=== PATIENT | male | born 1955 | race Caucasian/White ===

== ENCOUNTER 2024-01-10 12:27 | Outpatient (CLI) | payer MEDICARE, SELFPAY ==
--- NOTE | 2024-01-10 | ECHO_ITS ---
Patient Info Name: Justino Boland Age: 68 years : 1955 Gender: Male Ht: 70 in Wt: 223 lbs BSA: 2.27 m2 HR: 76 bpm BP: 144 / 83 mmHg Heart Rhythm: Sinus Rhythm Technical Quality: Fair Exam Date: 01/10/2024 12:49 PM Exam Location: Echo Lab Patient Status: Outpatient Admit Date: 01/10/2024 Staff Ordering Physician: Jr Pruitt MD Valet Parker: Nicol Boogie RDCS Attending Provider: Jr Pruitt MD Referring Physician: Sonal FATIMA; Exam Type: CA echo doppler color flow Study Info Indications - prechemo Strain analysis performed. Complete two-dimensional, color flow and Doppler transthoracic echocardiogram is performed. Summary 1. Complete two-dimensional, color flow and Doppler transthoracic echocardiogram is performed. 2. Technically difficult study with limited views. Regional wall motion assessment limited due to poor endomyocardial border definition in several views. 3. Left ventricular chamber dimension is normal. 4. Left ventricular systolic function is normal, estimated at 60-65%. 5. There is moderately increased left ventricular wall thickness. 6. The left ventricular diastolic function is normal. 7. Global longitudinal strain is mildly elevated at -14 %. 8. Right atrial chamber dimension is mildly enlarged. 9. There is no aortic valve stenosis. 10. There is no mitral valve regurgitation. 11. There is trace tricuspid valve regurgitation. 12. Mild pulmonary hypertension, estimated pulmonary arterial systolic pressure is 38 mmHg. Left Ventricle Technically difficult study with limited views. Regional wall motion assessment limited due to poor endomyocardial border definition in several views. Left ventricular chamber dimension is normal. Left ventricular systolic function is normal, estimated at 60-65%. There is moderately increased left ventricular wall thickness. The left ventricular diastolic function is normal. Global longitudinal strain is mildly elevated at -14 %. Right Ventricle Right ventricular chamber dimension is normal. Right ventricular systolic function is normal. Left Atria Left atrial chamber dimension is normal. Right Atria Right atrial chamber dimension is mildly enlarged. Aortic Valve The aortic valve is not well visualized. There is no aortic valve stenosis. There is no aortic valve regurgitation. Pulmonic Valve The pulmonic valve is not well visualized. Mitral Valve The mitral valve has normal leaflets. There is no mitral valve regurgitation. Tricuspid Valve The tricuspid valve leaflets are normal. There is trace tricuspid valve regurgitation. Mild pulmonary hypertension, estimated pulmonary arterial systolic pressure is 38 mmHg. Pericardium/Pleural The pericardium appears normal. There is trivial pericardial effusion. Aorta The aortic root size at the sinus of Valsalva is normal. The prox ascending aorta size is normal. There is mild aortic atherosclerosis. Left Ventricular Outflow Tract Name Value Normal LVOT 2D LVOT Diameter 2.0 cm LVOT Doppler LVOT Peak Gradient 5 mmHg LVOT Mean Gradient 2 mmHg LVOT VTI 20 cm LVOT
== END 2024-01-10 12:28 | disposition home or self-care (01) ==
PROVIDERS: PCP Nurse Practitioner; Visit Provider Internal Medicine Hematology & Oncology
DX: C50.221 Malignant neoplasm of upper-inner quadrant of right male breast (principal); Z17.0 Estrogen receptor positive status [ER+]; Z01.818 Encounter for other preprocedural examination; I27.20 Pulmonary hypertension, unspecified
CPT/HCPCS: 93306

== ENCOUNTER 2024-01-18 08:00 | Outpatient (CLI) | payer MEDICARE, SELFPAY ==
[2024-01-18 09:12] LABS: Basophils Absolute Auto 0.1 K/mm3 (0.0-0.1); Basophils Percent Auto 0.7 % (0.2-1.2); Eosinophils Absolute Auto 0.4 K/mm3 (0-0.3); Eosinophils Percent Auto 4.8 % (0-4.4); Hematocrit 44.9 % (42.0-52.0); Hemoglobin 15.3 g/dL (14.0-18.0); Immature Granulocyte Absolute 0.05 K/mm3 (0.00-0.031); Immature Granulocyte Percent A 0.7 % (0-0.5); Lymphocytes Absolute Auto 2.31 K/mm3 (0.9-3.2); Lymphocytes Percent Auto 30.8 % (18.3-44.2); Mean Corpuscular HGB Conc 34.1 g/dl (32-36); Mean Corpuscular Hemoglobin 30.4 pg (26-34); Mean Corpuscular Volume 89.1 fl (80-100); Mean Platelet Volume 10.9 fl (7.4-10.4); Monocytes Absolute Auto 0.6 K/mm3 (0.1-0.6); Monocytes Percent Auto 7.9 % (2.6-8.5); Neutrophils Absolute Auto 4.1 K/mm3 (1.3-6.7); Neutrophils Percent Auto 55.1 % (45.5-73.1); Platelet Count Result 181 k/mm3 (150-375); Red Blood Count 5.04 M/mm3 (4.6-6.20); Red Cell Distribution Width 13.3 % (11.5-14.5); White Blood Count 7.5 K/mm3 (4.5-10.0)
[2024-01-18 09:22] LABS: Anion Gap 7 mmol/L (4-12); Blood Urea Nitrogen 23 mg/dL (9-20); Carbon Dioxide 26 mmol/L (22-30); Chloride 110 mmol/L (98-107); Estimated Glomerular Filt Rate > 60; Glucose 151 mg/dL (65-110); Potassium 3.6 mmol/L (3.4-5.0); Sodium 143 mmol/L (137-145)
[2024-01-18 09:23] LABS: INR 0.9; Prothrombin Time 12.6 Seconds (11.1-14.7)
[2024-01-18 09:24] LABS: Partial Thromboplastin Time 25.2 Seconds (22.3-36.8)
== END 2024-01-18 08:01 | disposition home or self-care (01) ==
LOC: ANHSURGERY 08:05
PROVIDERS: Anesthesiology; PCP Nurse Practitioner; Visit Provider Surgery
DX: C50.929 Malignant neoplasm of unspecified site of unspecified male breast (principal); E11.9 Type 2 diabetes mellitus without complications; Z01.818 Encounter for other preprocedural examination
CPT/HCPCS: 36415; 80048; 85025; 85610; 85730

== ENCOUNTER 2024-01-20 00:45 | Day surgery (SDC) | payer MEDICARE, SELFPAY ==
[2024-01-17 15:05] VITALS: BMI 31.8
--- NOTE | 2024-01-17 15:30 | PC.NURSE ---
Report to the Outpatient Waiting Room, entrance under the green pavilion located off [facility], at time __11:00AM on date ___01/20/24____. Planned Procedure Time: __1:00PM . Time changes happen often and if your time is changed the preop area will call you the afternoon before. - You and your visitor will be asked to self-screen and do not enter if you have any COVID symptoms. - A mask is optional within the hospital at this time. Patients may have clear liquids (water, carbonated beverages, clear teas, apple juice) until 3 hours prior to surgery with a maximum of 20 ounces. - No food from midnight until time of surgery. Take the following medications with a SIP of water the morning of surgery: ____AMLODIPINE DO NOT STOP ANY OF YOUR OTHER PRESCRIPTION MEDICATIONS PRIOR TO SURGERY ?EXCEPT THE FOLLOWING Medications to discontinue per physician ____HOLD ALL VITAMINS/SUPPLEMENTS 3 DAYS PRE-OP PER ANESTHESIA Date to take last dose 01/16/24 Please no make-up, nail spanish, hairspray, perfume, deodorant, or body powder the day of surgery. No jewelry (including any body piercings) or valuables the day of surgery, leave them at home. Please take a shower or bath the night before, or the morning of, surgery with an antibacterial soap. Wear comfortable, loose fitting clothing. - Jewelry must be removed prior to entering the operating room. Rings and piercings that are not removed may be cut off. - The hospital will not accept responsibility for valuables. - Please leave all valuables, including medications, at home the day of surgery. If you are going home after surgery, a licensed box truck driver must drive you home. - NO public transportation without another adult if you receive anesthesia. - We recommend that an adult stay with you for 24 hours following discharge. - We also recommend that you do not drive, make important decision, drink alcoholic beverages, or take any drugs that were not prescribed by your health care provider for at least 24 hours after your discharge time. Follow any additional instructions given to you from your surgeon. If you or anyone in your household have experienced Covid symptoms in the past week, please notify your surgeon or the nurse liaison at the phone number below for possible testing. Telephone instructions given to ___PATIENT and asked if any additional questions and then verbalized understanding. Patient advised to call surgeon office or pre surgery nurse liaison [phone] if any additional questions.
--- NOTE | 2024-01-19 12:46 | WPDANESEPPF ---
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 Patient Data Age: 68 Gender: M Height: 1.79 m Weight: 102 kg Allergies Allergy/AdvReac Type Severity Reaction Status Date / Time amoxicillin Allergy Unknown Hives Verified 01/17/24 14:44 clavulanic acid Allergy Unknown Hives Verified 01/17/24 14:44 [From Augmentin] clindamycin Allergy Unknown Hives, N/V Verified 01/17/24 14:44 erythromycin base Allergy Unknown Hives Verified 01/17/24 14:44 atorvastatin AdvReac Mild MUSCLE Verified 01/17/24 14:44 WEAKNESS & PAIN, JOINT PAIN pravastatin AdvReac Unknown MUSCLE Verified 01/17/24 14:44 PAIN, WEAKNESS, JOINT PAIN rosuvastatin AdvReac Unknown MUSCLE Verified 01/17/24 14:44 PAIN, WEAKNESS, JOINT PAIN Home Medications Medication Instructions Recorded Confirmed Type alirocumab 150 mg/mL subcutaneous 150 mg subcut Q14D 11/26/23 01/17/24 History pen injector allopurinol 100 mg tablet 100 mg PO DAILY 11/26/23 01/17/24 History amlodipine 5 mg tablet 5 mg PO QAM 11/26/23 01/17/24 History aspirin 81 mg capsule 81 mg PO DAILY 11/26/23 01/17/24 History dapagliflozin propanediol 10 mg 10 mg PO DAILY 11/26/23 01/17/24 History tablet (Farxiga) ezetimibe 10 mg tablet 10 mg PO DAILY 11/26/23 01/17/24 History fenofibrate 160 mg tablet 160 mg PO DAILY 11/26/23 01/17/24 History hydrochlorothiazide 12.5 mg capsule 12.5 mg PO QAM 11/26/23 01/17/24 History icosapent ethyl 1 gram capsule 2 g PO BID 11/26/23 01/17/24 History insulin glargine 100 unit/mL 90 unit subcut QPM 11/26/23 01/17/24 History subcutaneous solution (Lantus U-100 Insulin) insulin needles (disposable) 31 11/26/23 01/14/24 History lisinopril 40 mg tablet 40 mg PO HS 11/26/23 01/17/24 History metformin 1,000 mg tablet 1,000 mg PO BID 11/26/23 01/17/24 History nebivolol 20 mg tablet 20 mg PO HS 11/26/23 01/17/24 History nitroglycerin 0.4 mg sublingual 0.4 mg sublingual Q5M PRN Chest 11/26/23 01/17/24 History tablet Pain pantoprazole 40 mg tablet,delayed 40 mg PO HS 11/26/23 01/17/24 History release semaglutide 1 mg/dose (4 mg/3 mL) 1.5 mg subcut WEEKLY 11/26/23 01/17/24 History subcutaneous pen injector (Ozempic) sildenafil 50 mg tablet (Viagra) 50 mg PO DAILY PRN Sexual Activity 11/26/23 01/17/24 History multivitamin (Multiple Vitamins 1 tablet PO DAILY 01/17/24 01/17/24 History tablet) Patient hx anesthesia problems: none Family hx anesthesia problems: none Results Review: All pre-operative results and documents have been reviewed as part of the pre-operative evaluation. [facility] Past Medical History Medical History (Updated 01/20/24 @ 12:35 by Salas Campa DO) CAD (coronary artery disease) GERD (gastroesophageal reflux disease) History of breast cancer Hyperlipidemia Hypertension Surgical History Surgical History (Updated 01/19/24 @ 12:47 by Salas Campa DO) History of coronary artery stent placement 2016 History of mastectomy Social History Social History Smoking status: Never smoker Living arrangements: with family Additional living arrangements comments: Spiritual care concerns: No Anes - Eval Final PreProcedure Day of Procedure 01/19/24 12:46 Patient weight: obese Heart: regular rate and rhythm Lungs: clear to auscultation Airway: Mallampati scale class II Neurological: alert and oriented Last oral intake: >/= 8 hours ASA classification: III Emergent: no Anesthetic plan: proceed Anesthesia type and monitoring: general GIVS and standard monitoring Results Review: All pre-operative results and documents have been reviewed as part of the pre-operative evaluation. Informed Consent: The patient's anesthetic suzy
--- NOTE | ~2024-01-20 | XR_ITS ---
EXAMINATION: XR chest port-a-cath/central DATE: 01/20/2024 15:06 INDICATION: Port placement. TECHNIQUE: A single frontal view of the chest was obtained on 2 radiographs. COMPARISON: None. FINDINGS: There is no pneumonia, pleural effusion, or pneumothorax. The heart size is normal. There i s a left subclavian port with tip in superior vena cava. There is displacement and compression of the catheter between the clavicle and first rib. IMPRESSION: 1. Port tip in the superior vena cava. Displacement and compression of the catheter between the clavi wendy and first rib increases the risk of catheter dysfunction or fracture. Reviewed, dictated and finalized at location E. IMPRESSION: 1. Port tip in the superior vena cava. Displacement and compression of the cath eter between the clavicle and first rib increases the risk of catheter dysfunct ion or fracture.
--- NOTE | ~2024-01-20 | XR_ITS ---
EXAMINATION: XR fl guide central line place DATE: 01/20/2024 15:19 INDICATION: Port placement. TECHNIQUE: An intraoperative fluoroscopic view of the chest was obtained. I was not present. Fluorosc opy exposure time was 78 seconds. COMPARISON: Chest single view 01/20/2024 FINDINGS: There is a left subclavian port with tip at superior cavoatrial junction. IMPRESSION: 1. Port tip at superior cavoatrial junction. Reviewed, dictated and finalized at location E.
[2024-01-20 11:04] VITALS: BP 150/70; PULSE 73; RESP 18; TEMP 36.5; O2SAT 98
[2024-01-20] MEDS: LACTATED RINGERS 1,000 ML 30 ML IV CONT (11:40)
[2024-01-20 11:47] LABS: Glucose Point of Care 122 mg/dl (65-105)
--- NOTE | 2024-01-20 11:54 | WPDHPUPDATE1 ---
History and Physical Update Update Date/Time: 01/20/24 11:54 History and Physical has been reviewed, including an updated exam of the patient. There are NO changes in the patient's condition. Risks, benefits, and alternatives have been discussed and questions answered. Patient agrees to proceed with procedure.
[2024-01-20] MEDS: KETOROLAC 15 MG/ML VIAL (*BKC) IV PUSH (12:10)
[2024-01-20] MEDS: HEPARIN SODIUM 1,000 UNITS/ML VIAL 1000 UNITS IV PUSH (13:53)
[2024-01-20] MEDS: BUPIVACAINE/EPINEPHRINE 0.5% 10 ML VIAL 30 ML INFILTRATE (13:53)
[2024-01-20] MEDS: ceFAZolin 2 GM/D5W 50 ML 2 GM/50 ML BAG IVPB (14:00)
[2024-01-20 14:50] VITALS: BP 118/58; PULSE 72; RESP 14; O2SAT 95
[2024-01-20 14:56] LABS: Glucose Point of Care 93 mg/dl (65-105)
--- NOTE | 2024-01-20 14:58 | P.OP_ITS ---
Procedure Note - Detailed Date of Procedure 01/20/24 Pre-op Diagnosis Breast cancer, inadequate venous access for chemotherapy Post-op Diagnosis Same Procedure Performed Placement left subclavian vortex Port-A-Cath under fluoroscopy Surgeon Enmanuel Arriaga MD Health Care Analyst Cristian Shields, [facility] Anesthesia MAC and Local Indications Patient has breast cancer and is in need of chemotherapy. I was asked by his oncologist to place a Port-A-Cath. He is taken to surgery for that purpose. Findings Port-A-Cath tip in the distal SVC right atrial junction Description of Procedure Patient was taken to surgery and anesthesia was introduced. The left neck and left subclavian areas were prepped and draped. The proposed incision was marked on the skin in the left subclavian area. Local was infiltrated into this area and incision was made. Cautery was used for hemostasis. We dissected through the subcutaneous and down to the pectoralis major fascia. I divided the pectoralis major fascia and then created a subfascial pocket inferior to the original incision. I infiltrated additional local into the pocket and also under the left clavicle. A single puncture was used to cannulate the left subclavian vein. A guidewire passed readily and C-arm fluoroscopy showed that the guidewire was in the right atrium. I then used C-arm fluoroscopy to measure for the length of Port-A-Cath that would be needed. It was cut to the appropriate length. I then passed an introducer and sheath over the guidewire under fluoroscopic guidance. I removed the introducer and guidewire. The Port-A-Cath was then passed through the sheath and into the superior vena cava. We checked the position and the Port-A-Cath tubing seemed to be a little bit long. I then removed it from the sheath and held pressure over the into the sheath. I cut about 2 cm off the into the Port-A-Cath. I then re introduced it through the sheath and into the superior vena cava. The length looked much better now. We then removed the sheath. I again checked the position and it appeared to be excellent. I cannulated the Port-A-Cath with a Naqvi needle and aspirated blood and flushed it several times with heparin. It seemed to be working quite well. I sutured the Port-A-Cath to the pectoralis major muscle with 2-0 silk. I checked it again and again it aspirated blood and irrigated nicely with heparin. I then closed the pocket with layered running 2-0 Vicryl suture. The skin was closed with running 4-0 Monocryl subcuticular skin suture. The wound was dressed with Exofin surgical adhesive. The patient was awakened and taken to outpatient recovery in good condition. Sponge and needle counts were correct x2. Implants Vortex Port-A-Cath left subclavian position Estimated Blood Loss -5 Drains No Packing No Pathology None sent Complications No immediate complications Condition Stable Disposition Same day [facility] Billing Surgery - Charge Forward: Surgery Billing (Placement Port-A-Cath under fluoroscopy)
[2024-01-20 15:20] VITALS: BP 120/60; PULSE 70; RESP 20
[2024-01-20 15:50] VITALS: BP 120/70; PULSE 70; RESP 20
[2024-01-20 16:10] VITALS: BP 115/74; PULSE 70; RESP 20
--- NOTE | 2024-01-25 16:38 | PM.SD2 ---
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 The tumor is staged to a but his Oncotype DX score is elevated at 41. I have been requested by his oncologist to place a Port-A-Cath for chemotherapy. He is taken to surgery at this time for Port-A-Cath placement under fluoroscopy. [facility] Past Medical History Medical History CAD (coronary artery disease) GERD (gastroesophageal reflux disease) History of breast cancer Hyperlipidemia Hypertension Surgical History Surgical History History of coronary artery stent placement 2016 History of mastectomy Social History Social History Smoking status: Never smoker Living arrangements: with family Additional living arrangements comments: Spiritual care concerns: No Same Day Admit/Disch: Med Pre-admit Medications Home Medications Medication Instructions Recorded Confirmed Type alirocumab 150 mg/mL subcutaneous 150 mg subcut Q14D 11/26/23 01/25/24 History pen injector allopurinol 100 mg tablet 100 mg PO DAILY 11/26/23 01/25/24 History amlodipine 5 mg tablet 5 mg PO QAM 11/26/23 01/25/24 History aspirin 81 mg capsule 81 mg PO DAILY 11/26/23 01/25/24 History dapagliflozin propanediol 10 mg 10 mg PO DAILY 11/26/23 01/25/24 History tablet (Farxiga) ezetimibe 10 mg tablet 10 mg PO DAILY 11/26/23 01/25/24 History fenofibrate 160 mg tablet 160 mg PO DAILY 11/26/23 01/25/24 History hydrochlorothiazide 12.5 mg capsule 12.5 mg PO QAM 11/26/23 01/25/24 History icosapent ethyl 1 gram capsule 2 g PO BID 11/26/23 01/25/24 History insulin glargine 100 unit/mL 90 unit subcut QPM 11/26/23 01/25/24 History subcutaneous solution (Lantus U-100 Insulin) insulin needles (disposable) 31 11/26/23 01/25/24 History lisinopril 40 mg tablet 40 mg PO HS 11/26/23 01/25/24 History metformin 1,000 mg tablet 1,000 mg PO BID 11/26/23 01/25/24 History nebivolol 20 mg tablet 20 mg PO HS 11/26/23 01/25/24 History nitroglycerin 0.4 mg sublingual 0.4 mg sublingual Q5M PRN Chest 11/26/23 01/25/24 History tablet Pain pantoprazole 40 mg tablet,delayed 40 mg PO HS 11/26/23 01/25/24 History release semaglutide 1 mg/dose (4 mg/3 mL) 1.5 mg subcut WEEKLY 11/26/23 01/25/24 History subcutaneous pen injector (Ozempic) sildenafil 50 mg tablet (Viagra) 50 mg PO DAILY PRN Sexual Activity 11/26/23 01/25/24 History multivitamin (Multiple Vitamins 1 tablet PO DAILY 01/17/24 01/25/24 History tablet) tramadol 50 mg tablet 50 mg PO Q6H PRN pain #10 tabs 01/20/24 01/25/24 Rx Review of Systems Review of Systems All systems reviewed & are unremarkable except as noted in HPI and below (HPI and those items noted below) Constitutional Constitutional: Denies chills and Denies fever(s) Cardiovascular Cardiovascular: Denies chest pain, Denies diaphoresis, Denies dyspnea and Denies paroxysmal nocturnal dyspnea Respiratory Respiratory: Denies chest congestion, Denies cough and Denies dyspnea Integumentary/Breasts Skin/Breast: Denies lesions and Denies rash Exam Const: General: comfortable, no acute distress, alert and awake HENMT: Head: normocephalic and atraumatic Mouth: Yes Normal oral and palatal mucosa present Eyes: Conjunctivae: conjunctivae normal Pupils: Equal, round and reactive pupils present EOM: EOMs intact bilaterally Neck: Neck: normal visual inspection, no lymphadenopathy and nontender Chest: Chest palpation & inspection: abnormal inspection of the chest (Right mastectomy scar) scar Resp: Effort & Inspection: normal respiratory effort Auscultation: clear to auscultation bilaterally Cardio: Rate: regular rate Rhythm:
== END 2024-01-20 16:15 | disposition home or self-care (01) ==
PROVIDERS: PCP Nurse Practitioner; Visit Provider Surgery
PROC: (CPT 36561; principal; 2024-01-20 13:00)
DX: C50.221 Malignant neoplasm of upper-inner quadrant of right male breast (principal); I10 Essential (primary) hypertension; E78.5 Hyperlipidemia, unspecified; I25.10 Atherosclerotic heart disease of native coronary artery without angina pectoris; K21.9 Gastro-esophageal reflux disease without esophagitis; E66.9 Obesity, unspecified; Z68.32 Body mass index [BMI] 32.0-32.9, adult; Z79.85 Long-term (current) use of injectable non-insulin antidiabetic drugs; Z79.82 Long term (current) use of aspirin; Z79.4 Long term (current) use of insulin; Z79.84 Long term (current) use of oral hypoglycemic drugs; Z95.5 Presence of coronary angioplasty implant and graft; Z85.3 Personal history of malignant neoplasm of breast
CPT/HCPCS: 36561; 36415; 77001; 80048; 82948; 85025; 85610; 85730; C1788; J0690; J1100; J1644; J1885; J2250; J2405; J2704; J3010; J7120

== ENCOUNTER 2025-03-06 13:49 | Outpatient (CLI) | payer MEDICARE, SELFPAY ==
--- OUTSIDE RECORDS SUMMARY | 2025-03-06 14:42 | XMS_ITS | Encounter Summary ---
Author Organization [facility] Address [facility] [place] [address] Care Team Providers Care Microbiology Technician Name Role Phone Kira Talavera [facility] Primary Care Provider [phone] Encounter Details Date Type Department Care Team (Late st Contact Info) Description 01/15/2023 Sient Message Enc [facility] [address] [place] [address] Kira Talavera [facility] [address] [place] [id number] Demetria's medicine Social History Tobacco Use Types Packs/Day Years Used Date Smoking Tobacco: Never Smokeless Tobacco: Never Comments:Provider to international student counselor Alcohol Use Standard Drinks/Week Comments Yes 0 (1 standard drink = 0.6 oz pur e alcohol) socially Humiliation, Afraid, Rape, and Kick questionnair e Answer Date Recorded Within the last year, have y ou been afraid of your partner or ex-partner? No 11/29/2022 Within the last year, have y ou been humiliated or emotionally abused in other ways by your partner or ex-partner? No Within the last year, have y ou been kicked, hit, slapped, or otherwise physically hurt by your partner or ex-partner? No 11/29/2022 Within the last year, have y ou been raped or forced to have any kind of sexual activity by your partner or ex-partner? No 11/29/2022 AUDIT-C Answer Date Recorded Frequency of Alcohol Consumption Monthly or less 11/15/2018 Average Number of Drinks 1 or 2 019 Frequency of Binge Drinking Never 10/22 Overall Financial Resource Strain (CARDIA) Answe r Date Recorded How hard is it for you to pa y for the very basics like food, housing, medical care, and heating? Not hard at all 11/29/2022 PHQ-2 Answer Date Recorded PHQ-2 Score - If the patient scores above 3, please move on to questions 3-9 0 02/27/2022 Hunger Vital Sign Answer Date Recorded Within the past 12 months, y ou worried that your food would run out before you got the money to buy more. Never true 11/30/19 23 Within the past 12 months, t he food you bought just didn't last and you didn't have money to get more. Never true 11/29/2022 PRAPARE - Transportation Answer Date Re corded In the past 12 months, has l ack of transportation kept you from medical appointments or from getting medications? No 11/18 In the past 12 months, has l ack of transportation kept you from meetings, work, or from getting things needed for daily living? No 11/29/2022 Housing Stability Vital Sign Answer Roberto e Recorded In the last 12 months, was t here a time when you were not able to pay the mortgage or rent on time? No 11/29/2022 In the last 12 months, how many places have you lived? 1 11/29/2022 In the last 12 months, was t here a time when you did not have a steady place to sleep or slept in a halfway (including now)? 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 Answer Date of Assessment Author Status No 11/29/2022 4:57 AM SILVANOT Irene Hampton RN Active * Do you have serious difficulty walking or climbing stairs? Answer Date of Assessment Author Status No 11/29/2022 4:57 AM SILVANOT Irene Hampton RN Active * Do you have difficulty dressing or bathing? Answer Date of Assessment Author Status No 11/29/2022 4:57 AM SILVANOT Irene Hampton RN Active * Because of a physical, mental, or emotional condition, do you have difficulty doing errands alone such as visiting a doctor's office or shopping? Answer Date of Assessment Author Status No 11/29/2022 4:57 AM SILVANOT Irene Hampton RN Active documented as of this encounter Mental Status * Because of a physical, mental, or emotional condition, do you have serious difficulty concentrating, remembering, or making decisions? Answer Entry Date Author Status No 11/29/2022 4:57 AM CDT Irene Hampton RN Active documented in this encounter Progress Notes * RIGOBERTO Augustine - 01/15/2023 4:46 PM CDT Synthroid direct is 75 dollars for 90 days. if they are ok with that we can send it * Nathalie Duarte LPN - 01/15/2023 4:37 PM CDT Please review/advise. Synthroid Direct? Or any other suggestions? documented in this encounter Plan of Treatment Upcoming Encounters Date Type Department Care Team (Late st Contact Info) Description 07/10/2025 8:00 AM CDT Office Visit [address] [place], [place] [id number] Kira Talavera FNP [address] [place] [address] [place] [id number] documented as of this encounter Visit Diagnoses Not on filedocumented in this encounter Additional Health Concerns Assessment Noted Time PHQ-9 Depression Total Score: 0 08/29/20 21 8:34 AM BUSINESS AFFAIRS MANAGER documented as of this encounter Care Teams Microbiology Technician Relationship Specialty Start Date End Date Kira Talavera FNP [address] [place] [address] [place] [address] PCP - General Nurse Practitioner Family 03/12/20 documented as of this encounter
--- OUTSIDE RECORDS SUMMARY | 2025-03-06 14:42 | XMS_ITS | Encounter Summary ---
Author Organization [facility] Address [facility] [place] [address] Care Team Providers Care Day Care Aide Name Role Phone Talavera Kira FRANKLIN Primary Care Provider [phone] Encounter Details Date Type Department Care Team (Late st Contact Info) Description 04/01/2023 SRE [place] - 2 Message Enc [facility] [address] [place] [address] Harpreet Montenegro, MANAGER IN TRAINING [address] [place] [phone] question regarding blood thinner type drug Social History Tobacco Use Types Packs/Day Years Used Date Smoking Tobacco: Never Smokeless Tobacco: Never Comments:Provider to field counsel Alcohol Use Standard Drinks/Week Comments Yes 0 [...] place to sleep or slept in a intermediate (including now)? No 11/29/2022 Sex and Gender [...] AM CDT Irene Hampton RN Active * Do you have serious difficulty walking or climbing stairs? Answer Date of Assessment Author Status No 11/29/2022 4:57 AM SILVANOT Irene Hampton RN Active * Do you have difficulty dressing or bathing? Answer Date of Assessment Author Status No 11/29/2022 4:57 AM CDT Irene Hampton RN Active * Because of a physical, mental, or emotional condition, do you have difficulty doing errands alone such as visiting a doctor's office or shopping? Answer Date of Assessment Author Status No 11/29/2022 4:57 AM CDT Irene Hampton RN Active documented as of this encounter Mental Status * Because of a physical, mental, or emotional condition, do you have serious difficulty concentrating, remembering, or making decisions? Answer Entry Date Author Status No 11/29/2022 4:57 AM SILVANOT Irene Hampton RN Active documented in this encounter Plan of Treatment Upcoming Encounters Date Type Department Care Team (Late st Contact Info) Description 07/10/2025 8:00 AM CDT Office Visit [facility] [address] [place] [address] Kira Talavera FNP [address] [place] [id number] documented as of this encounter Visit Diagnoses Not on filedocumented in this encounter Additional Health Concerns Assessment Noted Time PHQ-9 Depression Total Score: 0 08/29/20 21 8:34 AM SCHOOL BUS INSPECTOR documented as of this encounter Care Teams Day Care Aide Relationship Specialty Start Date End Date Kira Talavera FNP [address] [facility] [place] [address] PCP - General Nurse Practitioner Family 03/12/20 documented as of this encounter
--- OUTSIDE RECORDS SUMMARY | 2025-03-06 14:42 | XMS_ITS | Encounter Summary ---
Author Organization [facility] Address [facility] [place] [address] Care Team Providers Care Marketing Operations Coordinator Name Role Phone Kira Talavera REMEDIATION TECHNICIAN Primary Care Provider [phone] Encounter Details Date Type Department Care Team (Late st Contact Info) Description 09/23/2022 Abstract [facility] [address] [place] [address] Abstract, Doc Med Group Social History Tobacco Use Types Packs/Day Years Used Date Smoking Tobacco: Never Smokeless Tobacco: Never Comments:Provider to securities counselor Alcohol Use Standard Drinks/Week Comments Yes 0 (1 standard drink = 0.6 oz pur e alcohol) socially AUDIT-C Answer Date Recorded Frequency of Alcohol Consumption Monthly or less 11/15/2018 Average Number of Drinks 1 or 2 019 Frequency of Binge Drinking Never 10/22 PHQ-2 Answer Date Recorded PHQ-2 Score - If the patient scores above 3, please move on to questions 3-9 0 02/27/2022 Sex and Gender Information Value Date Recorded Sex Assigned at Male 01/09/2025 8:14 AM CDT Legal Sex Male 10:17 PM CDT Gender Identity Male 01/09/2025 8:14 AM CDT Sexual Orientation Not on file 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 file documented as of this encounter Plan of Treatment Upcoming Encounters Date Type Department Care Team (Late st Contact Info) Description 07/10/2025 8:00 AM CDT Office Visit [address] [place] [address] Kira Talavera FNP [address] [place] [address] documented as of this encounter Procedures Procedure Name Priority Date/Time Associated Diagnosis Comments HEMOGLOBIN, GLYCOSYLATED Routine 07/30/2022 documented in this encounter Results * HEMOGLOBIN, GLYCOSYLATED (07/30/2022) HGB A1C 8.6 % 07/30/2022 [facility] Abstract LABORATORY Final Res ult documented in this encounter Visit Diagnoses Not on filedocumented in this encounter Additional Health Concerns Infection Onset Date Last Indicated Resolved Time COVID-19 Rule Out 11/28/2022 11/28/2022 11/28/2022 11:30 PM CATALYST SUPERVISOR Assessment Noted Time PHQ-9 Depression Total Score: 0 08/29/20 21 8:34 AM CATALYST SUPERVISOR documented as of this encounter Care Teams Marketing Operations Coordinator Relationship Specialty Start Date End Date Kira Talavera FNP [address] [place] [address] PCP - General Nurse Practitioner Family 03/12/20 documented as of this encounter
--- OUTSIDE RECORDS SUMMARY | 2025-03-06 14:42 | XMS_ITS | Encounter Summary ---
Author Organization [facility] Address [facility] [place] [address] Care Team Providers Care Business Technology Teacher Name Role Phone Luis Felipe Saldivar MD Unavailable Unavailab Nilay Anthony MD Unavailable [phone] Kira Talavera TRIMMING MACHINE OPERATOR Primary Care Provider [phone] Encounter Details Date Type Department Care Team (Late st Contact Info) Description 03/05/2021 Abstract [facility] [address] [place] [address] Nilay Stout MD [address] [place] [address] Social History Tobacco Use Types Packs/Day Years Used Date Smoking Tobacco: Never Smokeless Tobacco: Never Comments:no counseling requi red. 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 No / Unsure 03/04/2021 7:54 AM CDT documented as of this encounter Plan of Treatment Upcoming Encounters Date Type Department Care Team (Late st Contact Info) Description 07/10/2025 8:00 AM CDT Office Visit [facility] [address] [place] [address] Kira Talavera FNP [address] [place] [address] documented as of this encounter Visit Diagnoses Not on filedocumented in this encounter Additional Health Concerns Infection Onset Date Last Indicated Resolved Time COVID-19 Rule Out 11/28/2022 11/28/2022 11/28/2022 11:30 PM NOVELTY MAKER Assessment Noted Time PHQ-9 Depression Total Score: 0 03/04/20 8:07 AM CDT documented as of this encounter Care Teams Business Technology Teacher Relationship Specialty Start Date End Date Kira Talavera FNP [facility] [place] [address] PCP - General Nurse Practitioner Family 03/12/20 Luis Felipe Saldivar MD CARDIOVASCULAR DISEASE 05/04/17 09/08/21 Nilay Stout MD [place] [employer] Farmworker INTERVENTIONAL CARDIOLOGY 11/15/18 09/08/21 documented as of this encounter
--- OUTSIDE RECORDS SUMMARY | 2025-03-06 14:42 | XMS_ITS | Encounter Summary ---
Author Organization [facility] Address [facility] [place] [address] Care Team Providers Care Jewelry Jobber Name Role Phone Kira Talavera [facility] Primary Care Provider [phone] Encounter Details Date Type Department Care Team (Late st Contact Info) Description 12/23/2021 Nascentrichart Message Enc [facility] [address] [place] [id number] Kira Talavera [facility] [address] [place] [phone] can you help me locate a Doctor that Dr. Johnson referred me to previously Social History Tobacco Use Types Packs/Day Years Used Date Smoking Tobacco: Never Smokeless Tobacco: Never Comments:Provider to peer counselor Alcohol Use Standard Drinks/Week Comments Yes 0 (1 standard drink = 0.6 oz pur e alcohol) AUDIT-C Answer Date Recorded Frequency of Alcohol Consumption Monthly or less 11/15/2018 Average Number of Drinks 1 or 2 019 Frequency of Binge Drinking Never 10/22 PHQ-2 Answer Date Recorded PHQ-2 Score - If the patient scores above 3, please move on to questions 3-9 0 08/29/2021 Sex and Gender Information Value Date Recorded Sex Assigned at Male 01/09/2025 8:14 AM CDT Legal Sex Male 10:17 PM CDT Gender Identity Male 01/09/2025 8:14 AM CDT Sexual Orientation Not on file 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 No / Unsure 12/26/2021 9:32 AM CDT documented as of this encounter Progress Notes * Nathalie Duarte LPN - 12/25/2021 11:25 AM CDT Please review. * Maine Vallecillo LPN - 12/23/2021 12:15 PM CDT Forward to Romelia ARGUELLESP-C. documented in this encounter Plan of Treatment Upcoming Encounters Date Type Department Care Team (Late st Contact Info) Description 07/10/2025 8:00 AM CDT Office Visit [facility] [address] [place] [id number] Kira Talavera FNP [address] [place] [address] documented as of this encounter Visit Diagnoses Not on filedocumented in this encounter Additional Health Concerns Infection Onset Date Last Indicated Resolved Time COVID-19 Rule Out 11/28/2022 11/28/2022 11/28/2022 11:30 PM COAL CARRIER Assessment Noted Time PHQ-9 Depression Total Score: 0 08/29/20 21 8:34 AM COAL CARRIER documented as of this encounter Care Teams Jewelry Jobber Relationship Specialty Start Date End Date Kira Talavera FNP [address] [place] [id number] PCP - General Nurse Practitioner Family 03/12/20 documented as of this encounter
--- OUTSIDE RECORDS SUMMARY | 2025-03-06 14:42 | XMS_ITS | Encounter Summary ---
Author Organization [facility] Address [facility] [place] [address] Care Team Providers Care Food Processing Scientist Name Role Phone Luis Felipe Saldivar MD Unavailable Unavailab Nilay Anthony MD Unavailable [phone] Kira Talavera Primary Care Provider Encounter Details Date Type Department Care Team (Late st Contact Info) Description 08/08/2021 FleAffairt Message Enc [facility] [place], [place] [phone] Kira Talavera FNP [address] [place] [address] Other Social History Tobacco Use Types Packs/Day Years Used Date Smoking Tobacco: Never Smokeless Tobacco: Never Comments:Provider to adoption counselor Alcohol Use Standard Drinks/Week Comments Yes 0 (1 standard drink = 0.6 oz pur e alcohol) AUDIT-C Answer Date Recorded Frequency of Alcohol Consumption Monthly or less 11/15/2018 Average Number of Drinks 1 or 2 019 Frequency of Binge Drinking Never 10/22 PHQ-2 Answer Date Recorded PHQ-2 Score - If the patient scores above 3, please move on to questions 3-9 0 04/15/2021 Sex and Gender Information Value Date Recorded Sex Assigned at Male 01/09/2025 8:14 AM CDT Legal Sex Male 10:17 PM CDT Gender Identity Male 01/09/2025 8:14 AM CDT Sexual Orientation Not on file 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 file documented as of this encounter Progress Notes * Naz Mandel MA - 08/09/2021 10:01 AM CST Done RICAL ANALYSIS GROUP MANAGER documented in this encounter Plan of Treatment Upcoming Encounters Date Type Department Care Team (Late st Contact Info) Description 07/10/2025 8:00 AM CDT Office Visit [facility] [place] [address] Kira Talavera FNP [address] [place] [address] documented as of this encounter Visit Diagnoses Not on filedocumented in this encounter Additional Health Concerns Infection Onset Date Last Indicated Resolved Time COVID-19 Rule Out 11/28/2022 11/28/2022 11/28/2022 11:30 PM NUMERICAL ANALYSIS GROUP MANAGER Assessment Noted Time PHQ-9 Depression Total Score: 0 04/15/20 3:37 PM CDT documented as of this encounter Care Teams Food Processing Scientist Relationship Specialty Start Date End Date Kira Talavera FNP [address] [place] [address] PCP - General Nurse Practitioner Family 03/12/20 Luis Felipe Saldivar MD CARDIOVASCULAR DISEASE 05/04/17 09/08/21 Nilay Stout MD [employer] Mechanical Engineer INTERVENTIONAL CARDIOLOGY 11/15/18 09/08/21 documented as of this encounter
--- OUTSIDE RECORDS SUMMARY | 2025-03-06 14:42 | XMS_ITS | Data Portability ---
Author Organization [facility], [address] Neurology (ND) Address [address] [place] [address] Care Team Providers Care Weaver [place] Name Role Phone JASE JUNG Primary Care Provider [phone] JASON SAXENA Chinese Teacher Assessment Encounter Date Assessment Date Assessment LastModified by Organization Details LastModified Time 12/07/2024 12/07/2024 Coronary Artery Disease: The patient denies anginal type chest discomfort. I will continue with antiplatelet therapy, beta blockade, cholesterol lowering therapy, symptomatic observation, and risk factor modification was also encouraged. Hypertension: The patient's blood pressure is well controlled in the office today. I will continue the patient's current anti-hypertensiv e medication regimen in this regard. Dyslipidemia: The patient's goal LDL is less than 55. His last lipid panel from July 2024 demonstrated an LDL of 14; however, his triglycerides were elevated at 256 due to his blood sugars, for which I've recommended better blood sugar control. I have asked for the patient to follow up in 1 year. If you or the patient feels that he or she needs to be seen sooner, we would be happy to do so. If you have any questions or concerns, please do not hesitate to call. Thank you for allowing us the privilege of participating in this patient's care. [email or web address] Not available 12/07/2024 13:22:16 Plan of Treatment Reminders Order Date Submit Date Provider Last Modified By Organization Details Last Modified Time Details Appointments None record ed. Lab None record ed. Referral None record ed. Procedures None record ed. Surgeries None record ed. Imaging None record ed. Medication Orders None record ed. Patient TargetsNo targets recorded. Patient InstructionsNo instructions recorded. Reason for Referral None Reported. Problems Name Problem SNOMED Code Status Onset Date Resolution Date Notes Provider Name and Address Organization Details Recorded Time Coronary arterioscleros is 68736571 Active 2024 JASON Salas, EYE TECHNICIAN [address] [place] [address], [phone], [facility] 5 12:25:51 Essential hypertension 12794316 Active 2024 JASON Salas, EYE TECHNICIAN [address] [place] [address], [phone], [facility] 5 12:25:56 Dyslipidemia 566629440 Active 2024 JASON Salas, EYE TECHNICIAN [address] [place] [address], [phone], [facility] 5 12:25:59 Mixed hyperlipidemia 889205008 Active 2024 Francine Johnson [facility] 5 17:55:00 Problem Notes None recorded. Procedures Surgical History Date Name Laterality Status Provider Name and Address Organization Details Recorded Time 07/21/20 24 Colonoscopy completed [facility] 12/07/2024 13:01:09 09/20/19 12 Cardiac Catheterization completed [facility] 12/07/2024 13:02:45 Imaging Results None recorded. Procedure Notes None recorded. Medical Equipment None Reported. Allergies Allergen ID Allergen Name Allergen Category Reaction Reaction Severity Criticality Documentation Date Start Date Code Code System Note Provider Name and Address Organization Details Recorded Time 7704557 amoxicill in medicatio n Not available Not available Not available 12/07/2024 723 RxNorm unrec ogniz ed react ion (text : Manoharo abdoul, code: 73050 5006) (from [facility]) [facility] 12:47:27 6287982 amoxicill in / clavulana te medicatio n Not available Not available Not available 12/07/20242016 21831 RxNorm unrec ogniz ed react ion (text : Unkno wn, code: 65876 5006) [facility] 12[facility]30 3161762 atorvasta tin medicatio n myalgias (muscle pain) other Not available Not available [facility] 12/07/20242018 61271 RxNorm myalg ias [facility] 12:47:37 2076518 atorvasta tin calcium medicatio n myalgias (muscle pain) Not available Not available 12/07/20242018 56642 RxNorm [facility] 12:47:39 7671972 clindamyc in Not available Not available Not available Not available 12/07/20242016 2582 RxNorm unrec ogniz ed react ion (text : Unkno wn, code: 08027 5006) (from [facility]) Krissy [facility] 12:47:56 Medications Name Sig Start Date Stop Date Status Note LastModified by Organization Details LastModified Time sildenafil 50 mg tablet TAKE 1 TABLET BY MOUTH ONCE DAILY NEEDED. DO NOT TAKE ANY NITRATE MEDICATIO N FOR 24 HOURS 12/07 completed Not Available Not Available Not Available azithromyci n 250 mg tablet TAKE 2 TABLETS BY MOUTH ON DAY 1, AND THEN TAKE 1 TABLET BY MOUTH ONCE A DAY ON DAY 2 THROUGH DAY 5 12/07 completed Not Available Not Available Not Available prednisone 20 mg tablet TAKE 1 TABLET BY MOUTH TWICE DAILY 12/07 completed Not Available Not Available Not Available amlodipine 5 mg tablet TAKE 1 TABLET BY MOUTH ONCE DAILY active Not Available Not Available No t Available allopurinol 100 mg tablet TAKE 1 TABLET BY MOUTH ONCE DAILY active Not Available Not Available No t Available tramadol 50 mg tablet TAKE 1 TABLET BY MOUTH EVERY 6 HOURS NEEDED FOR PAIN 12/07 completed Not Available Not Available Not Available sildenafil 100 mg tablet TAKE 1 TABLET BY MOUTH ONCE DAILY NEEDED FOR ERECTILE DYSFUNCTI ON. DO NOT TAKE ANY NITRATE MEDICATIO N FOR 24 HOURS AFTER. active Not Available Not Available No t Available ondansetron 8 mg disintegrat ing tablet DISSOLVE 1 TABLET IN MOUTH EVERY 8 HOURS NEEDED FOR NAUSEA AND VOMITING 12/07 completed Not Available Not Available Not Available lidocaine-p rilocaine 2.5 %-2.5 % topical cream APPLY QUARTER SIZE AMOUNT OF CREAM TO PORT SITE 30 MINUTES PRIOR TO ACCESS active Not Available Not Available No t Available Nitrostat 0.[address] 1 tablet under tongue every 5 minutes as needed for chest pain , do not exceed 3 tablets in 15 minutes . 2024 active Not Available Not Available Not Avai lable dexamethaso ne 2 mg tablet TAKE 1 TABLET BY MOUTH TWICE DAILY DAY BEFORE TREATMENT , DAY OF TREATMENT , AND DAY AFTER TREATMENT 12/07 completed Not Available Not Available Not Available cephalexin 500 mg capsule TAKE 1 CAPSULE BY MOUTH 4 TIMES DAILY FOR 7 DAYS 12/07 completed Not Available Not Available Not Available pantoprazol e 40 mg tablet,robinson yed release TAKE 1 TABLET BY MOUTH ONCE DAILY active Not Available Not Available No t Available metformin 1,000 mg tablet TAKE 1 TABLET BY MOUTH TWICE DAILY active Not Available Not Available No t Available dexamethaso ne 4 mg tablet TAKE 1 TABLET BY MOUTH TWICE DAILY THE DAY BEFORE TREATMENT , THE DAY OF TREATMENT , AND THE DAY AFTER TREATMENT 12/07 completed Not Available Not Available Not Available aspirin 81 mg tablet Take 1 tablet every day by oral route. active Not Available Not Available No t Available gabapentin 100 mg capsule TAKE 1 CAPSULE BY MOUTH THREE TIMES DAILY active Not Available Not Available No t Available levofloxaci n 500 mg tablet TAKE 1 TABLET BY MOUTH ONCE DAILY. (TAKE A PROBIOTIC DAILY ALSO) 12/07 completed Not Available Not Available Not Available albuterol sulfate HFA 90 mcg/actuati on aerosol inhaler INHALE 2 PUFFS BY MOUTH EVERY 6 HOURS NEEDED 12/07 completed Not Available Not Available Not Available lisinopril 40 mg tablet TAKE 1 TABLET BY MOUTH ONCE DAILY active Not Available Not Available No t Available tamoxifen 20 mg tablet TAKE 1 TABLET BY MOUTH ONCE DAILY active Not Available Not Available No t Available Blood Glucose Test strips active Not Available Not Available Not Available ezetimibe 10 mg tablet TAKE 1 TABLET BY MOUTH ONCE DAILY active Not Available Not Available No t Available Novolog FlexPen U-100 Insulin aspart 100 unit/mL (3 mL) subcutaneou s INJECT 24 UNITS SUBCUTANE OUSLY BEFORE MEALS. FOR SUGARS OVER 200, INJECT 28 UNITS;FOR SUGARS OVER 250, INJECT 30 UNITS; FOR SUGARS OVER 300, INJECT 32 UNITS. active Not Available Not Available No t Available fenofibrate 160 mg tablet TAKE 1 TABLET BY MOUTH ONCE DAILY active Not Available Not Available No t Available hydrochloro thiazide 12.5 mg tablet TAKE 1 TABLET BY MOUTH ONCE DAILY active Not Available Not Available No t Available Lantus Solostar U-100 Insulin 100 unit/mL (3 mL) subcutaneou s pen INJECT 90 UNITS SUBCUTANE OUSLY NIGHTLY active Not Available Not Available No t Available Bystolic 20 mg tablet Take 1 tablet every day by oral route. active Not Available Not Available No t Available icosapent ethyl 1 gram capsule TAKE 2 CAPSULES BY MOUTH TWICE DAILY active Not Available Not Available No t Available Farxiga 10 mg tablet TAKE 1 TABLET BY MOUTH ONCE DAILY active Not Available Not Available No t Available Praluent Pen 150 mg/mL subcutaneou s pen injector INJECT 1 ML SUBCUTANE OUSLY EVERY TWO WEEKS 12/07 completed Not Available Not Available Not Available Repatha SureClick 140 mg/mL subcutaneou s pen injector INJECT 1 ML SUBCUTANE OUSLY EVERY TWO WEEKS active Not Available Not Available No t Available Toujeo Max U-300 SoloStar 300 unit/mL (3 mL) subcutaneou s insulin pen INJECT 100 UNITS SUBCUTANE OUSLY NIGHTLY active Not Available Not Available No t Available Sutab 1.479-0.188 -0.225 gram tablet TAKE 12 TABLETS BY MOUTH TWICE DAILY DIRECTED 12/07 completed Not Available Not Available Not Available Ozempic 2 mg/dose (8 mg/3 mL) subcutaneou s pen injector INJECT 2 MG SUBCUTANE OUSLY ONCE A WEEK 12/07 completed Not Available Not Available Not Available Mounjaro 5 mg/0.5 mL subcutaneou s pen injector INJECT 1 SYRINGE SUBCUTANE OUSLY ONCE A WEEK active Not Available Not Available No t Available Mounjaro 2.5 mg/0.5 mL subcutaneou s pen injector INJECT 1 SYRINGE SUBCUTANE OUSLY ONCE A WEEK 12/07 completed Not Available Not Available Not Available Vitals Date Recorded Body weight Body mass index (BMI) Body height Respiratory rate Oxygen saturation Oxygen saturation in Arterial blood by Pulse oximetry Heart rate Systolic blood pressure Diastolic blood pressure Provider Name and Address Organization Details Last Updated DateTime 804960. 48 g 33.6 kg/m2 180.34 cm 16 /min 95 % 95 % 72 /min 120 mm[Hg] 68 mm[Hg] Krissy Pace [facility] 12:30:44 Social History Question Answer Notes LastModified by Organizat ion Details LastModified Time Tobacco Smoking Status Never Smoker Krissy Pace [facility] 12/07/2024 13:00:42 What Is Your Level Of Caffeine Consumption? Occasional [email or web address] Information not available 12/07/2024 Sex: Unknown Functional Status Question Answer Note LastModified by Organization D etails LastModified Time What is your level of alcohol consumption? None [email or web address] Information not available 12/07/2024 Mental Status None recorded. Family History Relationship Description Onset Age of this Age Resolved Age Notes LastModified by Organization Details LastModified Time Mother History of cardiac surgery [email or web address] Not available 11/19 12:59:38 Maternal Grandmother Diabetes mellitus [email or web address] Not available 11/19 13:00:07 Medical History Condition Response High Blood Pressure Y High Cholesterol Y Past Encounters Encounter ID Performer Location Encounter Start Date Encounter Closed Date Diagnosis/Indication Diagnosis SNOMED-CT Code Diagnosis ICD10 Code Diagnosis Note [id number] JASON SAXENA APRN [facility] [address] [place] [address] 12/07/2024 12:05:45 12/08/2024 06:55:43 Coronary arteriosclerosis 83443463 I25.10 Essential hypertension 45742001 I10 Dyslipidemia 426976135 E 78.5 Health Concerns Section Related Observation LastModified by Organization Detai ls LastModified Time None Recorded Concern Status LastModified by Organization Details LastModified Time None Recorded Advance Directives Directive None Recorded Payers Insurance Date Sequence Insurance Name Policy Number Policy Sanchez Covered Member ID Sanchez Member ID Guarantor Name 12/22/2024 1 [employer] (MEDICARE REPLACEMENT/ ADVANTAGE - PPO) [id number] Justino Boland [id number] Justino Boland Notes Date Note Type Note Provider Name and Address Organization Details Recorded Time 12/07/2024 text/html I saw this patie nt in the outpatient cardiology clinic today for follow-up.As you know, this patient has a cardiovascular history of coronary artery disease (status post percutaneous coronary intervention to his right coronary artery in October 2015), hypertension, and dyslipidemia.The patient has been doing well from a cardiac standpoint since his last visit. He continues to guerra issues with his post cancer treatment effecting his blood sugar levels, for which he is following with his oncologist and pneumatic system conveyor operator closely. The patient denies anginal type chest discomfort, palpitations, shortness of breath, dyspnea on exertion, orthopnea, paroxysmal nocturnal dyspnea, peripheral edema, claudication, pre-syncope, syncope, or symptoms consistent with TIA or stroke. JASON SAXENA, EYE TECHNICIAN [address] [facility], [place], [address], [facility] 12/07/2024 13:22:38
--- OUTSIDE RECORDS SUMMARY | 2025-03-06 14:42 | XMS_ITS | Encounter Summary ---
Author Organization [facility] Address On license of [facility] [place] [address] Care Team Providers Care Medical Insurance Biller Name Role Phone Luis Felipe Saldivar MD Unavailable Unavailab Nilay Anthony MD Unavailable [phone] Kira Talavera [facility] Primary Care Provider Encounter Details Date Type Department Care Team (Late st Contact Info) Description 12/28/2020 [employer] Message Enc [facility] [address] [place], [place] [id number] Irene Pettit V, [facility] [address] [place], [place] [phone] Follow Up/Update Social History Tobacco Use Types Packs/Day Years [...] please move on to questions 3-9 0 12/27/2020 Sex and Gender Information Value Date Recorded [...] have Coronavirus / COVID-19? No / Unsure 12/27/2020 7:02 AM CDT documented as of this encounter Progress Notes * Susan Thomason LPN - 12/30/2020 9:25 AM CDT Talked with Temo on the phone regarding his message and negative covid test. He stated that as of now he is much better. Patient asked if he should resume as normal since COVID test was neg. He doesn't have to quarentine documented in this encounter Plan of Treatment Upcoming Encounters Date Type Department Care Team (Late st Contact Info) Description 07/10/2025 8:00 AM CDT Office Visit [facility] [address] [place] [address] Kira Talavera FNP [address] [place] [address] documented as of this encounter Visit Diagnoses Not on filedocumented in this encounter Additional Health Concerns Infection Onset Date Last Indicated Resolved Time COVID-19 Rule Out 12/27/2020 12/27/2020 12/28/2020 8:30 AM CDT COVID-19 Rule Out 11/28/2022 11/28/2022 11/28/2022 11:30 PM TRAVEL NURSE documented as of this encounter Care Teams Medical Insurance Biller Relationship Specialty Start Date End Date Kira Talavera FNP [address] [place] [address] PCP - General Nurse Practitioner Family 03/12/20 Luis Felipe Saldivar MD CARDIOVASCULAR DISEASE 05/04/17 09/08/21 Nilay Stout MD [employer] Ii Inspector INTERVENTIONAL CARDIOLOGY 11/15/18 09/08/21 documented as of this encounter
--- OUTSIDE RECORDS SUMMARY | 2025-03-06 14:42 | XMS_ITS | Encounter Summary ---
Author Organization [facility] Address [facility] [place] [address] Care Team Providers Care Title I Director Name Role Phone Luis Felipe Saldivar MD Unavailable Unavailab Mario Hough MD Primary Care Provider [phone] Nilay Stout MD Unavailable [phone] Kira Talavera Primary Care Provider [phone] Encounter Details Date Type Department Care Team (Late st Contact Info) Description 05/18/2017 Abstract [facility] [address] [place] [address] Luis Felipe Saldivar MD Social History Tobacco Use Types Packs/Day Years Used Date Smoking Tobacco: Never Alcohol Use Standard Drinks/Week Comments Yes 0 (1 standard drink = 0.6 oz pur e alcohol) Sex and Gender Information Value Date Recorded [...] Description 07/10/2025 8:00 AM CDT Office Visit [address] [place] [address] Kira Talavera FNP [address] [place] [address] [place] [address] documented as of this encounter Visit Diagnoses Not on filedocumented in this encounter Additional Health Concerns Infection Onset Date Last Indicated Resolved Time COVID-19 Rule Out 12/27/2020 12/27/2020 12/27/2020 7:49 AM CDT COVID-19 Rule Out 12/27/2020 12/27/2020 12/28/2020 8:30 AM CDT COVID-19 Rule Out 11/28/2022 11/28/2022 11/28/2022 11:30 PM SCHOOL TRAFFIC SUPERVISOR documented as of this encounter Care Teams Title I Director Relationship Specialty Start Date End Date Mario Johnson MD [address] [place] [address] PCP - General FAMILY PRACTICE 05/04/17 03/11/20 Kira Talavera FNP [address] [place] [address] PCP - General Nurse Practitioner Family 03/12/20 Luis Felipe Saldivar MD CARDIOVASCULAR DISEASE 05/04/17 09/08/21 Nilay Stout MD [address] [place] [address] [place] [employer] Cloth Cutter Hand INTERVENTIONAL CARDIOLOGY 11/15/18 09/08/21 documented as of this encounter
--- OUTSIDE RECORDS SUMMARY | 2025-03-06 14:42 | XMS_ITS | Encounter Summary ---
Author Organization [facility] Address [facility] [place] [address] Care Team Providers Care Summons Server Name Role Phone Kira Talavera [facility] Primary Care Provider [phone] Encounter Details Date Type Department Care Team (Late st Contact Info) Description 11/16/2022 Mot[employer] Message Enc [facility] [address] [place], [place] [phone] Kira Talavera [facility] [address] [place] [id number] request for a dosage change for amlodipine Social History Tobacco Use Types Packs/Day Years Used Date Smoking Tobacco: Never Smokeless Tobacco: Never Comments:Provider to parliamentary counsel Alcohol Use Standard Drinks/Week Comments Yes [...] as of this encounter Progress Notes * Lela Lino RN - 11/16/2022 3:22 PM CST Rx to pt pharmacy and sent a my chart message to pt. ROAD SIGNAL AND SWITCH OPERATOR * Lela Lino RN - 11/16/2022 1:31 PM CST Please note and advise; last office visit 02/27/22, last filled 09/01/[id number] SIGNAL AND SWITCH OPERATOR documented in this encounter Plan of Treatment Upcoming Encounters Date Type Department Care Team (Late st Contact Info) Description 07/10/2025 8:00 AM CDT Office Visit Critical access hospital [address] [facility] [place] [address] Kira Talavera FNP [address] [place] [address] [place] [address] documented as of this encounter Visit Diagnoses Not on filedocumented in this encounter Additional Health Concerns Infection Onset Date Last Indicated Resolved Time COVID-19 Rule Out 11/28/2022 11/28/2022 11/28/2022 11:30 PM RAILROAD SIGNAL AND SWITCH OPERATOR Assessment Noted Time PHQ-9 Depression Total Score: 0 08/29/20 8:34 AM RAILROAD SIGNAL AND SWITCH OPERATOR documented as of this encounter Care Teams Summons Server Relationship Specialty Start Date End Date Kira Talavera FNP [address] [place] [address] [place] [address] PCP - General Nurse Practitioner Family 03/12/20 documented as of this encounter
--- OUTSIDE RECORDS SUMMARY | 2025-03-06 14:42 | XMS_ITS | Encounter Summary ---
Author Organization [facility] Address [facility] [place] [address] Care Team Providers Care Veneer Lathe Operator Name Role Phone Kira Talavera [facility] Primary Care Provider Encounter Details Date Type Department Care Team (Late st Contact Info) Description 08/03/2022 eEventt Message Enc Critical [facility] hospital [address] [place] [phone] Kira Talavera [facility] [address] [place] [phone] Flu shots and inquiry regarding medicare checkup Social History Tobacco Use Types Packs/Day Years Used Date Smoking Tobacco: Never Smokeless Tobacco: Never Comments:Provider to addiction counselor Alcohol Use Standard Drinks/Week Comments Yes [...] as of this encounter Progress Notes * Justyna Vallecillo RN - 08/04/2022 2:23 PM CST I am reaching out to Nicol Amezcua, sales consulting director to get some answers for Temo. REGENERATOR * Nathalie Duarte LPN - 08/04/2022 1:29 PM CST Please review/advise. REGENERATOR * RIGOBERTO Augustine - 08/04/2022 12:35 PM CST Can this be referred to justyna to address as I dont know the answers to the questions he is asking. REGENERATOR * Nathalie Duarte LPN - 08/04/2022 10:47 AM CST Please review/advise. REGENERATOR * RIGOBERTO Augustine - 08/04/2022 8:44 AM CST Call pt. We are still not doing the welcome to medicare visits here ( for justino) We are referring patients to the medicare cinic in [place] to get it done. The annual medicare wellness visits ( for mary) can be done here per [place] on . REGENERATOR * Lela Lino RN - 08/03/2022 1:11 PM CST Please note and advise REGENERATOR documented in this encounter Plan of Treatment Upcoming Encounters Date Type Department Care Team (Late st Contact Info) Description 07/10/2025 8:00 AM CDT Office Visit [facility] [address] [place] [address] Kira Talavera FNP [address] [place] [address] documented as of this encounter Visit Diagnoses Not on filedocumented in this encounter Additional Health Concerns Infection Onset Date Last Indicated Resolved Time COVID-19 Rule Out 11/28/2022 11/28/2022 11/28/2022 11:30 PM BUSH REGENERATOR Assessment Noted Time PHQ-9 Depression Total Score: 0 08/29/20 21 8:34 AM BUSH REGENERATOR documented as of this encounter Care Teams Veneer Lathe Operator Relationship Specialty Start Date End Date Kira Talavera FNP [address] [place] [address] PCP - General Nurse Practitioner Family 03/12/20 documented as of this encounter
--- OUTSIDE RECORDS SUMMARY | 2025-03-06 14:42 | XMS_ITS | Encounter Summary ---
Author Organization [facility] Address [facility] [place] [address] Care Team Providers Care Rehabilitation Nurse Name Role Phone Ilan Kira Ganesh FRANKLIN Primary Care Provider [phone] Encounter Details Date Type Department Care Team (Late st Contact Info) Description 03/04/2023 Abstract [facility] BUSINESS OFFICE [address] [place] [address] Abstract, Doc Med Group Social History Tobacco Use Types Packs/Day Years Used Date Smoking Tobacco: Never Smokeless Tobacco: Never Comments:Provider to debt counselor Alcohol Use Standard Drinks/Week Comments Yes [...] place to sleep or slept in a custodial (including now)? No 11/29/2022 Sex and Gender [...] AM SILVANOT Irene Hampton RN Active * Are you [...] Description 07/10/2025 8:00 AM CDT Office Visit [address] [place], [place] [id number] Kira Talavera [address] [place], [place] [id number] documented as of this encounter Procedures Procedure Name Priority Date/Time Associated Diagnosis Comments GFR Routine 11/12/2022 ALBUMIN URINE RANDOM W/CREATININE Routine 11/12/2022 documented in this encounter Results * ALBUMIN URINE RANDOM (11/12/2022) MICROALBUMIN (U) <12.0 CREATININE RANDOM (U) 45.0 MICROALB/CREAT <27 URINE SPECIMEN / Unknown 11/12/2022 [facility] Abstract URINE ORDERABLES Final Re sult * GFR (11/12/2022) GFR ESTIMATE 59 11/12/2022 [facility] Abstract LABORATORY Final Res ult documented in this encounter Visit Diagnoses Not on filedocumented in this encounter Additional Health Concerns Assessment Noted Time PHQ-9 Depression Total Score: 0 08/29/20 21 8:34 AM PLATE GLASS GRINDER documented as of this encounter Care Teams Rehabilitation Nurse Relationship Specialty Start Date End Date Kira Talavera FNP [address] [place] [address] [place] [address] PCP - General Nurse Practitioner Family 03/12/20 documented as of this encounter
--- OUTSIDE RECORDS SUMMARY | 2025-03-06 14:42 | XMS_ITS | Encounter Summary ---
Author Organization [facility] Address [facility] [place] [address] Care Team Providers Care Field Service Rep Name Role Phone Luis Felipe Saldivar MD Unavailable Unavailab Mario Hough MD Primary Care Provider [phone] Nilay Stout MD Unavailable [phone] Kiar Talavera Primary Care Provider [phone] Encounter Details Date Type Department Care Team (Late st Contact Info) Description 06/22/2018 Abstract [facility] [address] [place] [address] Luis Felipe Saldivar MD Social [...] Description 07/10/2025 8:00 AM CDT Office Visit [address] [place] [address] Kira Talavera FNP [address] [place] [address] [place] [address] documented as of this encounter Procedures Procedure Name Priority Date/Time Associated Diagnosis Comments LIPID PANEL (OUTSIDE LAB) Routine 06/22/2018 documented in this encounter Results * LIPID PANEL (OUTSIDE LAB) (06/22/2018) CHOLESTEROL 190 TRIGLYCERIDES 359 HDL 29 LDL (CALCULATED) 89 RISK 7 06/22/2018 us Delaney Rivera MD LAB-OUTSIDE/ABSTRACTED Final Res ult documented in this encounter Visit Diagnoses Not on filedocumented in this encounter Additional Health Concerns Infection Onset Date Last Indicated Resolved Time COVID-19 Rule Out 12/27/2020 12/27/2020 12/27/2020 7:49 AM CDT COVID-19 Rule Out 12/27/2020 12/27/2020 12/28/2020 8:30 AM CDT COVID-19 Rule Out 11/28/2022 11/28/2022 11/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
--- OUTSIDE RECORDS SUMMARY | 2025-03-06 14:42 | XMS_ITS | Encounter Summary ---
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 No 11/29/2022 Sex and Gender [...] documented in this encounter Progress Notes * Rebeca Hadley RN - 02/01/2023 2:02 PM CDT Please review and advise documented in this encounter Plan of Treatment Upcoming Encounters Date Type Department Care Team (Late st Contact Info) Description 07/10/2025 8:00 AM CDT Office Visit [facility] [address] [place] [address] Kira Talavera FNP [address] [place] [address] documented as of this encounter Visit Diagnoses Not on filedocumented in this encounter Additional Health Concerns Assessment Noted Time PHQ-9 Depression Total Score: 0 08/29/20 21 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
--- OUTSIDE RECORDS SUMMARY | 2025-03-06 14:42 | XMS_ITS | Encounter Summary ---
Author Organization [facility] Address [facility] [place] [address] Care Team Providers Care Environmental Services Tech Name Role Phone Luis Felipe Saldivar MD Unavailable Unavailab Nilay Anthony MD Unavailable [phone] Kira Talavera Primary Care Provider [phone] Encounter Details Date Type Department Care Team (Late Contact Info) Description 12/11/2020 [employer] Message Enc [facility] [address] [place] [phone] [place] [place] [facility] Provider RE:Appointment Request: Annual Physical Social History Tobacco Use Types Packs/Day Years Used Date Smoking Tobacco: Never Smokeless Tobacco: Never Alcohol Use Standard Drinks/Week Comments Yes 0 (1 standard drink = 0.6 oz pur e alcohol) AUDIT-C Answer Date Recorded Frequency of Alcohol Consumption Monthly or less 11/15/2018 Average Number of Drinks 1 or 2 019 Frequency of Binge Drinking Never 10/22 Sex and Gender Information Value Date Recorded [...] Encounters Date Type Department Care Team (Late Contact Info) Description 07/10/2025 8:00 AM CDT Office Visit [facility] [address] [place] [address] Kira Talavera FNP [address] [place] [address] documented as of this encounter Visit Diagnoses Not on filedocumented in this encounter Additional Health Concerns Infection Onset Date Last Indicated Resolved Time COVID-19 Rule Out 12/27/2020 12/27/2020 12/27/2020 7:49 AM CDT COVID-19 Rule Out 12/27/2020 12/27/2020 12/28/2020 8:30 AM CDT COVID-19 Rule Out 11/28/2022 11/28/2022 11/28/2022 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
--- OUTSIDE RECORDS SUMMARY | 2025-03-06 14:42 | XMS_ITS | Referral Summary ---
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 Primary Care Provider Encounters Date Type Department Care Team Description 03/06/2025 10:45 AM CDT Office Visit [facility] [address] [phone] Delaney Rivera MD Hyperlipidemia associated with type 2 diabetes mellitus (HCC) (Primary Dx) from Last 3 Months Allergies Active Allergy Reactions Criticality Noted Date Comments Amoxicillin Hives High 02/19/2021 Amoxicillin-Pot Clavulanate Unknown,Hive s,Nausea And Vomiting High 05/18/2017 Atorvastatin Muscle pain,Other (S ee comments) Medium 08/15/2019 myalgias Clindamycin Hives,Nausea And Vomiting High 02/19/2021 Erythromycin Hives High 02/19/2021 Levofloxacin Shortness of breath High 04/11/2024 Potassium Pravastatin Muscle pain Medium 02/19/2021 Rosuvastatin Shellfish Nausea & Vomiting Low 11/15/2018 Ztfubss-Lbc-Eos Reductase Inhibitors Muscle pain,Unknown Medium 02/19/2021 Medications aspirin 81 mg tablet take 1 tablet (81MG) by oral route every day [address] (PROTONIX) 40 mg EC tablet take 1 tablet by oral route every day 90 2 015 Active allopurinol (ZYLOPRIM) 100 mg tablet take 1 tablet by oral route every day 0 0 016 Active blood glucose diagnostic strip Relion brand- test glucose 4 times daily Active nitroglycerin (NITROSTAT) 0.[address] 1 tablet (0.4 mg total) under the tongue every 5 (five) minutes as needed for chest pain Active Bystolic 20 mg tablet Take 1 tablet (20 mg total) by mouth daily 021 Active lisinopriL (PRINIVIL,ZESTRI L) 40 mg tablet Take 1 tablet (40 mg total) by mouth daily 021 Active fenofibrate (TRIGLIDE) 160 mg tablet Take 1 tablet (160 mg total) by mouth daily 022 Active traMADoL (ULTRAM) 50 mg tablet TAKE 1 TO 2 TABLETS BY MOUTH EVERY 6 HOURS NEEDED FOR PAIN NO MORE THAN 8 PER 24 HOURS Active amLODIPine (NORVASC) 5 mg tablet Take 1 tablet (5 mg total) by mouth daily 023 Active pen needle, diabetic (BD Ultra-Fine Short Pen Needle) 31 gauge x 5/16 needleIndication s:Type 2 diabetes mellitus with hyperglycemia, with long-term current use of insulin (HCC) Use to inject insulin 4 times daily 400 each 3 024 Active HYDROcodone-acet aminophen (NORCO) 5-325 mg per tablet Take 1 tablet by mouth every 4 (four) hours as needed Active lidocaine-priloc toby cream Apply quarter size amount to port site 30 minutes prior to access Active ondansetron ODT (ZOFRAN-ODT) 8 mg disintegrating tablet Dissolve 1 tablet on top of tongue then swallow with saliva every 8 hours as needed for nausea or vomiting 024 Active gabapentin (NEURONTIN) 100 mg capsule Take 1 capsule (100 mg total) by mouth 3 (three) times a day Active insulin glargine (TOUJEO MAX) 300 unit/mL (3 mL) pen for injection Inject 100 Units under the skin nightly 15 mL 6 024 2024 Active metFORMIN (GLUCOPHAGE) 1,000 mg tabletIndication s:Type 2 diabetes mellitus with hyperglycemia, with long-term current use of insulin ([facility]) Take 1 tablet by mouth twice daily 180 tablet 3 024 Active sildenafiL (VIAGRA) 100 mg tabletIndication s:Type 2 diabetes mellitus with hyperglycemia, with long-term current use of insulin ([facility]) TAKE ONE TABLET BY MOUTH NEEDED FOR ERECTILE DYSFUNCTION. DO NOT TAKE ANY NITRATE MEDICATION FOR 24 HOURS AFTER. 10 tablet 6 024 Active insulin aspart (NovoLOG) 100 unit/mL (3 mL) pen for injectionIndicat ions:Type 2 diabetes mellitus with hyperglycemia, with long-term current use of insulin ([facility]) 24 units before meals For sugars over 200, take 28 units For sugars over 250, take 30 units For sugars over 300, take 32 units 30 mL 11 024 Active Repatha SureClick 140 mg/mL pen injector INJECT 1 ML SUBCUTANEOUSLY EVERY TWO WEEKS 025 Active hydroCHLOROthiaz sergei 12.5 mg tabletIndication s:Hypertension associated with diabetes ([facility]) Take 1 tablet by mouth once daily 90 tablet 025 Active Farxiga 10 mg tabletIndication s:Type 2 diabetes mellitus with hyperglycemia, with long-term current use of insulin ([facility]) Take 1 tablet by mouth once daily 90 tablet 3 025 Active icosapent ethyL (VASCEPA) 1 gram capsuleIndicatio ns:Hyperlipidemi a associated with type 2 diabetes mellitus ([facility]) Take 2 capsules by mouth twice daily 120 capsule 025 Active tirzepatide (Mounjaro) 7.5 mg/0.5 mL pen injector injection Inject 0.5 mL (7.5 mg total) under the skin once a week 2 mL 6 025 Active icosapent ethyL (VASCEPA) 1 gram capsuleIndicatio ns:Hyperlipidemi a associated with type 2 diabetes mellitus ([facility]) Take 2 capsules (2 g total) by mouth 2 (two) times a day 360 capsule 3 024 2024 Discontinued tamoxifen (NOLVADEX) 20 mg tablet Take 1 tablet (20 mg total) by mouth daily 024 2024 Discontinued(O ther) Farxiga 10 mg tabletIndication s:Type 2 diabetes mellitus with hyperglycemia, with long-term current use of insulin (HCC) Take 1 tablet by mouth once daily 90 tablet 025 2024 Discontinued tirzepatide (Mounjaro) 5 mg/0.5 mL pen injector injectionIndicat ions:type 2 diabetes mellitus Inject 0.5 mL (5 mg total) under the skin every 7 days 6 mL 11 025 2024 Discontinued Active Problems Problem Noted Date Diagnosed Date Class 2 severe obesity due t o excess calories with serious comorbidity and body mass index (BMI) of 37.0 to 37.9 in adult 11/28/2024 Assessment & Plan (11/28/2024 11:25 AM CDT): Discussed healthy diet and importance of regular physical activity (20- 30min/day, 150min/wk). Currently under going treatment for breast ca. Hyperlipidemia associated with type 2 diabetes jamie cee 05/03/2018 Assessment & Plan (11/28/2024 11:00 AM CDT): Chronic problem. Statin intolerance. Praluent 150mg, zetia 10mg, fenofibrate 160mg & Vascepa 2gm bid. Last lipid panel: 08/03/24 LDL=14, ZK=557. Managed by cardiology. Assessment & Plan (02/02/2024 10:52 AM CDT): Chronic problem, intolerant to statins. Currently taking: Praluent 150mg every 2 wks, vascepa 2gm bid, fenofibrate 160mg daily, zetia 10mg daily. 06/11/23 LDL=16, GU=596. No changes at this time. Managed by cardiology. Assessment & Plan (11/11/2023 9:20 AM MANAGER CRISIS): Chronic problem, intolerant to statins. Currently taking: Praluent 75mg every 2 wks, vascepa 2gm bid, fenofibrate 160mg daily, zetia 10mg daily. 06/11/23 LDL=16, QV=871. No changes at this time. Managed by cardiology. Assessment & Plan (07/19/2023 9:20 AM CDT): Chronic problem, intolerant to statins. Currently taking: Praluent 75mg every 2 wks, vascepa 2gm bid, fenofibrate 160mg daily, zetia 10mg daily. 06/11/23 LDL=16, VZ=528. No changes at this time. Assessment & Plan (11/12/2022 8:31 AM MANAGER CRISIS): Chronic problem, intolerant to statins. Currently taking: Praluent 75mg every 2 wks, vascepa 2gm bid, fenofibrate 160mg daily, zetia 10mg daily. No changes at this time. Assessment & Plan (07/30/2022 12:41 PM MANAGER CRISIS): Chronic problem, statin intolerant. Recently started on PCSK9a. No changes. Assessment & Plan (04/09/2022 9:41 AM CDT): Chronic problem. Intolerant of statins, fenofibrate added by cardiology recently. No changes. Assessment & Plan (12/04/2021 10:15 AM CDT): Chronic, not well controlled Low fat Low cholesterol diet Exercise Continue Zetia and Vascepa Assessment & Plan (06/05/2021 11:19 AM CDT): High TG Continue with Vascepa Diet and exercise Assessment & Plan (02/13/2021 2:55 PM CDT): Hypertriglyceridemia associated with diabetes. Provided with samples of Vascepa to use in place of generic fish oil. Assessment & Plan (11/14/2020 3:14 PM MANAGER CRISIS): Continue Zetia and follow up with cardiology Assessment & Plan (06/28/2020 11:38 AM CDT): Continue follow up with cardiology Assessment & Plan (03/28/2020 4:37 PM CDT): Continue Zetia and follow up with cardiology. Assessment & Plan (08/15/2019 2:50 PM MANAGER CRISIS): Pt with CAD, s/p cardiac stents LDL goal is around 50. Pt not tolerating statins Recheck fasting lipid profile Consider Zetia vs CPSK-9 inhibitor ( e.g Repatha ) Assessment & Plan (02/07/2019 10:25 AM CDT): Goal of treatment , LDL cholesterol less than 100 ( less than 70 in patients with history of heart attacks and / or strokes ) NonHDL cholesterol ( total cholesterol minus HDL cholesterol ) goal less than 130 ( less than 100 in patients with history of heart attacks and / or strokes ) Low cholesterol, low fat diet was discussed and advised. Daily exercise On statin therapy Assessment & Plan (11/15/2018 1:14 PM MANAGER CRISIS): Continue atorvastatin Assessment & Plan (07/28/2018 3:05 PM MANAGER CRISIS): Will obtain results of recent lipid panel. Continue on atorvastatin 10 mg. Restart fish oil as this will have some antiplatelet impact, until follow up with machine skiver. Assessment & Plan (05/03/2018 12:46 PM CDT): Goal of treatment , LDL cholesterol less than 100 ( less than 70 in patients with history of heart attacks and / or strokes ) NonHDL cholesterol ( total cholesterol minus HDL cholesterol ) goal less than 130 ( less than 100 in patients with history of heart attacks and / or strokes ) Low cholesterol, low fat diet was discussed and advised. Daily exercise On statin therapy , very low dose of Lipitor. Has not tolerated other statins In a pt with CAD, indicationfor PCSK-9 inhibitor ( Repatha ) Patient has an appointment with his machine skiver next week month. I asked him to discuss this with him otherwise will address it. Coronary artery disease involving [place] coronar y artery 05/03/2018 Assessment & Plan (08/15/2019 2:51 PM MANAGER CRISIS): Check HS PCR Pt seeing a machine skiver LDL goal under 50 Assessment & Plan (05/03/2018 11:13 AM CDT): Indication for Jardiance Start Jardiance 25 mg daily Other male erectile dysfunction 05/03/2018 Non morbid obesity due to excess calories 2016 Assessment & Plan (09/16/2017 3:17 PM MANAGER CRISIS): Needs to focus on meal plan. Provided with education material. Assessment & Plan (04/22/2017 1:30 PM CDT): Advised pt to be very attentive to diet and exercise with diet and plan he and will be starting. Type 2 diabetes mellitus wit h hyperglycemia, with long-term current use of insulin 01/31/2014 Overview (12/23/2016): DMII WO CMP NT ST UNCNTR Assessment & Plan (11/28/2024 11:37 AM CDT): Chronic problem, A1c worsened from 6.9% 08/03/24 to now 7.6%. -Novolog increased 11/27/24 by 4 units at start -increased Mounjaro from 2.5 to 5mg weekly Current medications: Metformin 1000 mg twice daily before meals Farxiga 10 mg daily Mounjaro 5mg weekly Toujeo Max 100 units at bedtime Novolog 28 units before meals For sugars over 200, take 32 units For sugars over 250, take 34 units For sugars over 300, take 36 units For sugars over 350: take 38 Will update MA/Cr. Verified that he uses [facility]. Aware to check results/results letter in [facility]. Will contact by phone if needed. UTD on DM eye exam (06/28/24 mild NPDR wo [place]) Discussed the need to strive for regular exercise (30min most days) and diet (get at least 4-5 servings of fruit and veggies daily, avoid processed foods, increase lean protein intake and decrease carb portions as well as fruit juices, regular soda & desserts). Watch carbs and simple sugars. Check blood sugar: Dexcom G7 Check the feet daily for skin breakdown and infection. Assessment & Plan (08/03/2024 1:05 PM MANAGER CRISIS): Chronic, uncontrolled but with some improvement Importance of diet and exercise discussed Continue CGM with DEXCOM Stop Lantus Start Toujeo max, 100 units at bedtime Novolog , 24 units before meals For sugars over 200, take 28 units For sugars over 250, take 30 units For sugars over 300, take 32 units Continue with Ozempic and metformin Assessment & Plan (02/02/2024 11:28 AM CDT): Chronic problem, A1c iproved from 9.1% 11/11/23 to now 7.8%. Dexcom G7 applied & reader given to mr Boland. Instructions on application & how to use given. Aware to bring reader to all appointments so we can download data. Current medications: Metformin 1000 mg twice daily before meals Farxiga 10 mg daily Ozempic 2mg weekly Lantus 90 units at bedtime During chemo weeks if blood sugars running high: Humalog 4 units before meals For sugars over 150: take 5 units For sugars over 200: take 6 units For sugars over 250: take 7 units For sugars over 300: take 8 units For sugars over 350: take 9 units Discussed that he may need to increase 2-3 units per each level depending next chemo treatment & how he responds. UTD on labs. UTD on DM eye exam (05/2023) Discussed the need to strive for regular exercise (30min most days) and diet (get at least 4-5 servings of fruit and veggies daily, avoid processed foods, increase lean protein intake and decrease carb portions as well as fruit juices, regular soda & desserts). Watch carbs and simple sugars. Check blood sugar: will start CGM order. Dexcom G7 appliled today. Check the feet daily for skin breakdown and infection. Assessment & Plan (11/11/2023 10:04 AM MANAGER CRISIS): Chronic problem, uncontrolled. A1c worsened from 8.9% 06/2023 to now 9.1% . Discussed need to need to quickly get diet/exercise & A1c/BG down. Discussed elevated BG & risk of poor healing. Discussed increasing Ozempic to 2mg, adding short acting insulin and/or greatly needed diet changes. Will start with diet/activity changes & increasing to 2mg on Ozempic. Will send me a [employer] message in next 2 weeks with BG readings. Current medications: Metformin 1000 mg twice daily before meals Farxiga 10 mg daily Ozempic 2mg weekly Lantus 90 units at bedtime Will update MA/Cr today. Verified that he uses [employer]. Aware to check results/results letter in [employer]. Will contact by phone if needed. UTD on DM eye exam (05/2023) Discussed the need to strive for regular exercise (30min most days) and diet (get at least 4-5 servings of fruit and veggies daily, avoid processed foods, increase lean protein intake and decrease carb portions as well as fruit juices, regular soda & desserts). Watch carbs and simple sugars. Check the feet daily for skin breakdown and infection. Assessment & Plan (07/19/2023 9:44 AM CDT): Chronic problem, uncontrolled. A1c improved minimally from 9.1% 10/2022 to now 8.9%. has had issues w/Ozempic since 10/2022. Now back on 1mg consistently. Will re- evaluate meds at next appt. Possibly increasing ozempic to 2mg or add SFU. Current medications: Metformin 1000 mg twice daily before meals Farxiga 10 mg daily Increased Ozempic to 2mg weekly Lantus 90 units at bedtime UTD on labs UTD on DM eye exam Discussed the need to strive for regular exercise (30min most days) and diet (get at least 4-5 servings of fruit and veggies daily, avoid processed foods, increase lean protein intake and decrease carb portions as well as fruit juices, regular soda & desserts). Watch carbs and simple sugars. Check the feet daily for skin breakdown and infection. Assessment & Plan (11/12/2022 10:10 AM MANAGER CRISIS): Chronic problem, uncontrolled & worsening. Current medications: Metformin 1000 mg twice daily before meals Farxiga 10 mg daily Increased Ozempic to 2mg weekly suppression Lantus 90 units at bedtime Discussed possibly adding mealtine insuline or SFU if no improvement with Ozempic increase to 2mg. Discussed the need to strive for regular exercise (30min most days) and diet (get at least 4-5 servings of fruit and veggies daily, avoid processed foods, increase lean protein intake and decrease carb portions as well as fruit juices, regular soda & desserts). Watch carbs and simple sugars. Check the feet daily for skin breakdown and infection. Has f/u appt set for 03/18/[address] Rivera. Assessment & Plan (07/30/2022 12:44 PM MANAGER CRISIS): Chronic problem, deteriorating due to poor diet. We discussed again medication adjustment based on rising A1c but he declines. He had many dietary questions which we discussed at length. He will work on his lifestyle for next 3 months. If no improvement then additional change is needed which he understands (increase ozempic, add either low dose SFU or mealtime insulin). Assessment & Plan (04/09/2022 10:37 AM CDT): Chronic problem, not at goal. We discussed medication options/adjustments, he really prefers at this time to start working on incorporating daily exercise again and working on diet. We discussed lifestyle changes at length. If no improvement next visit will adjust meds. Assessment & Plan (12/04/2021 10:17 AM CDT): Hba1c was Lab Results Component Value Date HGBA1C 8.2 12/04/2021 today, indicating Inadequate DM control Goal Hba1c and blood glucose explained Diet and exercise were advised Prevention and treatment of hyypoglcyemia were discussed with the patient Blood glucose monitoring : 1-2 day Adjustment to medications: Increase Lantus to 95 unit s Assessment & Plan (06/05/2021 11:19 AM CDT): Hba1c was Lab Results Component Value Date HGBA1C 7.5 (A) 06/05/2021 today, indicating 164 DM control Goal blood sugars in the 120-150 range , with Hb1c under 7.0 % was explained 1800 calorie, consistent carb diet recommended. No more than 30-45 grams of carbs per meal recommended, as well as avoiding high concentrated sweet drinks . 25-45 min daily exercise, combining both aerobic and resistance exercise recommended. The need to monitor blood glucose before meals and bedtime was discussed. Prevention and treatment of hyypoglcyemia discussed. Continue with current regimen Assessment & Plan (02/13/2021 2:54 PM CDT): A1c 6.9. Stop glimepiride. Instructed to restart if daytime BG trend above 150. Continue other medication as prescribed. Assessment & Plan (11/14/2020 3:16 PM MANAGER CRISIS): A1c improved to 7.3. Continue with current medication at same dose. Needs to continue to be more mindful of diet and increase exercise as weather improves Assessment & Plan (06/28/2020 11:41 AM CDT): A1c increased to 8.1. Increase Ozempic to 1 mg. Will continue to increase Basaglar if FBG remain > 150. Foot care reviewed. Assessment & Plan (03/28/2020 4:38 PM CDT): A1c increased to 7.9. Likely mostly related to diet. Carb portion sizes reviewed. Continue with current regimen. If no improvement in A1c , will increase Ozempic to 1 mg. Assessment & Plan (08/15/2019 2:45 PM MANAGER CRISIS): Hba1c was Lab Results Component Value Date HGBA1C 7.5 % 08/15/2019 today, indicating sub-optimal DM control 1800 calorie, consistent carb diet recommended. No more than 30-45 grams of carbs per meal recommended, as well as avoiding high concentrated sweet drinks . 25-45 min daily exercise, combining both aerobic and resistance exercise recommended. The need to monitor blood glucose before meals and bedtime was discussed. Prevention and treatment of hyypoglcyemia discussed. Insulin dose: Continue Basaglar at current dose Also Farxiga and Glimepiride. Assessment & Plan (02/07/2019 10:24 AM CDT): Hba1c was Lab Results Component Value Date HGBA1C 7.3 02/07/2019 today, indicating adequate DM control 1800 calorie, consistent carb diet recommended 25-45 min daily aerobic and resistance exercise recommended Prevention and treatment of hyypoglcyemia discussed. Patient to let me know, might have to stop it Glimepiride. Blood glucose monitoring with fingers sticks 1-2 x day . Assessment & Plan (11/15/2018 1:13 PM MANAGER CRISIS): A1c 7.6. Insignificant change. Continue Basaglar at 80 hs Restart Ozempic at 0.25 for one month and then increase to 0.5. Check FBG and ac at least one additional time daily. Advised ac and pc check 2-3 times per week. Assessment & Plan (07/28/2018 3:02 PM MANAGER CRISIS): A1c improved at 7.7 with improved attn to diet. Start Ozempic. Now has enough pen needles. Continue other DM medications as prescribed. Focus on reducing portions over the holidays Assessment & Plan (05/03/2018 12:44 PM CDT): Your Hba1c today was: Lab Results Component Value Date HGBA1C 9.5 05/03/2018 meaning a 3 month average sugar of : 230 Your goal hba1c is under 7.0 to prevent snf diabetes complications ( eye , kidney and nerve damage ) . Your goal sugars are in the 90-130 range Daily aerobic ( walking, riding a bike, swimming ) and resistance exercises ( light weight lifting, resistance band stretching ) for at least 30 minutes is recommended If you can not walk, chair exercises is very acceptable. As little as 15-20 minutes exercise , in one or two sessions a day, is still very helpful and will help to improve your diabetes control . Eat small portion meals, no more than 1800 calories Diet Try to eat not more than than 2-3 servings of carbs ( starches ) wiith your meals. Avoid soft drinks, including regular sodas , fruit juices and sweetened tea. Drink water instead. Eat plenty of green and leafy vegetables, including salads. Take your medications regularly: Bydureon once a week Basaglar 80 u at bedtime Metformin twice a day Glimepiride once a day Monitor your sugar levels with finger sticks regularly and keep a log sheet or book. Bring your sugar meter and /or a log book or log sheet to every office visit. Start Jardiance 25 mg daily. Assessment & Plan (11/18/2017 3:32 PM MANAGER CRISIS): Hba1c was 7.9 today, indicating sub-optimal DM control 1800 calorie, consistent carb diet recommended 30 min daily aerobic and resistance exercise recommended Prevention and treatment of hyypoglcyemia discussed. Blood glucose monitoring with fingers sticks 1-2 x day . Assessment & Plan (09/16/2017 3:24 PM MANAGER CRISIS): A1c worsening at 9.0. Likely to continued non-compliance with taking BG and meds. Agree with importance of restarting diet however emphasized importance of taking DM medication every day and checking his Bg. Refuses Novolog insulin however advised that if prednisone is prescribed he will likely need to take this to control Bg. Increase Basaglar to 85 units daily. Start Farxiga 5 mg Assessment & Plan (04/22/2017 1:32 PM CDT): A1c 7.8. Needs to check BG every day so that insulin can be appropriately adjusted. BG goals reviewed. To take Bydureon weekly. If forgets dose, take when remembers. Can take at night to remember better. With cardiac risk, importance of checking BG and achieving excellent control was discussed at length. If unable to see better BG pattern and A1c improvement, will need to consider more intensive plan. SSI? SGLT2? Hypertension associated with diabetes 06/13/2013 Overview (12/23/2016): HYPERTENSION NOS Assessment & Plan (11/28/2024 11:00 AM CDT): Chronic problem, controlled on current regimen. HCTZ 12.5mg daily, amlodipine 5mg daily, lisinopril 40mg daily, bystolic 20mg daily. Managed by cardiology. Assessment & Plan (02/02/2024 10:52 AM CDT): Chronic problem, controlled on current regimen. HCTZ 12.5mg daily, amlodipine 5mg daily, lisinopril 40mg daily, bystolic 20mg daily. Managed by cardiology. Assessment & Plan (11/11/2023 9:19 AM MANAGER CRISIS): Chronic problem, controlled on current regimen. HCTZ 12.5mg daily, amlodipine 5mg daily, lisinopril 40mg daily, bystolic 20mg daily. Managed by cardiology. Assessment & Plan (07/19/2023 9:20 AM CDT): Chronic problem, controlled on current regimen. HCTZ 12.5mg daily, amlodipine 10mg daily, lisinopril 40mg daily, bystolic 20mg daily. Managed by cardiology. Assessment & Plan (11/12/2022 8:39 AM MANAGER CRISIS): Chronic problem, controlled on current regimen. HCTZ 12.5mg daily, amlodipine 10mg daily, lisinopril 40mg daily, bystolic 20mg daily. Managed by cardiology. Assessment & Plan (07/30/2022 12:41 PM MANAGER CRISIS): Controlled on current medications, no changes. Assessment & Plan (04/09/2022 9:40 AM CDT): Controlled on current medications, no changes. Assessment & Plan (12/04/2021 10:16 AM CDT): Well controlled Continue current med Low salt diet and exercise were also discussed Check MA Assessment & Plan (06/05/2021 11:18 AM CDT): Goal blood pressure is less than 140/85 Low salt diet was discussed andd recommended The importance of daily aerobic exercise was also emphasized. Continue current meds, including KASSIE-I or ARB, e.g. Lisinopril Assessment & Plan (02/13/2021 2:56 PM CDT): Controlled on current medications. Continue plan. Assessment & Plan (11/14/2020 3:14 PM MANAGER CRISIS): Controlled on current medications. Continue plan. Assessment & Plan (06/28/2020 11:37 AM CDT): Continue current medication per cardiology Assessment & Plan (03/28/2020 4:37 PM CDT): Controlled on current medications. Continue plan. Assessment & Plan (02/07/2019 10:24 AM CDT): Goal blood pressure is less than 140/85 Low salt diet recommended Daily aerobic exercise Continue current meds, including KASSIE-I or ARB Assessment & Plan (11/15/2018 1:14 PM MANAGER CRISIS): Controlled on current medications. Assessment & Plan (07/28/2018 3:03 PM MANAGER CRISIS): Follow up with new machine skiver how has records on type of stents he has. Can increase ASA to 325 mg daily once out of Plavix. Assessment & Plan (05/03/2018 12:46 PM CDT): Goal blood pressure is less than 140/85 Low salt diet recommended Daily aerobic exercise Continue current meds, including KASSIE-I or ARB Assessment & Plan (11/18/2017 3:33 PM MANAGER CRISIS): Goal blood pressure is less than 140/85 Low salt diet recommended Daily aerobic exercise Continue current meds, including KASSIE-I or ARB Assessment & Plan (09/16/2017 3:26 PM MANAGER CRISIS): BP 136/76. Check home BP 2-3 times per week. Assessment & Plan (04/22/2017 1:29 PM CDT): Continue same meds and follow up with cardiology Resolved Problems Problem Noted Date Diagnosed Date Resolved Date Class 1 obesity due to exces s calories with serious comorbidity and body mass index (BMI) of 34.0 to 34.9 in adult 11/12/2022 11/28/2024 Assessment & Plan (11/12/2022 9:39 AM MANAGER CRISIS): Discussed healthy diet and importance of regular physical activity (20- 30min/day, 150min/wk). Hypertriglyceridemia 07/26/2012 023 Overview (12/23/2016): HYPERLIPIDEMIA NEC/NOS Assessment & Plan (11/18/2017 3:34 PM MANAGER CRISIS): Goal of treatment , LDL cholesterol less than 100 ( less than 70 in patients with history of heart attacks and / or strokes ) NonHDL cholesterol ( total cholesterol minus HDL cholesterol ) goal less than 130 ( less than 100 in patients with history of heart attacks and / or strokes ) Low cholesterol, low fat diet was discussed and advised. Daily exercise Assessment & Plan (09/16/2017 3:25 PM MANAGER CRISIS): Continue statin and focus on low fat diet choices Assessment & Plan (04/22/2017 1:30 PM CDT): Continue statin Pure hypercholesterolemia 12/23/2011 Overview (12/23/2016): PURE HYPERCHOLESTEROLEM Social History Tobacco Use Types Packs/Day Years Used Date Smoking Tobacco: Never Smokeless Tobacco: Never Tobacco Cessation:Counseling Given: Not Answered Alcohol Use Standard Drinks/Week Comments Yes 0 (1 standard drink = 0.6 oz pur e alcohol) AUDIT-C Answer Date Recorded Q1: How often do you have a drink containing alcohol? Never 08/03/2024 Q2: How many drinks containi ng alcohol do you have on a typical day when you are drinking? Patient does not drink Q3: How often do you have si x or more drinks on one occasion? Never 08/03/2024 PHQ-2 Answer Date Recorded PHQ-2 Total Score (If total score is 3 or more points, staff should administer the PHQ-9) 0 08/03/2024 Sex and Gender Information Value Date Recorded Sex Assigned at Not on file Legal Sex Male 10:07 AM MANAGER CRISIS Gender Identity Not on file Sexual Orientation Straight 08/03/2024 10 :46 AM MANAGER CRISIS Last Filed Vital Signs Vital Sign Reading Time Taken Comments Blood Pressure 108/60 03/06/2025 11:08 AM CDT Pulse 76 03/06/2025 11:08 AM CDT Temperature - - Respiratory Rate 18 03/06/2025 11:0 8 AM CDT Oxygen Saturation - - Inhaled Oxygen Concentration - - Weight 108.8 kg (239 lb 12.8 oz) 2024 11:08 AM CDT Height 180.3 cm (5' 11) 03/06/2025 11: 08 AM CDT Body Mass Index 33.45 03/06/2025 11:08 AM CDT Plan of Treatment Not on file Procedures Procedure Name Priority Date/Time Associated Diagnosis Comments POCT GLUCOSE Routine 03/06/2025 11:07 AM CDT Hyperlipidemia associated with type 2 diabetes mellitus (HCC) POCT HEMOGLOBIN A1C Routine 03/06/2025 1 1:07 AM CDT Hyperlipidemia associated with type 2 diabetes mellitus (HCC) EGFR Routine 11/28/2024 11:50 AM CDT Type 2 diabetes mellitus with hyperglycemia, with long-term current use of insulin (HCC) ALBUMIN CREATININE RATIO, URINE Routine 11/28/2024 11:50 AM CDT Type 2 diabetes mellitus with hyperglycemia, with long-term current use of insulin (HCC) LIPID PANEL Routine 08/03/2024 11:53 AM MANAGER CRISIS Type 2 diabetes mellitus with hyperglycemia, with long-term current use of insulin (HCC) HM DIABETES EYE EXAM Routine 06/28/2024 3:36 PM CDT PSA, TOTAL Routine 11/21/2019 10:50 AM MANAGER CRISIS from Last 3 Months or Most Recently Relevant to Health Maintenance Results * (ABNORMAL) POCT hemoglobin A1c (03/06/2025 11:07 AM CDT) Hemoglobin A1C, POC 6.9(A) 4.0 - 5.6 % Comment:None Capillary blood 03/06/2025 1 1:07 AM CDT us Delaney Rivera MD POINT OF CARE TEST ORDERABLES Fi nal Result * POCT glucose (03/06/2025 11:07 AM CDT) Glucose Blood, POC 110 Normal Fasting 70 - 100, Random <200 mg/dL Comment:None Blood 03/06/2025 11:0 7 AM CDT us Delaney Rivera MD POINT OF CARE TEST ORDERABLES Fi nal Result * (ABNORMAL) eGFR (11/28/2024 11:50 AM CDT) eGFR 52(L) >=60 mL/min/1. 73 m2 Comment: Interpretive Data Reference Interval Normal >/= 90 mL/min/1.73m2 Mildly decreased* 60 - 89 mL/min/1.73m2 Mildly to moderately decreased 45 - 59 mL/min/1.73m2 Moderately to severely decreased 30 - 44 mL/min/1.73m2 Severely decreased 15 - 29 mL/min/1.73m2 Kidney Failure < 15 mL/min/1.73m2 *Relative to young adult level Estimated glomerular filtration rate is determined by the 2020 CKD-EPI equation recommended by the National Kidney Foundation (A Unifying Approach to GFR Estimation: Recommendations of the NKF-ASK Task Force on Reassessing the Inclusion of Race in Diagnosing Kidney Disease, JASN 2020). The CKD-EPI equation should not be used for patients with unstable renal function and has not been validated in children and those over 70. Current interpretive data was last reviewed 2021. Blood 11/28/2024 11:5 0 AM CDT 11/28/2024 9:28 PM CDT Leela Cruz NP LAB BLOOD ORDERABLES Sissy l Result [facility] [id number] Department [place] [address] * Albumin Creatinine Ratio, Urine (11/28/2024 11:50 AM CDT) Albumin Ur <12.0 mg/L Comment: Interpretive Data No reference range established. Current interpretive data was last revised 2019. Creatinine Ur 50.8 mg/dL [facility] Comment: Interpretive Data No reference range established. Current interpretive data was last revised 2019. Albumin Creatinine Ratio, Ur <24 1 - 29 mg/g [facility] Urine 11/28/2024 11:5 0 AM CDT 11/28/2024 9:17 PM CDT us Leela Cruz NP LAB URINE ORDERABLES Sissy watts Result [facility] [address] Department [place] [address] * (ABNORMAL) Lipid panel (08/03/2024 11:53 AM MANAGER CRISIS) Cholesterol 87 30 - 199 mg/dL Comment: Interpretive Data Ages < or = 19 years Acceptable: <170 mg/dL Borderline high: 170-199 mg/dL High: >or= 200 mg/dL Ages > or = 20 years Desirable: <200 mg/dL Borderline high: 200-239 mg/dL High: >or= 240 mg/dL Literature References: 1. Expert Panel on Integrated Guidelines for Cardiovascular Health and Risk Reduction in Children and Adolescents. Pediatrics 2011;128:S213 2. NCEP Expert Panel. Circulation 2004;110:227 Current Interpretive Data was last revised on 2018. Triglycerides 256(H) <=149 mg/dL [facility] Comment: Interpretive Data Ages < or = 9 years Acceptable: <75 mg/dL Borderline high: 75-99 mg/dL High: >or= 100 mg/dL Ages 10 to 20 years Acceptable: <90 mg/dL Borderline high: 90-129 mg/dL High: >or= 130 mg/dL Ages > or = 20 years Desirable: <150 mg/dL Borderline high: 150-199 mg/dL High: 200-499 mg/dL Very high: >or= 499 mg/dL Literature References: 1. Expert Panel on Integrated Guidelines for Cardiovascular Health and Risk Reduction in Children and Adolescents. Pediatrics 2011;128:S213 2. NCEP Expert Panel. Circulation 2004;110:227 Current Interpretive Data was last revised on 2018. HDL 35(L) >=40 mg/dL [facility] Comment: Interpretive Data Ages < or = 19 years Acceptable: >45 mg/dL Borderline low: 40-45 mg/dL Low: <40 mg/dL Ages > or = 20 years Desirable: >or= 60 mg/dL Low: <40 mg/dL Literature References: 1. Expert Panel on Integrated Guidelines for Cardiovascular Health and Risk Reduction in Children and Adolescents. Pediatrics 2011;128:S213 2. NCEP Expert Panel. Circulation 2004;110:227 Current Interpretive Data was last revised on 2018. LDL, calculated 14 <=129 mg/dL [facility] Comment: Interpretive Data Ages < or = 19 years Acceptable: <110 mg/dL Borderline high: 110-129 mg/dL High: >or= 130 mg/dL Ages > or = 20 years Optimal: <100 mg/dL Near optimal: 100-129 mg/dL Borderline high: 130-159 mg/dL High: >160 mg/dL Calculated using the Aaron LDL-C estimating equation. This equation was implemented on 2024. Prior to this date LDL-C was estimated using the Friedewald equation. Literature References: 1. Expert Panel on Integrated Guidelines for Cardiovascular Health and Risk Reduction in Children and Adolescents. Pediatrics 2011;128:S213 2. NCEP Expert Panel. Circulation 2004;110:227 3. Aaron Xavier et al. CATHLEEN Cardiol. 2019January 18;5(5):540-548. doi: [email or web address] Current Interpretive Data was last revised on 2024. Non-HDL Cholesterol 52 mg/dL [facility] Comment: Interpretive Data Ages < or = 19 years Acceptable: <120 mg/dL Borderline high: 120-144 mg/dL High: >145 mg/dL Ages > or = 20 years When triglycerides are >200 mg/dL, Non-HDL cholesterol is a secondary target of therapy with treatment goals that are 30 mg/dL greater than the LDL cholesterol target. Literature References: 1. Expert Panel on Integrated Guidelines for Cardiovascular Health and Risk Reduction in Children and Adolescents. Pediatrics 2011;128:S213 2. NCEP Expert Panel. Circulation 2004;110:227 Current Interpretive Data was last revised on 2018. Chol/HDL ratio 2 [facility] Blood 08/03/2024 11:5 3 AM MANAGER CRISIS 08/03/2024 6:11 PM MANAGER CRISIS us Delaney Rivera MD LAB BLOOD ORDERABLES Final Resul t [facility] [address] [address] Department [place] [address] * DIABETES EYE EXAM (06/28/2024 3:36 PM CDT) us Historical Provider HEALTH MAINTENANCE Final Result * PSA, total Blood (11/21/2019 10:50 AM MANAGER CRISIS) SCRIBED PSA, Total 0.99 0.00 - 4.00 EXTERNAL LAB Blood specimen (specimen) 11/21/2019 10:50 AM MANAGER CRISIS us Historical Provider LAB BLOOD ORDERABLES Edit ed Result - Final EXTERNAL LAB from Last 3 Months or Most Recently Relevant to Health Maintenance Insurance [facility] [employer] Care Teams Plaster Mixer Relationship Specialty Start Date End Date Kira Talavera NP [address] [place] [address] [place], [place] [id number] PCP - General Pediatrics 03/28/20 [place] [id number] [address] Consulting Physician Endocrinology Diabetes & Metabolism 11/07/18 Nilay England MD [address] [place] [address] Referring Physician Cardiovascular Disease 08/15/19
--- OUTSIDE RECORDS SUMMARY | 2025-03-06 14:42 | XMS_ITS | Clinical Summary ---
Author Organization [facility] Address [address] [place] [address] Phone Care Team Providers Care [employer] Internship Name Role Phone Kira Talavera MEDICAL DEVICE Primary Care Provider [phone] Allergies Active Allergy Reactions Criticality Noted Date Comments Amoxicillin Hives High 02/19/2021 Amoxicillin-Pot Clavulanate Hives,Nausea and Vomiting High 02/19/2021 Atorvastatin Other (See Comments) Low 02/19/2021 myalgias Clindamycin Hives,Nausea and Vomiting High 02/19/2021 Erythromycin Hives High 02/19/2021 Levofloxacin Shortness of Breath/Wheezing High 04/11/2024 Pravastatin Muscle Pain,Weakness Low 02/19/2021 Rosuvastatin Muscle Pain,Weakness Low 02/19/2021 Shellfish Containing Products Nausea and Vomiting Low 02/19/2021 Shrimp Nausea and Vomiting Low 02/19/2021 Bjqkjnl-Kxw-Gga Reductase Inhibitors Unknown 02/19/2021 Medications allopurinoL (ZYLOPRIM) 100 mg tablet Take 100 mg by mouth daily. Active amLODIPine (NORVASC) 10 mg tablet Take 5 mg by mouth daily. Active aspirin (ECOTRIN EC) 81 mg Tablet, Delayed Release (E.C.) Take 81 mg by mouth daily. Active BD ULTRA FINE LANCETS MISC by Misc.(Non-Drug; Combo Route) route. Active nebivoloL (BYSTOLIC) 20 mg Tablet Take by mouth daily. Active blood sugar diagnostic (TRACER BLOOD GLUCOSE TEST ) by In Vitro route. Active ezetimibe (ZETIA) 10 mg tablet Take 10 mg by mouth daily. Active dapagliflozin (FARXIGA) 10 mg Tablet Take by mouth daily. Active hydroCHLOROthiaz sergei (HYDRODIURIL) 12.5 mg tablet Take 12.5 mg by mouth daily. Active lisinopriL (PRINIVIL) 40 mg tablet Take 40 mg by mouth daily. Active metFORMIN (GLUCOPHAGE) 1,000 mg tablet Take 1,000 mg by mouth 2 times daily with meals. Active semaglutide 0.25 mg or 0.5 mg(2 mg/1.5 mL) Pen Injector Inject 1.33 mL by subcutaneous injection every 7 days. On Active pantoprazole (PROTONIX) 40 mg Tablet, Delayed Release (E.C.) Take 40 mg by mouth daily. Active sildenafiL (VIAGRA) 50 mg tablet Take 50 mg by mouth 1 time daily as needed. Active multivit-min/fol ic/vit K/lycop (MEN'S 50 PLUS MULTIVITAMIN ORAL) Take by mouth. Activ e icosapent ethyL (VASCEPA) 1 gram Capsule Take 1 Gram by mouth. 2 capsules in am and 2 capsules pm Active fenofibrate micronized (ANTARA) 130 mg Capsule Take 160 mg by mouth daily. Active insulin aspart (NovoLOG) 100 unit/mL injection Inject by subcutaneous injection. Active gabapentin (NEURONTIN) 100 mg capsule Take 300 mg by mouth 2 times daily. 07/06/20 24 Active nitroglycerin (NITROSTAT) 0.4 mg Tablet, Sublingual Place 0.4 mg under tongue every 5 minutes as needed for Chest Pain. Active Mounjaro 5 mg/0.5 mL Pen Injector Inject 5 mg by subcutaneous injection every 7 days. 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 Chemotherapy: Adjuvant chemotherapy with dose dense AC started on January 25, 2024. Completed cycle 4/4 of chemotherapy with Taxol on May 16, 2024. Radiation Oncologist: Radiation: completed on July 11, 2024 Anti-estrogen therapy: Tamoxifen started on August 27, 2024 Diabetes 11/16/2023 Neural foraminal stenosis of cervical spine 02/18 Encounters Date Type Department Care Team Description 02/23/2025 Orders Only [facility] Oncology [facility] Sampson Chen [address] [place] [address] Jr Pruitt MD 02/20/2025 1:15 PM CDT Office Visit [facility] Oncology [facility] Sampson Chen [address] [place] [address] Jr Pruitt MD 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, estrogen receptor positive (CMS/HCC) (Primary Dx) 02/14/2025 Orders Only [facility] Oncology [facility] Kristi Chen [address] [place] [address] Jr Pruitt MD 02/08/2025 External Device Data ST[facility] ABSTRACTION Provider, Abstract 02/07/2025 External Device Data [facility] ABSTRACTION Provider, Abstract 01/22/2025 Orders Only [facility] [address] [place] [address] Jr Pruitt MD 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, estrogen receptor positive (CMS/HCC) 01/08/2025 Orders Only [facility] [address] [place] [address] Jr Pruitt MD 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, estrogen receptor positive (CMS/HCC) 01/02/2025 11:05 AM CDT Office Visit [facility] Breast Surgery Yousif Mcguire [address] [place] [address] Kya Clark, MEDICAL DEVICE Silvia Raya MD 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, estrogen receptor positive (CMS/HCC) (Primary Dx) 01/02/2025 9:55 AM CDT - 01/02/2025 11:59 PM CDT Hospital Encounter [facility] Yousif Mc[address] [place] [id number] Kya Clark, MEDICAL DEVICE Discharge Disposition: Home or Self Care 01/02/2025 External Device Data STL ABSTRACTION Provider, Abstract 12/25/2024 Orders Only [facility] Oncology and Hematology - [place] [address] [place] [address] Jr Pruitt MD 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, estrogen receptor positive (CMS/HCC) 12/15/2024 10:45 AM CDT Office Visit [facility] Oncology and Hematology - [place] [place] [address] Jr Pruitt MD 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, estrogen receptor positive (CMS/HCC) (Primary Dx) 12/11/2024 Orders Only [facility] Oncology and Hematology - [place] Kristi Chen [address] [place] [address] Jr Pruitt MD 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, estrogen receptor positive (CMS/HCC) 12/08/2024 Orders Only [facility] Oncology and Hematology - [place] [address] [place] [address] Jr Pruitt MD 12/07/2024 Orders Only [facility] Oncology and Hematology - [place] Sampson [address] [place] [address] Jr Pruitt MD from Last 3 Months Family History Medical History Relation Name Comments Heart Disease Father Hemophilia Father High Cholesterol Father Hypertension Father Throat Cancer Father Diabetes Maternal Grandmother Diabetes Mother Heart Disease Mother High Cholesterol Mother Heart Disease Sister Breast Cancer Neg Hx Ovarian Cancer Neg Hx Relation Name Status Comments Father Maternal Grandmother Mother Sister Social History Tobacco Use Types Packs/Day Years Used Date Smoking Tobacco: Never Smokeless Tobacco: Never Tobacco Cessation:Counseling Given: Not Answered Alcohol Use Standard Drinks/Week Comments Not Currently 0 (1 standard drink = 0.6 oz pur e alcohol) Feeling Safe Answer Date Recorded Within the last year, have y ou been afraid of your partner or ex-partner? No 06/29/2024 Emotionally Abused Not on file 06/29/2024 Within the last year, have y ou been kicked, hit, slapped, or otherwise physically hurt by your partner or ex-partner? No 06/29/2024 Within the last year, have y ou been raped or forced to have any kind of sexual activity by your partner or ex-partner? No 06/29/2024 Feeling Safe Answer Date Recorded Are you in a relationship wi th someone who hurts you emotionally and/or physically? No 12/15/2023 Food Insecurity Answer Date Recorded Social/Environmental Concerns No concerns Transportation Needs Answer Date Record ed Social/Environmental Concerns No concerns Housing Stability Answer Date Recorded Social/Environmental Concerns No concerns Utility Needs Answer Date Recorded Social/Environmental Concerns No concerns Sex and Gender Information Value Date Recorded Sex Assigned at Not on file Legal Sex Male 2:38 PM CDT Gender Identity Not on file Sexual Orientation Not on file Last Filed Vital Signs Vital Sign Reading Time Taken Comments Blood Pressure 97/54 02/20/2025 1:28 PM CDT Pulse 86 02/20/2025 1:26 PM CDT Temperature 36.9 C (98.5 F) 02/20/2025 1:26 PM CDT Respiratory Rate 15 02/20/2025 1:26 PM CDT Oxygen Saturation 91% 02/20/2025 1:26 PM CDT Inhaled Oxygen Concentration - - Weight 107.7 kg (237 lb 6.4 oz) 02/20/2025 1:26 PM CDT Height 180.3 cm (5' 11) 02/20/2025 1:26 PM CDT Body Mass Index 33.11 02/20/2025 1:26 PM CDT Plan of Treatment Upcoming Encounters Date Type Department Care Team (Late st Contact Info) Description 06/22/2025 11:45 AM CDT Office Visit [facility] Oncology and Hematology - [place] [address] [facility] Gustavo [address] [place] [address] Jr Pruitt MD [address] [facility] [address] [place] [address] 01/08/2026 10:15 AM CD[facility] [address] [place] [phone] [place] [address] [place] [address] 01/08/2026 11:15 AM CDT Office Visit [facility] Breast Surgery [facility]ousif Mcgu[address] [address] [facility] [address] [place] [address] [place] [address] [facility] [address] [place] [address] Health Maintenance Due Date Last Done Comments DIABETES ANNUAL RETINAL EXAM 1974 DIABETES MICROALBUMIN ANNUAL SCREEN 1974 LDL CHOLESTEROL ANNUAL 1974 FIT-DNA Q 3 years 2001 FIT/FOBT Q 1 year 2001 Flex Sig/CT Colonography Q 5 years 2001 RSV VACCINE (60+ or ) (1 - Risk 60-74 years 1-dose series) 2016 COVID-19 Vaccine ( - 2023-2 5 season) 2024 07/15/2021, 12/11/2020, 11/13/2020 DIABETES HBA1C Q 6 MONTHS 05/31/20252024, 08/03/2024, 02/02/2024, Additional history exists DIABETES ANNUAL FOOT EXAM 11/28/2025 11/28/2024 DTAP/TDAP/TD VACCINES (2 - T d or Tdap) 05/18/2028 05/18/2018 COLORECTAL SCREENING 07/21/2034 07/21/2024, 06/30/20 21 Colorectal Cancer Screening 07/21/2034 ZOSTER VACCINE Completed 05/28/2021, 03/10/2021 PNEUMOCOCCAL VACCINE 50+ YEARS Completed 07/06/2023 , 09/10/2020 INFLUENZA VACCINE Completed 08/05/2024, , 07/27/2022, Additional history exists Medical Devices Implanted Type Area Unix Administrator Device Identifier Shelf Expiration Date Model / Serial / Lot Social Media Marketing Manager Clip Surgiclip Ii Eduardo 9.75in [id number] - [id number] Implanted:Qty : 1 on 12/15/2023 by Silvia Raya MD at [facility] Clip Right: [employer] - [employer] [id number] 05/20/2028 [id number] / / [id number] Social Media Marketing Manager Clip Surgic[employer] Ii Eduardo 9.75in [id number] - [id number] Implanted:Qty : 1 on 12/15/2023 by Silvia Raya MD at [facility] Clip Right: [employer] - [employer] [id number] 06/19/2028 [id number] / / [id number] Cardiac Stent Procedures Procedure Name Priority Date/Time Associated Diagnosis Comments CANCER ANTIGEN 15-3 Routine 02/08/2025 2 :58 PM CDT COMPREHENSIVE METABOLIC PANEL Routine 02/08/2025 11:47 AM CDT CBC WITH DIFFERENTIAL Routine 02/08/2025 11:24 AM CDT MAMMO 3D CK DIAGNOSTIC BILAT W OR WO CAD Routine 01/02/2025 10:42 AM CDT 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, estrogen receptor positive (CMS/HCC) S/P lumpectomy, right breast CBC WITH DIFFERENTIAL Routine 12/06/2024 4:16 PM CDT CANCER ANTIGEN 15-3 Routine 12/06/2024 3 :20 PM CDT CHG CA 15 3 Routine 12/06/2024 12:50 PM CDT COMPREHENSIVE METABOLIC PANEL Routine 12/06/2024 10:16 AM CDT from Last 3 Months Results * CANCER ANTIGEN 15-3 (02/08/2025 2:58 PM CDT) Only the most recent of2 resultswithin the time period is included. Blood us Jr Pruitt MD CHEMISTRY ORDERABLES Final Resu lt * COMPREHENSIVE METABOLIC PANEL (02/08/2025 11:47 AM CDT) Only the most recent of2 resultswithin the time period is included. Blood us Jr Pruitt MD CHEMISTRY ORDERABLES Final Resu lt * CBC WITH DIFFERENTIAL (02/08/2025 11:24 AM CDT) Only the most recent of2 resultswithin the time period is included. Blood us Jr Pruitt MD HEMATOLOGY ORDERABLES Final Res ult * MAMMO 3D CK DIAGNOSTIC BILAT W OR WO CAD (01/02/2025 10:42 AM CDT) Anatomical Region Laterality Modality Breast Bilateral Mammography 01/02/2025 10:5 1 AM CDT Impressions 01/02/2025 10:58 AM CDT IMPRESSION: 1. No mammographic evidence of malignancy in either breast. Routine mammography is recommended in 1 year. OVERALL FINAL ASSESSMENT: BI-RADS CATEGORY 2 - Benign. The patient was notified of the findings and recommendations at the time of the examination. DICTATION LOCATION: [facility] Mcguire Narrative 01/02/2025 10:58 AM CDT EXAMINATION: MAMMO 3D CK DIAGNOSTIC BILAT W OR WO CAD DATE: 01/02/2025 10:42 AM HISTORY: 69-year-old man with personal history of right breast cancer status post breast conservation therapy in 2023. COMPARISON: Comparison is made to previous studies dating back to 09/21/2023. TECHNIQUE: Bilateral diagnostic mammogram was performed. Full field digital mammograms, and digital breast tomosynthesis with C-view performed. Examination is read in conjunction with computer aided detection. BREAST COMPOSITION: There are scattered areas of fibroglandular density. FINDINGS: There are stable postoperative changes of breast conservation therapy in the right breast. There is no new suspicious finding in either breast on mammogram. Computer aided detection was used in the interpretation of this examination. us Kya Clark MEDICAL DEVICE MAMMO ORDERABLES Final Re sult * CHG CA 15 3 (12/06/2024 12:50 PM CDT) Jr Pruitt MD CHG - LABORATORY Final Result from Last 3 Months Insurance [employer] [facility] [employer] [facility] RX [employer] Medicare Part D Advance Directives For more information, please contact: [phone] * Full Code (Latest Code Status on File) Date Activated Date Inactivated Comments 12/15/2023 6:54 AM 12/15/2023 3:24 PM Care Teams Athletic Training Internship Relationship Specialty Start Date End Date Kira Talavrea FNP [address] [place] [address] [place] [phone] PCP - General NURSE PRACTITIONER 03/06/21
--- OUTSIDE RECORDS SUMMARY | 2025-03-06 14:42 | XMS_ITS | Clinical Summary ---
Author Organization [address] Address [address] [place] [id number] Care Team Providers Care Manufacturing Supervisor Name Role Phone Delaney Rivera MD Unavailable Nilay England MD Unavailable Kira Talavera NP Primary Care Provider Allergies Active Allergy Reactions Criticality Noted Date Comments Amoxicillin Hives High 02/19/2021 Amoxicillin-Pot Clavulanate Unknown,Hive s,Nausea And Vomiting High 05/18/2017 Atorvastatin Muscle pain,Other (S ee comments) Medium 08/15/2019 myalgias Clindamycin Hives,Nausea And Vomiting High 02/19/2021 Erythromycin Hives High 02/19/2021 Levofloxacin Shortness of breath High 04/11/2024 Potassium Pravastatin Muscle pain Medium 02/19/2021 Rosuvastatin Shellfish Nausea & Vomiting Low 11/15/2018 Crwpszf-Plg-Kqc Reductase Inhibitors Muscle pain,Unknown Medium 02/19/2021 Medications [...] NO MORE THAN 8 PER 24 HOURS 023 Active amLODIPine (NORVASC) 5 mg tablet Take 1 tablet (5 mg total) by mouth daily 023 Active pen needle, diabetic (BD Ultra-Fine Short Pen Needle) 31 gauge x 5/16 needleIndication s:Type 2 diabetes mellitus with hyperglycemia, with long-term current use of insulin ([facility]) Use to inject insulin 4 times daily 400 each 3 024 Active HYDROcodone-acet aminophen (NORCO) 5-325 mg per tablet Take 1 tablet by mouth every 4 (four) hours as needed 024 Active lidocaine-priloc toby cream Apply quarter size amount to port site 30 minutes prior to access 024 Active ondansetron ODT (ZOFRAN-ODT) 8 mg disintegrating tablet Dissolve 1 tablet on top of tongue then swallow with saliva every 8 hours as needed for nausea or vomiting 024 Active gabapentin (NEURONTIN) 100 mg capsule Take 1 capsule (100 mg total) by mouth 3 (three) times a day 024 Active insulin glargine (TOUJEO MAX) 300 unit/mL (3 mL) pen for injection Inject 100 Units under the skin nightly 15 mL 6 024 2024 Active metFORMIN (GLUCOPHAGE) 1,000 mg tabletIndication s:Type 2 diabetes mellitus with hyperglycemia, with long-term current use of insulin ([facility]) Take 1 tablet by mouth twice daily 180 tablet 3 024 Active sildenafiL (VIAGRA) 100 mg tabletIndication s:Type 2 diabetes mellitus with hyperglycemia, with long-term current use of insulin ([facility]) TAKE ONE TABLET BY MOUTH NEEDED FOR ERECTILE DYSFUNCTION. DO NOT TAKE ANY NITRATE MEDICATION FOR 24 HOURS AFTER. 10 tablet 6 024 Active insulin aspart (NovoLOG) 100 unit/mL (3 mL) pen for injectionIndicat ions:Type 2 diabetes mellitus with hyperglycemia, with long-term current use of insulin ([facility]) 24 units before meals For sugars over 200, take 28 units For sugars over 250, take 30 units For sugars over 300, take 32 units 30 mL 11 024 Active Repatha SureClick 140 mg/mL pen injector INJECT 1 ML SUBCUTANEOUSLY EVERY TWO WEEKS 025 Active hydroCHLOROthiaz sergei 12.5 mg tabletIndication s:Hypertension associated with diabetes ([facility]) Take 1 tablet by mouth once daily 90 tablet 025 Active Farxiga 10 mg tabletIndication s:Type 2 diabetes mellitus with hyperglycemia, with long-term current use of insulin ([facility]) Take 1 tablet by mouth once daily 90 tablet 3 025 Active icosapent ethyL (VASCEPA) 1 gram capsuleIndicatio ns:Hyperlipidemi a associated with type 2 diabetes mellitus ([facility]) Take 2 capsules by mouth twice daily 120 capsule 025 Active tirzepatide (Mounjaro) 7.5 mg/0.5 mL pen injector injection Inject 0.5 mL (7.5 mg total) under the skin once a week 2 mL 6 025 Active icosapent ethyL (VASCEPA) 1 gram capsuleIndicatio ns:Hyperlipidemi a associated with type 2 diabetes mellitus ([facility]) Take 2 capsules (2 g total) by mouth 2 (two) times a day 360 capsule 3 024 2024 Discontinued tamoxifen (NOLVADEX) 20 mg tablet Take 1 tablet (20 mg total) by mouth daily 024 2024 Discontinued(O ther) Farxiga 10 mg tabletIndication s:Type 2 diabetes mellitus with hyperglycemia, with long-term current use of insulin ([facility]) Take 1 tablet by mouth once daily [...] 2gm bid. Last lipid panel: 08/03/24 LDL=14, GK=175. Managed by cardiology. Assessment & Plan (02/02/2024 10:52 AM CDT): Chronic problem, intolerant to statins. Currently taking: Praluent 150mg every 2 wks, vascepa 2gm bid, fenofibrate 160mg daily, zetia 10mg daily. 06/11/23 LDL=16, WW=678. No changes at this time. Managed by cardiology. Assessment & Plan (11/11/2023 9:20 AM SALES OPERATIONS ASSOCIATE): Chronic problem, intolerant to statins. Currently taking: Praluent 75mg every 2 wks, vascepa 2gm bid, fenofibrate 160mg daily, zetia 10mg daily. 06/11/23 LDL=16, BA=279. No changes at this time. Managed by cardiology. Assessment & Plan (07/19/2023 9:20 AM CDT): Chronic problem, intolerant to statins. Currently taking: Praluent 75mg every 2 wks, vascepa 2gm bid, fenofibrate 160mg daily, zetia 10mg daily. 06/11/23 LDL=16, OX=904. No changes at this time. Assessment & Plan (11/12/2022 8:31 AM SALES OPERATIONS ASSOCIATE): Chronic problem, intolerant to statins. Currently taking: Praluent 75mg every 2 wks, vascepa 2gm bid, fenofibrate 160mg daily, zetia 10mg daily. No changes at this time. Assessment & Plan (07/30/2022 12:41 PM SALES OPERATIONS ASSOCIATE): Chronic problem, statin intolerant. Recently started on [...] oil. Assessment & Plan (11/14/2020 3:14 PM SALES OPERATIONS ASSOCIATE): Continue Zetia and follow up with cardiology Assessment & Plan (06/28/2020 11:38 AM CDT): Continue follow up with cardiology Assessment & Plan (03/28/2020 4:37 PM CDT): Continue Zetia and follow up with cardiology. Assessment & Plan (08/15/2019 2:50 PM SALES OPERATIONS ASSOCIATE): Pt with CAD, s/p cardiac stents LDL [...] therapy Assessment & Plan (11/15/2018 1:14 PM SALES OPERATIONS ASSOCIATE): Continue atorvastatin Assessment & Plan (07/28/2018 3:05 PM SALES OPERATIONS ASSOCIATE): Will obtain results of recent lipid panel. Continue on atorvastatin 10 mg. Restart fish oil as this will have some antiplatelet impact, until follow up with car pusher. Assessment & Plan (05/03/2018 12:46 PM CDT): [...] ) Patient has an appointment with his car pusher next week month. I asked him to discuss this with him otherwise will address it. Coronary artery disease involving [place] coronar y artery 05/03/2018 Assessment & Plan (08/15/2019 2:51 PM SALES OPERATIONS ASSOCIATE): Check HS PCR Pt seeing a car pusher LDL goal under 50 Assessment & Plan (05/03/2018 11:13 AM CDT): Indication for Jardiance Start Jardiance 25 mg daily Other male erectile dysfunction 05/03/2018 Non morbid obesity due to excess calories 2016 Assessment & Plan (09/16/2017 3:17 PM SALES OPERATIONS ASSOCIATE): Needs to focus on meal plan. Provided [...] Will update MA/Cr. Verified that he uses [employer]. Aware to check results/results letter in [employer]. Will contact by phone if needed. UTD [...] infection. Assessment & Plan (08/03/2024 1:05 PM SALES OPERATIONS ASSOCIATE): Chronic, uncontrolled but with some improvement Importance [...] infection. Assessment & Plan (11/11/2023 10:04 AM SALES OPERATIONS ASSOCIATE): Chronic problem, uncontrolled. A1c worsened from 8.9% 06/2023 to now 9.1% . Discussed need to need to quickly get diet/exercise & A1c/BG down. Discussed elevated BG & risk of poor healing. Discussed increasing Ozempic to 2mg, adding short acting insulin and/or greatly needed diet changes. Will start with diet/activity changes & increasing to 2mg on Ozempic. Will send me a [employer] message in next 2 weeks with BG readings. Current medications: Metformin 1000 mg twice daily before meals Farxiga 10 mg daily Ozempic 2mg weekly Lantus 90 units at bedtime Will update MA/Cr today. Verified that he uses mychart. Aware to check results/results letter in [employer]. Will contact by phone if needed. UTD [...] infection. Assessment & Plan (11/12/2022 10:10 AM SALES OPERATIONS ASSOCIATE): Chronic problem, uncontrolled & worsening. Current medications: [...] Rivera. Assessment & Plan (07/30/2022 12:44 PM SALES OPERATIONS ASSOCIATE): Chronic problem, deteriorating due to poor diet. [...] prescribed. Assessment & Plan (11/14/2020 3:16 PM SALES OPERATIONS ASSOCIATE): A1c improved to 7.3. Continue with current [...] mg. Assessment & Plan (08/15/2019 2:45 PM SALES OPERATIONS ASSOCIATE): Hba1c was Lab Results Component Value Date [...] . Assessment & Plan (11/15/2018 1:13 PM SALES OPERATIONS ASSOCIATE): A1c 7.6. Insignificant change. Continue Basaglar at 80 hs Restart Ozempic at 0.25 for one month and then increase to 0.5. Check FBG and ac at least one additional time daily. Advised ac and pc check 2-3 times per week. 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 Assessment & Plan (11/18/2017 3:32 PM SALES OPERATIONS ASSOCIATE): Hba1c was 7.9 today, indicating sub-optimal DM control 1800 calorie, consistent carb diet recommended 30 min daily aerobic and resistance exercise recommended Prevention and treatment of hyypoglcyemia discussed. Blood glucose monitoring with fingers sticks 1-2 x day . Assessment & Plan (09/16/2017 3:24 PM SALES OPERATIONS ASSOCIATE): A1c worsening at 9.0. Likely to continued [...] cardiology. Assessment & Plan (11/11/2023 9:19 AM SALES OPERATIONS ASSOCIATE): Chronic problem, controlled on current regimen. HCTZ 12.5mg daily, amlodipine 5mg daily, lisinopril 40mg daily, bystolic 20mg daily. Managed by cardiology. Assessment & Plan (07/19/2023 9:20 AM CDT): Chronic problem, controlled on current regimen. HCTZ 12.5mg daily, amlodipine 10mg daily, lisinopril 40mg daily, bystolic 20mg daily. Managed by cardiology. Assessment & Plan (11/12/2022 8:39 AM SALES OPERATIONS ASSOCIATE): Chronic problem, controlled on current regimen. HCTZ 12.5mg daily, amlodipine 10mg daily, lisinopril 40mg daily, bystolic 20mg daily. Managed by cardiology. Assessment & Plan (07/30/2022 12:41 PM SALES OPERATIONS ASSOCIATE): Controlled on current medications, no changes. Assessment [...] plan. Assessment & Plan (11/14/2020 3:14 PM SALES OPERATIONS ASSOCIATE): Controlled on current medications. Continue plan. Assessment [...] ARB Assessment & Plan (11/15/2018 1:14 PM SALES OPERATIONS ASSOCIATE): Controlled on current medications. Assessment & Plan (07/28/2018 3:03 PM SALES OPERATIONS ASSOCIATE): Follow up with new car pusher how has records on type of stents he has. Can increase ASA to 325 mg daily once out of Plavix. Assessment & Plan (05/03/2018 12:46 PM CDT): Goal blood pressure is less than 140/85 Low salt diet recommended Daily aerobic exercise Continue current meds, including KASSIE-I or ARB Assessment & Plan (11/18/2017 3:33 PM SALES OPERATIONS ASSOCIATE): Goal blood pressure is less than 140/85 Low salt diet recommended Daily aerobic exercise Continue current meds, including KASSIE-I or ARB Assessment & Plan (09/16/2017 3:26 PM SALES OPERATIONS ASSOCIATE): BP 136/76. Check home BP 2-3 times per week. Assessment & Plan (04/22/2017 1:29 PM CDT): Continue same meds and follow up with cardiology Resolved Problems Problem Noted Date Diagnosed Date Resolved Date Class 1 obesity due to exces s calories with serious comorbidity and body mass index (BMI) of 34.0 to 34.9 in adult 11/12/2022 11/28/2024 Assessment & Plan (11/12/2022 9:39 AM SALES OPERATIONS ASSOCIATE): Discussed healthy diet and importance of regular physical activity (20- 30min/day, 150min/wk). Hypertriglyceridemia 07/26/2012 023 Overview (12/23/2016): HYPERLIPIDEMIA NEC/NOS Assessment & Plan (11/18/2017 3:34 PM SALES OPERATIONS ASSOCIATE): Goal of treatment , LDL cholesterol less [...] exercise Assessment & Plan (09/16/2017 3:25 PM SALES OPERATIONS ASSOCIATE): Continue statin and focus on low fat diet choices Assessment & Plan (04/22/2017 1:30 PM CDT): Continue statin Pure hypercholesterolemia 12/23/2011 Overview (12/23/2016): PURE HYPERCHOLESTEROLEM Encounters Date Type Department Care Team Description 03/06/2025 10:45 AM CDT Office Visit [facility] [address] [phone] Delaney Rivera MD Hyperlipidemia associated with type 2 diabetes mellitus (HCC) (Primary Dx) from Last 3 Months Surgical History Surgery Date Site/Laterality Comments OTHER SURGICAL HISTORY obstructive sleep apnea: surgery OTHER SURGICAL HISTORY Coronary artery disease: stents BREAST BIOPSY 10/22/2023 Right Medical History Medical History Date Comments Hyperlipidemia Hyperlipidemia Hypertension Hypertension Hx Other Medical obstructive sle ep apnea Calculus of kidney kidney stones Hx Other Medical NOT CLAUSTROPHO BIC; Comments: LU 06/06/2014 - Chronic coronary artery disease Coronary artery disease Disorder of gallbladder Gallblad stacie disease Breast cancer (HCC) 10/22/2023 Family History Medical History Relation Name Comments Alcohol abuse Father Alcoholism; Coronary artery disease Father Júnior nary artery disease; Other Father hypoglycemic; Coronary artery disease Mother Júnior nary artery disease; Diabetes Mother Diabetes mellit ; Cause of : Diabetes mellitus Relation Name Status Comments Father Mother Social History Tobacco Use Types Packs/Day Years [...] on file Legal Sex Male 10:07 AM SALES OPERATIONS ASSOCIATE Gender Identity Not on file Sexual Orientation Straight 08/03/2024 10 :46 AM SALES OPERATIONS ASSOCIATE Obstetrics History Last Filed Vital Signs Vital Sign Reading [...] 03/06/2025 11:08 AM CDT Plan of Treatment Health Maintenance Due Date Last Done Comments Colon Cancer Screening-Colonoscopy 1955 Hepatitis C Screening 1955 Pneumococcal vaccine 65+ (2 of 2 - PCV) 09/10/2021 09/10/2020 Well Visit 65+ 2021 Prostate Cancer Screening-PSA 11/20/2021 11/21/2019 Covid-19 Vaccine (4 - 2023-2 5 season) 2024 07/15/2021, 12/11/2020, 11/13/2020 Dilated Eye Exam 06/28/2025 06/28/2024, , 08/26/2022, Additional history exists Depression Screening 08/03/2025 08/03/2024, 12/04/2021, 06/27/2020, Additional history exists Fall Risk Assessment 08/03/2025 08/03/2024 Lipid Panel 08/03/2025 08/03/2024, 05/22, 06/11/2023, Additional history exists Hemoglobin A1C 09/05/2025 03/06/2025, 11/18, 08/03/2024, Additional history exists Albumin Creatinine Ratio, Urine 11/28/2025 11/28/2024, 11/11/2023, 11/12/2022, Additional history exists Foot Exam 11/28/2025 11/28/2024, 06/22, 12/04/2021, Additional history exists eGFR 11/28/2025 11/28/2024, 05/04/2024, 11/12/2022, Additional history exists DTaP/Tdap/Td Vaccine (3 - Td or Tdap) 05/18/2028 05/18/2018, 05/18/2018, 02/27/2000 Hepatitis B Screening Completed 09/17/1992 , 04/17/1992, 03/18/1992 Zoster Vaccine Completed 05/28/2021, 03/10/2021 Influenza Vaccine Completed 08/05/2024, , 07/19/2020, Additional history exists Procedures Procedure Name Priority Date/Time Associated Diagnosis [...] (HCC) LIPID PANEL Routine 08/03/2024 11:53 AM SALES OPERATIONS ASSOCIATE Type 2 diabetes mellitus with hyperglycemia, with long-term current use of insulin (HCC) HM DIABETES EYE EXAM Routine 06/28/2024 3:36 PM CDT PSA, TOTAL Routine 11/21/2019 10:50 AM SALES OPERATIONS ASSOCIATE from Last 3 Months or Most Recently Relevant to Health Maintenance Results * (ABNORMAL) POCT hemoglobin A1c (03/06/2025 11:07 AM CDT) Hemoglobin A1C, POC 6.9(A) 4.0 - 5.6 % Comment:None Capillary blood 03/06/2025 1 1:07 AM CDT Delaney Rivera MD POINT OF CARE TEST ORDERABLES Fi nal Result * POCT glucose (03/06/2025 11:07 AM CDT) Glucose Blood, POC 110 Normal Fasting 70 - 100, Random <200 mg/dL Comment:None Blood 03/06/2025 11:0 7 AM CDT Delaney Rivera MD POINT OF CARE TEST [...] CDT 11/28/2024 9:28 PM CDT Leela Cruz JEWEL DIAMETER GAUGER LAB BLOOD ORDERABLES Sissy l Result [facility] [id number] [address] [facility] [place] [address] * Albumin Creatinine Ratio, Urine (11/28/2024 11:50 AM CDT) Albumin Ur <12.0 mg/L Comment: Interpretive Data No reference range established. Current interpretive data was last revised 2019. Creatinine Ur 50.8 mg/dL ELIZABETH Comment: Interpretive Data No reference range established. Current interpretive data was last revised 2019. Albumin Creatinine Ratio, Ur <24 1 - 29 mg/g EL[facility]ETH Urine 11/28/2024 11:5 0 AM CDT 11/28/2024 9:17 PM CDT us Leela Cruz NP LAB URINE ORDERABLES Sissy l Result [facility] [id number] [address] Department [place] [address] * (ABNORMAL) Lipid panel (08/03/2024 11:53 AM SALES OPERATIONS ASSOCIATE) Cholesterol 87 30 - 199 mg/dL Comment: [...] on 2018. Triglycerides 256(H) <=149 mg/dL ELIZABETH Comment: Interpretive Data Ages < or = [...] ELIZABETH TEE Blood 08/03/2024 11:5 3 AM SALES OPERATIONS ASSOCIATE 08/03/2024 6:11 PM SALES OPERATIONS ASSOCIATE Delaney Rivera MD LAB BLOOD ORDERABLES Final Resul t [facility] [id number] [address] Department [place] [address] * DIABETES EYE EXAM (06/28/2024 3:36 PM CDT) Historical Provider HEALTH MAINTENANCE Final Result * PSA, total Blood (11/21/2019 10:50 AM SALES OPERATIONS ASSOCIATE) SCRIBED PSA, Total 0.99 0.00 - 4.00 EXTERNAL LAB Blood specimen (specimen) 11/21/2019 10:50 AM SALES OPERATIONS ASSOCIATE Historical Provider LAB BLOOD ORDERABLES Edit ed Result - Final EXTERNAL LAB from Last 3 Months or Most Recently Relevant to Health Maintenance Insurance [facility] MEDICARE [employer] MEDICARE Care Teams Manufacturing Supervisor Relationship Specialty Start Date End Date Kira Talavera JEWEL DIAMETER GAUGER [address] [place] [address] [place], [place] [phone] PCP - General Pediatrics 03/28/[address] [place] [address] [facility] [address] [place] [address] Consulting Physician Endocrinology Diabetes & Metabolism 11/07/18 Nilay England MD [address] [place] [address] Referring Physician Cardiovascular Disease 08/15/19
--- OUTSIDE RECORDS SUMMARY | 2025-03-06 14:42 | XMS_ITS | Encounter Summary ---
Author Organization [facility] Address [facility] [place] [address] Care Team Providers Care President Ergonomic Consulting Name Role Phone Kira Talavera [facility] Primary Care Provider [phone] Encounter Details Date Type Department Care Team (Late st Contact Info) Description 08/16/2023 reBounces Message Enc [facility] [address] [place] [phone] Kira Talavera [facility] [address] [place] [phone] vaccines received Social History Tobacco Use Types Packs/Day Years Used Date Smoking Tobacco: Never Smokeless Tobacco: Never Comments:Provider to program counselor Alcohol Use Standard Drinks/Week Comments Yes [...] place to sleep or slept in a snf (including now)? No 11/29/2022 Sex and Gender [...] Assessment Author Status No 11/29/2022 4:57 AM Irene Ramirez RN Active * Do you have serious difficulty walking or climbing stairs? Answer Date of Assessment Author Status No 11/29/2022 4:57 AM Irene Ramirez RN Active * Do you have difficulty dressing or bathing? Answer Date of Assessment Author Status No 11/29/2022 4:57 AM Irene Ramirez RN Active * Because of a physical, mental, or emotional condition, do you have difficulty doing errands alone such as visiting a doctor's office or shopping? Answer Date of Assessment Author Status No 11/29/2022 4:57 AM Irene Ramirez RN Active documented as of this encounter Mental Status * Because of a physical, mental, or emotional condition, do you have serious difficulty concentrating, remembering, or making decisions? Answer Entry Date Author Status No 11/29/2022 4:57 AM Irene Ramirez RN Active documented in this encounter Plan of Treatment Upcoming Encounters Date Type Department Care Team (Late st Contact Info) Description 07/10/2025 8:00 AM CDT Office Visit [facility] [address] [place] [address] Kira Talavera FNP [address] [place] [id number] documented as of this encounter Visit Diagnoses Not on filedocumented in this encounter Additional Health Concerns Assessment Noted Time PHQ-9 Depression Total Score: 0 08/29/20 21 8:34 AM DYNAMO REPAIRER documented as of this encounter Care Teams President [employer] Consulting Relationship Specialty Start Date End Date Kira Talavera FNP [address] [place] [address] PCP - General Nurse Practitioner Family 03/12/20 documented as of this encounter
--- OUTSIDE RECORDS SUMMARY | 2025-03-06 14:42 | XMS_ITS | Encounter Summary ---
Author Organization [facility] Healthcare Address [address] [place] [address] Care Team Providers Care Motor Power Connector Name Role Phone Delaney Rivera MD Unavailable Nilay England MD Unavailable Kira Talavera NP Primary Care Provider [phone] Reason for Visit * Reason Comments Type 2 diabetes mellitus with hyperglyce antony, with long-term Encounter Details Date Type Department Care Team (Latest Contact Info) Description 03/06/2025 10:45 AM CDT Office Visit [facility] [id number] [place] [id number] [place] [id number] [place] [id number] Hyperlipidemia associated with type 2 diabetes mellitus (HCC) (Primary Dx) Social History Tobacco Use Types Packs/Day Years [...] on file Legal Sex Male 10:07 AM TOBACCO CURER Gender Identity Not on file Sexual Orientation Straight 08/03/2024 10 :46 AM TOBACCO CURER documented as of this encounter Last Filed Vital Signs Vital Sign Reading [...] Mass Index 33.45 03/06/2025 11:08 AM CDT documented in this encounter Ordered Prescriptions Prescription Sig Dispense Quantity Refills Last Filled Start Date End Date tirzepatide (Mounjaro) 7.5 mg/0.5 mL pen injector injection Inject 0.5 mL (7.5 mg total) under the skin once a week 2 mL 6 03/06/2025 documented in this encounter Progress Notes * Delaney Rivera MD - 03/06/2025 10:45 AM CDT Images from the original note were not included. [facility] Subjective/Objective Patient ID: Justino Boland is a 69 y.o. male Chief Complaint Type 2 diabetes mellitus with hyperglycemia, with long-term HPI This patient has verbally consented to recording this visit in order to utilize AI technology in generating this note. History of Present Illness Justino Plascencia is a 69 year old male with diabetes who presents for diabetes management and follow-up. He has a history of diabetes, which was exacerbated by tamoxifen, leading to insulin resistance andelevated blood sugars. During chemotherapy, his blood sugars were in the 500-600 range due to steroid use. Since stopping tamoxifen, his blood sugar levels have improved significantly. He is currently on Mounjaro 5 mg, which is not curbing his appetite or aiding in weight loss. He previously used Ozempic but found it ineffective over time. His current diabetes management includes NovoLog, which he takes two to three times daily, averaging 32 units per shot, and Toujeo, 100 units at night, sometimes reduced to 60 units if his blood sugar is low. He also takes metformin 1000 mg twice daily and Farxiga 10 mg daily. He experiences symptoms of low blood sugar when levels drop to 90, which he manages with snacks. No significant weight loss with current diabetes medication. BG monitoring with DEXCOM CGM , ( see below ) He was diagnosed with breast cancer approximately 19 months ago after discovering a marble-sized lump in his chest. The cancer was described as 'in situ' and aggressive. He underwent surgery, which included the removal of four lymph nodes that were clear. He received three chemotherapy infusions and four weeks of radiation. Subsequently, he was started on tamoxifen, which was discontinued about two and a half months ago due to concerns about kidney function and its efficacy in men. His creatinine is currently 1.28 and his GFR is 56, which is up from a previous GFR of 32. He has ahistory of acute kidney failure noted during tamoxifen treatment. He has a history of hyperlipidemia and is on Repatha injections every two weeks after experiencing adverse reactions to statins. His cholesterol levels have significantly improved with this treatment. He is on hydrochlorothiazide 12.5 mg for blood pressure, which is well-controlled, and Vascepa forhyperlipidemia. [place] engages in physical activity [place] but does not attend a gym. He uses a glucose sensor formonitoring but did not download recent data for review. Results LABS Finger stick glucose: 110 (03/06/2025) HbA1c: 6.9 (03/06/2025) Creatinine: 1.28 (02/08/2025) GFR: 56 (02/08/2025) PATHOLOGY Breast cancer pathology: In situ, aggressive type, four lymph nodes negative Lab Results Component Value Date HGBA1C 6.9 (A) 03/06/2025 HGBA1C 7.6 11/28/2024 HGBA1C 6.9 08/03/2024 Assessment & Plan Type 2 Diabetes Mellitus with Hyperglycemia Blood glucose improved post-tamoxifen. Current regimen includes Metformin, Farxiga, NovoLog. A1c is6.9%. Mounjaro used for weight loss and glycemic control. - Increase Mounjaro to 7.5 mg, reassess in 1-2 months. - Consider Mounjaro 10 mg if weight loss insufficient. - Reduce Toujeo to 90 or 80 units if hypoglycemia occurs. Chronic Kidney Disease Kidney function improved post-tamoxifen. GFR 56, creatinine 1.28. Acute kidney failure likely tamoxifen-related. - Continue hypertension and diabetes management. - Avoid nephrotoxic medications. Hypertension Blood pressure controlled at 108/60 mmHg with hydrochlorothiazide. - Continue current antihypertensive regimen. Hyperlipidemia Managed with Repatha, cholesterol reduced from 600 to 70 mg/dL. Stent placed in 2015. - Continue Repatha injections biweekly. Follow-up Monitor response to Mounjaro dosage increase and insulin regimen adjustments. - Schedule follow-up in 4 months. - Download glucose sensor data for next visit. Delaney Rivera MD documented in this encounter Procedure Notes * Delaney Rivera MD - 03/06/2025 10:45 AM CDT Procedures CGM data was downloaded , scanned ( under Media Folder ) , analyzed and interpreted . documented in this encounter Plan of Treatment Not on file documented as of this encounter Procedures Procedure Name Priority Date/Time Associated Diagnosis Comments POCT HEMOGLOBIN A1C Routine 03/06/2025 1 1:07 AM CDT Hyperlipidemia associated with type 2 diabetes mellitus (HCC) POCT GLUCOSE Routine 03/06/2025 11:07 AM CDT Hyperlipidemia associated with type 2 diabetes mellitus (HCC) documented in this encounter Results * POCT glucose (03/06/2025 11:07 AM CDT) Glucose Blood, POC 110 Normal Fasting 70 - 100, Random <200 mg/dL Comment:None Blood 03/06/2025 11:0 7 AM CDT Delaney Rivera MD POINT OF CARE TEST ORDERABLES Fi nal Result * (ABNORMAL) POCT hemoglobin A1c (03/06/2025 11:07 AM CDT) Hemoglobin A1C, POC 6.9(A) 4.0 - 5.6 % Comment:None Capillary blood 03/06/2025 1 1:07 AM CDT Delaney Rivera MD POINT OF CARE TEST ORDERABLES Fi nal Result documented in this encounter Visit Diagnoses Diagnosis Hyperlipidemia associated with type 2 diabetes mellitus (HCC)- Primary documented in this encounter Discontinued Medications Medication Sig Discontinue Reason Start Date End Da te tirzepatide (Mounjaro) 5 mg/0.5 mL pen injector injectionIndications:typ e 2 diabetes mellitus Inject 0.5 mL (5 mg total) under the skin every 7 days 11/28/2024 03/06/2025 tamoxifen (NOLVADEX) 20 mg tablet Take 1 tablet (20 mg total) by mouth daily Other 07/25/2024 03/06/2025 documented as of this encounter Care Teams Motor Power Connector Relationship Specialty Start Date End Date Kira Talavera NP [address] [place] [address] [place] [address] PCP - General Pediatrics 03/28/20 [place] [id number] [address] Consulting Physician Endocrinology Diabetes & Metabolism 11/07/18 Nilay England MD [address] [place] [address] Referring Physician Cardiovascular Disease 08/15/19 documented as of this encounter
[2025-03-06 14:59] LABS: Partial Thromboplastin Time 26.2 Seconds (22.3-36.8); Prothrombin Time 13.6 Seconds (11.1-14.7)
== END 2025-03-06 13:50 | disposition home or self-care (01) ==
LOC: ANHSURGERY 13:54
PROVIDERS: Anesthesiology; PCP Nurse Practitioner; Visit Provider Surgery
DX: N18.9 Chronic kidney disease, unspecified (principal)
CPT/HCPCS: 36415; 85610; 85730

== ENCOUNTER 2025-03-08 02:15 | Day surgery (SDC) | payer MEDICARE, SELFPAY ==
[2025-03-02 08:42] VITALS: BMI 33.2
--- NOTE | 2025-03-02 09:01 | PC.NURSE ---
Report to the Outpatient Waiting Room, entrance under the green pavilion located off [facility], at time _1:00pm on date __03/08/25 . Planned Procedure Time: __3:00pm .? Time changes happen often and if your time is changed the preop area will call you the afternoon before. - You and your visitor will be asked to self-screen and do not enter if you have any COVID symptoms. Please call surgeon if you need to reschedule. - A mask is optional within the hospital at this time. Patients may have clear liquids (water, carbonated beverages, clear teas, apple juice) until 3 hours prior to surgery with a maximum of 20 ounces. - No food from midnight until time of surgery and no smoking, or chewing tobacco (or any form of nicotine). No chewing gum, candy or mints. (12:00pm) - Take only the following medications with a SIP of water on the morning of surgery: __Amlodipine DO NOT STOP ANY OF YOUR OTHER PRESCRIPTION MEDICATIONS PRIOR TO SURGERY EXCEPT THE FOLLOWING Hold all vitamins and supplements for 3 days per anesthesiologist. Date of last Dose is 03/04/25 Medications to discontinue per physician NONE Date to take last dose NONE Please no make-up, nail turkmen, hairspray, perfume, deodorant, or body powder the day of surgery.? No jewelry (including any body piercings) or valuables the day of surgery, leave them at home.? Please take a shower or bath the night before, or the morning of, surgery with an antibacterial soap.? Wear comfortable, loose fitting clothing.? - Jewelry must be removed prior to entering the operating room.? Rings and piercings that are not removed may be cut off. - The hospital will not accept responsibility for valuables.? - Please leave all valuables, including medications, at home the day of surgery. If you are going home after surgery, a licensed motorcycle delivery driver must drive you home.? - NO public transportation without another adult if you receive anesthesia. - We recommend that an adult stay with you for 24 hours following discharge. - We also recommend that you do not drive, make important decision, drink alcoholic beverages, or take any drugs that were not prescribed by your health care provider for at least 24 hours after your discharge time. Follow any additional instructions given to you from your surgeon. Telephone instructions given to __Patient and asked if any additional questions and then verbalized understanding. Patient advised to call surgeon office or pre surgery nurse liaison [phone] if any additional questions.
--- OUTSIDE RECORDS SUMMARY | 2025-03-08 02:19 | XMS_ITS | Encounter Summary ---
Author Organization [facility] Address [facility] [place] [address] Care Team Providers Care Slot Shift Manager Name Role Phone Kira Talavera [facility] Primary Care Provider Encounter Details Date Type Department Care Team (Late st Contact Info) Description 01/15/2023 Bioscience Vaccinest Message Enc [facility] [address] [place] [address] Kira Talavera [facility] [address] [place] [id number] [facility] Social History Tobacco Use Types Packs/Day Years Used Date Smoking Tobacco: Never Smokeless Tobacco: Never Comments:Provider to queen's counsel Alcohol Use Standard Drinks/Week Comments Yes [...] place to sleep or slept in a mcc (including now)? No 11/29/2022 Sex and Gender [...] Description 07/10/2025 8:00 AM CDT Office Visit [address] [place], [place] [id number] Kira Talavera FNP [address] [place] [address] [place] Her [id number] documented as of this encounter Visit Diagnoses Not on filedocumented in this encounter Additional Health Concerns Assessment Noted Time PHQ-9 Depression Total Score: 0 08/29/20 21 8:34 AM SUPERVISOR INVENTORY MERCHANDISING documented as of this encounter Care Teams Slot Shift Manager Relationship Specialty Start Date End Date Kira Talavera FNP [address] [place] [address] [place] [address] PCP - General Nurse Practitioner Family 03/12/20 documented as of this encounter
--- OUTSIDE RECORDS SUMMARY | 2025-03-08 02:19 | XMS_ITS | Encounter Summary ---
Author Organization [facility] Address [facility] [place] [address] Care Team Providers Care Wheat Washer Name Role Phone Luis Felipe Saldivar MD Unavailable Unavailab Nilay Anthony MD Unavailable [phone] Kira TalaveraP Primary Care Provider [phone] Encounter Details Date Type Department Care Team (Late Contact Info) Description 12/11/2020 [employer] Software Message Enc [facility] [address] [place] [phone] [place], [facility] Provider RE:Appointment Request: Annual Physical Social [...] 8:00 AM CDT Office Visit [facility] [address] [place] [address] Kira Talavera FNP [address] [place] [address] documented as of this encounter Visit Diagnoses Not on filedocumented in this encounter Additional Health Concerns Infection Onset Date Last Indicated Resolved Time COVID-19 Rule Out 12/27/2020 12/27/2020 12/27/2020 7:49 AM CDT COVID-19 Rule Out 12/27/2020 12/27/2020 12/28/2020 8:30 AM CDT COVID-19 Rule Out 11/28/2022 11/28/2022 11/28/2022 11:30 PM FUEL TRUCK DRIVER documented as of this encounter Care Teams Wheat Washer Relationship Specialty Start Date End Date Kira Talavera FNP [address] [place] [address] PCP - General Nurse Practitioner Family 03/12/20 Luis Felipe Saldivar MD CARDIOVASCULAR DISEASE 05/04/17 09/08/21 Nilay Stout MD [employer] Stock Drier Tender INTERVENTIONAL CARDIOLOGY 11/15/18 09/08/21 documented as of this encounter
--- OUTSIDE RECORDS SUMMARY | 2025-03-08 02:19 | XMS_ITS | Encounter Summary ---
Author Organization [facility] Address [facility] [place] [address] Care Team Providers Care Tannery Gummer Name Role Phone Talavera Kira FRANKLIN Primary Care Provider [phone] Encounter Details Date Type Department Care Team (Late st Contact Info) Description 04/01/2023 [employer] (Astilbe) Message Enc [facility] [address] [place] [address] Harpreet Montenegro, FORESTRY CONSERVATION WORKER [address] [place] [phone] question regarding blood thinner type drug Social History Tobacco Use Types Packs/Day Years Used Date Smoking Tobacco: Never Smokeless Tobacco: Never Comments:Provider to student success counselor Alcohol Use Standard Drinks/Week Comments Yes [...] place to sleep or slept in a fpc (including now)? No 11/29/2022 Sex and Gender [...] Description 07/10/2025 8:00 AM CDT Office Visit [facility] [address] [facility] [place] [address] Kira Talavera FNP [address] [place] [address] documented as of this encounter Visit Diagnoses Not on filedocumented in this encounter Additional Health Concerns Assessment Noted Time PHQ-9 Depression Total Score: 0 08/29/20 21 8:34 AM BEHAVIOUR SUPPORT TEACHER documented as of this encounter Care Teams Tannery Gummer Relationship Specialty Start Date End Date Kira Talavera FNP [address] [facility] [place] [address] PCP - General Nurse Practitioner Family 03/12/20 documented as of this encounter
--- OUTSIDE RECORDS SUMMARY | 2025-03-08 02:19 | XMS_ITS | Encounter Summary ---
Author Organization [facility] Address [facility] [place] [address] Care Team Providers Care Liquid Fertilizer Servicer Name Role Phone Kira Talavera [facility] Primary Care Provider Encounter Details Date Type Department Care Team (Late st Contact Info) Description 09/22/2021 [employer]t Message Enc [facility] [address] [place] [phone] Kira Talavera [facility] [address] [place] [phone] covid 19 test results Social History Tobacco Use Types Packs/Day Years Used Date Smoking Tobacco: Never Smokeless Tobacco: Never Comments:Provider to community health counselor Alcohol Use Standard Drinks/Week Comments Yes [...] have Coronavirus / COVID-19? No / Unsure 09/09/2021 10:46 AM PLANT ANATOMIST documented as of this encounter Plan of Treatment Upcoming Encounters Date Type Department Care Team (Late st Contact Info) Description 07/10/2025 8:00 AM CDT Office Visit [facility] [address] [place] [address] Kira Talavera FNP [address] [place] [address] documented as of this encounter Visit Diagnoses Not on filedocumented in this encounter Additional Health Concerns Infection Onset Date Last Indicated Resolved Time COVID-19 Rule Out 11/28/2022 11/28/2022 11/28/2022 11:30 PM PLANT ANATOMIST Assessment Noted Time PHQ-9 Depression Total Score: 0 08/29/20 8:34 AM PLANT ANATOMIST documented as of this encounter Care Teams Liquid Fertilizer Servicer Relationship Specialty Start Date End Date Kira Talavera FNP [facility] [place] [address] PCP - General Nurse Practitioner Family 03/12/20 documented as of this encounter
--- OUTSIDE RECORDS SUMMARY | 2025-03-08 02:19 | XMS_ITS | Encounter Summary ---
Author Organization [facility] Address [facility] [place] [address] Care Team Providers Care Program Technician Name Role Phone Luis Felipe Saldivar MD Unavailable Unavailab Nilay Anthony MD Unavailable [phone] Kira Talavera DATA OPERATIONS DIRECTOR Primary Care Provider [phone] Encounter Details Date Type Department Care Team (Late st Contact Info) Description 03/05/2021 Abstract [facility] [address] [place] [address] Nilay Stout MD [address] [place] [address] Social History Tobacco Use Types [...] Description 07/10/2025 8:00 AM CDT Office Visit [facility] [address] [place] [address] Kira Talavera FNP [address] [place] [address] documented as of this encounter Visit Diagnoses Not on filedocumented in this encounter Additional Health Concerns Infection Onset Date Last Indicated Resolved Time COVID-19 Rule Out 11/28/2022 11/28/2022 11/28/2022 11:30 PM K [employer] SCHOOL PRINCIPAL Assessment Noted Time PHQ-9 Depression Total Score: 0 03/04/20 8:07 AM CDT documented as of this encounter Care Teams Program Technician Relationship Specialty Start Date End Date Kira Talavera FNP [facility] [place] [address] PCP - General Nurse Practitioner Family 03/12/20 Luis Felipe Saldivar MD CARDIOVASCULAR DISEASE 05/04/17 09/08/21 Nilay Stout MD [place] Supervisor [place] INTERVENTIONAL CARDIOLOGY 11/15/18 09/08/21 documented as of this encounter
--- OUTSIDE RECORDS SUMMARY | 2025-03-08 02:19 | XMS_ITS | Encounter Summary ---
Author Organization [facility] Address [facility] [place] [address] Care Team Providers Care Day Trader Name Role Phone Kira Talavera [facility] Primary Care Provider Encounter Details Date Type Department Care Team (Late st Contact Info) Description 11/16/2022 Asurintt Message Enc [facility] [address] [place], [place] [phone] Kira Talavera [facility] [address] [place] [phone] request for a dosage change for amlodipine Social History Tobacco Use Types Packs/Day Years Used Date Smoking Tobacco: Never Smokeless Tobacco: Never Comments:Provider to enrollment counselor Alcohol Use Standard Drinks/Week Comments Yes [...] sent a my chart message to pt. R SALES SUPPORT WORKER * Lela Lino RN - 11/16/2022 1:31 PM CST Please note and advise; last office visit 02/27/22, last filled 09/01/22 #90 R SALES SUPPORT WORKER documented in this encounter Plan of Treatment Upcoming Encounters Date Type Department Care Team (Late st Contact Info) Description 07/10/2025 8:00 AM CDT Office Visit [facility] [address] [facility] [place] [address] Kira Talavera FNP [address] [place] [address] [place] [address] documented as of this encounter Visit Diagnoses Not on filedocumented in this encounter Additional Health Concerns Infection Onset Date Last Indicated Resolved Time COVID-19 Rule Out 11/28/2022 11/28/2022 11/28/2022 11:30 PM OTHER SALES SUPPORT WORKER Assessment Noted Time PHQ-9 Depression Total Score: 0 08/29/20 8:34 AM OTHER SALES SUPPORT WORKER documented as of this encounter Care Teams Day Trader Relationship Specialty Start Date End Date Kira Talavera FNP [address] [place] [address] [place] [address] PCP - General Nurse Practitioner Family 03/12/20 documented as of this encounter
--- OUTSIDE RECORDS SUMMARY | 2025-03-08 02:19 | XMS_ITS | Encounter Summary ---
Author Organization [facility] Address [facility] [place] [address] Care Team Providers Care Pottery Machine Operator Name Role Phone Luis Felipe Saldivar MD Unavailable Unavailab Mario Hough MD Primary Care Provider [phone] Nilay Stout MD Unavailable [phone] Kira Talavera Primary Care Provider [phone] Encounter Details Date Type Department Care Team (Late st Contact Info) Description 06/22/2018 Abstract [facility] [address] [place] [address] Luis Felipe Saldivar MD Social [...] 8:00 AM CDT Office Visit [facility] [address] [facility] [place] [address] Kira Talavera FNP [address] [place] [address] [place] [address] documented as of this encounter Procedures Procedure [...] Rule Out 11/28/2022 11/28/2022 11/28/2022 11:30 PM BUSINESS SOLUTIONS ANALYST documented as of this encounter Care Teams Pottery Machine Operator Relationship Specialty Start Date End Date Mario Johnson MD [address] [place] [address] PCP - General FAMILY PRACTICE 05/04/17 03/11/20 Kira Talavera FNP [address] [place] [address] PCP - General Nurse Practitioner Family 03/12/20 Luis Felipe Saldivar MD CARDIOVASCULAR DISEASE 05/04/17 09/08/21 Nilay Stout MD [address] [place] [address] [place] [employer] Sales Consultant INTERVENTIONAL CARDIOLOGY 11/15/18 09/08/21 documented as of this encounter
--- OUTSIDE RECORDS SUMMARY | 2025-03-08 02:19 | XMS_ITS | Encounter Summary ---
Author Organization [facility] Address [facility] [place] [address] Care Team Providers Care Tdp Displays Analyst Name Role Phone Luis Felipe Saldivar MD Unavailable Unavailab Mario Hough MD Primary Care Provider [phone] Nilay Stout MD Unavailable [phone] Kira Talavera Primary Care Provider [phone] Encounter Details Date Type Department Care Team (Late st Contact Info) Description 02/06/2016 Abstract [facility] [address] [place] [address] , Generic ConversionMD Social History Tobacco Use Types Packs/Day Years Used Date Smoking Tobacco: Never Assessed Sex and Gender Information Value Date Recorded Sex Assigned at Male 01/09/2025 8:14 AM CDT Legal Sex Male 10:17 PM CDT Gender Identity Male 01/09/2025 8:14 AM CDT Sexual Orientation Not on file documented as of this encounter Plan of Treatment Upcoming Encounters Date Type Department Care Team (Late st Contact Info) Description 07/10/2025 8:00 AM CDT Office Visit On [facility] of [facility] [address] [facility] [place] [address] Kira Talavera FNP [facility] [place] [phone] documented as of this encounter Visit Diagnoses Not on filedocumented in this encounter Additional Health Concerns Infection Onset Date Last Indicated Resolved Time COVID-19 Rule Out 12/27/2020 12/27/2020 12/27/2020 7:49 AM CDT COVID-19 Rule Out 12/27/2020 12/27/2020 12/28/2020 8:30 AM CDT COVID-19 Rule Out 11/28/2022 11/28/2022 11/28/2022 11:30 PM SAFE DEPOSIT BOX RENTAL CLERK documented as of this encounter Care Teams Tdp Displays Analyst Relationship Specialty Start Date End Date Mario Johnson MD [address] [place] [address] PCP - General FAMILY PRACTICE 05/04/17 03/11/20 Kira Talavera FNP [address] [place] [address] PCP - General Nurse Practitioner Family 03/12/20 Luis Felipe Saldivar MD CARDIOVASCULAR DISEASE 05/04/17 09/08/21 Nilay Stout MD [address] [place] [address] [place] Label Cutter INTERVENTIONAL CARDIOLOGY 11/15/18 09/08/21 documented as of this encounter
--- OUTSIDE RECORDS SUMMARY | 2025-03-08 02:19 | XMS_ITS | Clinical Summary ---
Author Organization [facility] Address [facility] [place] [address] Care Team Providers Care Inspector Returned Materials Name Role Phone Kira Talavera EDM OPERATOR Primary Care Provider [phone] Allergies Active Allergy Reactions Criticality Noted Date Comments Amoxicillin Unknown Atorvastatin Myalgias 08/28/2019 Amoxicillin-Pot Clavulanate Unknown 05/18/20 17 Clindamycin Unknown 05/18/2017 Erythromycin Unknown 05/18/2017 Levofloxacin Shortness of Breath High 04/11/2024 Pravastatin Unknown 05/18/2017 Rosuvastatin Unknown Medications aspirin EC 81 MG tablet Take 1 tablet (81 mg total) by mouth nightly. Active hydrochlorothiaz sergei 12.5 MG capsule Take 1 capsule (12.5 mg total) by mouth every morning. Active metFORMIN 1000 MG tablet Take 1 tablet (1,000 mg total) by mouth 2 (two) times daily with meals. Active insulin glargine 100 UNIT/ML injection (PEN) Inject 90 Units into the skin nightly at bedtime. 8 Active Dapagliflozin Propanediol 10 MG Tab Take 1 tablet (10 mg total) by mouth. 8 Active sildenafil 50 MG tablet Take 1 tablet (50 mg total) by mouth. 9 Active Insulin Pen Needle 31G X 8 MM Misc Use to inject once daily 8 Active VASCEPA 1 g capsule Take 2 capsules (2 g total) by mouth 2 (two) times daily with meals. 120 capsule 2 Active nitroglycerin (NITROSTAT) 0.4 MG SL tablet DISSOLVE ONE TABLET UNDER THE TONGUE EVERY 5 MINUTES NEEDED FOR CHEST PAIN. DO NOT EXCEED A TOTAL OF 3 DOSES IN 15 MINUTES 45 tablet 1 4 Active Additional Information Patient not taking.Reported on 01/09/2025 lisinopril (PRINIVIL) 40 MG tablet Take 1 tablet by mouth once daily 90 tablet 3 4 Active fenofibrate 160 MG tabletIndication s:Mixed hyperlipidemia,C oronary artery disease involving afognak coronary artery of afognak heart without angina pectoris Take 1 tablet by mouth once daily 90 tablet 3 4 Active nebivolol (BYSTOLIC) 20 MG tablet Take 1 tablet by mouth once daily 90 tablet 3 4 Active amLODIPine (NORVASC) 5 MG tabletIndication s:Essential hypertension Take 1 tablet by mouth once daily 90 tablet 1 4 Active ezetimibe (ZETIA) 10 MG tablet Take 1 tablet by mouth once daily 90 tablet 4 Active allopurinol (ZYLOPRIM) 100 MG tabletIndication s:Hyperuricemia Take 1 tablet by mouth once daily 90 tablet 1 4 Active evolocumab (REPATHA SURECLICK) 140 MG/ML injection (PEN)Indications :Mixed hyperlipidemia,C oronary artery disease involving afognak coronary artery of afognak heart without angina pectoris Inject 1 mL (140 mg total) into the skin every 14 (fourteen) days. 2 Pen 11 5 Active insulin aspart (NOVOLOG) 100 UNIT/ML injection (PEN) Inject 28 Units into the skin 3 (three) times daily before meals. Active tirzepatide (MOUNJARO) 5 MG/0.5ML injectionIndicat ions:Diabetes Mellitus Inject 5 mg into the skin once a week. Indications: Diabetes Active gabapentin (NEURONTIN) 300 MG capsuleIndicatio ns:Peripheral neuropathy due to chemotherapy (HHS/HCC) Take 1 capsule (300 mg total) by mouth 2 (two) times a day. 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, estrogen receptor positive (CMS/HCC HHS/HCC) 11/16/2023 Overview (01/05/2024): Stage: Clinical T1N0; pT2N0 Date of diagnosis: 10/22/2023 Diagnosis: RIGHT (Grade 3) 2.2 cm IDC, 0/6 LN ER 95% [place] 0% her 2 2+ MAURICE negative Surgeon: [facility] Surgery: 12/15/2023 right lump/SLN Medical Oncologist: Chemotherapy: Radiation Oncologist: Radiation: Anti-estrogen therapy: ALISON (acute kidney injury) 11/29/2022 Umbilical hernia without obstruction and without gangrene 02/27/2022 Hypertriglyceridemia 09/09/2021 Polyp of colon, unspecified part of colon, unspe cified type 08/29/2021 Neural foraminal stenosis of cervical spine 02/18 Erectile dysfunction 05/16/2019 Hyperlipidemia associated wi th type 2 diabetes mellitus ([facility]) 05/03/2018 Overview (03/04/2021): Last Assessment & Plan: Hypertriglyceridemia associated with diabetes. Provided with samples of Vascepa to use in place of generic fish oil. Coronary artery disease invo lving afognak coronary artery of afognak heart without angina pectoris 06/17/2017 Mixed hyperlipidemia 06/17/2017 Exogenous obesity 05/04/2017 Overview (11/14/2018): Date Onset: 05/04/2017 Ischemic vascular disease 05/04/2017 Overview (11/14/2018): Date Onset: 05/04/2017 Sprain and strain of ankle 01/08/2016 Overview (11/14/2018): Date Onset: 01/08/2016 GERD (gastroesophageal reflux disease) 6 Sciatica 11/07/2015 Overview (11/14/2018): Date Onset: 11/07/2015 Type 2 diabetes mellitus wit h hyperglycemia, with long-term current use of insulin ([facility]) 01/31/2014 Overview (09/10/2020): DMII WO CMP NT ST UNCNTR Last Assessment & Plan: A1c increased to 8.1. Increase Ozempic to 1 mg. Will continue to increase Basaglar if FBG remain > 150. Foot care reviewed. Essential hypertension 06/13/2013 Overview (05/15/2019): Overview: HYPERTENSION NOS Last Assessment & Plan: Follow up with new two way radio technician how has records on type of stents he has. Can increase ASA to 325 mg daily once out of Plavix. Diabetes mellitus, type II ([facility]) Resolved Problems Problem Noted Date Diagnosed Date Resolved Date Preop cardiovascular exam 11/22/2023 Influenza 08/25/2017 11/14/2018 Overview (11/14/2018): Note: Influenza A Date Onset: 08/25/2017 Sinusitis, acute 08/24/2017 11/22/2020 Overview (11/14/2018): Date Onset: 08/24/2017 Cough 08/24/2017 11/14/2018 Overview (11/14/2018): Date Onset: 08/24/2017 Acute gout of ankle 01/08/2016 11/23/19 21 Overview (11/14/2018): Date Onset: 01/08/2016 Sleep apnea, obstructive 08/02/201301/2021 Overview (11/14/2018): Date Onset: 08/02/2013 Hyperlipidemia 08/19/2020 Encounters Date Type Department Care Team Description 01/18/2025 Abstract [facility] BUSINESS OFFICE [address] [place] [address] Abstract, Doc Med Group 01/09/2025 8:00 AM CDT Office Visit [address] [place], [place] [id number] Talavera, Kira K, EDM OPERATOR Follow Up (6 month follow up) 01/09/2025 Travel 01/04/2025 Patient Outreach [place] [address] [address] [place], [place] [address] Kira Talavera FNP Pre-visit Gap Closure 01/02/2025 Scan [facility] HE[facility] INFO SRVCS Scanned, Doc Med Group 12/15/2024 Scan [facility] HEALTH INFO SRVCS Scanned, Doc Med Group 12/06/2024 Scan [facility] HE[facility] INFO SRVCS Scanned, Doc Med Group Lab (SCAN) from Last 3 Months Immunizations Immunization Administration Dates Next Due Arexvy Respiratory Syncytial Virus (RSV, adjuvanted) 0.5 mL, PF 08/16/2023 Fluzone 6 Months+ Quad (0.5 mL Prefilled Syringe) 07/08/2020,06/29/2019,06/20/2018 Fluzone High Dose (IIV, triv alent, 0.5mL) 08/05/2024 Fluzone High Dose - >Age 65 (Prefilled Syringe) 07/06/2023,07/27/2022 Hepatitis B (Generic: Adult) 09/17/1992,04/17/19 92,03/18/1992 Influenza (Generic) 07/16/2014,08/30/2012 Influenza Adult (Generic) 08/06/2021,,07/08/2020,2018,06/20/2018,07/16/2014,08/30/2012 MODERNA COVID-19 (12+) MRNA, LNP-S, PF, 100 MCG/ 0.5 ML DOSE 07/15/2021,12/11/2020,11/13/2020 MODERNA COVID-19 (LUMP ROOM SUPERVISOR ROMEL SAPNA), MRNA, LNP-S, PF, 50 MCG/ 0.25 ML DOSE 07/15/2021 Pneumococcal (Pneumovax 23) 09/10/2020 Pneumococcal (Prevnar 20) 07/06/2023 Shingrix 05/28/2021,03/10/2021 Td 02/27/2000 Td (TDVAX) 02/27/2000 Tdap (Generic) 05/18/2018 Family History Medical History Relation Comments Alcohol Abuse Father cardiovascular disease Father Relation Status Comments Father Social History Tobacco Use Types Packs/Day Years Used Date Smoking Tobacco: Never Smokeless Tobacco: Never Tobacco Cessation:Counseling Given: Not Answered Comments:Provider to equal opportunity counselor Alcohol Use Standard Drinks/Week Comments Yes [...] at all 11/29/2022 PHQ-2 Answer Date Recorded Patient Health Questionnaire-2 Score 0 01/09/2025 Hunger Vital Sign Answer Date Recorded Within [...] place to sleep or slept in a chcf (including now)? 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 file Last Filed Vital Signs Vital Sign Reading Time Taken Comments Blood Pressure 113/62 01/09/2025 8:09 AM CDT Pulse 79 01/09/2025 8:09 AM CDT Temperature 37.3 C (99.2 F) 01/09/2025 8:09 AM CDT Respiratory Rate 18 01/09/2025 8:09 AM CDT Oxygen Saturation 95% 01/09/2025 8:09 AM CDT Inhaled Oxygen Concentration - - Weight 106.6 kg (235 lb) 01/09/2025 8:09 AM CDT Height 177.8 cm (5' 10) 01/09/2025 8:09 AM CDT Body Mass Index 33.72 01/09/2025 8:09 AM CDT Plan of Treatment Upcoming Encounters Date Type Department Care Team (Late st Contact Info) Description 07/10/2025 8:00 AM CDT Office Visit [facility] [address] [place] [address] Kira Talavera FNP [address] [place] [address] Health Maintenance Due Date Last Done Comments Hepatitis C 1973 ASCVD LDL 06/11/2024 06/11/2023, 05/22, 03/11/2023, Additional history exists Lipid Panel 06/11/2024 06/11/2023, 05/22, 03/11/2023, Additional history exists Diabetes: Retinopathy Eye Exam 08/26/2024 08/26/2022, 07/03/2021, 04/04/2019 Kidney Health Evaluation 05/11/2025 Pos tponed from 1955 (Going to Outside Clinic) Hemoglobin A1C 05/31/2025 11/28/2024, 06/22, 11/29/2022, Additional history exists COVID-19 Vaccine ( season) 2025 07/15/2021, 07/15/2021, 12/11/2020, Additional history exists Postponed from 05/21/2024 (Patient Refused) Annual Medicare Wellness Visit 01/09/2026 Postponed from 2021 (Patient Refused) DTaP, Tdap and Td Vaccines (2 - Td or Tdap) 05/18/2028 05/18/2018, 02/27/2000, 02/27/2000 Colorectal Cancer Screening Colonoscopy (10 Years) 03/19/2031 03/19/2021 Colorectal Cancer Screening FIT-DNA (3 Years) Discontinued 03/20/2020, 03/20/2020, 03/20/2020 Zoster Vaccines Completed 05/28/2021, 03/10/2021 Pneumococcal Vaccine: 50+ Years Completed 07/06/2023, 09/10/2020 RSV Immunization or 60+ Years Completed 08/16/2023 PHQ-2 (Physician [place]) Completed 01/09/2025 Meningococcal B Vaccine Aged Out No l onger eligible based on patient's age to complete this topic Meningococcal Vaccine Aged Out No jen judah eligible based on patient's age to complete this topic RSV Immunizations Under 20 Months Aged Out No longer eligible based on patient's age to complete this topic Procedures Procedure Name Priority Date/Time Associated Diagnosis Comments OUTSIDE LAB (SCAN ORDER) 12/06/2024 OUTSIDE LAB (SCAN ORDER) 12/06/2024 OUTSIDE LAB (SCAN ORDER) 12/06/2024 HEMOGLOBIN, GLYCOSYLATED Routine 11/28/2024 LIPID PANEL Routine 06/11/2023 7:25 AM CDT Mixed hyperlipidemia DIABETIC RETINOPATHY EXAM (NEGATIVE)(SCAN ORDER) Routine 08/26/2022 COLONOSCOPY/EGD GENERIC (SCAN ORDER) 03/19/2021 COLOGUARD (AMBULATORY) Routine 03/20/2020 Colon cancer screening from Last 3 Months or Most Recently Relevant to Health Maintenance Results * OUTSIDE LAB (SCAN ORDER) (12/06/2024) Only the most recent of3 resultswithin the time period is included. 12/06/2024 ORDISSIMO Scanned SCANNING Final Resu lt * HEMOGLOBIN, GLYCOSYLATED (11/28/2024) HGB A1C 7.6 % 11/28/2024 Result [facility] LABORATORY Final Res ult * (ABNORMAL) LIPID PANEL (06/11/2023 7:25 AM CDT) CHOLESTEROL 99 0 - 200 MG/DL 06/11/2023 9:05 AM CDT [facility] TRIGLYCERIDES 640(H) 0 - 150 MG/DL 06/11/2023 9:05 AM T [facility] HDL 32(L) >40 MG/DL 06/11/2023 9:05 AM T [facility] LDL (CALCULATED) TRIGLYCERIDES >400 MG/DL, SEE DIRECT LDL REPORT <100 MG/DL 06/11/2023 9:05 AM T [facility] NON HDL CHOLESTEROL 67 0 - 130 MG/DL 06/11/2023 9:05 AM T [facility] Comment: NOTE: WHEN THE TRIGLYCERIDES ARE >200 mg/dL, NON HDL C IS A SECONDARY TARGET OF THERAPY, WITH A GOAL 30 mg/dL HIGHER THAN THE IDENTIFIED LDL C GOAL. CHOL/HDL RATIO 3.1 0.0 - 4.5 06/11/2023 9:05 AM T [facility] VLDL CALCULATION UNABLE TO CALCULATE RESULT 5 - 55 MG/DL 06/11/2023 9:05 AM T [facility] Comment:TRIGLYCERIDE >400 IN VALIDATES FRACTIONATION. LIPID INTERPRETATION 06/11/2023 9:05 AM CDT [facility] Comment: NIH CONCENSUS REPORT RECOMMENDATIONS: ADULT CHILD LOW RISK: CHOLESTEROL <200 <170 TRIGLYCERIDE <150 --- HDL >=60 --- LDL <100 <110 BORDERLINE: CHOLESTEROL 200-239 170-199 TRIGLYCERIDE 150-199 --- HDL 40-59 --- LDL 100-159 110-129 HIGH RISK: CHOLESTEROL >=240 >=200 TRIGLYCERIDE >=200 --- HDL <40 --- LDL >=160 >=130 06/11/2023 7:25 AM CDT Harpreet Montenegro PRINTING SALES REPRESENTATIVE LABORATORY Final R esult [facility] [address] [place] [address], * DIABETIC RETINOPATHY EXAM (NEGATIVE)(SCAN) (08/26/2022) [facility] Scanned SCANNING Final Resu lt Performing Organization Address City/[facility]/ZIP Co de Phone Number [facility] ONBASE * COLONOSCOPY/EGD GENERIC (03/19/2021) 03/19/2021 Narrative 03/19/2021 Ordered by an unspecified provider. Documents Scanned SCANNING Final Result * COLOGUARD (03/20/2020) COLOGUARD NEGATIVE Stool specimen (specimen) 03/20/2020 Kira Talavera EDM OPERATOR AMBULATORY COLOGUARD (RTF) Fi nal Result from Last 3 Months or Most Recently Relevant to Health Maintenance Insurance AETNA * Guarantor: Justino Boland Account Type Relation to Patient Date of Phone Billing Address Personal/Family Self [id number] [place] [address] Advance Directives * Full Code (Latest Code Status on File) Date Activated Date Inactivated Comments 11/29/2022 4:16 AM 11/29/2022 1:59 PM Care Teams Inspector Returned Materials Relationship Specialty Start Date End Date Kira Talavera FNP [address] [place] [address] [place] [address] PCP - General Nurse Practitioner Family 03/12/20
--- OUTSIDE RECORDS SUMMARY | 2025-03-08 02:19 | XMS_ITS | Clinical Summary ---
Author Organization [facility] Address [address] [place] [address] Phone Care Team Providers Care Adjunct Psychology Faculty Member Name Role Phone Kira Talavera MOTEL FRONT DESK CLERK Primary Care Provider [phone] Allergies Active Allergy Reactions Criticality Noted Date [...] 02/19/2021 Shrimp Nausea and Vomiting Low 02/19/2021 Uigrdai-Woj-Hrs Reductase Inhibitors Unknown 02/19/2021 Medications allopurinoL (ZYLOPRIM) [...] 2.2 cm IDC, 0/6 LN ER 95% [place] 0% her 2 2+ MAURICE negative Surgeon: [...] Encounters Date Type Department Care Team Description 03/07/2025 External Device Data STL ABSTRACTION Provider, Abstract 02/23/2025 Orders Only [facility] Oncology [facility] [address] [place] [address] Jr Pruitt MD 02/20/2025 1:15 PM CDT Office Visit [facility] Oncology [facility] [address] [place] [address] Jr Pruitt MD 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, estrogen receptor positive (CMS/HCC) (Primary Dx) 02/14/2025 Orders Only [facility] Oncology [facility] [address] [place] [address] Jr Pruitt MD 02/08/2025 External Device Data STL ABSTRACTION Provider, Abstract 02/07/2025 External Device Data STL ABSTRACTION Provider, Abstract 01/22/2025 Orders Only [facility] Oncology [facility] [address] [place] [address] Jr Pruitt MD 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, estrogen receptor positive (CMS/HCC) 01/08/2025 Orders Only [facility] Oncology [facility] Hematology [facility] [address] [place] [address] Jr Pruitt MD 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, estrogen receptor positive (CMS/HCC) 01/02/2025 11:05 AM CDT Office Visit [facility] [address] [place] [address] Kya Clark, MOTEL FRONT DESK CLERK Silvia Raya MD 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, estrogen receptor positive (CMS/HCC) (Primary Dx) 01/02/2025 9:55 AM CDT - 01/02/2025 11:59 PM CDT Hospital Encounter [facility] [address] [address] [place] [id number] Kya Clark, MOTEL FRONT DESK CLERK Discharge Disposition: Home or Self Care 01/02/2025 External Device Data STL ABSTRACTION Provider, Abstract 12/25/2024 Orders Only [facility] Oncology and Hematology - [place] [address] [place] [address] Jr Pruitt MD 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, estrogen receptor positive (CMS/HCC) 12/15/2024 10:45 AM CDT Office Visit [facility] Oncology and Hematology - [place] [address] [place] [address] Jr Pruitt MD 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, estrogen receptor positive (CMS/HCC) (Primary Dx) 12/11/2024 Orders Only [facility] Oncology and Hematology - [place] [address] [place] [address] Jr Pruitt MD 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, estrogen receptor positive (CMS/HCC) 12/08/2024 Orders Only [facility] Oncology and Hematology - [place] [address] [place] [address] Jr Pruitt MD 12/07/2024 Orders Only [facility] Oncology and Hematology - [place] [address] [place] [address] Jr Pruitt MD from Last [...] Description 06/22/2025 11:45 AM CDT Office Visit [facility] Oncology and Hematology - [place] [address] [facility] [address] [place] [address] Jr Pruitt MD [address] [facility] [address] [place] [address] 01/08/2026 10:15 AM CDT Appointment [facility] [address] [place] [address] [place] [address] [place] [address] 01/08/2026 11:15 AM CDT Office Visit [facility] [address] [facility] [address] [place] [address] [place] [address] [place] [address] Health Maintenance Due Date Last Done Comments DIABETES ANNUAL RETINAL EXAM 1973 DIABETES MICROALBUMIN ANNUAL SCREEN 1974 LDL CHOLESTEROL ANNUAL 1974 FIT-DNA Q 3 years 2001 FIT/FOBT Q 1 year 2001 Flex Sig/CT Colonography Q 5 years 2001 RSV VACCINE (60+ or ) (1 - Risk 60-74 years 1-dose series) 2016 COVID-19 Vaccine (2023-2 5 season) 2024 07/15/2021, 12/11/2020, 11/13/2020 DIABETES HBA1C Q 6 MONTHS 05/31/20252024, 08/03/2024, 02/02/2024, Additional history exists DIABETES ANNUAL FOOT EXAM 11/28/2025 11/28/2024 DTAP/TDAP/TD VACCINES (2 - T d or Tdap) 05/18/2028 05/18/2018 COLORECTAL SCREENING 07/21/2034 07/21/2024, 03/19/20 Colorectal Cancer Screening 07/21/2034 ZOSTER VACCINE Completed 05/28/2021, 03/10/2021 PNEUMOCOCCAL VACCINE 50+ YEARS Completed 07/06/2023 , 09/10/2020 INFLUENZA VACCINE Completed 08/05/2024, , 07/27/2022, Additional history exists Medical Devices Implanted Type Area Valet Attendant Device Identifier Shelf Expiration Date Model / Serial / Lot Foil Spinner Clip Surgiclip Ii Eduardo 9.75in [id number] - [id number] Implanted:Qty : 1 on 12/15/2023 by Silvia Raya MD at [facility] Clip Right: Axilla [employer] - [employer] [id number] 05/20/2028 [id number] / / [id number] Foil Spinner Clip Surgiclip Ii Eduardo 9.75in [id number] - [id number] Implanted:Qty : 1 on 12/15/2023 by Silvia Raya MD at [facility] Clip Right: Axilla [employer] - [employer] [id number] 06/19/2028 [id number] / / [id number] Cardiac Stent Procedures Procedure Name Priority Date/Time [...] interpretation of this examination. us Kya Clark MOTEL FRONT DESK CLERK MAMMO ORDERABLES Final Re sult * [facility]G CA 15 3 (12/06/2024 12:50 PM CDT) Jr Pruitt MD [facility] - LABORATORY Final Result from Last 3 Months Insurance AETNA [facility] AETNA [facility] RX AETNA Medicare Part D Advance Directives For more information, please contact: [phone] * Full Code (Latest Code Status on File) Date Activated Date Inactivated Comments 12/15/2023 6:54 AM 12/15/2023 3:24 PM Care Teams Adjunct Psychology Faculty Member Relationship Specialty Start Date End Date Kira Talavera FNP [address] [place] [address] [place] [address] PCP - General NURSE PRACTITIONER 03/06/21
--- OUTSIDE RECORDS SUMMARY | 2025-03-08 02:19 | XMS_ITS | Clinical Summary ---
Author Organization [address] Address [address] [place] [id number] Care Team Providers Care Accounting Machine Operator Name Role Phone Delaney Rivera MD Unavailable Nilay England MD Unavailable [phone] Kira Talavera NP Primary Care Provider Allergies [...] Rosuvastatin Shellfish Nausea & Vomiting Low 11/15/2018 Awocvgd-Nov-Xcr Reductase Inhibitors Muscle pain,Unknown Medium 02/19/2021 Medications [...] hyperglycemia, with long-term current use of insulin ([facility]) Use to inject insulin 4 times daily [...] hyperglycemia, with long-term current use of insulin ([facility]) Take 1 tablet by mouth twice daily 180 tablet 3 024 Active sildenafiL (VIAGRA) 100 mg tabletIndication s:Type 2 diabetes mellitus with hyperglycemia, with long-term current use of insulin ([facility]) TAKE ONE TABLET BY MOUTH NEEDED FOR ERECTILE DYSFUNCTION. DO NOT TAKE ANY NITRATE MEDICATION FOR 24 HOURS AFTER. 10 tablet 6 024 Active insulin aspart (NovoLOG) 100 unit/mL (3 mL) pen for injectionIndicat ions:Type 2 diabetes mellitus with hyperglycemia, with long-term current use of insulin ([facility]) 24 units before meals For sugars over 200, take 28 units For sugars over 250, take 30 units For sugars over 300, take 32 units 30 mL 11 024 Active Repatha SureClick 140 mg/mL pen injector INJECT 1 ML SUBCUTANEOUSLY EVERY TWO WEEKS 025 Active hydroCHLOROthiaz sergei 12.5 mg tabletIndication s:Hypertension associated with diabetes ([facility]) Take 1 tablet by mouth once daily 90 tablet 025 Active Farxiga 10 mg tabletIndication s:Type 2 diabetes mellitus with hyperglycemia, with long-term current use of insulin ([facility]) Take 1 tablet by mouth once daily 90 tablet 3 025 Active icosapent ethyL (VASCEPA) 1 gram capsuleIndicatio ns:Hyperlipidemi a associated with type 2 diabetes mellitus ([facility]) Take 2 capsules by mouth twice daily 120 capsule 025 Active tirzepatide (Mounjaro) 7.5 mg/0.5 mL pen injector injection Inject 0.5 mL (7.5 mg total) under the skin once a week 2 mL 6 025 Active icosapent ethyL (VASCEPA) 1 gram capsuleIndicatio ns:Hyperlipidemi a associated with type 2 diabetes mellitus ([facility]) Take 2 capsules (2 g total) by mouth 2 (two) times a day 360 capsule 3 024 2024 Discontinued tamoxifen (NOLVADEX) 20 mg tablet Take 1 tablet (20 mg total) by mouth daily 024 2024 Discontinued(O ther) Farxiga 10 mg tabletIndication s:Type 2 diabetes mellitus with hyperglycemia, with long-term current use of insulin ([facility]) Take 1 tablet by mouth once [...] 2gm bid. Last lipid panel: 08/03/24 LDL=14, OO=505. Managed by cardiology. Assessment & Plan (02/02/2024 10:52 AM CDT): Chronic problem, intolerant to statins. Currently taking: Praluent 150mg every 2 wks, vascepa 2gm bid, fenofibrate 160mg daily, zetia 10mg daily. 06/11/23 LDL=16, UW=364. No changes at this time. Managed by cardiology. Assessment & Plan (11/11/2023 9:20 AM GIS WEB DEVELOPER): Chronic problem, intolerant to statins. Currently taking: Praluent 75mg every 2 wks, vascepa 2gm bid, fenofibrate 160mg daily, zetia 10mg daily. 06/11/23 LDL=16, YE=931. No changes at this time. Managed by cardiology. Assessment & Plan (07/19/2023 9:20 AM CDT): Chronic problem, intolerant to statins. Currently taking: Praluent 75mg every 2 wks, vascepa 2gm bid, fenofibrate 160mg daily, zetia 10mg daily. 06/11/23 LDL=16, WQ=284. No changes at this time. Assessment & Plan (11/12/2022 8:31 AM GIS WEB DEVELOPER): Chronic problem, intolerant to statins. Currently taking: Praluent 75mg every 2 wks, vascepa 2gm bid, fenofibrate 160mg daily, zetia 10mg daily. No changes at this time. Assessment & Plan (07/30/2022 12:41 PM GIS WEB DEVELOPER): Chronic problem, statin intolerant. Recently started on [...] oil. Assessment & Plan (11/14/2020 3:14 PM GIS WEB DEVELOPER): Continue Zetia and follow up with cardiology Assessment & Plan (06/28/2020 11:38 AM CDT): Continue follow up with cardiology Assessment & Plan (03/28/2020 4:37 PM CDT): Continue Zetia and follow up with cardiology. Assessment & Plan (08/15/2019 2:50 PM GIS WEB DEVELOPER): Pt with CAD, s/p cardiac stents LDL [...] therapy Assessment & Plan (11/15/2018 1:14 PM GIS WEB DEVELOPER): Continue atorvastatin Assessment & Plan (07/28/2018 3:05 PM GIS WEB DEVELOPER): Will obtain results of recent lipid panel. Continue on atorvastatin 10 mg. Restart fish oil as this will have some antiplatelet impact, until follow up with biochemistry technician. Assessment & Plan (05/03/2018 12:46 PM CDT): [...] ) Patient has an appointment with his biochemistry technician next week month. I asked him to discuss this with him otherwise will address it. Coronary artery disease involving moapa coronar y artery 05/03/2018 Assessment & Plan (08/15/2019 2:51 PM GIS WEB DEVELOPER): Check HS PCR Pt seeing a biochemistry technician LDL goal under 50 Assessment & Plan (05/03/2018 11:13 AM CDT): Indication for Jardiance Start Jardiance 25 mg daily Other male erectile dysfunction 05/03/2018 Non morbid obesity due to excess calories 2016 Assessment & Plan (09/16/2017 3:17 PM GIS WEB DEVELOPER): Needs to focus on meal plan. Provided [...] Will update MA/Cr. Verified that he uses [employer]. Aware to check results/results letter in [employer]. Will contact by phone if needed. UTD [...] infection. Assessment & Plan (08/03/2024 1:05 PM GIS WEB DEVELOPER): Chronic, uncontrolled but with some improvement Importance [...] infection. Assessment & Plan (11/11/2023 10:04 AM GIS WEB DEVELOPER): Chronic problem, uncontrolled. A1c worsened from 8.9% 06/2023 to now 9.1% . Discussed need to need to quickly get diet/exercise & A1c/BG down. Discussed elevated BG & risk of poor healing. Discussed increasing Ozempic to 2mg, adding short acting insulin and/or greatly needed diet changes. Will start with diet/activity changes & increasing to 2mg on Ozempic. Will send me a [employer] message in next 2 weeks with BG readings. Current medications: Metformin 1000 mg twice daily before meals Farxiga 10 mg daily Ozempic 2mg weekly Lantus 90 units at bedtime Will update MA/Cr today. Verified that he uses [employer]. Aware to check results/results letter in [employer]. Will contact by phone if needed. UTD [...] infection. Assessment & Plan (11/12/2022 10:10 AM GIS WEB DEVELOPER): Chronic problem, uncontrolled & worsening. Current medications: [...] Rivera. Assessment & Plan (07/30/2022 12:44 PM GIS WEB DEVELOPER): Chronic problem, deteriorating due to poor diet. [...] prescribed. Assessment & Plan (11/14/2020 3:16 PM GIS WEB DEVELOPER): A1c improved to 7.3. Continue with current [...] mg. Assessment & Plan (08/15/2019 2:45 PM GIS WEB DEVELOPER): Hba1c was Lab Results Component Value Date [...] . Assessment & Plan (11/15/2018 1:13 PM GIS WEB DEVELOPER): A1c 7.6. Insignificant change. Continue Basaglar at 80 hs Restart Ozempic at 0.25 for one month and then increase to 0.5. Check FBG and ac at least one additional time daily. Advised ac and pc check 2-3 times per week. Assessment & Plan (07/28/2018 3:02 PM GIS WEB DEVELOPER): A1c improved at 7.7 with improved attn [...] goal hba1c is under 7.0 to prevent termination clerk diabetes complications ( eye , kidney and [...] daily. Assessment & Plan (11/18/2017 3:32 PM GIS WEB DEVELOPER): Hba1c was 7.9 today, indicating sub-optimal DM control 1800 calorie, consistent carb diet recommended 30 min daily aerobic and resistance exercise recommended Prevention and treatment of hyypoglcyemia discussed. Blood glucose monitoring with fingers sticks 1-2 x day . Assessment & Plan (09/16/2017 3:24 PM GIS WEB DEVELOPER): A1c worsening at 9.0. Likely to continued [...] cardiology. Assessment & Plan (11/11/2023 9:19 AM GIS WEB DEVELOPER): Chronic problem, controlled on current regimen. HCTZ 12.5mg daily, amlodipine 5mg daily, lisinopril 40mg daily, bystolic 20mg daily. Managed by cardiology. Assessment & Plan (07/19/2023 9:20 AM CDT): Chronic problem, controlled on current regimen. HCTZ 12.5mg daily, amlodipine 10mg daily, lisinopril 40mg daily, bystolic 20mg daily. Managed by cardiology. Assessment & Plan (11/12/2022 8:39 AM GIS WEB DEVELOPER): Chronic problem, controlled on current regimen. HCTZ 12.5mg daily, amlodipine 10mg daily, lisinopril 40mg daily, bystolic 20mg daily. Managed by cardiology. Assessment & Plan (07/30/2022 12:41 PM GIS WEB DEVELOPER): Controlled on current medications, no changes. Assessment [...] plan. Assessment & Plan (11/14/2020 3:14 PM GIS WEB DEVELOPER): Controlled on current medications. Continue plan. Assessment [...] ARB Assessment & Plan (11/15/2018 1:14 PM GIS WEB DEVELOPER): Controlled on current medications. Assessment & Plan (07/28/2018 3:03 PM GIS WEB DEVELOPER): Follow up with new biochemistry technician how has records on type of stents he has. Can increase ASA to 325 mg daily once out of Plavix. Assessment & Plan (05/03/2018 12:46 PM CDT): Goal blood pressure is less than 140/85 Low salt diet recommended Daily aerobic exercise Continue current meds, including KASSIE-I or ARB Assessment & Plan (11/18/2017 3:33 PM GIS WEB DEVELOPER): Goal blood pressure is less than 140/85 Low salt diet recommended Daily aerobic exercise Continue current meds, including KASSIE-I or ARB Assessment & Plan (09/16/2017 3:26 PM GIS WEB DEVELOPER): BP 136/76. Check home BP 2-3 times per week. Assessment & Plan (04/22/2017 1:29 PM CDT): Continue same meds and follow up with cardiology Resolved Problems Problem Noted Date Diagnosed Date Resolved Date Class 1 obesity due to exces s calories with serious comorbidity and body mass index (BMI) of 34.0 to 34.9 in adult 11/12/2022 11/28/2024 Assessment & Plan (11/12/2022 9:39 AM GIS WEB DEVELOPER): Discussed healthy diet and importance of regular physical activity (20- 30min/day, 150min/wk). Hypertriglyceridemia 07/26/2012 023 Overview (12/23/2016): HYPERLIPIDEMIA NEC/NOS Assessment & Plan (11/18/2017 3:34 PM GIS WEB DEVELOPER): Goal of treatment , LDL cholesterol less [...] exercise Assessment & Plan (09/16/2017 3:25 PM GIS WEB DEVELOPER): Continue statin and focus on low fat diet choices Assessment & Plan (04/22/2017 1:30 PM CDT): Continue statin Pure hypercholesterolemia 12/23/2011 Overview (12/23/2016): PURE HYPERCHOLESTEROLEM Encounters Date Type Department Care Team Description 03/06/2025 10:45 AM CDT Office Visit [facility] [address] [phone] Delaney Rivera MD Hyperlipidemia associated with type 2 diabetes mellitus (HCC) (Primary Dx) 03/06/2025 [facility]phone [facility] [address] [address] Delaney Rivera MD from Last 3 Months Surgical History Surgery [...] Júnior nary artery disease; Diabetes Mother Diabetes [facility]; Cause of : Diabetes mellitus Relation Name [...] on file Legal Sex Male 10:07 AM GIS WEB DEVELOPER Gender Identity Not on file Sexual Orientation Straight 08/03/2024 10 :46 AM GIS WEB DEVELOPER Obstetrics History Last Filed Vital Signs Vital [...] Prostate Cancer Screening-PSA 11/20/2021 11/21/2019 Covid-19 Vaccine (2023-2 5 season) 2024 07/15/2021, 12/11/2020, 11/13/2020 Dilated [...] 11/28/2024, 06/22, 12/04/2021, Additional history exists eGFR 02/20/2026 02/20/2025, 11/18, 02/15/2024, Additional history exists DTaP/Tdap/Td Vaccine (3 - [...] associated with type 2 diabetes mellitus (HCC) COMPREHENSIVE METABOLIC PANEL Routine 02/20/2025 2:47 PM CDT ALBUMIN CREATININE RATIO, URINE Routine 11/28/2024 11:50 AM CDT Type 2 diabetes mellitus with hyperglycemia, with long-term current use of insulin (HCC) LIPID PANEL Routine 08/03/2024 11:53 AM GIS WEB DEVELOPER Type 2 diabetes mellitus with hyperglycemia, with long-term current use of insulin (HCC) HM DIABETES EYE EXAM Routine 06/28/2024 3:36 PM CDT PSA, TOTAL Routine 11/21/2019 10:50 AM GIS WEB DEVELOPER from Last 3 Months or Most Recently [...] TEST ORDERABLES Fi nal Result * (ABNORMAL) Comprehensive metabolic panel (02/20/2025 2:47 PM CDT) SCRIBED Sodium 144 137 - 145 mmol/L EXTERNAL LAB SCRIBED Potassium 3.8 3.4 - 5.0 mmol/L EXTERNAL LAB SCRIBED Chloride 112(A) 98 - 107 mmol/L EXTERNAL LAB SCRIBED Carbon Dioxide 23 22 - 30 mmol/L EXTERNAL LAB SCRIBED Anion Gap 9 4 - 12 mmol/L EXTERNAL LAB SCRIBED Urea Nitrogen (BUN) 21(A) 9 - 20 mg/dl EXTERNAL LAB SCRIBED Creatinine 1.28 0.7 - 1.3 mg/dl EXTERNAL LAB SCRIBED Glucose 150(A) 65 - 110 mg/dl EXTERNAL LAB SCRIBED Calcium 9.0 8.4 - 10.2 mg/dl EXTERNAL LAB SCRIBED Bilirubin 0.6 0.2 - 1.3 mg/dl EXTERNAL LAB SCRIBED Plasma Protein 6.0(A) 6.3 - 8.2 g/dl EXTERNAL LAB SCRIBED Albumin 3.9 3.5 - 5.1 g/dl EXTERNAL LAB SCRIBED Alkaline Phosphatase 42 38 - 126 Units/L EXTERNAL LAB SCRIBED Alanine Transaminase (ALT) 37 6 - 50 Units/L EXTERNAL LAB SCRIBED Aspartate Transaminase (AST) 45 17 - 59 Units/L EXTERNAL LAB SCRIBED eGFR in NonAfrican Nigerian 56(A) 59 - 0 EXTERNAL LAB Blood 02/20/2025 2:47 PM CDT Historical Provider MD LAB BLOOD ORDERABLES Sissy l Result EXTERNAL LAB * Albumin Creatinine Ratio, Urine (11/28/2024 11:50 [...] 0 AM CDT 11/28/2024 9:17 PM CDT Leela Cruz NP LAB URINE ORDERABLES Sissy l Result Performing Organization Address [facility] Co de Phone Number [facility] [address] Department [place] [address] * (ABNORMAL) Lipid panel (08/03/2024 11:53 AM GIS WEB DEVELOPER) Cholesterol 87 30 - 199 mg/dL Comment: [...] on 2018. LDL, calculated 14 <=129 mg/dL ELIZAEBTH TEE Comment: Interpretive Data Ages < or [...] 3. Aaron Xavier et al. CATHLEEN Cardiol. 2020 January 18;5(5):540-548. doi: [email or web address] Current Interpretive Data was [...] revised on 2018. Chol/HDL ratio 2 ELIZABETH RANDAL Blood 08/03/2024 11:5 3 AM GIS WEB DEVELOPER 08/03/2024 6:11 PM GIS WEB DEVELOPER Delaney Rivera MD LAB BLOOD ORDERABLES Final Resul t ELIZABETH TEE [id number] Department [place] [address] * DIABETES EYE EXAM (06/28/2024 3:36 PM CDT) Result [facility] Historical Provider HEALTH MAINTENANCE Final Result * PSA, total Blood (11/21/2019 10:50 AM GIS WEB DEVELOPER) SCRIBED PSA, Total 0.99 0.00 - 4.00 EXTERNAL LAB Blood specimen (specimen) 11/21/2019 10:50 AM GIS WEB DEVELOPER Result [facility] Historical Provider LAB BLOOD ORDERABLES Edit ed Result - Final EXTERNAL LAB from Last 3 Months or Most Recently Relevant to Health Maintenance Insurance [employer] MEDICARE [facility] MEDICARE Care Teams Accounting Machine Operator Relationship Specialty Start Date End Date Kira Talavera NP [address] [place] [address] [place] [address] PCP - General Pediatrics 03/28/20 [place] [id number] [facility] [address] [place] [address] Consulting Physician Endocrinology Diabetes & Metabolism 11/07/18 Nilay England MD [address] [place] [address] Referring Physician Cardiovascular Disease 08/15/19
--- OUTSIDE RECORDS SUMMARY | 2025-03-08 02:19 | XMS_ITS | Encounter Summary ---
Author Organization [facility] Address Pending sale to [facility] [place] [address] Care Team Providers Care Perlite Grinder Name Role Phone Kira Talavera [facility] Primary Care Provider [phone] Encounter Details Date Type Department Care Team (Late st Contact Info) Description 12/23/2021 Resident Researchhart Message Enc [facility] [address] [place] [phone] Kira Talavera [facility] [address] [place] [phone] can you help me locate a Doctor that Dr. Johnson referred me to previously Social History Tobacco Use Types Packs/Day Years Used Date Smoking Tobacco: Never Smokeless Tobacco: Never Comments:Provider to phone counselor Alcohol Use Standard Drinks/Week Comments Yes [...] 07/10/2025 8:00 AM CDT Office Visit [facility] [address] [place] [phone] Kira Talavera FNP [address] [place] [phone] documented as of this encounter Visit Diagnoses Not on filedocumented in this encounter Additional Health Concerns Infection Onset Date Last Indicated Resolved Time COVID-19 Rule Out 11/28/2022 11/28/2022 11/28/2022 11:30 PM SALT WASHER Assessment Noted Time PHQ-9 Depression Total Score: 0 08/29/20 21 8:34 AM SALT WASHER documented as of this encounter Care Teams Perlite Grinder Relationship Specialty Start Date End Date Kira Talavera FNP [address] [place] [phone] PCP - General Nurse Practitioner Family 03/12/20 documented as of this encounter
--- OUTSIDE RECORDS SUMMARY | 2025-03-08 02:19 | XMS_ITS | Referral Summary ---
Author Organization [address] Address [address] [place] [address] Care Team Providers Care Web Development Manager Name Role Phone Delaney Rivera MD Unavailable Nilay England MD Unavailable [phone] Kira Talavera CHANNEL LIP WETTER Primary Care Provider Encounters Date Type Department Care Team Description 03/06/2025 Telephone [facility] of [address] [address] Delaney Rivera MD 03/06/2025 10:45 AM CDT Office Visit [facility] of [address] [address] Delaney Rivera MD Hyperlipidemia associated [...] Rosuvastatin Shellfish Nausea & Vomiting Low 11/15/2018 Zuuplly-Llr-Uxs Reductase Inhibitors Muscle pain,Unknown Medium 02/19/2021 Medications [...] hyperglycemia, with long-term current use of insulin ([facility]) Take 1 tablet by mouth twice daily 180 tablet 3 024 Active sildenafiL (VIAGRA) 100 mg tabletIndication s:Type 2 diabetes mellitus with hyperglycemia, with long-term current use of insulin ([facility]) TAKE ONE TABLET BY MOUTH NEEDED FOR ERECTILE DYSFUNCTION. DO NOT TAKE ANY NITRATE MEDICATION FOR 24 HOURS AFTER. 10 tablet 6 024 Active insulin aspart (NovoLOG) 100 unit/mL (3 mL) pen for injectionIndicat ions:Type 2 diabetes mellitus with hyperglycemia, with long-term current use of insulin ([facility]) 24 units before meals For sugars over 200, take 28 units For sugars over 250, take 30 units For sugars over 300, take 32 units 30 mL 11 024 Active Repatha SureClick 140 mg/mL pen injector INJECT 1 ML SUBCUTANEOUSLY EVERY TWO WEEKS 025 Active hydroCHLOROthiaz sergei 12.5 mg tabletIndication s:Hypertension associated with diabetes ([facility]) Take 1 tablet by mouth once daily 90 tablet 025 Active Farxiga 10 mg tabletIndication s:Type 2 diabetes mellitus with hyperglycemia, with long-term current use of insulin ([facility]) Take 1 tablet by mouth once daily 90 tablet 3 025 Active icosapent ethyL (VASCEPA) 1 gram capsuleIndicatio ns:Hyperlipidemi a associated with type 2 diabetes mellitus ([facility]) Take 2 capsules by mouth twice daily 120 capsule 025 Active tirzepatide (Mounjaro) 7.5 mg/0.5 mL pen injector injection Inject 0.5 mL (7.5 mg total) under the skin once a week 2 mL 6 025 Active icosapent ethyL (VASCEPA) 1 gram capsuleIndicatio ns:Hyperlipidemi a associated with type 2 diabetes mellitus ([facility]) Take 2 capsules (2 g total) by [...] 2gm bid. Last lipid panel: 08/03/24 LDL=14, QH=558. Managed by cardiology. Assessment & Plan (02/02/2024 10:52 AM CDT): Chronic problem, intolerant to statins. Currently taking: Praluent 150mg every 2 wks, vascepa 2gm bid, fenofibrate 160mg daily, zetia 10mg daily. 06/11/23 LDL=16, MP=950. No changes at this time. Managed by cardiology. Assessment & Plan (11/11/2023 9:20 AM CALENDER ROLL OPERATOR): Chronic problem, intolerant to statins. Currently taking: Praluent 75mg every 2 wks, vascepa 2gm bid, fenofibrate 160mg daily, zetia 10mg daily. 06/11/23 LDL=16, AA=864. No changes at this time. Managed by cardiology. Assessment & Plan (07/19/2023 9:20 AM CDT): Chronic problem, intolerant to statins. Currently taking: Praluent 75mg every 2 wks, vascepa 2gm bid, fenofibrate 160mg daily, zetia 10mg daily. 06/11/23 LDL=16, WQ=638. No changes at this time. Assessment & Plan (11/12/2022 8:31 AM CALENDER ROLL OPERATOR): Chronic problem, intolerant to statins. Currently taking: Praluent 75mg every 2 wks, vascepa 2gm bid, fenofibrate 160mg daily, zetia 10mg daily. No changes at this time. Assessment & Plan (07/30/2022 12:41 PM CALENDER ROLL OPERATOR): Chronic problem, statin intolerant. Recently started on [...] oil. Assessment & Plan (11/14/2020 3:14 PM CALENDER ROLL OPERATOR): Continue Zetia and follow up with cardiology Assessment & Plan (06/28/2020 11:38 AM CDT): Continue follow up with cardiology Assessment & Plan (03/28/2020 4:37 PM CDT): Continue Zetia and follow up with cardiology. Assessment & Plan (08/15/2019 2:50 PM CALENDER ROLL OPERATOR): Pt with CAD, s/p cardiac stents LDL [...] therapy Assessment & Plan (11/15/2018 1:14 PM CALENDER ROLL OPERATOR): Continue atorvastatin Assessment & Plan (07/28/2018 3:05 PM CALENDER ROLL OPERATOR): Will obtain results of recent lipid panel. Continue on atorvastatin 10 mg. Restart fish oil as this will have some antiplatelet impact, until follow up with general engineering teacher. Assessment & Plan (05/03/2018 12:46 PM CDT): [...] ) Patient has an appointment with his general engineering teacher next week month. I asked him to discuss this with him otherwise will address it. Coronary artery disease involving gulkana coronar y artery 05/03/2018 Assessment & Plan (08/15/2019 2:51 PM CALENDER ROLL OPERATOR): Check HS PCR Pt seeing a general engineering teacher LDL goal under 50 Assessment & Plan (05/03/2018 11:13 AM CDT): Indication for Jardiance Start Jardiance 25 mg daily Other male erectile dysfunction 05/03/2018 Non morbid obesity due to excess calories 2016 Assessment & Plan (09/16/2017 3:17 PM CALENDER ROLL OPERATOR): Needs to focus on meal plan. Provided [...] Will update MA/Cr. Verified that he uses [employer] [facility]. Aware to check results/results letter in [employer]. Will contact by phone if needed. UTD [...] infection. Assessment & Plan (08/03/2024 1:05 PM CALENDER ROLL OPERATOR): Chronic, uncontrolled but with some improvement Importance [...] infection. Assessment & Plan (11/11/2023 10:04 AM CALENDER ROLL OPERATOR): Chronic problem, uncontrolled. A1c worsened from 8.9% 06/2023 to now 9.1% . Discussed need to need to quickly get diet/exercise & A1c/BG down. Discussed elevated BG & risk of poor healing. Discussed increasing Ozempic to 2mg, adding short acting insulin and/or greatly needed diet changes. Will start with diet/activity changes & increasing to 2mg on Ozempic. Will send me a [employer] message in next 2 weeks with BG readings. Current medications: Metformin 1000 mg twice daily before meals Farxiga 10 mg daily Ozempic 2mg weekly Lantus 90 units at bedtime Will update MA/Cr today. Verified that he uses [facility]. Aware to check results/results letter in [employer] [facility]. Will contact by phone if needed. UTD [...] infection. Assessment & Plan (11/12/2022 10:10 AM CALENDER ROLL OPERATOR): Chronic problem, uncontrolled & worsening. Current medications: [...] Rivera. Assessment & Plan (07/30/2022 12:44 PM CALENDER ROLL OPERATOR): Chronic problem, deteriorating due to poor diet. [...] prescribed. Assessment & Plan (11/14/2020 3:16 PM CALENDER ROLL OPERATOR): A1c improved to 7.3. Continue with current [...] mg. Assessment & Plan (08/15/2019 2:45 PM CALENDER ROLL OPERATOR): Hba1c was Lab Results Component Value Date [...] . Assessment & Plan (11/15/2018 1:13 PM CALENDER ROLL OPERATOR): A1c 7.6. Insignificant change. Continue Basaglar at 80 hs Restart Ozempic at 0.25 for one month and then increase to 0.5. Check FBG and ac at least one additional time daily. Advised ac and pc check 2-3 times per week. 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 Assessment & Plan (11/18/2017 3:32 PM CALENDER ROLL OPERATOR): Hba1c was 7.9 today, indicating sub-optimal DM control 1800 calorie, consistent carb diet recommended 30 min daily aerobic and resistance exercise recommended Prevention and treatment of hyypoglcyemia discussed. Blood glucose monitoring with fingers sticks 1-2 x day . Assessment & Plan (09/16/2017 3:24 PM CALENDER ROLL OPERATOR): A1c worsening at 9.0. Likely to continued [...] cardiology. Assessment & Plan (11/11/2023 9:19 AM CALENDER ROLL OPERATOR): Chronic problem, controlled on current regimen. HCTZ 12.5mg daily, amlodipine 5mg daily, lisinopril 40mg daily, bystolic 20mg daily. Managed by cardiology. Assessment & Plan (07/19/2023 9:20 AM CDT): Chronic problem, controlled on current regimen. HCTZ 12.5mg daily, amlodipine 10mg daily, lisinopril 40mg daily, bystolic 20mg daily. Managed by cardiology. Assessment & Plan (11/12/2022 8:39 AM CALENDER ROLL OPERATOR): Chronic problem, controlled on current regimen. HCTZ 12.5mg daily, amlodipine 10mg daily, lisinopril 40mg daily, bystolic 20mg daily. Managed by cardiology. Assessment & Plan (07/30/2022 12:41 PM CALENDER ROLL OPERATOR): Controlled on current medications, no changes. Assessment [...] plan. Assessment & Plan (11/14/2020 3:14 PM CALENDER ROLL OPERATOR): Controlled on current medications. Continue plan. Assessment [...] ARB Assessment & Plan (11/15/2018 1:14 PM CALENDER ROLL OPERATOR): Controlled on current medications. Assessment & Plan (07/28/2018 3:03 PM CALENDER ROLL OPERATOR): Follow up with new general engineering teacher how has records on type of stents he has. Can increase ASA to 325 mg daily once out of Plavix. Assessment & Plan (05/03/2018 12:46 PM CDT): Goal blood pressure is less than 140/85 Low salt diet recommended Daily aerobic exercise Continue current meds, including KASSIE-I or ARB Assessment & Plan (11/18/2017 3:33 PM CALENDER ROLL OPERATOR): Goal blood pressure is less than 140/85 Low salt diet recommended Daily aerobic exercise Continue current meds, including KASSIE-I or ARB Assessment & Plan (09/16/2017 3:26 PM CALENDER ROLL OPERATOR): BP 136/76. Check home BP 2-3 times per week. Assessment & Plan (04/22/2017 1:29 PM CDT): Continue same meds and follow up with cardiology Resolved Problems Problem Noted Date Diagnosed Date Resolved Date Class 1 obesity due to exces s calories with serious comorbidity and body mass index (BMI) of 34.0 to 34.9 in adult 11/12/2022 11/28/2024 Assessment & Plan (11/12/2022 9:39 AM CALENDER ROLL OPERATOR): Discussed healthy diet and importance of regular physical activity (20- 30min/day, 150min/wk). Hypertriglyceridemia 07/26/2012 023 Overview (12/23/2016): HYPERLIPIDEMIA NEC/NOS Assessment & Plan (11/18/2017 3:34 PM CALENDER ROLL OPERATOR): Goal of treatment , LDL cholesterol less [...] exercise Assessment & Plan (09/16/2017 3:25 PM CALENDER ROLL OPERATOR): Continue statin and focus on low fat [...] on file Legal Sex Male 10:07 AM CALENDER ROLL OPERATOR Gender Identity Not on file Sexual Orientation Straight 08/03/2024 10 :46 AM CALENDER ROLL OPERATOR Last Filed Vital Signs Vital Sign Reading [...] (HCC) LIPID PANEL Routine 08/03/2024 11:53 AM CALENDER ROLL OPERATOR Type 2 diabetes mellitus with hyperglycemia, with long-term current use of insulin (HCC) HM DIABETES EYE EXAM Routine 06/28/2024 3:36 PM CDT PSA, TOTAL Routine 11/21/2019 10:50 AM CALENDER ROLL OPERATOR from Last 3 Months or Most Recently [...] Units/L EXTERNAL LAB SCRIBED eGFR in NonAfrican Portuguese 56(A) 59 - 0 EXTERNAL LAB Blood 02/20/2025 2:47 PM CDT Shamar Provider LAB BLOOD ORDERABLES Sissy l Result EXTERNAL [...] 11/28/2024 9:17 PM CDT us Leela Cruz CHANNEL LIP WETTER LAB URINE ORDERABLES Sissy l Result ELIZABETH [address] Department [place] [address] * (ABNORMAL) Lipid panel (08/03/2024 11:53 AM CALENDER ROLL OPERATOR) Cholesterol 87 30 - 199 mg/dL Comment: [...] on 2018. HDL 35(L) >=40 mg/dL ELIZABETH Comment: Interpretive Data Ages < [...] NCEP Expert Panel. Circulation 2004;110:227 3. Aaron M et al. CATHLEEN Cardiol. 2020 January 18;5(5):540-548. [...] ELIZABETH TEE Blood 08/03/2024 11:5 3 AM CALENDER ROLL OPERATOR 08/03/2024 6:11 PM CALENDER ROLL OPERATOR Delaney Rivera MD LAB BLOOD ORDERABLES Final Resul t ELIZABETH TEE [address] Department [place] [address] * HM DIABETES EYE EXAM (06/28/2024 3:36 PM CDT) Historical Provider HEALTH MAINTENANCE Final Result * PSA, total Blood (11/21/2019 10:50 AM CALENDER ROLL OPERATOR) SCRIBED PSA, Total 0.99 0.00 - 4.00 EXTERNAL LAB Blood specimen (specimen) 11/21/2019 10:50 AM CALENDER ROLL OPERATOR Historical Provider LAB BLOOD ORDERABLES Edit ed Result - Final EXTERNAL LAB from Last 3 Months or Most Recently Relevant to Health Maintenance Insurance [employer] MEDICARE [facility] MED[facility] Care Teams Web Development Manager Relationship Specialty Start Date End Date Kira Talavera NP [address] [place] [address] [place] [address] PCP - General Pediatrics 03/28/20 [place] [address] [address] Consulting Physician Endocrinology Diabetes & Metabolism 11/07/18 Nilay England MD [address] [place] [address] Referring Physician Cardiovascular Disease 08/15/19
--- OUTSIDE RECORDS SUMMARY | 2025-03-08 02:19 | XMS_ITS | Encounter Summary ---
Author Organization [facility] Address [facility] [place] [address] Care Team Providers Care Mixer Operator Raw Salt Name Role Phone Luis Felipe Saldivar MD Unavailable Unavailab Mario Hough MD Primary Care Provider [phone] Nilay Stout MD Unavailable [phone] Kira Talavera Primary Care Provider [phone] Encounter Details Date Type Department Care Team (Late st Contact Info) Description 05/18/2017 Abstract [facility] [address] [place] [address] Luis Felipe Saldivar MD Social [...] Description 07/10/2025 8:00 AM CDT Office Visit [address] [place] [address] Kira Talavera FNP [address] [place] [address] [place] [address] documented as of this encounter Visit Diagnoses Not on filedocumented in this encounter Additional Health Concerns Infection Onset Date Last Indicated Resolved Time COVID-19 Rule Out 12/27/2020 12/27/2020 12/27/2020 7:49 AM CDT COVID-19 Rule Out 12/27/2020 12/27/2020 12/28/2020 8:30 AM CDT COVID-19 Rule Out 11/28/2022 11/28/2022 11/28/2022 11:30 PM WIND TURBINE BLADE REPAIR TECHNICIAN documented as of this encounter Care Teams Mixer Operator Raw Salt Relationship Specialty Start Date End Date Mario Jhonson MD [address] [place] [address] PCP - General FAMILY PRACTICE 05/04/17 03/11/20 Kira Talavera FNP [address] [place] [address] PCP - General Nurse Practitioner Family 03/12/20 Luis Felipe Saldivar MD CARDIOVASCULAR DISEASE 05/04/17 09/08/21 Nilay Stout MD [address] [place] [address] [place] INTERVENTIONAL CARDIOLOGY 11/15/18 09/08/21 documented as of this encounter
--- OUTSIDE RECORDS SUMMARY | 2025-03-08 02:19 | XMS_ITS | Encounter Summary ---
Author Organization [facility] Address [facility] [place] [address] Care Team Providers Care Shell Mold Bonder Name Role Phone Kira Talavera [facility] Primary Care Provider [phone] Encounter Details Date Type Department Care Team (Late st Contact Info) Description 08/03/2022 Communication Specialist Limitedt Message Enc [facility] [address] [place] [id number] Kira Talavera [facility] [address] [place] [id number] Flu shots and inquiry regarding medicare checkup Social History Tobacco Use Types Packs/Day Years Used Date Smoking Tobacco: Never Smokeless Tobacco: Never Comments:Provider to vocational guidance counselor Alcohol Use Standard Drinks/Week Comments Yes [...] I am reaching out to Nicol Amezcua, director museum or zoo to get some answers for Temo. S SALES COUNTERPERSON * Nathalie Duarte LPN - 08/04/2022 1:29 PM CST Please review/advise. S SALES COUNTERPERSON * RIGOBERTO Augustine - 08/04/2022 12:35 PM CST Can this be referred to justyna to address as I dont know the answers to the questions he is asking. S SALES COUNTERPERSON * Nathalie Duarte LPN - 08/04/2022 10:47 AM CST Please review/advise. S SALES COUNTERPERSON * RIGOBERTO Augustine - 08/04/2022 8:44 AM CST Call pt. We are still not doing the welcome to medicare visits here ( for justino) We are referring patients to the medicare cinic in [place] to get it done. The annual medicare wellness visits ( for mary) can be done here per [place] on . S SALES COUNTERPERSON * Lela Lino RN - 08/03/2022 1:11 PM CST Please note and advise S SALES COUNTERPERSON documented in this encounter Plan of Treatment Upcoming Encounters Date Type Department Care Team (Late st Contact Info) Description 07/10/2025 8:00 AM CDT Office Visit [facility] [address] [place] [address] Kira Talavera FNP [address] [place] [address] documented as of this encounter Visit Diagnoses Not on filedocumented in this encounter Additional Health Concerns Infection Onset Date Last Indicated Resolved Time COVID-19 Rule Out 11/28/2022 11/28/2022 11/28/2022 11:30 PM PARTS SALES COUNTERPERSON Assessment Noted Time PHQ-9 Depression Total Score: 0 08/29/20 21 8:34 AM PARTS SALES COUNTERPERSON documented as of this encounter Care Teams Shell Mold Bonder Relationship Specialty Start Date End Date Kira Talavera FNP [address] [place] [address] PCP - General Nurse Practitioner Family 03/12/20 documented as of this encounter
--- OUTSIDE RECORDS SUMMARY | 2025-03-08 02:19 | XMS_ITS | Encounter Summary ---
Author Organization [facility] Address [facility] [place] [address] Care Team Providers Care Director Medical Science Name Role Phone Kira Talavera [facility] Primary Care Provider [phone] Encounter Details Date Type Department Care Team (Late st Contact Info) Description 08/16/2023 Orbit Minder Limited Message Enc [facility] [address] [place] [address] Kira Talavera [facility] [address] [place] [phone] vaccines received Social History Tobacco Use Types Packs/Day Years Used Date Smoking Tobacco: Never Smokeless Tobacco: Never Comments:Provider to staff counselor Alcohol Use Standard Drinks/Week Comments Yes [...] place to sleep or slept in a alf (including now)? No 11/29/2022 Sex and Gender [...] Description 07/10/2025 8:00 AM CDT Office Visit [facility] [address] [place] [address] Kira Talavera FNP [address] [place] [address] documented as of this encounter Visit Diagnoses Not on filedocumented in this encounter Additional Health Concerns Assessment Noted Time PHQ-9 Depression Total Score: 0 08/29/20 21 8:34 AM FILM LIBRARIAN documented as of this encounter Care Teams Director Medical Science Relationship Specialty Start Date End Date Kira Talavera FNP [address] [place] [address] PCP - General Nurse Practitioner Family 03/12/20 documented as of this encounter
--- OUTSIDE RECORDS SUMMARY | 2025-03-08 02:19 | XMS_ITS | Encounter Summary ---
Author Organization [facility] Address [address] [place] [address] Care Team Providers Care Hand Tapper Name Role Phone Kira Talavera STATE DIRECTOR Primary Care Provider [phone] Encounter Details Date Type Department Care Team (Late st Contact Info) Description 03/07/2025 External Device Data [facility] ABSTRACTION Provider, Abstract NO ADDRESS ON FILE Social History Tobacco Use Types Packs/Day Years Used Date Smoking Tobacco: Never Smokeless Tobacco: Never Alcohol Use Standard Drinks/Week Comments Not Currently [...] on file Sexual Orientation Not on file documented as of this encounter Plan of Treatment Upcoming Encounters Date Type Department Care Team (Late st Contact Info) Description 06/22/2025 11:45 AM CDT Office Visit [facility] Oncology and Hematology - [place] [address] [facility] [address] [place] [address] Jr Pruitt MD [address] [facility] [address] [place] [address] 01/08/2026 10:15 AM CDT Appointment [facility] [address] [place] [address] [place] [address] [facility] [address] [place] [address] 01/08/2026 11:15 AM CDT Office Visit [facility] Breast Surgery [address] [facility] [address] [place] [address] [place] [address] [facility] [address] [place] [address] documented as of this encounter Visit Diagnoses Not on filedocumented in this encounter Care Teams Hand Tapper Relationship Specialty Start Date End Date Kira Talavera FNP [address] [place] [address] [place] [address] PCP - General NURSE PRACTITIONER 03/06/21 documented as of this encounter
--- OUTSIDE RECORDS SUMMARY | 2025-03-08 02:19 | XMS_ITS | Encounter Summary ---
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 No 11/29/2022 Sex and Gender [...] documented in this encounter Progress Notes * Nathalie Duarte LPN - 01/15/2023 4:37 PM CDT Please review/advise. documented in this encounter Plan of Treatment Upcoming Encounters Date Type Department Care Team (Late st Contact Info) Description 07/10/2025 8:00 AM CDT Office Visit [facility] [address] [place] [address] Kira Talavera FNP [address] [place] [address] documented as of this encounter Visit Diagnoses Not on filedocumented in this encounter Additional Health Concerns Assessment Noted Time PHQ-9 Depression Total Score: 0 08/29/20 21 8:34 AM VALVE LAPPER documented as of this encounter Care Teams Appraisal Manager Relationship Specialty Start Date End Date Kira Talavera FNP [facility] [address] [place] [address] PCP - General Nurse Practitioner Family 03/12/20 documented as of this encounter
--- OUTSIDE RECORDS SUMMARY | 2025-03-08 02:19 | XMS_ITS | Encounter Summary ---
Author Organization [facility] Address Formerly [facility], [id number] [place] [address] Care Team Providers Care Online Affiliate Marketing Manager Name Role Phone Luis Felipe Saldivar MD Unavailable Unavailab Nilay Anthony MD Unavailable [phone] Kira Talavera Primary Care Provider [phone] Encounter Details Date Type Department Care Team (Late st Contact Info) Description 08/08/2021 Paperwovent Message Enc [facility] [address] [place], [place] [id number] Kira Talavera FNP [address] [place], [place] [id number] Other Social History Tobacco Use Types Packs/Day [...] MA - 08/09/2021 10:01 AM CST Done SERVICES DEVELOPER documented in this encounter Plan of Treatment Upcoming Encounters Date Type Department Care Team (Late st Contact Info) Description 07/10/2025 8:00 AM CDT Office Visit [facility] [address] [place] [address] Kira Talavera FNP [address] [place] [address] documented as of this encounter Visit Diagnoses Not on filedocumented in this encounter Additional Health Concerns Infection Onset Date Last Indicated Resolved Time COVID-19 Rule Out 11/28/2022 11/28/2022 11/28/2022 11:30 PM WEB SERVICES DEVELOPER Assessment Noted Time PHQ-9 Depression Total Score: 0 04/15/20 3:37 PM CDT documented as of this encounter Care Teams Online Affiliate Marketing Manager Relationship Specialty Start Date End Date Kira Talavera FNP [address] [place] [address] PCP - General Nurse Practitioner Family 03/12/20 Luis Felipe Saldivar MD CARDIOVASCULAR DISEASE 05/04/17 09/08/21 Nilay Stout MD [place] Boring Inspector INTERVENTIONAL CARDIOLOGY 11/15/18 09/08/21 documented as of this encounter
--- OUTSIDE RECORDS SUMMARY | 2025-03-08 02:19 | XMS_ITS | Encounter Summary ---
Author Organization [facility] Address Formerly [facility] [place] [address] Care Team Providers Care Star Route Mail Driver Name Role Phone Kira Talavera [facility] Primary Care Provider Encounter Details Date Type Department Care Team (Late st Contact Info) Description 02/01/2023 AbraRestot Message Enc [facility] [address] [place] [id number] Kira Talavera [facility] [address] [place] [phone] engineer automated equipment Social History Tobacco Use Types Packs/Day Years Used Date Smoking Tobacco: Never Smokeless Tobacco: Never Comments:Provider to career development counselor Alcohol Use Standard Drinks/Week Comments Yes [...] place to sleep or slept in a detention (including now)? No 11/29/2022 Sex and Gender [...] 8:00 AM CDT Office Visit [facility] [address] [place] [address] Kira Talavera FNP [address] [place] [address] documented as of this encounter Visit Diagnoses Not on filedocumented in this encounter Additional Health Concerns Assessment Noted Time PHQ-9 Depression Total Score: 0 08/29/20 21 8:34 AM HUMAN FACTORS SCIENTIST documented as of this encounter Care Teams Star Route Mail Driver Relationship Specialty Start Date End Date Kira Talavera FNP [facility] [place] [address] PCP - General Nurse Practitioner Family 03/12/20 documented as of this encounter
--- OUTSIDE RECORDS SUMMARY | 2025-03-08 02:19 | XMS_ITS | Encounter Summary ---
Author Organization [facility] Address [facility] [place] [address] Care Team Providers Care Trailer Chief Name Role Phone Luis Felipe Saldivar MD Unavailable Unavailab Nilay Anthony MD Unavailable [phone] Kira Talavera Primary Care Provider [phone] Encounter Details Date Type Department Care Team (Late st Contact Info) Description 08/08/2021 Nu3t Message Enc [facility] [address] [place], [place] [phone] Kira Talavera FNP [address] [place], [place] [phone] Question Social History Tobacco Use Types Packs/Day Years Used Date Smoking Tobacco: Never Smokeless Tobacco: Never Comments: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 counseling psychologist Alcohol Use Standard Drinks/Week Comments Yes 0 [...] Notes * Naz Mandel MA - 08/09/2021 10:00 AM CST Romelia please review and advise 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 MECHANIC documented in this encounter Plan of Treatment Upcoming Encounters Date Type Department Care Team (Late st Contact Info) Description 07/10/2025 8:00 AM CDT Office Visit [facility] [address] [place] [address] Kira Talavera FNP [address] [place] [address] documented as of this encounter Visit Diagnoses Not on filedocumented in this encounter Additional Health Concerns Infection Onset Date Last Indicated Resolved Time COVID-19 Rule Out 11/28/2022 11/28/2022 11/28/2022 11:30 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
--- OUTSIDE RECORDS SUMMARY | 2025-03-08 02:20 | XMS_ITS | Data Portability ---
Author Organization [facility], [address] ([place]) Address [address] [place] [address] Care Team Providers Care Operations Analyst Name Role Phone JASE JUNG Primary Care Provider [phone] JASON SAXENA Manager Retail Store Assessment Encounter Date Assessment Date Assessment LastModified [...] Organization Details Recorded Time Coronary arterioscleros is 93816354 Active 2024 JASON Salas, STOCKROOM CLERK [address] [place] [address], [phone], [facility] 5 12:25:51 Essential hypertension 40050046 Active 2024 JASON Salas, STOCKROOM CLERK [address] [place] [address], [phone], [facility] 5 12:25:56 Dyslipidemia 543318557 Active 2024 JASON Salas, STOCKROOM CLERK [address] [place] [address], [phone], [facility] 5 12:25:59 Mixed hyperlipidemia 456346587 Active 2024 Francine Johnson [facility] 5 17:55:00 Problem Notes None recorded. Procedures Surgical History Date Name Laterality Status Provider Name and Address Organization Details Recorded Time 07/21/20 24 Colonoscopy completed [facility] 12/07/2024 13:01:09 09/20/19 12 Cardiac Catheterization completed [facility] 12/07/2024 13:02:45 Imaging Results None recorded. Procedure Notes None recorded. Medical Equipment None Reported. Allergies Allergen ID Allergen Name Allergen Category Reaction Reaction Severity Criticality Documentation Date Start Date Code Code System Note Provider Name and Address Organization Details Recorded Time 4062436 amoxicill in medicatio n Not available Not available Not available 12/07/2024 723 RxNorm unrec ogniz ed react ion (text : Manoharo abdoul, code: [id number]) (from [facility]) [facility] 12:47:27 6212547 amoxicill in / clavulana te medicatio n Not available Not available Not available 12/07/20242016 27679 RxNorm unrec ogniz ed react ion (text : Unkno wn, code: 49188 5006) (from [facility]) [facility] 12:47:30 6794860 atorvasta tin medicatio n myalgias (muscle pain) other Not available Not available [facility] [employer] [facility] [employer] 12/07/20242018 49305 RxNorm myalg ias [facility] 12:47:37 5437032 atorvasta tin calcium medicatio n myalgias (muscle pain) Not available Not available 12/07/20242018 17431 RxNorm [facility] 12:47:39 7680722 clindamyc in Not available Not available Not available Not available 12/07/20242016 2582 RxNorm unrec ogniz ed react ion (text : Unkno wn, code: 25739 5006) (from [facility]) Krissy [facility] 12:47:56 Medications Name Sig Start Date [...] and Address Organization Details Last Updated DateTime 381598. 48 g 33.6 kg/m2 180.34 cm 16 /min 95 % 95 % 72 /min 120 mm[Hg] 68 mm[Hg] Krissy Pace [facility] 12:30:44 Social History Question Answer Notes LastModified by Organizat ion Details LastModified Time Tobacco Smoking Status Never Smoker Krissy Pace [facility] 12/07/2024 13:00:42 What Is Your Level Of Caffeine Consumption? Occasional [email or web address] Information not available 12/07/2024 Sex: Unknown Functional Status Question Answer Note LastModified by Organization D etails LastModified Time What is your level of alcohol consumption? None Information not available 12/07/2024 Mental Status None recorded. Family History Relationship Description Onset Age of this Age Resolved Age Notes LastModified by Organization Details LastModified Time Mother History of cardiac surgery [email or web address] Not available 11/19 12:59:38 Maternal Grandmother Diabetes mellitus [email or web address] Not available 11/19 13:00:07 Medical History Condition Response High Blood Pressure Y High Cholesterol Y Past Encounters Encounter ID Performer Location Encounter Start Date Encounter Closed Date Diagnosis/Indication Diagnosis SNOMED-CT Code Diagnosis ICD10 Code Diagnosis Note [id number] JASON SAXENA APRN [facility] [place] [address] [place] [address] 12/07/2024 12:05:45 12/08/2024 06:55:43 Coronary arteriosclerosis 87926433 I25.10 Essential hypertension 69832750 I10 Dyslipidemia 498145013 E 78.5 Health Concerns Section Related Observation LastModified by Organization Detai ls LastModified Time None Recorded Concern Status LastModified by Organization Details LastModified Time None Recorded Advance Directives Directive None Recorded Payers Insurance Date Sequence Insurance Name Policy Number Policy Sanchez Covered Member ID Sanchez Member ID Guarantor Name 12/22/2024 1 [employer] (MEDICARE REPLACEMENT/ ADVANTAGE - PPO) [id number] Justino Boland [id number] Justino Boland Notes Date Note Type Note [...] he is following with his oncologist and training and development rep closely. The patient denies anginal type chest discomfort, palpitations, shortness of breath, dyspnea on exertion, orthopnea, paroxysmal nocturnal dyspnea, peripheral edema, claudication, pre-syncope, syncope, or symptoms consistent with TIA or stroke. JASON SAXENA, STOCKROOM CLERK [address] [facility], [place], [address], [facility] 12/07/2024 13:22:38
--- NOTE | 2025-03-08 07:52 | P.SS_ITS ---
Same Day Admit/Disch: HPI History of Present Illness Chief complaint: Port-A-Cath no longer needed Narrative: Justino Boland is a 69 year old male who has undergone treatment including chemotherapy for right breast malignancy. He had a Port-A-Cath placed in the left subclavian position just over a year ago. As he has completed therapy, he is taken to surgery now for removal of the Port-A-Cath. [facility] Past Medical History Medical History (Updated 03/08/25 @ 15:43 by Enmanuel Arriaga MD) ZARA (obstructive sleep apnea) History of breast cancer GERD (gastroesophageal reflux disease) Hypertension Hyperlipidemia CAD (coronary artery disease) Surgical History Surgical History History of mastectomy History of coronary artery stent placement 2015 Social History Social History Smoking status: Never smoker Alcohol intake: never Substance use: never Living arrangements: with family Additional living arrangements comments: Spiritual care concerns: No Same Day Admit/Disch: Med Pre-admit Medications Home Medications ?Medication ?Instructions ?Recorded ?Confirmed ?Type allopurinol 100 mg tablet 100 mg PO DAILY 11/26/23 03/02/25 History amlodipine 5 mg tablet 5 mg PO QAM 11/26/23 03/08/25 History aspirin 81 mg capsule 81 mg PO DAILY 11/26/23 03/02/25 History dapagliflozin propanediol 10 mg 10 mg PO DAILY 11/26/23 03/02/25 History tablet (Farxiga) ezetimibe 10 mg tablet 10 mg PO DAILY 11/26/23 03/02/25 History fenofibrate 160 mg tablet 160 mg PO DAILY 11/26/23 03/02/25 History hydrochlorothiazide 12.5 mg capsule 12.5 mg PO QAM 11/26/23 03/02/25 History icosapent ethyl 1 gram capsule 2 g PO BID 11/26/23 03/02/25 History insulin glargine 100 unit/mL 90 unit subcut QPM 11/26/23 03/02/25 History subcutaneous solution (Lantus U-100 Insulin) insulin needles (disposable) 31 11/26/23 03/02/25 History lisinopril 40 mg tablet 40 mg PO HS 11/26/23 03/02/25 History metformin 1,000 mg tablet 1,000 mg PO BID 11/26/23 03/02/25 History nebivolol 20 mg tablet 20 mg PO HS 11/26/23 03/02/25 History nitroglycerin 0.4 mg sublingual 0.4 mg sublingual Q5M PRN Chest 11/26/23 03/02/25 History tablet Pain pantoprazole 40 mg tablet,delayed 40 mg PO HS 11/26/23 03/02/25 History release sildenafil 50 mg tablet (Viagra) 50 mg PO DAILY PRN Sexual Activity 11/26/23 03/02/25 History multivitamin (Multiple Vitamins 1 tablet PO DAILY 01/17/24 03/08/25 History tablet) evolocumab 140 mg/mL subcutaneous 140 mg subcut .two weeks 03/02/25 03/02/25 History pen injector (Estevan Thomson) gabapentin 300 mg capsule 300 mg PO Q12H 03/02/25 03/02/25 History insulin aspart U-100 100 unit/mL 28 unit subcut BID-TID 03/02/25 03/02/25 History (3 mL) subcutaneous pen (Novolog FlexPen U-100 Insulin aspart) insulin glargine 100 unit/mL (3 100 unit subcut QPM 03/02/25 03/02/25 History mL) subcutaneous pen (Lantus Solostar U-100 Insulin) [id number]-wlonz 200 mcg-lycop 1 tablet PO DAILY 03/02/25 03/08/25 History 175 mcg-lutei 250 mcg-herb 178 tablet (Usman Multivitamin For Men) tirzepatide 2.5 mg/0.5 mL 5 mg subcut WEEKLY 03/02/25 03/02/25 History subcutaneous pen injector (Ben) tramadol 50 mg tablet 50 mg PO Q6H PRN pain #5 tabs 03/08/25 Rx Review of Systems Review of Systems All systems reviewed & are unremarkable except as noted in HPI and below (HPI) Exam Const: General: comfortable, no acute distress, alert and awake HENMT: Head: normocephalic and atraumatic Mouth: Yes Normal oral and palatal mucosa present Eyes: Conjunctivae: conjunctivae normal Pupils: Equal, round and reactive pupils present EOM: EOMs intact bilaterally Neck: Neck: normal visual inspection, no lymphadenopathy and nontender Chest: Chest palpation & inspection: abnormal inspection of the chest (Left subclavian Port-A-Cath noted), no tenderness and No rash Resp: Effort & Inspection: normal respiratory effort Auscultation: clear to auscultation bilaterally Cardio: Rate: regular rate Rhythm: regular rhythm Heart sounds: no gallops, no murmurs and no rubs GI: Inspection: non-distended GI Palp: Yes Soft to palpation, No Tenderness to palpation present (GI), No Hepatomegaly present and No Splenomegaly present Skin: Lesions: no lesions Rashes: no rashes Neuro: General: no focal motor deficits and CN's II-XI intact bilaterally Cranial nerves: Yes Equal, round and reactive pupils present, Yes Bilaterally intact EOM present, Yes facial symmetry and Yes Midline tongue present Speech: normal speech Motor exam (neuro): 5/5 motor strength present throughout and Motor abnormalities not present Extrem: General: no clubbing, cyanosis or edema and edema Psych: Affect: normal affect Thought process: Normal thought process present Insight: Good insight present (Psych) DS: Summary Time Spent with Patient Time attestation: Total time spent providing and/or coordinating discharge services: DS: Admitting Diagnosis Discharge Date March 08, 2025 Admitting Diagnosis * Right breast cancer-chemotherapy and radiation therapy completed * Port-A-Cath no longer needed-plan to proceed with Port-A-Cath removal today under anesthesia as an outpatient. I have discussed the procedure with the patient. The usual length of the surgery as well as recovery have been discussed. All questions were answered. He understands and agrees to go ahead. * Insulin-dependent diabetes * Hypertension * Gout DS: Discharge Diagnosis Discharge Diagnosis (1) Breast cancer in male: Qualifiers: Breast location: unspecified site of breast Estrogen receptor status: unspecified Laterality: right Qualified Code(s): C50.921 - Malignant neoplasm of unspecified site of right male breast Code(s): C50.929 - Malignant neoplasm of unspecified site of unspecified male breast Status: Chronic (2) Encounter for care related to Port-a-Cath: Code(s): Z45.2 - Encounter for adjustment and management of vascular access device Status: Acute Assessment and Plan: Port-A-Cath removed March 08, [address] Arriaga Discharge Plan Discharge Patient Disposition: Home Discharge Instructions: * May bathe or shower tomorrow * No lifting over 15 lb with left arm for 1 week * Wash over incision with soap and water when bathe or shower. * Okay to go swimming tomorrow or thereafter * There is a surgical glue over your incision, when it becomes loose and easy to grasp, feel free to remove it. * Call Dr. Linares office for severe pain, persistent wound drainage or bleeding, severe swelling or bruising, temp over 100.5?, or other significant change in condition. * No follow-up visit with Dr. Arriaga needed unless there are problems or questions. Patient Language: Congolese Stand Alone Forms: General Discharge Instructions Follow-up/Referrals: Ilan,AMBROSE Mart [Primary Care Provider] - Keep Reg. Scheduled Appt. Discharge Medications: New tramadol 50 mg tablet 50 mg PO Q6H PRN (Reason: pain) Qty: 5 0RF Continued amlodipine 5 mg Tablet 5 mg PO QAM allopurinol 100 mg Tablet 100 mg PO DAILY hydrochlorothiazide 12.5 mg Capsule 12.5 mg PO QAM ezetimibe 10 mg Tablet 10 mg PO DAILY fenofibrate 160 mg Tablet 160 mg PO DAILY dapagliflozin propanediol [Farxiga] 10 mg Tablet 10 mg PO DAILY aspirin 81 mg Capsule 81 mg PO DAILY insulin glargine [Lantus U-100 Insulin] 100 unit/mL Solution 90 unit SUBCUT QPM sildenafil [Viagra] 50 mg Tablet 50 mg PO DAILY PRN (Reason: Sexual Activity) Rx Instructions: administer 30 minutes to 4 hours before activity pantoprazole 40 mg Tablet,Delayed Release (Dr/Ec) 40 mg PO HS metformin 1,000 mg Tablet 1,000 mg PO BID nitroglycerin 0.4 mg Tablet, Sublingual 0.4 mg SUBLINGUAL Q5M PRN (Reason: Chest Pain) Patient Comments: NOT USED EVER Rx Instructions: do not exceed 3 doses per episode lisinopril 40 mg Tablet 40 mg PO HS (DME) insulin needles (disposable) 31 Needle MISCELLANEOUS nebivolol 20 mg Tablet 20 mg PO HS icosapent ethyl 1 gram Capsule 2 g PO BID multivitamin [Multiple Vitamins] Tablet 1 tablet PO DAILY Repatha SureClick 140 mg/mL pen injector 140 mg SUBCUT .two weeks gabapentin 300 mg capsule 300 mg PO Q12H insulin aspart U-100 [Novolog FlexPen U-100 Insulin] 100 unit/mL (3 mL) insulin pen 28 unit SUBCUT BID-TID insulin glargine [Lantus Solostar U-100 Insulin] 100 unit/mL (3 mL) insulin pen 100 unit SUBCUT QPM Mounjaro 2.5 mg/0.5 mL pen injector 5 mg SUBCUT WEEKLY Rx Instructions: THURSDAYS Usman Multivitamin For Men 200-175-250 mcg tablet 1 tablet PO DAILY
--- NOTE | 2025-03-08 10:45 | P.PNAN_ITS ---
Anes - Initial Pre Proc Eval Procedure: Operation Date: 03/08/25 15:00 Proposed Procedures p Removal Haleigh Cath - Enmanuel Arriaga MD Date/Time: 03/08/25 10:45 Surgeon: Enmanuel Arriaga MD Pre Op Diagnosis: Port-A-Cath no longer needed Patient Data Age: 69 Gender: M Height: 1.8 m Weight: 108 kg Allergies Allergy/AdvReac Type Severity Reaction Status Date / Time amoxicillin Allergy Unknown Hives Verified 03/02/25 08:14 clavulanic acid (From Allergy Unknown Hives Verified 03/02/25 08:14 Augmentin) clindamycin Allergy Unknown Hives, N/V Verified 03/02/25 08:14 erythromycin base Allergy Unknown Hives Verified 03/02/25 08:14 atorvastatin AdvReac Mild MUSCLE Verified 03/02/25 08:14 WEAKNESS & PAIN, JOINT PAIN pravastatin AdvReac Unknown MUSCLE Verified 03/02/25 08:14 PAIN, WEAKNESS, JOINT PAIN rosuvastatin AdvReac Unknown MUSCLE Verified 03/02/25 08:14 PAIN, WEAKNESS, JOINT PAIN Home Medications ?Medication ?Instructions ?Recorded ?Confirmed ?Type allopurinol 100 mg tablet 100 mg PO DAILY 11/26/23 03/02/25 History amlodipine 5 mg tablet 5 mg PO QAM 11/26/23 03/02/25 History aspirin 81 mg capsule 81 mg PO DAILY 11/26/23 03/02/25 History dapagliflozin propanediol 10 mg 10 mg PO DAILY 11/26/23 03/02/25 History tablet (Farxiga) ezetimibe 10 mg tablet 10 mg PO DAILY 11/26/23 03/02/25 History fenofibrate 160 mg tablet 160 mg PO DAILY 11/26/23 03/02/25 History hydrochlorothiazide 12.5 mg capsule 12.5 mg PO QAM 11/26/23 03/02/25 History icosapent ethyl 1 gram capsule 2 g PO BID 11/26/23 03/02/25 History insulin glargine 100 unit/mL 90 unit subcut QPM 11/26/23 03/02/25 History subcutaneous solution (Lantus U-100 Insulin) insulin needles (disposable) 31 11/26/23 03/02/25 History lisinopril 40 mg tablet 40 mg PO HS 11/26/23 03/02/25 History metformin 1,000 mg tablet 1,000 mg PO BID 11/26/23 03/02/25 History nebivolol 20 mg tablet 20 mg PO HS 11/26/23 03/02/25 History nitroglycerin 0.4 mg sublingual 0.4 mg sublingual Q5M PRN Chest 11/26/23 03/02/25 History tablet Pain pantoprazole 40 mg tablet,delayed 40 mg PO HS 11/26/23 03/02/25 History release sildenafil 50 mg tablet (Viagra) 50 mg PO DAILY PRN Sexual Activity 11/26/23 0 03/02/25 History multivitamin (Multiple Vitamins 1 tablet PO DAILY 01/17/24 03/02/25 History tablet) evolocumab 140 mg/mL subcutaneous 140 mg subcut .two weeks 03/02/25 03/02/25 History pen injector (Estevan Thomson) gabapentin 300 mg capsule 300 mg PO Q12H 03/02/25 03/02/25 History insulin aspart U-100 100 unit/mL 28 unit subcut BID-TID 03/02/25 03/02/25 History (3 mL) subcutaneous pen (Novolog FlexPen U-100 Insulin aspart) insulin glargine 100 unit/mL (3 100 unit subcut QPM 03/02/25 03/02/25 History mL) subcutaneous pen (Lantus Solostar U-100 Insulin) [id number]-eml-dqwwl 200 mcg-lycop 1 tablet PO DAILY 03/02/25 03/02/25 History 175 mcg-lutei 250 mcg-herb 178 tablet (Usman Multivitamin For Men) tirzepatide 2.5 mg/0.5 mL 5 mg subcut WEEKLY 03/02/25 03/02/25 History subcutaneous pen injector (Mounjaro) Patient hx anesthesia problems: none Family hx anesthesia problems: none Results Review: All pre-operative results and documents have been reviewed as part of the pre- operative evaluation. [facility] Past Medical History Medical History (Updated 03/08/25 @ 10:45 by Salas Campa DO) ZARA (obstructive sleep apnea) History of breast cancer GERD (gastroesophageal reflux disease) Hypertension Hyperlipidemia CAD (coronary artery disease) Surgical History Surgical History History of mastectomy History of coronary artery stent placement 2016 Social History Social History Smoking status: Never smoker Alcohol intake: never Substance use: never Living arrangements: with family Additional living arrangements comments: Spiritual care concerns: No Anes - Eval Final PreProcedure Day of Procedure 03/08/25 10:45 Patient weight: obese Heart: regular rate and rhythm Lungs: clear to auscultation Airway: Mallampati scale class II Neurological: alert and oriented Last oral intake: >/= 8 hours ASA classification: III Emergent: no Anesthetic plan: proceed Anesthesia type and monitoring: general GIVS and standard monitoring Results Review: All pre-operative results and documents have been reviewed as part of the pre- operative evaluation. Informed Consent: The patient's anesthetic plan and its attendant risks and benefits were discussed with the patient/family/POA. Questions were solicited and answers provided to the satisfaction of the patient/family/POA.
--- NOTE | 2025-03-08 11:26 | WPDHPUPDATE1 ---
History and Physical Update Update Date/Time: 03/08/25 11:26 History and Physical has been reviewed, including an updated exam of the patient. There are NO changes in the patient's condition. Risks, benefits, and alternatives have been discussed and questions answered. Patient agrees to proceed with procedure.
[2025-03-08] MEDS: LACTATED RINGERS 1,000 ML 30 ML IV CONT (13:30)
[2025-03-08 14:00] VITALS: BP 130/69; PULSE 76; RESP 16; TEMP 37.1; O2SAT 97
[2025-03-08 14:36] LABS: Glucose Point of Care 179 mg/dl (65-105)
[2025-03-08] MEDS: BUPIVACAINE/EPINEPHRINE 0.5% 50 ML VIAL 30 ML INFILTRATE (15:14)
[2025-03-08 15:23] VITALS: BP 101/77; PULSE 84; RESP 14; O2SAT 95
--- NOTE | 2025-03-08 15:51 | W.PM.PROC2 ---
Procedure Note - Detailed Date of Procedure 03/08/25 Pre-op Diagnosis Port-A-Cath no longer needed, history breast cancer Post-op Diagnosis Same Procedure Performed Removal left subclavian Port-A-Cath Surgeon Enmanuel Arriaga MD Strategy Execution Consultant Rafael Rashid DAIRY NUTRITION CONSULTANT Anesthesia General (G IV S) and Local Indications Patient had a Port-A-Cath placed for chemotherapy. He has received his treatment and no longer needs the Port-A-Cath. Findings Intact vortex Port-A-Cath in good condition Description of Procedure Patient was checked in the preoperative holding room. He was then taken to surgery and anesthesia was introduced. Prep and drape of the left upper chest was carried out. An elliptical marking was made on the upper chest around his old scar. Local was infiltrated in this anticipated incision and in the deeper subcutaneous tissues. Healed scar was excised. The skin was discarded. Dissection was carried down through the skin and subcutaneous. We then encountered the Port-A-Cath reservoir and tubing. The reservoir and the tubing were carefully dissected free of the fibrous sheath surrounding each of them. Sutures were cut that were holding the Port-A-Cath to the chest wall. All the residual suture material was removed. Port-A-Cath was then removed without difficulty. There was slight back bleeding but this stopped with holding pressure. I then removed loose portions of the fibrous sheath from the Port-A-Cath pocket. More local was infiltrated into the Port-A-Cath wound. The cautery was used for hemostasis which was excellent. The wound was closed in layers with 4-0 interrupted Vicryl suture. The skin was closed with subcuticular interrupted 4-0 Vicryl skin suture. Wound was dressed with Exofin surgical adhesive. Patient was awakened and taken to recovery in good condition. Sponge needle counts were correct x2. Estimated Blood Loss -2 Drains No Packing No Pathology None sent Complications None Condition Stable Disposition Same day [facility] Billing Surgery - Charge Forward: Surgery Billing (Removal left subclavian Port-A-Cath)
[2025-03-08 15:53] VITALS: BP 113/50; PULSE 71; RESP 16
[2025-03-08 15:59] LABS: Glucose Point of Care 164 mg/dl (65-105)
[2025-03-08 16:23] VITALS: BP 115/58; PULSE 73; RESP 18
== END 2025-03-08 16:36 | disposition home or self-care (01) ==
PROVIDERS: PCP Nurse Practitioner; Visit Provider Surgery
PROC: (CPT 36589; principal; 2025-03-08 15:00)
DX: Z45.2 Encounter for adjustment and management of vascular access device (principal); G89.18 Other acute postprocedural pain; E78.5 Hyperlipidemia, unspecified; I10 Essential (primary) hypertension; K21.9 Gastro-esophageal reflux disease without esophagitis; I25.10 Atherosclerotic heart disease of native coronary artery without angina pectoris; G47.33 Obstructive sleep apnea (adult) (pediatric); E66.9 Obesity, unspecified; Z68.33 Body mass index [BMI] 33.0-33.9, adult; Z79.82 Long term (current) use of aspirin; Z79.84 Long term (current) use of oral hypoglycemic drugs; Z79.4 Long term (current) use of insulin; Z79.85 Long-term (current) use of injectable non-insulin antidiabetic drugs; Z79.891 Long term (current) use of opiate analgesic; Z98.890 Other specified postprocedural states; Z95.5 Presence of coronary angioplasty implant and graft; Z85.3 Personal history of malignant neoplasm of breast; Z92.21 Personal history of antineoplastic chemotherapy
CPT/HCPCS: 36590; 82948; J0690; J2704; J3010; J7120

== ENCOUNTER 2025-06-14 09:54 | Outpatient (CLI) | payer MEDICARE, SELFPAY ==
[2025-06-14 10:08] LABS: Hematocrit 42.5 % (42.0-52.0); Hemoglobin 14.3 g/dL (14.0-18.0); Immature Granulocyte Percent A 0.6 % (0-0.5); Lymphocytes Absolute Auto 1.90 K/mm3 (0.9-3.2); Mean Corpuscular HGB Conc 33.6 g/dl (32-36); Mean Corpuscular Hemoglobin 31.5 pg (26-34); Mean Corpuscular Volume 93.6 fl (80-100); Nucleated Red Blood Cells Absolute Auto 0.000 K/mm3 (0.0-0.012); Nucleated Red Blood Cells Perc 0.0 % (0.0-0.2); Platelet Count Result 199 k/mm3 (150-375); Red Blood Count 4.54 M/mm3 (4.6-6.20); White Blood Count 7.7 K/mm3 (4.5-10.0)
[2025-06-14 10:47] LABS: Alanine Aminotransferase 48 U/L (6-50); Albumin Level 4.4 g/dL (3.5-5.1); Alkaline Phosphatase 51 U/L (38-126); Anion Gap 9 mmol/L (4-12); Aspartate Amino Transferase 43 U/L (17-59); Bilirubin,Total 0.4 mg/dL (0.2-1.3); Blood Urea Nitrogen 29 mg/dL (9-20); Calcium 9.2 mg/dL (8.4-10.2); Carbon Dioxide 24 mmol/L (22-30); Chloride 108 mmol/L (98-107); Estimated Glomerular Filt Rate 48; Glucose 155 mg/dL (65-110); Potassium 4.3 mmol/L (3.4-5.0); Sodium 141 mmol/L (137-145); Total Protein 7.3 g/dL (6.3-8.2)
--- OUTSIDE RECORDS SUMMARY | 2025-06-14 10:51 | XMS_ITS | Clinical Summary ---
Author Organization [address] Address [address] [place] [id number] Care Team Providers Care Spray Mixer Name Role Phone Delaney Rivera MD Unavailable Nilay England MD Unavailable Kira Talavera NP Primary Care Provider [phone] Allergies Active Allergy Reactions Criticality Noted Date Comments Amoxicillin Hives High 02/19/2021 Amoxicillin-Pot Clavulanate Unknown,Hive s,Nausea And Vomiting High 05/18/2017 Atorvastatin Muscle pain,Other (S ee comments) Medium 08/15/2019 myalgias Clindamycin Hives,Nausea And Vomiting High 02/19/2021 Erythromycin Hives High 02/19/2021 Levofloxacin Shortness of breath High 04/11/2024 Potassium Pravastatin Muscle pain Medium 02/19/2021 Rosuvastatin Shellfish Nausea & Vomiting Low 11/15/2018 Iukfygm-Cpo-Xcm Reductase Inhibitors Muscle pain,Unknown Medium 02/19/2021 Medications [...] tablet (20 mg total) by mouth daily Active lisinopriL (PRINIVIL,ZESTRIL ) 40 mg tablet Take 1 tablet (40 [...] tablet (5 mg total) by mouth daily Active pen needle, diabetic (BD Ultra-Fine Short Pen Needle) 31 gauge x 5/16 needleIndications :Type 2 diabetes mellitus with hyperglycemia, with long-term current use of insulin ([facility]) Use to inject insulin 4 times daily 400 each 3 Active HYDROcodone-aceta minophen (NORCO) 5-325 mg per tablet Take 1 tablet by mouth every 4 (four) hours as needed Active lidocaine-priloca ine cream Apply quarter size amount to port [...] 024 2024 Active metFORMIN (GLUCOPHAGE) 1,000 mg tabletIndications :Type 2 diabetes mellitus with hyperglycemia, with long-term current use of insulin ([facility]) Take 1 tablet by mouth twice daily 180 tablet 3 024 Active sildenafiL (VIAGRA) 100 mg tabletIndications :Type 2 diabetes mellitus with hyperglycemia, with long-term current use of insulin ([facility]) TAKE ONE TABLET BY MOUTH NEEDED FOR ERECTILE DYSFUNCTION. DO NOT TAKE ANY NITRATE MEDICATION FOR 24 HOURS AFTER. 10 tablet 6 024 Active insulin aspart (NovoLOG) 100 unit/mL (3 mL) pen for injectionIndicati ons:Type 2 diabetes mellitus with hyperglycemia, with long-term current use of insulin ([facility]) 24 units before meals For sugars over 200, take 28 units For sugars over 250, take 30 units For sugars over 300, take 32 units 30 mL 11 024 Active Repatha SureClick 140 mg/mL pen injector INJECT 1 ML SUBCUTANEOUSLY EVERY TWO WEEKS 025 Active Farxiga 10 mg tabletIndications :Type 2 diabetes mellitus with hyperglycemia, with long-term current use of insulin ([facility]) Take 1 tablet by mouth once daily 90 tablet 3 025 Active tirzepatide (Mounjaro) 7.5 mg/0.5 mL pen injector injection Inject 0.5 mL (7.5 mg total) under the skin once a week 2 mL 6 025 Active icosapent ethyL (VASCEPA) 1 gram capsuleIndication s:Hyperlipidemia associated with type 2 diabetes mellitus (HCC) Take 2 capsules (2 g total) by mouth 2 (two) times a day 360 capsule 3 025 Active hydroCHLOROthiazi de 12.5 mg tabletIndications :Hypertension associated with diabetes (HCC) Take 1 tablet by mouth once daily 90 tablet 025 Active hydroCHLOROthiazi de 12.5 mg tabletIndications :Hypertension associated with diabetes (HCC) Take 1 tablet by mouth once daily 90 tablet 025 2024 Discontinued Active Problems Problem Noted [...] 2gm bid. Last lipid panel: 08/03/24 LDL=14, XY=552. Managed by cardiology. Assessment & Plan (02/02/2024 10:52 AM CDT): Chronic problem, intolerant to statins. Currently taking: Praluent 150mg every 2 wks, vascepa 2gm bid, fenofibrate 160mg daily, zetia 10mg daily. 06/11/23 LDL=16, VU=809. No changes at this time. Managed by cardiology. Assessment & Plan (11/11/2023 9:20 AM BOOKKEEPING ASSISTANT): Chronic problem, intolerant to statins. Currently taking: Praluent 75mg every 2 wks, vascepa 2gm bid, fenofibrate 160mg daily, zetia 10mg daily. 06/11/23 LDL=16, YT=770. No changes at this time. Managed by cardiology. Assessment & Plan (07/19/2023 9:20 AM CDT): Chronic problem, intolerant to statins. Currently taking: Praluent 75mg every 2 wks, vascepa 2gm bid, fenofibrate 160mg daily, zetia 10mg daily. 06/11/23 LDL=16, DV=640. No changes at this time. Assessment & Plan (11/12/2022 8:31 AM BOOKKEEPING ASSISTANT): Chronic problem, intolerant to statins. Currently taking: Praluent 75mg every 2 wks, vascepa 2gm bid, fenofibrate 160mg daily, zetia 10mg daily. No changes at this time. Assessment & Plan (07/30/2022 12:41 PM BOOKKEEPING ASSISTANT): Chronic problem, statin intolerant. Recently started on [...] oil. Assessment & Plan (11/14/2020 3:14 PM BOOKKEEPING ASSISTANT): Continue Zetia and follow up with cardiology Assessment & Plan (06/28/2020 11:38 AM CDT): Continue follow up with cardiology Assessment & Plan (03/28/2020 4:37 PM CDT): Continue Zetia and follow up with cardiology. Assessment & Plan (08/15/2019 2:50 PM BOOKKEEPING ASSISTANT): Pt with CAD, s/p cardiac stents LDL [...] therapy Assessment & Plan (11/15/2018 1:14 PM BOOKKEEPING ASSISTANT): Continue atorvastatin Assessment & Plan (07/28/2018 3:05 PM BOOKKEEPING ASSISTANT): Will obtain results of recent lipid panel. Continue on atorvastatin 10 mg. Restart fish oil as this will have some antiplatelet impact, until follow up with ground transportation operator. Assessment & Plan (05/03/2018 12:46 PM CDT): [...] ) Patient has an appointment with his ground transportation operator next week month. I asked him to discuss this with him otherwise will address it. Coronary artery disease involving [place] coronar y artery 05/03/2018 Assessment & Plan (08/15/2019 2:51 PM BOOKKEEPING ASSISTANT): Check HS PCR Pt seeing a ground transportation operator LDL goal under 50 Assessment & Plan (05/03/2018 11:13 AM CDT): Indication for Jardiance Start Jardiance 25 mg daily Other male erectile dysfunction 05/03/2018 Non morbid obesity due to excess calories 2016 Assessment & Plan (09/16/2017 3:17 PM BOOKKEEPING ASSISTANT): Needs to focus on meal plan. Provided [...] Will update MA/Cr. Verified that he uses [employer]. Aware to check results/results letter in [employer]. Will contact by phone if needed. UTD [...] infection. Assessment & Plan (08/03/2024 1:05 PM BOOKKEEPING ASSISTANT): Chronic, uncontrolled but with some improvement Importance [...] infection. Assessment & Plan (11/11/2023 10:04 AM BOOKKEEPING ASSISTANT): Chronic problem, uncontrolled. A1c worsened from 8.9% 06/2023 to now 9.1% . Discussed need to need to quickly get diet/exercise & A1c/BG down. Discussed elevated BG & risk of poor healing. Discussed increasing Ozempic to 2mg, adding short acting insulin and/or greatly needed diet changes. Will start with diet/activity changes & increasing to 2mg on Ozempic. Will send me a [employer] message in next 2 weeks with BG readings. Current medications: Metformin 1000 mg twice daily before meals Farxiga 10 mg daily Ozempic 2mg weekly Lantus 90 units at bedtime Will update MA/Cr today. Verified that he uses [employer]. Aware to check results/results letter in [employer]. Will contact by phone if needed. UTD [...] infection. Assessment & Plan (11/12/2022 10:10 AM BOOKKEEPING ASSISTANT): Chronic problem, uncontrolled & worsening. Current medications: [...] Rivera. Assessment & Plan (07/30/2022 12:44 PM BOOKKEEPING ASSISTANT): Chronic problem, deteriorating due to poor diet. [...] prescribed. Assessment & Plan (11/14/2020 3:16 PM BOOKKEEPING ASSISTANT): A1c improved to 7.3. Continue with current [...] mg. Assessment & Plan (08/15/2019 2:45 PM BOOKKEEPING ASSISTANT): Hba1c was Lab Results Component Value Date [...] . Assessment & Plan (11/15/2018 1:13 PM BOOKKEEPING ASSISTANT): A1c 7.6. Insignificant change. Continue Basaglar at 80 hs Restart Ozempic at 0.25 for one month and then increase to 0.5. Check FBG and ac at least one additional time daily. Advised ac and pc check 2-3 times per week. Assessment & Plan (07/28/2018 3:02 PM BOOKKEEPING ASSISTANT): A1c improved at 7.7 with improved attn [...] goal hba1c is under 7.0 to prevent long chain beamer diabetes complications ( eye , kidney and [...] daily. Assessment & Plan (11/18/2017 3:32 PM BOOKKEEPING ASSISTANT): Hba1c was 7.9 today, indicating sub-optimal DM control 1800 calorie, consistent carb diet recommended 30 min daily aerobic and resistance exercise recommended Prevention and treatment of hyypoglcyemia discussed. Blood glucose monitoring with fingers sticks 1-2 x day . Assessment & Plan (09/16/2017 3:24 PM BOOKKEEPING ASSISTANT): A1c worsening at 9.0. Likely to continued [...] cardiology. Assessment & Plan (11/11/2023 9:19 AM BOOKKEEPING ASSISTANT): Chronic problem, controlled on current regimen. HCTZ 12.5mg daily, amlodipine 5mg daily, lisinopril 40mg daily, bystolic 20mg daily. Managed by cardiology. Assessment & Plan (07/19/2023 9:20 AM CDT): Chronic problem, controlled on current regimen. HCTZ 12.5mg daily, amlodipine 10mg daily, lisinopril 40mg daily, bystolic 20mg daily. Managed by cardiology. Assessment & Plan (11/12/2022 8:39 AM BOOKKEEPING ASSISTANT): Chronic problem, controlled on current regimen. HCTZ 12.5mg daily, amlodipine 10mg daily, lisinopril 40mg daily, bystolic 20mg daily. Managed by cardiology. Assessment & Plan (07/30/2022 12:41 PM BOOKKEEPING ASSISTANT): Controlled on current medications, no changes. Assessment [...] plan. Assessment & Plan (11/14/2020 3:14 PM BOOKKEEPING ASSISTANT): Controlled on current medications. Continue plan. Assessment [...] ARB Assessment & Plan (11/15/2018 1:14 PM BOOKKEEPING ASSISTANT): Controlled on current medications. Assessment & Plan (07/28/2018 3:03 PM BOOKKEEPING ASSISTANT): Follow up with new ground transportation operator how has records on type of stents he has. Can increase ASA to 325 mg daily once out of Plavix. Assessment & Plan (05/03/2018 12:46 PM CDT): Goal blood pressure is less than 140/85 Low salt diet recommended Daily aerobic exercise Continue current meds, including KASSIE-I or ARB Assessment & Plan (11/18/2017 3:33 PM BOOKKEEPING ASSISTANT): Goal blood pressure is less than 140/85 Low salt diet recommended Daily aerobic exercise Continue current meds, including KASSIE-I or ARB Assessment & Plan (09/16/2017 3:26 PM BOOKKEEPING ASSISTANT): BP 136/76. Check home BP 2-3 times per week. Assessment & Plan (04/22/2017 1:29 PM CDT): Continue same meds and follow up with cardiology Resolved Problems Problem Noted Date Diagnosed Date Resolved Date Class 1 obesity due to exces s calories with serious comorbidity and body mass index (BMI) of 34.0 to 34.9 in adult 11/12/2022 11/28/2024 Assessment & Plan (11/12/2022 9:39 AM BOOKKEEPING ASSISTANT): Discussed healthy diet and importance of regular physical activity (20- 30min/day, 150min/wk). Hypertriglyceridemia 07/26/2012 023 Overview (12/23/2016): HYPERLIPIDEMIA NEC/NOS Assessment & Plan (11/18/2017 3:34 PM BOOKKEEPING ASSISTANT): Goal of treatment , LDL cholesterol less [...] exercise Assessment & Plan (09/16/2017 3:25 PM BOOKKEEPING ASSISTANT): Continue statin and focus on low fat diet choices Assessment & Plan (04/22/2017 1:30 PM CDT): Continue statin Pure hypercholesterolemia 12/23/2011 Overview (12/23/2016): PURE HYPERCHOLESTEROLEM Surgical History Surgery Date Site/Laterality Comments OTHER [...] Father Alcoholism; Coronary artery disease Father Júnior valerioy artery disease; Other Father hypoglycemic; Coronary artery disease Mother Júnior nary artery disease; Diabetes Mother Diabetes mellit us; Cause of : Diabetes mellitus Relation Name [...] on file Legal Sex Male 10:07 AM BOOKKEEPING ASSISTANT Gender Identity Not on file Sexual Orientation Straight 08/03/2024 10 :46 AM BOOKKEEPING ASSISTANT Obstetrics History Last Filed Vital Signs Vital [...] Screening-PSA 11/20/2021 11/21/2019 Covid-19 Vaccine (4 - 2024-2 6 season) 2025 07/15/2021, 12/11/2020, 11/13/2020 Influenza Vaccine (#1) 2025 , 08/06/2021, 07/19/2020, Additional history exists Dilated Eye Exam 06/28/2025 06/28/2024, , 08/26/2022, [...] 04/17/1992, 03/18/1992 Zoster Vaccine Completed 05/28/2021, 03/10/2021 Procedures Procedure Name Priority Date/Time Associated Diagnosis Comments POCT HEMOGLOBIN A1C Routine 03/06/2025 1 1:07 AM CDT Hyperlipidemia associated with type 2 diabetes mellitus (HCC) COMPREHENSIVE METABOLIC PANEL Routine 02/20/2025 2:47 PM CDT ALBUMIN CREATININE RATIO, URINE Routine 11/28/2024 11:50 AM CDT Type 2 diabetes mellitus with hyperglycemia, with long-term current use of insulin (HCC) LIPID PANEL Routine 08/03/2024 11:53 AM BOOKKEEPING ASSISTANT Type 2 diabetes mellitus with hyperglycemia, with long-term current use of insulin (HCC) HM DIABETES EYE EXAM Routine 06/28/2024 3:36 PM CDT PSA, TOTAL Routine 11/21/2019 10:50 AM BOOKKEEPING ASSISTANT from Last 3 Months or Most Recently [...] - 59 Units/L EXTERNAL LAB SCRIBED eGFR 56(A) 59 - 0 EXTERNAL LAB Blood 02/20/2025 2:47 PM CDT Historical Provider LAB BLOOD ORDERABLES Sissy l Result EXTERNAL LAB * Albumin Creatinine Ratio, Urine (11/28/2024 11:50 AM CDT) Albumin Ur <12.0 mg/L Comment: Interpretive Data No reference range established. Current interpretive data was last revised 2019. Creatinine Ur 50.8 mg/dL [facility] Comment: Interpretive Data No reference range established. Current interpretive data was last revised 2019. Albumin Creatinine Ratio, Ur <24 1 - 29 mg/g [facility] Urine 11/28/2024 11:5 0 AM CDT 11/28/2024 9:17 PM CDT Leela Cruz NP LAB URINE ORDERABLES Sissy l Result Performing Organization Address [facility] de Phone Number [facility] [address] Department [place] [address] * (ABNORMAL) Lipid panel (08/03/2024 11:53 AM BOOKKEEPING ASSISTANT) Cholesterol 87 30 - 199 mg/dL Comment: [...] 2018. LDL, calculated 14 <=129 mg/dL [facility] Comment: Interpretive Data Ages < [...] [facility] Blood 08/03/2024 11:5 3 AM BOOKKEEPING ASSISTANT 08/03/2024 6:11 PM BOOKKEEPING ASSISTANT Delaney Rivera MD LAB BLOOD ORDERABLES Final Resul t [facility] [address] Department [place] [address] * DIABETES EYE EXAM (06/28/2024 3:36 PM CDT) Historical Provider HEALTH MAINTENANCE Final Result * PSA, total Blood (11/21/2019 10:50 AM BOOKKEEPING ASSISTANT) SCRIBED PSA, Total 0.99 0.00 - 4.00 EXTERNAL LAB Blood specimen (specimen) 11/21/2019 10:50 AM BOOKKEEPING ASSISTANT Historical Provider LAB BLOOD ORDERABLES Edit ed Result - Final EXTERNAL LAB from Last 3 Months or Most Recently Relevant to Health Maintenance Insurance AET MEDICARE T MEDICARE Care Teams Spray Mixer Relationship Specialty Start Date End Date Kira Talavera NP [address] [place] [address] [place] [address] PCP - General Pediatrics 03/28/20 [place] [address] [address] Consulting Physician Endocrinology Diabetes & Metabolism 11/07/18 Nilay England MD [address] [place] [address] Referring Physician Cardiovascular Disease 08/15/19
--- OUTSIDE RECORDS SUMMARY | 2025-06-14 10:51 | XMS_ITS | Clinical Summary ---
Author Organization [facility] Address [address] [place] [address] Phone Care Team Providers Care Dean Of Instruction Name Role Phone Kira Talavera BALLAST REGULATOR OPERATOR Primary Care Provider Allergies Active Allergy Reactions [...] 02/19/2021 Shrimp Nausea and Vomiting Low 02/19/2021 Hjpkxou-Fgn-Nnn Reductase Inhibitors Unknown 02/19/2021 Medications allopurinoL (ZYLOPRIM) [...] 2.2 cm IDC, 0/6 LN ER 95% NV 0% her 2 2+ MAURICE negative Surgeon: [...] Encounters Date Type Department Care Team Description 06/14/2025 11:30 AM CDT Hospital Encounter [facility] Integrative Medicine and Therapy Services [facility] [address] [place] [address] Silvia Raya MD Carr, Caitlin D, Physical Therapist 06/05/2025 External Device Data STL ABSTRACTION Provider, Abstract 05/22/2025 External Device Data ST[facility] ABSTRACTION Provider, Abstract 04/25/2025 Chart Note [facility] Breast Surgery [address] [place] [id number] Susan Acevedo RN 04/05/2025 External Device Data STL ABSTRACTION Provider, Abstract from Last 3 Months Family History Medical [...] Care Team (Late st Contact Info) Description 06/14/2025 11:30 AM CDT Hospital Encounter [facility] Medicine and Therapy [facility] [address] [place] [address] [place] [address] [facility] [address] [place] [address] Raegan Hamilton, Physical Therapist 06/18/2025 10:30 AM CDT Appointment [facility] Integrative Medicine and Therapy [facility] [address] [place] [address] Raegan Hamilton, Physical Therapist 06/21/2025 2:00 PM CDT Office Visit [facility] Oncology and Hematology - [place] [address] [facility] [address] [address] Jr Pruitt MD [address] [facility] [address] [place] [address] 06/25/2025 10:30 AM CDT Appointment [facility] Integrative Medicine and Therapy Services [facility] [address] [place] [address] Raegan Hamilton, Physical Therapist 01/08/2026 10:15 AM CDT Appointment [facility] [address] [place] [address] [place] [address] [place] [address] 01/08/2026 11:15 AM CDT Office Visit [facility] Breast Surgery Yousif Mcguire [address] [place] [address] [place] [address] [facility] [address] [place] [address] Health Maintenance Due Date Last Done Comments DIABETES ANNUAL RETINAL EXAM 1974 DIABETES MICROALBUMIN ANNUAL SCREEN 1974 LDL CHOLESTEROL ANNUAL 1974 FIT-DNA Q 3 years 2001 FIT/FOBT Q 1 year 2001 Flex Sig/CT Colonography Q 5 years 2001 RSV VACCINE (60+ or ) (1 - Risk 60-74 years 1-dose series) 2016 INFLUENZA VACCINE (#1) 2025 , 07/06/2023, 07/27/2022, Additional history exists COVID-19 Vaccine (4 - 2024-2 6 season) 2025 07/15/2021, 12/11/2020, 11/13/2020 DIABETES HBA1C Q 6 MONTHS 05/31/20252024, 08/03/2024, 02/02/2024, Additional history exists DIABETES ANNUAL FOOT EXAM 11/28/2025 11/28/2024 DTAP/TDAP/TD VACCINES (2 - T d or Tdap) 05/18/2028 05/18/2018 COLORECTAL SCREENING 07/21/2034 07/21/2024, 03/19/20 Colorectal Cancer Screening 07/21/2034 ZOSTER VACCINE Completed 05/28/2021, 03/10/2021 PNEUMOCOCCAL VACCINE 50+ YEARS Completed 07/06/2023 , 09/10/2020 Medical Devices Implanted Type Area Wood Patternmaker Apprentice Device Identifier Shelf Expiration Date Model / Serial / Lot Speech Lang Path Therapist Clip Surgiclip Ii Eduardo 9.75in [id number] - [id number] Implanted:Qty : 1 on 12/15/2023 by Silvia Raya MD at [facility] Clip Right: [employer] [id number] 05/20/2028 [id number] / / [id number] Speech Lang Path Therapist Clip Surgiclip Ii Eduardo 9.75in [id number] - [id number] Implanted:Qty : 1 on 12/15/2023 by Silvia Raya MD at [facility] Clip Right: [employer] [id number] 06/19/2028 [id number] / / [id number] Cardiac Stent Insurance RX [employer] Medicare Part D Advance Directives For more information, please contact: [phone] * Full Code (Latest Code Status on File) Date Activated Date Inactivated Comments 12/15/2023 6:54 AM 12/15/2023 3:24 PM Care Teams Dean Of Instruction Relationship Specialty Start Date End Date Kira Talavera FNP [address] [place] [address] [place] [address] PCP - General NURSE PRACTITIONER 03/06/21
--- OUTSIDE RECORDS SUMMARY | 2025-06-14 11:30 | XMS_ITS | Encounter Summary ---
Author Organization [facility] Address [address] [place] [address] Care Team Providers Care Muck Miner Name Role Phone Kira Talavera Ganesh MEDICAL SOCIAL WORKER Primary Care Provider [phone] Reason for Visit * Eval and Treat (Routine) - Authorized Specialty Diagnoses / Procedures Referred By Samia henry Referred To Contact [facility] Diagnoses H/O malignant neoplasm of male breast H/O lymph node excision Lymphedema Procedures RI OFFICE/OUTPATIENT ESTABLISHED MOD MDM 30 MIN RI OFFICE/OUTPATIENT NEW MODERATE M[place] 45 [place] [address] [place] [address] Phone: tel: fax: [facility] Integrative Medicine and Therapy Services [facility] [address] [place] [address] Referral ID Status Reason Start Date Expiration Date V isits Requested Visits Authorized [id number] Authorized 04/25/2025 04/25/2026 1 1 Encounter Details Date Type Department Care Team (Late st Contact Info) Description 06/14/2025 11:30 AM CDT Hospital Encounter [facility] [address] [place] [address] [place] [address] [place] [address] Raegan Hamilton, Physical Therapist Social History Tobacco Use Types Packs/Day Years [...] Care Team (Late st Contact Info) Description 06/18/2025 10:30 AM CDT Appointment [facility] [address] [place] [address] Raegan Hamilton, Physical Therapist 06/21/2025 2:00 PM CDT Office Visit [facility] Oncology and Hematology - [place] [address] [place] [address] [address] Jr Pruitt MD [address] [facility] [address] [place] [address] 06/25/2025 10:30 AM CDT Appointment [facility] Integrative Medicine and Therapy Services [facility] [address] [place] [address] Raegan Hamilton, Physical Therapist 01/08/2026 10:15 AM CDT Appointment [facility] [address] [place] [address] [place] [address] [place] [address] 01/08/2026 11:15 AM CDT Office Visit [facility] Breast Surgery [address] [facility] [address] [place] [address] [place] [address] [facility] [address] [place] [address] Scheduled Referrals Name Type Priority Associated Diagnoses Orde r Schedule AMB REFERRAL TO REHAB ONCOLOGY Outpatient Referral Routine H/O malignant neoplasm of male breast H/O lymph node excision Lymphedema Ordered: 04/25/2025 documented as of this encounter Visit Diagnoses Not on filedocumented in this encounter Care Teams Muck Miner Relationship Specialty Start Date End Date Kira Talavera FNP [address] [place] [address] [place] [address] PCP - General NURSE PRACTITIONER 03/06/21 documented as of this encounter
== END 2025-06-14 09:55 | disposition home or self-care (01) ==
PROVIDERS: PCP Nurse Practitioner; Visit Provider Internal Medicine Hematology & Oncology
DX: C50.221 Malignant neoplasm of upper-inner quadrant of right male breast (principal); Z17.0 Estrogen receptor positive status [ER+]
CPT/HCPCS: 36415; 80053; 85025; 86300

== ENCOUNTER 2025-06-21 16:19 | Outpatient (CLI) | payer MEDICARE, SELFPAY ==
--- NOTE | ~2025-06-21 | CT_ITS ---
CHEST ABDOMEN PELVIS WITH CONTRAST CLINICAL HISTORY: mal neoplasm of upper-inner quad of rt breast in male . COMPARISON: None TECHNIQUE: Helical CT performed from thoracic inlet to symphysis pubis IV contrast information not listed in PACS Coronal, sagittal reformats. Multi planar MIPS CT images acquired with automatic exposure control for dose reduction DLP: 1243 mGy-cm FINDINGS: CHEST- Lungs/Pleura: Clear. Thoracic Aorta: No dissection. No aneurysm. Pulmonary arteries: Normal caliber. Heart: Coronary artery calcifications. Tracheobronchial tree: Patent. Nodes: No enlarged nodes. Bones: No acute bony abnormality. Soft tissues: Right breast scarring and/or lesion with surgical clips. Right axillary surgical clips. ABDOMEN/PELVIS- Liver: Enlarged. Steatosis. Gallbladder: Stones. Spleen: Unremarkable. Pancreas: Cystic lesion uncinate. 2.5 cm. Adrenal glands: Tiny indeterminate bilateral nodule. Kidneys: Right kidney- No hydronephrosis. A few tiny stones. Left kidney- No hydronephrosis. No renal stones. Distal esophagus/stomach: Unremarkable. Small bowel loops: Normal caliber and wall thickness. Colon: Normal caliber and wall thickness. Normal RLQ appendix. Nodes: No enlarged nodes. Small mesenteric and gastrohepatic ligament nodes. Peritoneum: No ascites. No free air. Urinary bladder: Unremarkable. Prostate: Unremarkable. Bones: No acute bony abnormality. Soft tissues: Large umbilical hernia with fat. Aorta: No aneurysm or dissection. Atherosclerotic disease. IVC: Unremarkable. Main portal vein/SMV/splenic vein: Patent. IMPRESSION: CHEST- 1. No evidence of intrathoracic malignancy or acute abnormality. 2. Right breast soft tissue lesion and/or scarring with surgical clips. ABDOMEN/PELVIS- 1. Cystic lesion within pancreas. Cystic malignancy not excluded. Recommend MRI and/or endoscopic ultrasound. 2. Tiny indeterminate adrenal nodules. If MRI above obtained, may assist in characterization. Alternatively, noncontrast CT may help. Otherwise 3-six-month follow-up CT or MRI adrenal protocol. 3. Additional findings as above. Reviewed, dictated and finalized at location R. IMPRESSION: CHEST- 1. No evidence of intrathoracic malignancy or acute abnormality. 2. Right breast soft tissue lesion and/or scarring with surgical clips. ABDOMEN/PELVIS- 1. Cystic lesion within pancreas. Cystic malignancy not excluded. Recommend MR I and/or endoscopic ultrasound. 2. Tiny indeterminate adrenal nodules. If MRI above obtained, may assist in ch aracterization. Alternatively, noncontrast CT may help. Otherwise 3-six-month f ollow-up CT or MRI adrenal protocol. 3. Additional findings as above.
--- OUTSIDE RECORDS SUMMARY | 2025-06-21 14:00 | XMS_ITS | Encounter Summary ---
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, estrogen receptor positive (CMS/HCC) Procedures CT CHEST ABDOMEN PELVIS W CONT Jr Pruitt MD [facility] [place] [address] Phone: tel: fax: Referral ID Status Reason Start Date Expiration Date Visits Re quested Visits Authorized [id number] Open 06/21/2025 07/22/2026 1 1 Reason for Visit * Reason Comments Follow Up Cancer Encounter Details Date Type Department Care Team (Late st Contact Info) Description 06/21/2025 2:00 PM CDT Office Visit [facility] Oncology and Hematology - [place] [address] [place] [address] [address] [place] [address] Jr Pruitt MD [address] [place] [address] 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, estrogen receptor positive (CMS/HCC) (Primary Dx) Social History Tobacco Use Types [...] on file documented as of this encounter Last Filed Vital Signs Vital Sign Reading Time Taken Comments Blood Pressure 135/67 06/21/2025 2:01 PM CDT Pulse 74 06/21/2025 2:01 PM CDT Temperature 36.1 C (97 F) 06/21/2025 2:01 PM CDT Respiratory Rate 15 06/21/2025 2:01 PM CDT Oxygen Saturation 94% 06/21/2025 2:01 PM CDT Inhaled Oxygen Concentration - - Weight 107.7 kg (237 lb 6.4 oz) 06/21/2025 2:01 PM CDT Height - - Body Mass Index 33.11 02/20/2025 1:26 PM CDT documented in this encounter Progress Notes * Jr rPuitt MD - 06/21/2025 2:33 PM CDT HEMATOLOGY / ONCOLOGY PROGRESS NOTE Patient Identification: Name: Justino Boland Age: 69 y.o. Sex: male : 1955 DIAGNOSIS T2 N0 M0 stage IIA ER positive OH negative HER2/zeferino negative by FISH invasive ductal carcinoma measures 2.2 cm without lymphovascular invasion and negative margins associated with DCIS intermediate grade status post right breast lumpectomy and right axillary sentinel lymph node dissection done on December 15, 2023. Oncotype DX recurrence score 41. CURRENT TREATMENT Surveillance TREATMENT HISTORY Status post right breast lumpectomy and right axillary sentinel lymph node dissection done on 2023. Adjuvant chemotherapy with dose dense AC started on January 25, 2024. Completed cycle 4/4 of chemotherapy with Taxol on May 16, 2024. Radiation therapy completed on July 11, 2024 Tamoxifen started on August 27, 2024. Tamoxifen discontinued on December 15, 2024 due to weight gain,uncontrolled diabetes and musculoskeletal discomfort. SUBJECTIVE Patient came into the office for follow-up visit. Denies any weight loss. Denies any new lumps bumps or lymphadenopathy. He had episode of sinus infection few weeks ago but now has recovered. No other new complaints. Review of system Constitutional: Patient did not mention fevers, weight appetite stable, denies any tiredness and fatigue HEENT: Patient did not mention sinus congestion, hearing or vision problems Respiratory: Complain of cough with dry sputum, complain of shortness of breath Cardiovascular: Patient did not mention chest pain, exertional chest pressure/discomfort, nausea, syncope, shortness of breath GI: Patient did not mention constipation, diarrhea, dsyphagia, reflux symptoms, vomiting, melena : Patient did not mention dysuria, frequency, incontinence, urgency Integumentary system: no lymphadenopathy, sweats, flushing Musculoskeletal:complain of musculoskeletal pain Neurological: Patient did not mention blurry or disturbed vision, stable peripheral neuropathy skin: No lumps, bumps or rashes. 12 point review of system was reviewed Objective: Vital signs in last 24 hours: As per nursing note Exam: HEENT: Atraumatic, external ears normal, nose normal, oropharynx moist, no pharyngeal exudates. no sinus tenderness Neck- normal range of motion, no tenderness, supple Respiratory: No respiratory distress, normal breath sounds, no rales, no wheezing Breasts: Left breast lump at 1 o'clock position about 1 cm in size without any axillary lymphadenopathy. Right breast no masses lymphadenopathy. Cardiovascular: Normal rate, normal rhythm, no murmurs, no gallops, no rubs GI: Soft, nondistended, normal bowel sounds, nontender, no splenomegaly, no hepatomegaly, no mass, no rebound, no guarding : No costovertebral angle tenderness Musculoskeletal: No edema, no tenderness, no deformities. Back- no tenderness Integument: Well hydrated, no rash, Digits and nails inspection normal Lymphatic: No lymphadenopathy noted Neurologic: Alert & oriented x 3, CN 2-12 normal, normal motor function, normal sensory function, no focal deficits noted Bilateral chest wall examination showed postoperative and radiation changes in the right chest wallwithout any masses and lymphadenopathy Exam as above PATH LABS Lab from February 07 showed WBC 3.4 hemoglobin 14 platelet 236,000 creatinine 1.3 Labs from February 21 showed WBC 12.4 hemoglobin 12.8 platelet 109,000 creatinine 1.6 GFR 43 BUN 32 Labs from March 14 showed WBC 12.9 hemoglobin 12.4 platelet 160,000 creatinine 1.5 GFR 47 BUN 36 Labs from March 28 showed WBC 3.4 hemoglobin 11.4 platelet 237,000 creatinine 1.4 Labs from April 11 showed WBC 19.7 hemoglobin 11.2 platelet 1 75,000 creatinine 1.4 Labs from May 02 showed WBC 3.8 hemoglobin 11.5 platelet 146,000 creatinine 1.3 Labs from May 16 showed WBC 14.9 hemoglobin 10.3 platelet 163,000 creatinine 1.5 glucose 395 Labs from June 13 showed WBC 7.2 hemoglobin 13.6 platelet 1 62,000 creatinine 1.3 Labs from August 29 showed CA 15-3 20 WBC 7.2 hemoglobin 14.9 platelet 195,000 creatinine 1.2 Labs from December 06 showed CA 15-3 15 creatinine 1.7 GFR 39 total bilirubin 0.5 AST 64 hemoglobin 13.5 Labs from February 08 showed WBC 5.5 hemoglobin 14.1 platelet 178,000 creatinine 1.2 CA 15-3 22 Labs from June 14 showed creatinine 1.4 bilirubin 0.5 hemoglobin 14.3 CA 15-3 slightly elevated at 25.7 Assessment: Plan: Patient Active Problem List Diagnosis Date Noted 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, estrogen receptor positive (CMS/HCC) 11/16/2023 Overview Note: Stage: Clinical T1N0; pT2N0 Date of diagnosis: 10/22/2023 Diagnosis: RIGHT (Grade 3) 2.2 cm IDC, 0/6 LN ER 95% OH 0% her 2 2+ MAURICE negative Surgeon: [...] 11/16/2023 Neural foraminal stenosis of cervical spine 03/06/2021 T2 N0 M0 stage IIA ER positive OH negative HER2/zeferino negative by FISH invasive ductal carcinoma measures 2.2 cm without lymphovascular invasion and negative margins associated with DCIS intermediate grade status post right breast lumpectomy and right axillary sentinel lymph node dissection done on December 15, 2023. Oncotype DX recurrence score 41. Started adjuvant chemotherapy with dose dense Adriamycin and Cytoxan on January 25, 2024. Patient completed cycle 4/4 chemotherapy of Taxol on May 16, 2024. Radiation therapy completed on July 11, 2024. Tamoxifen started on August 27, 2024. Tamoxifen was discontinued on December 15, 2024 due to side effects. Labs noted. Tumor marker is slightly elevated. He is asymptomatic. We will order CT scan chest abdomen pelvis now and discussed that with him next week. I will continue to see him back on every 4 months basis. Type 2 diabetes. Patient is on Mounjaro and metformin. I recommended regular exercise and weight loss. He will follow-up with the clinical laboratory technician. Peripheral neuropathy. Stable on gabapentin. Hypertension. Stable. Renal insufficiency. Creatinine remains elevated. I have recommended increased hydration and avoidance of nonsteroidal anti-inflammatory medications. Follow-up in 1 week 06/21/2025 Jr Pruitt MD documented in this encounter Plan of Treatment Upcoming Encounters Date Type Department Care Team (Late st Contact Info) Description 06/25/2025 10:30 AM CDT Appointment [facility] Medicine and Therapy Services [facility] [address] [place] [address] Raegan Hamilton, Physical Therapist 06/27/2025 4:35 PM CDT Telephone Check Up [facility] Oncology and Hematology - [place] [address] [facility] [address] [place] [address] Jr Pruitt MD [address] [facility] [address] [place] [address] 01/08/2026 10:15 AM CDT Appointment [facility] [address] [place] [address] [place] [address] [facility] [address] [place] [address] 01/08/2026 11:15 AM CDT Office Visit [facility] Breast Surgery [address] [facility] [address] [place] [address] [place] [address] [facility] [address] [place] [address] Scheduled Orders Name Type Priority Associated Diagnoses Orde r Schedule CT CHEST ABDOMEN PELVIS W CONT Imaging Stat 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
--- OUTSIDE RECORDS SUMMARY | 2025-06-21 16:23 | XMS_ITS | Encounter Summary ---
Author Organization [facility] Address [facility] [place] [address] Care Team Providers Care Abstract Manager Name Role Phone Kria Talavera [facility] Primary Care Provider Encounter Details Date Type Department Care Team (Late st Contact Info) Description 12/29/2021 Sensentiat Message Enc [facility] [address] [place] [phone] Kira Talavera [facility] [address] [place] [phone] Regarding the Dr. Burrows referral Social History Tobacco Use Types Packs/Day Years Used Date Smoking Tobacco: Never Smokeless Tobacco: Never Comments:Provider to direct selling counselor Alcohol Use Standard Drinks/Week Comments Yes [...] Recorded In the last 10 days, have yo u been in contact with someone who was confirmed or suspected to have Coronavirus/COVID-19? No / Unsure 12/26/2021 9:32 AM CDT documented as of this encounter Plan of Treatment Upcoming Encounters Date Type Department Care Team (Late st Contact Info) Description 07/10/2025 8:00 AM CDT Office Visit [facility] [address] [place] [address] Kira Talavera FNP [address] [place] [address] documented as of this encounter Visit Diagnoses Not on filedocumented in this encounter Additional Health Concerns Infection Onset Date Last Indicated Resolved Time COVID-19 Rule Out 11/28/2022 11/28/2022 11/28/2022 11:30 PM SENIOR TELLER Assessment Noted Time PHQ-9 Depression Total Score: 0 08/29/20 8:34 AM SENIOR TELLER documented as of this encounter Care Teams Abstract Manager Relationship Specialty Start Date End Date Kira Talavera FNP [address] [place] [address] [place] [address] PCP - General Nurse Practitioner Family 03/12/20 documented as of this encounter
--- OUTSIDE RECORDS SUMMARY | 2025-06-21 16:23 | XMS_ITS | Encounter Summary ---
Author Organization [facility] Address [facility] [place] [address] Care Team Providers Care Car Seat Upholsterer Name Role Phone Luis Felipe Saldivar MD Unavailable Unavailab Nilay Anthony MD Unavailable [phone] Kira Talavera Primary Care Provider [phone] Encounter Details Date Type Department Care Team (Late st Contact Info) Description 08/08/2021 [email or web address] Message Enc [facility] [address] [place], [place] [phone] Kira Talavera FNP [address] [place], [place] [phone] Question Social History Tobacco Use Types Packs/Day Years Used Date Smoking Tobacco: Never Smokeless Tobacco: Never Comments:Provider to personal financial counselor Alcohol Use Standard Drinks/Week Comments Yes [...] AM CST Romelia please review and advise TERY WORKERS SUPERVISOR documented in this encounter Plan of Treatment Upcoming Encounters Date Type Department Care Team (Late st Contact Info) Description 07/10/2025 8:00 AM CDT Office Visit [facility] [address] [place] [address] Kira Talavera FNP [address] [place] [address] documented as of this encounter Visit Diagnoses Not on filedocumented in this encounter Additional Health Concerns Infection Onset Date Last Indicated Resolved Time COVID-19 Rule Out 11/28/2022 11/28/2022 11/28/2022 11:30 PM CEMETERY WORKERS SUPERVISOR Assessment Noted Time PHQ-9 Depression Total Score: 0 04/15/20 3:37 PM CDT documented as of this encounter Care Teams Car Seat Upholsterer Relationship Specialty Start Date End Date Kira Talavera FNP [facility] [place] [address] PCP - General Nurse Practitioner Family 03/12/20 Luis Felipe Saldivar MD CARDIOVASCULAR DISEASE 05/04/17 09/08/21 Nilay Stout MD [facility] Resource Tech INTERVENTIONAL CARDIOLOGY 11/15/18 09/08/21 documented as of this encounter
--- OUTSIDE RECORDS SUMMARY | 2025-06-21 16:23 | XMS_ITS | Encounter Summary ---
Author Organization [facility] Address [facility] [place] [address] Care Team Providers Care Emt I/99 Name Role Phone Luis Felipe Saldivar MD Unavailable Unavailab Nilay Anthony MD Unavailable [phone] Kira Talavera Primary Care Provider Encounter Details Date Type Department Care Team (Late st Contact Info) Description 08/08/2021 Airspan Network[employer] Message Enc [facility] [address] [place], [place] [phone] Kira Talavera FNP [address] [place], [place] [phone] Other Social History Tobacco Use Types Packs/Day Years Used Date Smoking Tobacco: Never Smokeless Tobacco: Never Comments:Provider to credit counselor Alcohol Use Standard Drinks/Week Comments Yes [...] MA - 08/09/2021 10:01 AM CST Done RTING LEAD documented in this encounter Plan of Treatment Upcoming Encounters Date Type Department Care Team (Late st Contact Info) Description 07/10/2025 8:00 AM CDT Office Visit [facility] [address] [place] [address] Kira Talavera FNP [address] [place] [address] documented as of this encounter Visit Diagnoses Not on filedocumented in this encounter Additional Health Concerns Infection Onset Date Last Indicated Resolved Time COVID-19 Rule Out 11/28/2022 11/28/2022 11/28/2022 11:30 PM REPORTING LEAD Assessment Noted Time PHQ-9 Depression Total Score: 0 04/15/20 3:37 PM CDT documented as of this encounter Care Teams Emt I/99 Relationship Specialty Start Date End Date Kira Talavera FNP [address] [place] [address] PCP - General Nurse Practitioner Family 03/12/20 Luis Felipe Saldivar MD CARDIOVASCULAR DISEASE 05/04/17 09/08/21 Nilay Stout MD [employer] Machine Operator INTERVENTIONAL CARDIOLOGY 11/15/18 09/08/21 documented as of this encounter
--- OUTSIDE RECORDS SUMMARY | 2025-06-21 16:23 | XMS_ITS | Clinical Summary ---
Author Organization [address] Address [address] [place] [id number] Care Team Providers Care Steel Hanger Name Role Phone Delaney Rivera MD Unavailable [...] Rosuvastatin Shellfish Nausea & Vomiting Low 11/15/2018 Szpdmeg-Dnj-Diq Reductase Inhibitors Muscle pain,Unknown Medium 02/19/2021 Medications [...] hyperglycemia, with long-term current use of insulin ([facility]) Use to inject insulin 4 [...] hyperglycemia, with long-term current use of insulin ([facility]) Take 1 tablet by mouth twice daily 180 tablet 3 024 Active sildenafiL (VIAGRA) 100 mg tabletIndications :Type 2 diabetes mellitus with hyperglycemia, with long-term current use of insulin ([facility]) TAKE ONE TABLET BY MOUTH NEEDED FOR ERECTILE DYSFUNCTION. DO NOT TAKE ANY NITRATE MEDICATION FOR 24 HOURS AFTER. 10 tablet 6 024 Active insulin aspart (NovoLOG) 100 unit/mL (3 mL) pen for injectionIndicati ons:Type 2 diabetes mellitus with hyperglycemia, with long-term current use of insulin ([facility]) 24 units before meals For sugars over 200, take 28 units For sugars over 250, take 30 units For sugars over 300, take 32 units 30 mL 11 024 Active Repatha SureClick 140 mg/mL pen injector INJECT 1 ML SUBCUTANEOUSLY EVERY TWO WEEKS 025 Active Farxiga 10 mg tabletIndications :Type 2 diabetes mellitus with hyperglycemia, with long-term current use of insulin ([facility]) Take 1 tablet by mouth [...] 2gm bid. Last lipid panel: 08/03/24 LDL=14, EF=098. Managed by cardiology. Assessment & Plan (02/02/2024 10:52 AM CDT): Chronic problem, intolerant to statins. Currently taking: Praluent 150mg every 2 wks, vascepa 2gm bid, fenofibrate 160mg daily, zetia 10mg daily. 06/11/23 LDL=16, AE=302. No changes at this time. Managed by cardiology. Assessment & Plan (11/11/2023 9:20 AM ARMATURE REWINDER): Chronic problem, intolerant to statins. Currently taking: Praluent 75mg every 2 wks, vascepa 2gm bid, fenofibrate 160mg daily, zetia 10mg daily. 06/11/23 LDL=16, ON=079. No changes at this time. Managed by cardiology. Assessment & Plan (07/19/2023 9:20 AM CDT): Chronic problem, intolerant to statins. Currently taking: Praluent 75mg every 2 wks, vascepa 2gm bid, fenofibrate 160mg daily, zetia 10mg daily. 06/11/23 LDL=16, RG=512. No changes at this time. Assessment & Plan (11/12/2022 8:31 AM ARMATURE REWINDER): Chronic problem, intolerant to statins. Currently taking: Praluent 75mg every 2 wks, vascepa 2gm bid, fenofibrate 160mg daily, zetia 10mg daily. No changes at this time. Assessment & Plan (07/30/2022 12:41 PM ARMATURE REWINDER): Chronic problem, statin intolerant. Recently started on [...] oil. Assessment & Plan (11/14/2020 3:14 PM ARMATURE REWINDER): Continue Zetia and follow up with cardiology Assessment & Plan (06/28/2020 11:38 AM CDT): Continue follow up with cardiology Assessment & Plan (03/28/2020 4:37 PM CDT): Continue Zetia and follow up with cardiology. Assessment & Plan (08/15/2019 2:50 PM ARMATURE REWINDER): Pt with CAD, s/p cardiac stents LDL [...] therapy Assessment & Plan (11/15/2018 1:14 PM ARMATURE REWINDER): Continue atorvastatin Assessment & Plan (07/28/2018 3:05 PM ARMATURE REWINDER): Will obtain results of recent lipid panel. Continue on atorvastatin 10 mg. Restart fish oil as this will have some antiplatelet impact, until follow up with offc spec. Assessment & Plan (05/03/2018 12:46 PM CDT): [...] ) Patient has an appointment with his offc spec next week month. I asked him to discuss this with him otherwise will address it. Coronary artery disease involving sun'aq coronar y artery 05/03/2018 Assessment & Plan (08/15/2019 2:51 PM ARMATURE REWINDER): Check HS PCR Pt seeing a offc spec LDL goal under 50 Assessment & Plan (05/03/2018 11:13 AM CDT): Indication for Jardiance Start Jardiance 25 mg daily Other male erectile dysfunction 05/03/2018 Non morbid obesity due to excess calories 2016 Assessment & Plan (09/16/2017 3:17 PM ARMATURE REWINDER): Needs to focus on meal plan. Provided [...] Will update MA/Cr. Verified that he uses [employer]. Aware to check results/results letter in [employer]. Will contact by phone if needed. UTD [...] infection. Assessment & Plan (08/03/2024 1:05 PM ARMATURE REWINDER): Chronic, uncontrolled but with some improvement Importance [...] infection. Assessment & Plan (11/11/2023 10:04 AM ARMATURE REWINDER): Chronic problem, uncontrolled. A1c worsened from 8.9% 06/2023 to now 9.1% . Discussed need to need to quickly get diet/exercise & A1c/BG down. Discussed elevated BG & risk of poor healing. Discussed increasing Ozempic to 2mg, adding short acting insulin and/or greatly needed diet changes. Will start with diet/activity changes & increasing to 2mg on Ozempic. Will send me a [facility] message in next 2 weeks with BG readings. Current medications: Metformin 1000 mg twice daily before meals Farxiga 10 mg daily Ozempic 2mg weekly Lantus 90 units at bedtime Will update MA/Cr today. Verified that he uses [facility]. Aware to check results/results letter in [facility]. Will contact by phone if needed. UTD [...] infection. Assessment & Plan (11/12/2022 10:10 AM ARMATURE REWINDER): Chronic problem, uncontrolled & worsening. Current medications: [...] Rivera. Assessment & Plan (07/30/2022 12:44 PM ARMATURE REWINDER): Chronic problem, deteriorating due to poor diet. [...] prescribed. Assessment & Plan (11/14/2020 3:16 PM ARMATURE REWINDER): A1c improved to 7.3. Continue with current [...] mg. Assessment & Plan (08/15/2019 2:45 PM ARMATURE REWINDER): Hba1c was Lab Results Component Value Date [...] . Assessment & Plan (11/15/2018 1:13 PM ARMATURE REWINDER): A1c 7.6. Insignificant change. Continue Basaglar at 80 hs Restart Ozempic at 0.25 for one month and then increase to 0.5. Check FBG and ac at least one additional time daily. Advised ac and pc check 2-3 times per week. Assessment & Plan (07/28/2018 3:02 PM ARMATURE REWINDER): A1c improved at 7.7 with improved attn [...] goal hba1c is under 7.0 to prevent fpc diabetes complications ( eye , kidney and [...] daily. Assessment & Plan (11/18/2017 3:32 PM ARMATURE REWINDER): Hba1c was 7.9 today, indicating sub-optimal DM control 1800 calorie, consistent carb diet recommended 30 min daily aerobic and resistance exercise recommended Prevention and treatment of hyypoglcyemia discussed. Blood glucose monitoring with fingers sticks 1-2 x day . Assessment & Plan (09/16/2017 3:24 PM ARMATURE REWINDER): A1c worsening at 9.0. Likely to continued [...] cardiology. Assessment & Plan (11/11/2023 9:19 AM ARMATURE REWINDER): Chronic problem, controlled on current regimen. HCTZ 12.5mg daily, amlodipine 5mg daily, lisinopril 40mg daily, bystolic 20mg daily. Managed by cardiology. Assessment & Plan (07/19/2023 9:20 AM CDT): Chronic problem, controlled on current regimen. HCTZ 12.5mg daily, amlodipine 10mg daily, lisinopril 40mg daily, bystolic 20mg daily. Managed by cardiology. Assessment & Plan (11/12/2022 8:39 AM ARMATURE REWINDER): Chronic problem, controlled on current regimen. HCTZ 12.5mg daily, amlodipine 10mg daily, lisinopril 40mg daily, bystolic 20mg daily. Managed by cardiology. Assessment & Plan (07/30/2022 12:41 PM ARMATURE REWINDER): Controlled on current medications, no changes. Assessment [...] plan. Assessment & Plan (11/14/2020 3:14 PM ARMATURE REWINDER): Controlled on current medications. Continue plan. Assessment [...] ARB Assessment & Plan (11/15/2018 1:14 PM ARMATURE REWINDER): Controlled on current medications. Assessment & Plan (07/28/2018 3:03 PM ARMATURE REWINDER): Follow up with new offc spec how has records on type of stents he has. Can increase ASA to 325 mg daily once out of Plavix. Assessment & Plan (05/03/2018 12:46 PM CDT): Goal blood pressure is less than 140/85 Low salt diet recommended Daily aerobic exercise Continue current meds, including KASSIE-I or ARB Assessment & Plan (11/18/2017 3:33 PM ARMATURE REWINDER): Goal blood pressure is less than 140/85 Low salt diet recommended Daily aerobic exercise Continue current meds, including KASSIE-I or ARB Assessment & Plan (09/16/2017 3:26 PM ARMATURE REWINDER): BP 136/76. Check home BP 2-3 times per week. Assessment & Plan (04/22/2017 1:29 PM CDT): Continue same meds and follow up with cardiology Resolved Problems Problem Noted Date Diagnosed Date Resolved Date Class 1 obesity due to exces s calories with serious comorbidity and body mass index (BMI) of 34.0 to 34.9 in adult 11/12/2022 11/28/2024 Assessment & Plan (11/12/2022 9:39 AM ARMATURE REWINDER): Discussed healthy diet and importance of regular physical activity (20- 30min/day, 150min/wk). Hypertriglyceridemia 07/26/2012 023 Overview (12/23/2016): HYPERLIPIDEMIA NEC/NOS Assessment & Plan (11/18/2017 3:34 PM ARMATURE REWINDER): Goal of treatment , LDL cholesterol less [...] exercise Assessment & Plan (09/16/2017 3:25 PM ARMATURE REWINDER): Continue statin and focus on low fat [...] on file Legal Sex Male 10:07 AM ARMATURE REWINDER Gender Identity Not on file Sexual Orientation Straight 08/03/2024 10 :46 AM ARMATURE REWINDER Obstetrics History Last Filed Vital Signs Vital [...] (HCC) LIPID PANEL Routine 08/03/2024 11:53 AM ARMATURE REWINDER Type 2 diabetes mellitus with hyperglycemia, with long-term current use of insulin (HCC) HM DIABETES EYE EXAM Routine 06/28/2024 3:36 PM CDT PSA, TOTAL Routine 11/21/2019 10:50 AM ARMATURE REWINDER from Last 3 Months or Most Recently [...] last revised 2019. Creatinine Ur 50.8 mg/dL [facility] Comment: Interpretive Data No reference range established. Current interpretive data was last revised 2019. Albumin Creatinine Ratio, Ur <24 1 - 29 mg/g [facility] Urine 11/28/2024 11:5 0 AM CDT 11/28/2024 9:17 PM CDT Leela Cruz NP LAB URINE ORDERABLES Sissy l Result Performing Organization Address [facility] de Phone Number [facility] [address] Department [place] [address] * (ABNORMAL) Lipid panel (08/03/2024 11:53 AM ARMATURE REWINDER) Cholesterol 87 30 - 199 mg/dL Comment: [...] [facility] Blood 08/03/2024 11:5 3 AM ARMATURE REWINDER 08/03/2024 6:11 PM ARMATURE REWINDER Delaney Rivera MD LAB BLOOD ORDERABLES Final Resul t [facility] [address] Department [place] [address] * DIABETES EYE EXAM (06/28/2024 3:36 PM CDT) Historical Provider HEALTH MAINTENANCE Final Result * PSA, total Blood (11/21/2019 10:50 AM ARMATURE REWINDER) SCRIBED PSA, Total 0.99 0.00 - 4.00 EXTERNAL LAB Blood specimen (specimen) 11/21/2019 10:50 AM ARMATURE REWINDER Historical Provider LAB BLOOD ORDERABLES Edit ed Result - Final EXTERNAL LAB from Last 3 Months or Most Recently Relevant to Health Maintenance Insurance AET MEDICARE T MEDICARE Care Teams Steel Hanger Relationship Specialty Start Date End Date Kira Talavera NP [address] [place] [address] [place] [address] PCP - General Pediatrics 03/28/20 [place] [id number] [address] Consulting Physician Endocrinology Diabetes & Metabolism 11/07/18 Nilay England MD [address] [place] [address] Referring Physician Cardiovascular Disease 08/15/19
--- OUTSIDE RECORDS SUMMARY | 2025-06-21 16:23 | XMS_ITS | Clinical Summary ---
Author Organization [facility] Address [facility] [place] [address] Care Team Providers Care First Dyer Name Role Phone Kira Talavera HOOK UP DRIVER Primary Care Provider [phone] Allergies Active Allergy Reactions Criticality Noted Date [...] 2 (two) times daily with meals. Active Dapagliflozin Propanediol 10 MG Tab Take 1 tablet (10 mg total) by mouth. 05/12/20 18 Active sildenafil 50 MG tablet Take 1 tablet (50 mg total) by mouth. 11/10/19 19 Active Insulin Pen Needle 31G X 8 MM Misc Use to inject once daily 07/11/20 18 Active VASCEPA 1 g capsule Take 2 capsules (2 g total) by mouth 2 (two) times daily with meals. 120 capsule 08/24/20 22 Active nitroglycerin (NITROSTAT) 0.4 MG SL tablet DISSOLVE ONE TABLET UNDER THE TONGUE EVERY 5 MINUTES NEEDED FOR CHEST PAIN. DO NOT EXCEED A TOTAL OF 3 DOSES IN 15 MINUTES 45 tablet 1 11/10/19 24 Active Additional Information Patient not taking.Reported on 01/09/2025 lisinopril (PRINIVIL) 40 MG tablet Take 1 tablet by mouth once daily 90 tablet 3 12/03/19 24 Active fenofibrate 160 MG tabletIndication s:Mixed hyperlipidemia,C oronary artery disease involving prairie band coronary artery of prairie band heart without angina pectoris Take 1 tablet by mouth once daily 90 tablet 3 02/22/20 24 Active nebivolol (BYSTOLIC) 20 MG tablet Take 1 tablet by mouth once daily 90 tablet 3 03/31/20 24 Active ezetimibe (ZETIA) 10 MG tablet Take 1 tablet by mouth once daily 90 tablet 09/12/20 24 Active evolocumab (REPATHA SURECLICK) 140 MG/ML injection (PEN)Indications :Mixed hyperlipidemia,C oronary artery disease involving prairie band coronary artery of prairie band heart without angina pectoris Inject 1 mL (140 mg total) into the skin every 14 (fourteen) days. 2 Pen 11 10/26/19 25 Active tirzepatide (MOUNJARO) 5 MG/0.5ML injectionIndicat ions:Diabetes Mellitus Inject 5 mg into the skin once a week. Indications: Diabetes Active gabapentin (NEURONTIN) 300 MG capsuleIndicatio ns:Peripheral neuropathy due to chemotherapy (HHS/HCC) Take 1 capsule (300 mg total) by mouth 2 (two) times a day. 180 capsule 1 01/10/20 25 Active TOUJEO MAX SOLOSTAR 300 UNIT/ML Solution Pen-injector INJECT 100 UNITS SUBCUTANEOUSLY NIGHTLY Active MOUNJARO 7.5 MG/0.5ML injection Inject 7.5 mg into the skin. 03/06/20 25 Active insulin aspart (NOVOLOG) 100 UNIT/ML injection (PEN) Inject into the skin see administration instructions. Pt. To inject 24 units SQ before meals; for BS > 200 admin. 28 units; > 250 admin. 30 units; > 300 admin. 32 units. Active pantoprazole EC (PROTONIX) 40 MG tabletIndication s:Gastroesophage al reflux disease without esophagitis Take 1 tablet by mouth once daily 90 tablet 04/09/20 25 Active allopurinol (ZYLOPRIM) 100 MG tabletIndication s:Hyperuricemia Take 1 tablet by mouth once daily 90 tablet 04/09/20 25 Active amLODIPine (NORVASC) 5 MG tabletIndication s:Primary hypertension Take 1 tablet by mouth once daily 90 tablet 06/21/20 25 Active amLODIPine (NORVASC) 5 MG tabletIndication s:Essential hypertension Take 1 tablet by mouth once daily 90 tablet 03/12/20 25 025 Discontin ued(Reord er) Active Problems Problem Noted Date Diagnosed Date 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, estrogen receptor positive ([facility]) 11/16/2023 Overview (01/05/2024): Stage: Clinical T1N0; pT2N0 Date of diagnosis: 10/22/2023 Diagnosis: RIGHT (Grade 3) 2.2 cm IDC, 0/6 LN ER 95% MT 0% her 2 2+ MAURICE negative Surgeon: Dorota Surgery: 12/15/2023 right lump/SLN Medical Oncologist: Chemotherapy: Radiation Oncologist: Radiation: Anti-estrogen therapy: ALISON (acute kidney injury) 11/29/2022 Umbilical hernia without obstruction and without gangrene 02/27/2022 Hypertriglyceridemia 09/09/2021 Polyp of colon, unspecified part of colon, unspe cified type 08/29/2021 Neural foraminal stenosis of cervical spine 02/18 Erectile dysfunction 05/16/2019 Hyperlipidemia associated wi th type 2 diabetes mellitus ([facility]) 05/03/2018 Overview (03/04/2021): Last Assessment & Plan: Hypertriglyceridemia associated with diabetes. Provided with samples of Vascepa to use in place of generic fish oil. Coronary artery disease invo lving prairie band coronary artery of prairie band heart without angina pectoris 06/17/2017 Mixed hyperlipidemia 06/17/2017 Exogenous obesity 05/04/2017 Overview (11/14/2018): Date Onset: 05/04/2017 Ischemic vascular disease 05/04/2017 Overview (11/14/2018): Date Onset: 05/04/2017 Sprain and strain of ankle 01/08/2016 Overview (11/14/2018): Date Onset: 01/08/2016 GERD (gastroesophageal reflux disease) 6 Sciatica 11/07/2015 Overview (11/14/2018): Date Onset: 11/07/2015 Type 2 diabetes mellitus wit h hyperglycemia, with long-term current use of insulin ([facility]) 01/31/2014 Overview (09/10/2020): DMII WO CMP NT ST UNCNTR Last Assessment & Plan: A1c increased to 8.1. Increase Ozempic to 1 mg. Will continue to increase Basaglar if FBG remain > 150. Foot care reviewed. Essential hypertension 06/13/2013 Overview (05/15/2019): Overview: HYPERTENSION NOS Last Assessment & Plan: Follow up with new youth counselor how has records on type of stents he has. Can increase ASA to 325 mg daily once out of Plavix. Diabetes mellitus, type II ([facility]) Resolved Problems Problem Noted Date Diagnosed Date [...] Encounters Date Type Department Care Team Description 03/22/[address] [place] [address] Kira Talavera FNP from Last 3 Months Immunizations Immunization Administration [...] MCG/ 0.5 ML DOSE 07/15/2021,12/11/2020,11/13/2020 MODERNA COVID-19 (ASW SPECIALIST ROMEL SAPNA), MRNA, LNP-S, PF, 50 MCG/ [...] Tobacco Cessation:Counseling Given: Not Answered Comments:Provider to academic counselor Alcohol Use Standard Drinks/Week Comments Yes [...] place to sleep or slept in a penitentiary (including now)? No 11/29/2022 Sex and Gender [...] Visit [facility] [address] [place] [address] Kira Talavera FNP [address] [place] [address] Health Maintenance Due Date Last Done Comments Kidney Health Evaluation 1955 Hepatitis C 1973 ASCVD LDL 06/11/2024 06/11/2023, 05/22, 03/11/2023, Additional history exists Lipid Panel 06/11/2024 06/11/2023, 05/22, 03/11/2023, Additional history exists Diabetes: Retinopathy Eye Exam 08/26/2024 08/26/2022, 07/03/2021, 04/04/2019 COVID-19 Vaccine ( season) 2025 07/15/2021, 07/15/2021, 12/11/2020, Additional history exists Hemoglobin A1C 05/31/2025 11/28/2024, 06/22, 11/29/2022, Additional history exists Influenza Adult (#1) 2025 08/05/2024, 07/06/2023, 07/27/2022, Additional history exists Annual Medicare Wellness Visit 01/09/2026 Postponed from 2021 (Patient Refused) DTaP, Tdap and Td Vaccines (2 - Td or Tdap) 05/18/2028 05/18/2018, 02/27/2000, 02/27/2000 Colorectal Cancer Screening Colonoscopy (10 Years) 03/19/2031 03/19/2021 Colorectal Cancer Screening FIT-DNA (3 Years) Discontinued 03/20/2020, 03/20/2020, 03/20/2020 Zoster Vaccines Completed 05/28/2021, 03/10/2021 Pneumococcal Vaccine: 50+ Years Completed 07/06/2023, 09/10/2020 RSV Immunization or 60+ Years Completed 08/16/2023 PHQ-2 (Physician [place]) Completed 01/09/2025 Meningococcal B Vaccine Aged Out [...] Date/Time Associated Diagnosis Comments HEMOGLOBIN, GLYCOSYLATED Routine 11/28/2024 LIPID PANEL Routine 06/11/2023 7:25 AM CDT Mixed hyperlipidemia DIABETIC RETINOPATHY EXAM (NEGATIVE)(SCAN ORDER) Routine 08/26/2022 COLONOSCOPY/EGD GENERIC (SCAN ORDER) 03/19/2021 COLOGUARD (AMBULATORY) Routine 03/20/2020 Colon cancer screening from Last 3 Months or Most Recently Relevant to Health Maintenance Results * HEMOGLOBIN, GLYCOSYLATED (11/28/2024) HGB A1C 7.6 % 11/28/2024 [facility] Abstract LABORATORY Final Res ult * (ABNORMAL) LIPID PANEL (06/11/2023 7:25 AM CDT) CHOLESTEROL 99 0 - 200 MG/DL 06/11/2023 9:05 AM CDT [facility] TRIGLYCERIDES 640(H) 0 - 150 MG/DL 06/11/2023 9:05 AM T [facility] HDL 32(L) >40 MG/DL 06/11/2023 9:05 AM CDT [facility] LDL (CALCULATED) TRIGLYCERIDES >400 MG/DL, SEE DIRECT LDL REPORT <100 MG/DL 06/11/2023 9:05 AM T [facility] NON HDL CHOLESTEROL 67 0 - 130 MG/DL 06/11/2023 9:05 AM T [facility] Comment: NOTE: WHEN THE TRIGLYCERIDES ARE >200 mg/dL, NON HDL C IS A SECONDARY TARGET OF THERAPY, WITH A GOAL 30 mg/dL HIGHER THAN THE IDENTIFIED LDL C GOAL. CHOL/HDL RATIO 3.1 0.0 - 4.5 06/11/2023 9:05 AM T [facility] VLDL CALCULATION UNABLE TO CALCULATE RESULT 5 - 55 MG/DL 06/11/2023 9:05 AM T [facility] Comment:TRIGLYCERIDE >400 IN VALIDATES FRACTIONATION. LIPID INTERPRETATION 06/11/2023 9:05 AM T [facility] Comment: NIH CONCENSUS REPORT RECOMMENDATIONS: ADULT CHILD LOW RISK: CHOLESTEROL <200 <170 TRIGLYCERIDE <150 --- HDL >=60 --- LDL <100 <110 BORDERLINE: CHOLESTEROL 200-239 170-199 TRIGLYCERIDE 150-199 --- HDL 40-59 --- LDL 100-159 110-129 HIGH RISK: CHOLESTEROL >=240 >=200 TRIGLYCERIDE >=200 --- HDL <40 --- LDL >=160 >=130 06/11/2023 7:25 AM CDT Harpreet Montenegro APRN LABORATORY Final R esult [facility] [place] [facility] [address] [place] [address], [place] * DIABETIC RETINOPATHY EXAM (NEGATIVE)(SCAN) (08/26/2022) [facility] Scanned SCANNING Final Resu lt [facility] * COLONOSCOPY/EGD GENERIC (03/19/2021) 03/19/2021 Narrative 03/19/2021 Ordered by an unspecified provider. us Documents Scanned SCANNING Final Result * COLOGUARD (03/20/2020) COLOGUARD NEGATIVE Stool specimen (specimen) 03/20/2020 us Kira Talavera HOOK UP DRIVER AMBULATORY COLOGUARD (RTF) Fi nal Result from Last 3 Months or Most Recently Relevant to Health Maintenance Insurance * Guarantor: Justino Boland Account Type Relation to Patient Date of Phone Billing Address Personal/Family Self 1955 [id number] [place] [address] Advance Directives * Full Code (Latest Code Status on File) Date Activated Date Inactivated Comments 11/29/2022 4:16 AM 11/29/2022 1:59 PM Care Teams First Dyer Relationship Specialty Start Date End Date Kira Talavera FNP [address] [place] [address] [place] [address] PCP - General Nurse Practitioner Family 03/12/20
--- OUTSIDE RECORDS SUMMARY | 2025-06-21 16:23 | XMS_ITS | Encounter Summary ---
Author Organization [facility] Address [facility] [place] [address] Care Team Providers Care Presales Senior Specialist Name Role Phone Kira Talavera [facility] Primary Care Provider [phone] Encounter Details Date Type Department Care Team (Late st Contact Info) Description 08/16/2023 Pearltreest Message Enc [facility] [address] [place] [phone] Kira Talavera [facility] [address] [place] [phone] vaccines received Social History Tobacco Use Types Packs/Day Years Used Date Smoking Tobacco: Never Smokeless Tobacco: Never Comments:Provider to job placement counselor Alcohol Use Standard Drinks/Week Comments Yes [...] place to sleep or slept in a [facility] (including now)? No 11/29/2022 Sex and Gender [...] Author Status No 11/29/2022 4:57 AM Irene Raimrez RN Active * Because of a physical, [...] Description 07/10/2025 8:00 AM CDT Office Visit [facility] [address] [place] [address] Kira Talavera FNP [address] [place] [address] documented as of this encounter Visit Diagnoses Not on filedocumented in this encounter Additional Health Concerns Assessment Noted Time PHQ-9 Depression Total Score: 0 08/29/20 21 8:34 AM VALVE AND REGULATOR REPAIRER documented as of this encounter Care Teams Presales Senior Specialist Relationship Specialty Start Date End Date Kira Talavera FNP [address] [place] [address] PCP - General Nurse Practitioner Family 03/12/20 documented as of this encounter
--- OUTSIDE RECORDS SUMMARY | 2025-06-21 16:23 | XMS_ITS | Encounter Summary ---
Author Organization [facility] Address [facility] [place] [address] Care Team Providers Care Humanities Coordinator Name Role Phone Luis Felipe Saldivar MD Unavailable Unavailab Nilay Anthony MD Unavailable [phone] Kira Talavera MODEL MAKER Primary Care Provider [phone] Encounter Details Date Type Department Care Team (Late st Contact Info) Description 03/05/2021 Abstract [facility] [address] [place] [address] Nilay Stout MD [address] [place] [address] Social History Tobacco Use Types [...] Description 07/10/2025 8:00 AM CDT [facility] [address] [place] [address] Kira Talavera FNP [address] [place] [address] documented as of this encounter Visit Diagnoses Not on filedocumented in this encounter Additional Health Concerns Infection Onset Date Last Indicated Resolved Time COVID-19 Rule Out 11/28/2022 11/28/2022 11/28/2022 11:30 PM 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
--- OUTSIDE RECORDS SUMMARY | 2025-06-21 16:23 | XMS_ITS | Encounter Summary ---
Author Organization [facility] Address [facility] [place] [address] Care Team Providers Care Fine Sander Name Role Phone Kira Talavera [facility] Primary Care Provider Encounter Details Date Type Department Care Team (Late st Contact Info) Description 01/15/2023 500pxt Message Enc [facility] [address] [place] [address] 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 Social History Tobacco Use Types Packs/Day Years Used Date Smoking Tobacco: Never Smokeless Tobacco: Never Comments:Provider to assistant counsel Alcohol Use Standard Drinks/Week Comments Yes [...] AM CDT Office Visit [facility] [address] [place] [address] Kira Talavera FNP [address] [place] [address] documented as of this encounter Visit Diagnoses Not on filedocumented in this encounter Additional Health Concerns Assessment Noted Time PHQ-9 Depression Total Score: 0 08/29/20 21 8:34 AM LINK FABRIC MACHINE OPERATOR documented as of this encounter Care Teams Fine Sander Relationship Specialty Start Date End Date Kira Talavera FNP [facility] [place] [address] PCP - General Nurse Practitioner Family 03/12/20 documented as of this encounter
--- OUTSIDE RECORDS SUMMARY | 2025-06-21 16:23 | XMS_ITS | Encounter Summary ---
Author Organization [facility] Address [facility] [place] [address] Care Team Providers Care Fire Control Assistant Name Role Phone Luis Felipe Saldivar MD Unavailable Unavailab Nilay Anthony MD Unavailable [phone] [facility] Primary Care Provider Encounter Details Date Type Department Care Team (Late st Contact Info) Description 12/28/2020 Bookioot Message Enc [facility] [address] [place], [place] [id number] Irene Pettit V, [facility] [address] [place], [place] [id number] Follow Up/Update Social History Tobacco Use Types [...] 8:00 AM CDT Office Visit [facility] [address] [place] [address] Kira Talavera FNP [address] [place] [address] documented as of this encounter Visit Diagnoses Not on filedocumented in this encounter Additional Health Concerns Infection Onset Date Last Indicated Resolved Time COVID-19 Rule Out 12/27/2020 12/27/2020 12/28/2020 8:30 AM CDT COVID-19 Rule Out 11/28/2022 11/28/2022 11/28/2022 11:30 PM CHIEF SUPPLY CHAIN OFFICER documented as of this encounter Care Teams Fire Control Assistant Relationship Specialty Start Date End Date Kira Talavera FNP [address] [place] [address] PCP - General Nurse Practitioner Family 03/12/20 Luis Felipe Saldivar MD CARDIOVASCULAR DISEASE 05/04/17 09/08/21 Nilay Stout MD [facility] Anesthesiology INTERVENTIONAL CARDIOLOGY 11/15/18 09/08/21 documented as of this encounter
--- OUTSIDE RECORDS SUMMARY | 2025-06-21 16:23 | XMS_ITS | Encounter Summary ---
Author Organization [facility] Address [facility] [place] [address] Care Team Providers Care Entry Level Sales Associate Name Role Phone Luis Felipe Saldivar MD Unavailable Unavailab Nilay Anthony MD Unavailable [phone] Kira Talavera Primary Care Provider Encounter Details Date Type Department Care Team (Late st Contact Info) Description 07/17/2021 Novalar [employer]st Message Enc [facility] [address] [place], [place] [id number] Kira Talavera FNP [address] [place], [place] [phone] Other Social History Tobacco Use Types Packs/Day Years Used Date Smoking Tobacco: Never Smokeless Tobacco: Never Comments:Provider to scholarship counselor Alcohol Use Standard Drinks/Week Comments Yes [...] Progress Notes * Naz Mandel MA - 07/17/2021 4:11 PM CDT Patient notified * Nathalie Blood - 07/17/2021 3:44 PM CDT PT LM returning missed call. [phone] * Isis Reyes LPN - 07/17/2021 3:19 PM CDT Left message to call the office. * Isis Reyes LPN - 07/17/2021 3:18 PM CDT Please call pt. 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 ?? Message text documented in this encounter Plan of Treatment Upcoming Encounters Date Type Department Care Team (Late st Contact Info) Description 07/10/2025 8:00 AM CDT Office Visit [facility] [address] [place] [phone] Kira Talavera FNP [address] [place] [address] documented as of this encounter Visit Diagnoses Not on filedocumented in this encounter Additional Health Concerns Infection Onset Date Last Indicated Resolved Time COVID-19 Rule Out 11/28/2022 11/28/2022 11/28/2022 11:30 PM AUTOMOTIVE SERVICE CASHIER Assessment Noted Time PHQ-9 Depression Total Score: 0 04/15/20 3:37 PM CDT documented as of this encounter Care Teams Entry Level Sales Associate Relationship Specialty Start Date End Date Kira Talavera FNP [address] [place] [address] [place] [address] PCP - General Nurse Practitioner Family 03/12/20 Luis Felipe Saldivar MD CARDIOVASCULAR DISEASE 05/04/17 09/08/21 Nilay Stout MD [place] Assistant INTERVENTIONAL CARDIOLOGY 11/15/18 09/08/21 documented as of this encounter
--- OUTSIDE RECORDS SUMMARY | 2025-06-21 16:23 | XMS_ITS | Encounter Summary ---
Author Organization [facility] Address [facility] [place] [address] Care Team Providers Care Analog Ic Design Engineer Name Role Phone Kira Talavera [facility] Primary Care Provider Encounter Details Date Type Department Care Team (Late st Contact Info) Description 01/15/2023 imgixt Message Enc [facility] [address] [place] [address] Kira Talavera [facility] [address] [place] [phone] Demetria's medicine Social History Tobacco Use Types Packs/Day Years Used Date Smoking Tobacco: Never Smokeless Tobacco: Never Comments:Provider to career counselor Alcohol Use Standard Drinks/Week Comments Yes [...] place to sleep or slept in a senior care (including now)? No 11/29/2022 Sex and Gender [...] Description 07/10/2025 8:00 AM CDT Office Visit [address] [place], [place] [phone] Kira Talavera FNP [address] [place] [address] [place] [id number] documented as of this encounter Visit Diagnoses Not on filedocumented in this encounter Additional Health Concerns Assessment Noted Time PHQ-9 Depression Total Score: 0 08/29/20 21 8:34 AM FRAMING CARPENTER documented as of this encounter Care Teams Analog Ic Design Engineer Relationship Specialty Start Date End Date Kira Talavera FNP [address] [place] [address] [place] [address] PCP - General Nurse Practitioner Family 03/12/20 documented as of this encounter
--- OUTSIDE RECORDS SUMMARY | 2025-06-21 16:23 | XMS_ITS | Encounter Summary ---
Author Organization [facility] Address [facility] [place] [address] Care Team Providers Care Shipping And Receiving Associate Name Role Phone Kira Talavera [facility] Primary Care Provider Encounter Details Date Type Department Care Team (Late st Contact Info) Description 09/22/2021 [email or web address] Message Enc [facility] [address] [place] [id number] Kira Talavera [facility] [address] [place] [id number] covid 19 test results Social History Tobacco Use Types Packs/Day Years Used Date Smoking Tobacco: Never Smokeless Tobacco: Never Comments:Provider to cemetery counselor Alcohol Use Standard Drinks/Week Comments Yes [...] COVID-19? No / Unsure 09/09/2021 10:46 AM TOBACCO SHAKER documented as of this encounter Plan of Treatment Upcoming Encounters Date Type Department Care Team (Late st Contact Info) Description 07/10/2025 8:00 AM CDT Office Visit [facility] [address] [place] [address] Kira Talavera FNP [address] [place] [address] documented as of this encounter Visit Diagnoses Not on filedocumented in this encounter Additional Health Concerns Infection Onset Date Last Indicated Resolved Time COVID-19 Rule Out 11/28/2022 11/28/2022 11/28/2022 11:30 PM TOBACCO SHAKER Assessment Noted Time PHQ-9 Depression Total Score: 0 08/29/20 8:34 AM TOBACCO SHAKER documented as of this encounter Care Teams Shipping And Receiving Associate Relationship Specialty Start Date End Date Kira Talavera FNP [facility] [place] [address] PCP - General Nurse Practitioner Family 03/12/20 documented as of this encounter
--- OUTSIDE RECORDS SUMMARY | 2025-06-21 16:23 | XMS_ITS | Encounter Summary ---
Author Organization [facility] Address [facility] [place] [address] Care Team Providers Care Genetic Technologist Name Role Phone Kira Talavera [facility] Primary Care Provider [phone] Encounter Details Date Type Department Care Team (Late st Contact Info) Description 08/03/2022 SpotHerot Message Enc [facility] [address] [place] [phone] Kira Talavera [facility] [address] [place] [phone] Flu shots and inquiry regarding medicare checkup Social History Tobacco Use Types Packs/Day Years Used Date Smoking Tobacco: Never Smokeless Tobacco: Never Comments:Provider to summer counselor Alcohol Use Standard Drinks/Week Comments Yes [...] I am reaching out to Nicol Amezcua, career services director to get some answers for Temo. ESSOR OF INDUSTRIAL TECHNOLOGY * Nathalie Duarte LPN - 08/04/2022 1:29 PM CST Please review/advise. ESSOR OF INDUSTRIAL TECHNOLOGY * RIGOBERTO Augustine - 08/04/2022 12:35 PM CST Can this be referred to justyna to address as I dont know the answers to the questions he is asking. ESSOR OF INDUSTRIAL TECHNOLOGY * Nathalie Duarte LPN - 08/04/2022 10:47 AM CST Please review/advise. ESSOR OF INDUSTRIAL TECHNOLOGY * RIGOBERTO Augustine - 08/04/2022 8:44 AM CST Call pt. We are still not doing the welcome to medicare visits here ( for justino) We are referring patients to the medicare cinic in [place] to get it done. The annual medicare wellness visits ( for mary) can be done here per [place] dawson on . ESSOR OF INDUSTRIAL TECHNOLOGY * Lela Lino RN - 08/03/2022 1:11 PM CST Please note and advise ESSOR OF INDUSTRIAL TECHNOLOGY documented in this encounter Plan of Treatment Upcoming Encounters Date Type Department Care Team (Late st Contact Info) Description 07/10/2025 8:00 AM CDT Office Visit [facility] [address] [place] [address] Kira Talavera FNP [address] [place] [address] documented as of this encounter Visit Diagnoses Not on filedocumented in this encounter Additional Health Concerns Infection Onset Date Last Indicated Resolved Time COVID-19 Rule Out 11/28/2022 11/28/2022 11/28/2022 11:30 PM PROFESSOR OF INDUSTRIAL TECHNOLOGY Assessment Noted Time PHQ-9 Depression Total Score: 0 08/29/20 21 8:34 AM PROFESSOR OF INDUSTRIAL TECHNOLOGY documented as of this encounter Care Teams Genetic Technologist Relationship Specialty Start Date End Date Kira Talavera FNP [address] [place] [address] PCP - General Nurse Practitioner Family 03/12/20 documented as of this encounter
--- OUTSIDE RECORDS SUMMARY | 2025-06-21 16:23 | XMS_ITS | Encounter Summary ---
Author Organization [facility] Address [facility] [place] [address] Care Team Providers Care Soda Worker Name Role Phone Kira Talaevra ORACLE DATA WAREHOUSE DEVELOPER Primary Care Provider [phone] Encounter Details Date Type Department Care Team (Late st Contact Info) Description 09/23/2022 Abstract [facility] [address] [place] [address] Abstract, Doc Med Group Social History Tobacco Use Types Packs/Day Years Used Date Smoking Tobacco: Never Smokeless Tobacco: Never Comments:Provider to appliance counselor Alcohol Use Standard Drinks/Week Comments Yes [...] Description 07/10/2025 8:00 AM CDT Office Visit [address] [place] [address] Kira Talavera FNP [address] [facility] [place] [address] documented as of this encounter Procedures Procedure [...] Rule Out 11/28/2022 11/28/2022 11/28/2022 11:30 PM EDUCATIONAL TECHNOLOGY COORDINATOR Assessment Noted Time PHQ-9 Depression Total Score: 0 08/29/20 21 8:34 AM EDUCATIONAL TECHNOLOGY COORDINATOR documented as of this encounter Care Teams Soda Worker Relationship Specialty Start Date End Date Kira Talavera FNP [address] [facility] [place] [address] PCP - General Nurse Practitioner Family 03/12/20 documented as of this encounter
--- OUTSIDE RECORDS SUMMARY | 2025-06-21 16:23 | XMS_ITS | Encounter Summary ---
Author Organization [facility] Address [facility] [place] [address] Care Team Providers Care Diamond Sawer Name Role Phone Luis Felipe Saldivar MD Unavailable Unavailab Nilay Anthony MD Unavailable [phone] Kira Talavera Primary Care Provider [phone] Encounter Details Date Type Department Care Team (Late Contact Info) Description 12/11/2020 Vonjour Message Enc [facility] [address] [place] [phone] Nat, [facility] Provider RE:Appointment Request: Annual Physical Social History [...] Description 07/10/2025 8:00 AM CDT Office Visit [facility] [address] [place] [address] Kira Talavera FNP [address] [place] [address] documented as of this encounter Visit Diagnoses Not on filedocumented in this encounter Additional Health Concerns Infection Onset Date Last Indicated Resolved Time COVID-19 Rule Out 12/27/2020 12/27/2020 12/27/2020 7:49 AM CDT COVID-19 Rule Out 12/27/2020 12/27/2020 12/28/2020 8:30 AM CDT COVID-19 Rule Out 11/28/2022 11/28/2022 11/28/2022 11:30 PM MULT AU MATIC OPERATOR documented as of this encounter Care Teams Diamond Sawer Relationship Specialty Start Date End Date Kira Talavera FNP [address] [place] [address] PCP - General Nurse Practitioner Family 03/12/20 Luis Felipe Saldivar MD CARDIOVASCULAR DISEASE 05/04/17 09/08/21 Nilay Stout MD [place] Explosive Ordnance Disposal Specialist INTERVENTIONAL CARDIOLOGY 11/15/18 09/08/21 documented as of this encounter
--- OUTSIDE RECORDS SUMMARY | 2025-06-21 16:23 | XMS_ITS | Encounter Summary ---
Author Organization [facility] Address [facility] [place] [address] Care Team Providers Care Mainspring Barrel Assembly Cleaner Name Role Phone Kira Talavera [facility] Primary Care Provider Encounter Details Date Type Department Care Team (Late st Contact Info) Description 02/01/2023 [email or web address] Message Enc [facility] [address] [place] [phone] Kira Talavera [facility] [address] [place] [phone] rn complex care Social History Tobacco Use Types Packs/Day Years Used Date Smoking Tobacco: Never Smokeless Tobacco: Never Comments:Provider to director counseling bureau Alcohol Use Standard Drinks/Week Comments Yes 0 [...] [facility] [address] [place] [address] Kira Talavera FNP [address] [place] [address] documented as of this encounter Visit Diagnoses Not on filedocumented in this encounter Additional Health Concerns Assessment Noted Time PHQ-9 Depression Total Score: 0 08/29/20 21 8:34 AM REAL ESTATE INVESTMENT ANALYST documented as of this encounter Care Teams Mainspring Barrel Assembly Cleaner Relationship Specialty Start Date End Date Kira Talavera FNP [facility] [address] [place] [address] PCP - General Nurse Practitioner Family 03/12/20 documented as of this encounter
--- OUTSIDE RECORDS SUMMARY | 2025-06-21 16:23 | XMS_ITS | Encounter Summary ---
Author Organization [facility] Address [facility] [place] [address] Care Team Providers Care Stock Broker Supervisor Name Role Phone Talavera Kira FRANKLIN Primary Care Provider [phone] Encounter Details Date Type Department Care Team (Late st Contact Info) Description 04/01/2023 Signal Processing Devices [place] Message Enc [facility] [address] [place] [address] Harpreet Montenegro, BMET [address] [place] [phone] question regarding blood thinner type drug Social History Tobacco Use Types Packs/Day Years Used Date Smoking Tobacco: Never Smokeless Tobacco: Never Comments:Provider to counsellors Alcohol Use Standard Drinks/Week Comments Yes 0 [...] place to sleep or slept in a assisted (including now)? No 11/29/2022 Sex and Gender [...] Description 07/10/2025 8:00 AM CDT Office Visit [facility] [address] [facility] [place] [address] Kira Talavera FNP [address] [place] [address] documented as of this encounter Visit Diagnoses Not on filedocumented in this encounter Additional Health Concerns Assessment Noted Time PHQ-9 Depression Total Score: 0 08/29/20 21 8:34 AM INSTRUMENT ADJUSTER documented as of this encounter Care Teams Stock Broker Supervisor Relationship Specialty Start Date End Date Kira Talavera FNP [address] [facility] [place] [address] PCP - General Nurse Practitioner Family 03/12/20 documented as of this encounter
--- OUTSIDE RECORDS SUMMARY | 2025-06-21 16:23 | XMS_ITS | Encounter Summary ---
Author Organization [facility] Address [facility] [place] [address] Care Team Providers Care Marketing Communications Specialist Name Role Phone Ilan Kira Ganesh FRANKLIN Primary Care Provider [phone] Encounter Details Date Type Department Care Team (Late st Contact Info) Description 03/04/2023 Abstract [facility] BUSINESS OFF[facility] [address] [place] [address] Abstract, Doc Med Group Social History Tobacco Use Types Packs/Day Years Used Date Smoking Tobacco: Never Smokeless Tobacco: Never Comments:Provider to trauma counsellor Alcohol Use Standard Drinks/Week Comments Yes 0 [...] place to sleep or slept in a long term (including now)? No 11/29/2022 Sex and Gender [...] Description 07/10/2025 8:00 AM CDT Office Visit [address] [place], [place] [phone] Kira Talavera [address] [place], [place] [phone] documented as of this encounter Procedures Procedure [...] Total Score: 0 08/29/20 21 8:34 AM WOMEN'S ACTIVITIES ADVISER documented as of this encounter Care Teams Marketing Communications Specialist Relationship Specialty Start Date End Date Kira Talavera FNP [address] [place] [address] [place] [address] PCP - General Nurse Practitioner Family 03/12/20 documented as of this encounter
--- OUTSIDE RECORDS SUMMARY | 2025-06-21 16:23 | XMS_ITS | Encounter Summary ---
Author Organization [facility] Address [facility] [place] [address] Care Team Providers Care Nurse Executive Name Role Phone Kira Talavera [facility] Primary Care Provider [phone] Encounter Details Date Type Department Care Team (Late st Contact Info) Description 11/16/2022 [place] Mediat Message Enc [facility] [address] [place], [place] [phone] Kira Talavera [facility] [address] [place] [id number] request for a dosage change for amlodipine Social History Tobacco Use Types Packs/Day Years Used Date Smoking Tobacco: Never Smokeless Tobacco: Never Comments:Provider to residential counselor Alcohol Use Standard Drinks/Week Comments Yes [...] sent a my chart message to pt. ROLOGIST * Lela Lino RN - 11/16/2022 1:31 PM CST Please note and advise; last office visit 02/27/22, last filled 09/01/22 #90 ROLOGIST documented in this encounter Plan of Treatment Upcoming Encounters Date Type Department Care Team (Late st Contact Info) Description 07/10/2025 8:00 AM CDT Office Visit [facility] [address] [facility] [place] [address] Kira Talavera FNP [address] [place] [address] [place] [address] documented as of this encounter Visit Diagnoses Not on filedocumented in this encounter Additional Health Concerns Infection Onset Date Last Indicated Resolved Time COVID-19 Rule Out 11/28/2022 11/28/2022 11/28/2022 11:30 PM NUMEROLOGIST Assessment Noted Time PHQ-9 Depression Total Score: 0 08/29/20 8:34 AM NUMEROLOGIST documented as of this encounter Care Teams Nurse Executive Relationship Specialty Start Date End Date Kira Talavera FNP [address] [place] [address] [place] [address] PCP - General Nurse Practitioner Family 03/12/20 documented as of this encounter
--- OUTSIDE RECORDS SUMMARY | 2025-06-21 16:23 | XMS_ITS | Encounter Summary ---
Author Organization [facility] System Address [facility] [place] [address] Care Team Providers Care Feltmaker And Weigher Name Role Phone Luis Felipe Saldivar MD Unavailable Unavailab Mario Hough MD Primary Care Provider + [phone] Nilay Stout MD Unavailable +- [phone] Kira Talavera Primary Care Provider [phone] Encounter Details Date Type Department Care Team (Late st Contact Info) Description 02/06/2016 Abstract [facility] CONVERSION [address] [place] [address] , Generic ConversionMD Social History Tobacco Use [...] Description 07/10/2025 8:00 AM CDT Office Visit [facility] [address] [place] [address] Kira Talavera FNP [facility] [place] [id number] documented as of this encounter Visit Diagnoses Not on filedocumented in this encounter Additional Health Concerns Infection Onset Date Last Indicated Resolved Time COVID-19 Rule Out 12/27/2020 12/27/2020 12/27/2020 7:49 AM CDT COVID-19 Rule Out 12/27/2020 12/27/2020 12/28/2020 8:30 AM CDT COVID-19 Rule Out 11/28/2022 11/28/2022 11/28/2022 11:30 PM CLAIMS ASSISTANT documented as of this encounter Care Teams Feltmaker And Weigher Relationship Specialty Start Date End Date Mario Johnson MD [address] [place] [address] PCP - General FAMILY PRACTICE 05/04/17 03/11/20 Kira Talavera FNP [address] [place] [address] PCP - General Nurse Practitioner Family 03/12/20 Luis Felipe Saldivar MD CARDIOVASCULAR DISEASE 05/04/17 09/08/21 Nilay Stout MD [address] [place] [address] [place] One Piece Expansion Maker Hand INTERVENTIONAL CARDIOLOGY 11/15/18 09/08/21 documented as of this encounter
--- OUTSIDE RECORDS SUMMARY | 2025-06-21 16:23 | XMS_ITS | Encounter Summary ---
Author Organization [facility] System Address Count includes the [facility] [place] [address] Care Team Providers Care Data Entry Manager Name Role Phone Luis Felipe Saldivar MD Unavailable Unavailab Mario Hough MD Primary Care Provider [phone] Nilay Stout MD Unavailable +- [phone] Kira Talavera Primary Care Provider Encounter Details Date Type Department Care Team (Late st Contact Info) Description 05/18/2017 Abstract [facility] [address] [place] [address] Luis Felipe Saldivar MD Social [...] Description 07/10/2025 8:00 AM CDT Office Visit [facility] [address] [place] [address] Kira Talavera FNP [address] [place] [address] [place] [address] documented as of this encounter Visit Diagnoses Not on filedocumented in this encounter Additional Health Concerns Infection Onset Date Last Indicated Resolved Time COVID-19 Rule Out 12/27/2020 12/27/2020 12/27/2020 7:49 AM CDT COVID-19 Rule Out 12/27/2020 12/27/2020 12/28/2020 8:30 AM CDT COVID-19 Rule Out 11/28/2022 11/28/2022 11/28/2022 11:30 PM HR ADVISOR documented as of this encounter Care Teams Data Entry Manager Relationship Specialty Start Date End Date Mario Johnson MD [address] [place] [address] PCP - General FAMILY PRACTICE 05/04/17 03/11/20 Kira Talavera FNP [address] [place] [address] PCP - General Nurse Practitioner Family 03/12/20 Luis Felipe Saldivar MD CARDIOVASCULAR DISEASE 05/04/17 09/08/21 Nilay Stout MD [address] [place] [address] [place] Warehouse Selector INTERVENTIONAL CARDIOLOGY 11/15/18 09/08/21 documented as of this encounter
--- OUTSIDE RECORDS SUMMARY | 2025-06-21 16:23 | XMS_ITS | Encounter Summary ---
Author Organization [facility] System Address [facility] [place] [address] Care Team Providers Care Archaeology Professor Name Role Phone Kira Talavera [facility] Primary Care Provider Encounter Details Date Type Department Care Team (Late st Contact Info) Description 12/23/2021 ACellhart Message Enc [facility] [address] [place] [id number] Kira Talavera [facility] [address] [place] [id number] can you help me locate a Doctor that Dr. Johnson referred me to previously Social History Tobacco Use Types Packs/Day Years Used Date Smoking Tobacco: Never Smokeless Tobacco: Never Comments:Provider to veterans' counselor Alcohol Use Standard Drinks/Week Comments Yes [...] Visit [facility] [address] [place] [id number] Kira Talavera FNP [address] [place] [address] documented as of this encounter Visit Diagnoses Not on filedocumented in this encounter Additional Health Concerns Infection Onset Date Last Indicated Resolved Time COVID-19 Rule Out 11/28/2022 11/28/2022 11/28/2022 11:30 PM LINUX NETWORK ADMINISTRATOR Assessment Noted Time PHQ-9 Depression Total Score: 0 08/29/20 21 8:34 AM LINUX NETWORK ADMINISTRATOR documented as of this encounter Care Teams Archaeology Professor Relationship Specialty Start Date End Date Kira Talavera FNP [address] [place] [id number] PCP - General Nurse Practitioner Family 03/12/20 documented as of this encounter
--- OUTSIDE RECORDS SUMMARY | 2025-06-21 16:24 | XMS_ITS | Clinical Summary ---
Author Organization [facility] Address [address] [place] [address] Phone Care Team Providers Care Welder Fitter Arc Name Role Phone Kira Talavera PORTFOLIO ARCHITECT Primary Care Provider [phone] Allergies Active Allergy Reactions Criticality Noted Date [...] 02/19/2021 Shrimp Nausea and Vomiting Low 02/19/2021 Murkhhq-Hgy-Kru Reductase Inhibitors Unknown 02/19/2021 Medications allopurinoL (ZYLOPRIM) [...] 2.2 cm IDC, 0/6 LN ER 95% [place] 0% her 2 2+ MAURICE negative Surgeon: [...] Encounters Date Type Department Care Team Description 06/21/2025 2:00 PM CDT Office Visit [facility] and [facility] [address] [place] [address] Jr Pruitt MD 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, estrogen receptor positive (CMS/HCC) (Primary Dx) 06/15/2025 Orders Only [facility] Oncology [facility] [address] [place] [address] Jr Pruitt MD 06/14/2025 11:29 AM CDT - 06/14/2025 11:59 PM CDT Hospital Encounter [facility] Integrative Medicine and Therapy Services [facility] [address] [place] [address] Silvia Raya MD Carr, Caitlin D, Physical Therapist Discharge Disposition: Home or Self Care 06/14/2025 Orders Only [facility] Oncology [facility] [address] [place] [address] Jr Pruitt MD 06/05/2025 External Device Data STL ABSTRACTION Provider, Abstract 05/22/2025 External Device Data STL ABSTRACTION Provider, Abstract 04/25/2025 Chart Note [facility] Breast Surgery [address] [facility] [address] [place] [address] Susan Acevedo RN 04/05/2025 External Device Data [...] 6.4 oz) 06/21/2025 2:01 PM CDT Height 180.3 cm (5' 11) 02/20/2025 1:26 PM CDT Body Mass Index 33.11 02/20/2025 1:26 PM CDT Plan of Treatment Upcoming Encounters Date Type Department Care Team (Late st Contact Info) Description 06/25/2025 10:30 AM CDT Appointment [facility] Integrative Medicine and Therapy Services [facility] [address] [place] [address] Raegan Hamilton, Physical Therapist 06/27/2025 4:35 PM CDT Telephone Check Up [facility] Oncology and Hematology - [place] [address] [place] [address] Jr Pruitt MD [address] [facility] [address] [place] [address] 01/08/2026 10:15 AM CDT Appointment [facility] [address] [place] [address] [place] [address] [place] [address] 01/08/2026 11:15 AM CDT Office Visit [facility] Breast Surgery [address] [facility] [address] [place] [address] [place] [address] [place] [address] Health Maintenance Due Date Last Done Comments DIABETES ANNUAL RETINAL EXAM 1974 DIABETES MICROALBUMIN ANNUAL SCREEN 1974 LDL CHOLESTEROL ANNUAL 1974 FIT-DNA Q 3 years 2001 FIT/FOBT Q 1 year 2001 Flex Sig/CT Colonography Q 5 years 2001 RSV VACCINE (60+ or ) (1 - Risk 60-74 years 1-dose series) 2016 [place] Preventative Visit/Annual Wellness Visit 09/20/2024 03/04/2021 INFLUENZA VACCINE (#1) 2025 4, 07/06/2023, 07/27/2022, Additional history exists COVID-19 Vaccine ( - 2024-2 6 season) 2025 07/15/2021, 12/11/2020, 11/13/2020 DIABETES HBA1C Q 6 MONTHS 09/05/20252024, 11/28/2024, 08/03/2024, Additional history exists DIABETES ANNUAL FOOT EXAM 11/28/2025 11/28/2024 DTAP/TDAP/TD VACCINES (2 - T d or Tdap) 05/18/2028 05/18/2018 COLORECTAL SCREENING 07/21/2034 07/21/2024, 03/19/20 Colorectal Cancer Screening 07/21/2034 ZOSTER VACCINE Completed 05/28/2021, 03/10/2021 PNEUMOCOCCAL VACCINE 50+ YEARS Completed 07/06/2023 , 09/10/2020 Medical Devices Implanted Type Area Manager Metal Device Identifier Shelf Expiration Date Model / Serial / Lot Tool Repairer Bench Clip Surgiclip Ii Eduardo 9.75in [id number] - [id number] Implanted:Qty : 1 on 12/15/2023 by Silvia Raya MD at [facility] Clip Right: Axilla [employer] - COVID[employer]EN [id number] 05/20/2028 [id number] / / [id number] Tool Repairer Bench Clip Surgiclip Ii Eduardo 9.75in [id number] - [id number] Implanted:Qty : 1 on 12/15/2023 by Silvia Raya MD at [facility] Clip Right: Axilla [employer] - COVID[employer]EN [id number] 06/19/2028 [id number] / / [id number] Cardiac Stent Procedures Procedure Name Priority Date/Time Associated Diagnosis Comments COMPREHENSIVE METABOLIC PANEL Routine 06/14/2025 12:36 PM CDT CHG CA 15 3 Routine 06/14/2025 12:29 PM CDT from Last 3 Months Results * COMPREHENSIVE METABOLIC PANEL (06/14/2025 12:36 PM CDT) Blood us Jr Pruitt MD CHEMISTRY ORDERABLES Final Resu lt * CHG CA 15 3 (06/14/2025 12:29 PM CDT) us Jr Pruitt MD CHG - LABORATORY Final Result from Last 3 Months Insurance [facility] A[facility] Medicare Part D Advance Directives For more information, please contact: [phone] * Full Code (Latest Code Status on File) Date Activated Date Inactivated Comments 12/15/2023 6:54 AM 12/15/2023 3:24 PM Care Teams Welder Fitter Arc Relationship Specialty Start Date End Date Kira Talavera FNP [address] [place] [address] [place] [address] PCP - General NURSE PRACTITIONER 03/06/21
[2025-06-21 17:14] LABS: Estimated Glomerular Filt Rate 38
== END 2025-06-21 16:20 | disposition home or self-care (01) ==
PROVIDERS: PCP Nurse Practitioner; Visit Provider Internal Medicine Hematology & Oncology
DX: C50.221 Malignant neoplasm of upper-inner quadrant of right male breast (principal); Z17.0 Estrogen receptor positive status [ER+]
CPT/HCPCS: 71260; 74177; Q9967

== ENCOUNTER 2025-08-01 06:52 | Outpatient (CLI) | payer MEDICARE, SELFPAY ==
--- NOTE | ~2025-08-01 | MR_ITS ---
EXAMINATION: MR abdomen wo/w con, MR pelvis wo/w con DATE: 08/01/2025 09:57 INDICATION: Intraductal papillary mucinous neoplasm TECHNIQUE: 1. Magnetic resonance imaging (MRI) of the abdomen was performed without and with 20 mL Multihance intravenous contrast. Sequences included coronal T2- weighted SS-FSE, coronal and axial FS 2D-FIESTA, axial STIR FSE, axial T2- weighted SS-FSE, axial T2-weighted FS SS-FSE, axial diffusion-weighted SE, axial dual-echo T1-weighted FSPGR, and axial and coronal T1-weighted LAVA. Postcontrast axial T1-weighted LAVA images were obtained in a time course. Postcontrast coronal T1-weighted LAVA images were obtained. 2. MRI of the pelvis was performed without and with the identical 20 mL MultiHance intravenous contrast bolus. Sequences included coronal and axial T2- weighted SS-FSE, coronal and axial FS 2D-FIESTA, axial STIR FSE, axial diffusion-weighted SE, axial dual-echo T1-weighted FSPGR,, axial and coronal T1- weighted LAVA and post contrast axial, sagittal and coronal T1-weighted LAVA. COMPARISON: CT dated 06/21/2025 FINDINGS: Heart size is normal. No pericardial or pleural effusion. Single low signal intensity gallstone in the dependent aspect the normal gallbladder. Liver and spleen are normal. No intra or extra hepatic biliary ductal dilation. 8 mm right-sided and 12 mm left-sided adrenal nodules with signal dropout on opposed phase imaging consistent with adenomas. There are 3 small homogeneously T2 hyperintense simple appearing cystic pancreatic lesions at the head and uncinate process of the pancreas, the largest measuring 2.5 cm. No evident enhancing solid soft tissue component or evident direct location to the normal main pancreatic duct. There are a couple <4 mm T2 hyperintense nonenhancing bilateral renal cysts. Moderate-sized fat-containing umbilical hernia. Bowels including the appendix are normal with no evident wall thickening or obstruction. Bladder, prostate and seminal vesicles are unremarkable. No free intraperitoneal fluid. No pathologically enlarged abdominal or pelvic lymphadenopathy. Increased fat within the bilateral inguinal canals extending to the base of the scrotum which could be related to body habitus or inguinal hernias. Moderate to severe lumbar spondylosis. IMPRESSION: 1. 3 simple appearing cystic lesions at the head and uncinate process of the pancreas without evident enhancing soft tissue component and measuring up to 2.5 cm. The differential diagnosis includes pseudocyst, intraductal papillary mucinous neoplasm (IPMN), mucinous cystic neoplasm (MCN) and the less common serous cystadenoma and neuroendocrine tumor. Correlate for history of pancreatitis. Recommend 6 month follow-up pre and postcontrast MRI. 2. Cholelithiasis. Reviewed, dictated and finalized at location A. POLISHER IMPRESSION: 1. 3 simple appearing cystic lesions at the head and uncinate process of the pa ncreas without evident enhancing soft tissue component and measuring up to 2.5 cm. The differential diagnosis includes pseudocyst, intraductal papillary mucin ous neoplasm (IPMN), mucinous cystic neoplasm (MCN) and the less common serous cystadenoma and neuroendocrine tumor. Correlate for history of pancreatitis. Re commend 6 month follow-up pre and postcontrast MRI. 2. Cholelithiasis.
--- OUTSIDE RECORDS SUMMARY | 2025-08-01 06:55 | XMS_ITS | Encounter Summary ---
Author Organization [facility] System Address [facility] [place] [address] Care Team Providers Care Scraper Meat Name Role Phone Luis Felipe Saldivar MD Unavailable Unavailab Mario Hough MD Primary Care Provider [phone] iNlay Stout MD Unavailable [phone]- [phone] Kira Talavera Primary Care Provider [phone] Encounter Details Date Type Department Care Team (Late st Contact Info) Description 05/18/2017 Abstract [facility] AT [address] [place] [address] Luis Felipe Saldivar MD Social [...] Care Team (Late st Contact Info) Description 01/10/2026 8:00 AM CDT Office Visit [facility] [address] [place] [address] Kira Talavera FNP [address] [place] [address] [place] [address] documented as of this encounter Visit Diagnoses Not on filedocumented in this encounter Additional Health Concerns Infection Onset Date Last Indicated Resolved Time COVID-19 Rule Out 12/27/2020 12/27/2020 12/27/2020 7:49 AM CDT COVID-19 Rule Out 12/27/2020 12/27/2020 12/28/2020 8:30 AM CDT COVID-19 Rule Out 11/28/2022 11/28/2022 11/28/2022 11:30 PM PROGRAMMING ENGINEER documented as of this encounter Care Teams Scraper Meat Relationship Specialty Start Date End Date Mario Johnson MD [address] [place] [address] PCP - General FAMILY PRACTICE 05/04/17 03/11/20 Kira Talavera FNP [address] [place] [address] PCP - General Nurse Practitioner Family 03/12/20 Luis Felipe Saldivar MD CARDIOVASCULAR DISEASE 05/04/17 09/08/21 Nilay Stout MD [address] [place] [address] [place] Night Guard INTERVENTIONAL CARDIOLOGY 11/15/18 09/08/21 documented as of this encounter
--- OUTSIDE RECORDS SUMMARY | 2025-08-01 06:55 | XMS_ITS | Encounter Summary ---
Author Organization [facility] System Address [facility] [place] [address] Care Team Providers Care Sleep Medicine Physician Name Role Phone Luis Felipe Saldivar MD Unavailable Unavailab Nilay Anthony MD Unavailable [phone] Kira Talavera [facility] Primary Care Provider [phone] Encounter Details Date Type Department Care Team (Late st Contact Info) Description 12/28/2020 [employer]ience Networkt Message Enc [facility] [address] [place], [place] [id number] Irene Pettit V, [facility] [address] [place], [place] [id number] Follow Up/Update Social History Tobacco Use Types [...] Description 01/10/2026 8:00 AM CDT Office Visit [facility] [address] [place] [address] Kira Talavera FNP [address] [place] [address] documented as of this encounter Visit Diagnoses Not on filedocumented in this encounter Additional Health Concerns Infection Onset Date Last Indicated Resolved Time COVID-19 Rule Out 12/27/2020 12/27/2020 12/28/2020 8:30 AM CDT COVID-19 Rule Out 11/28/2022 11/28/2022 11/28/2022 11:30 PM FORESTRY TECHNICIAN documented as of this encounter Care Teams Sleep Medicine Physician Relationship Specialty Start Date End Date Kira Talavera FNP [address] [place] [address] PCP - General Nurse Practitioner Family 03/12/20 Luis Felipe Saldivar MD CARDIOVASCULAR DISEASE 05/04/17 09/08/21 Nilay Stout MD [place] [employer] Supervisor INTERVENTIONAL CARDIOLOGY 11/15/18 09/08/21 documented as of this encounter
--- OUTSIDE RECORDS SUMMARY | 2025-08-01 06:55 | XMS_ITS | Encounter Summary ---
Author Organization [facility] System Address [facility] [place] [address] Care Team Providers Care Ict Business Development Manager Name Role Phone Luis Felipe Saldivar MD Unavailable Unavailab Nilay Anthony MD Unavailable [phone] Kira TalaveraP Primary Care Provider [phone] Encounter Details Date Type Department Care Team (Late Contact Info) Description 12/11/2020 Rew[employer] Message Enc [facility] [address] [place] [id number] Nat, [facility] Provider RE:Appointment Request: Annual Physical [...] Department Care Team (Late Contact Info) Description 01/10/2026 8:00 AM CDT Office Visit [facility] [address] [place] [address] Kira Talavera FNP [address] [place] [address] documented as of this encounter Visit Diagnoses Not on filedocumented in this encounter Additional Health Concerns Infection Onset Date Last Indicated Resolved Time COVID-19 Rule Out 12/27/2020 12/27/2020 12/27/2020 7:49 AM CDT COVID-19 Rule Out 12/27/2020 12/27/2020 12/28/2020 8:30 AM CDT COVID-19 Rule Out 11/28/2022 11/28/2022 11/28/2022 11:30 PM TON CONTAINER SHIPPER documented as of this encounter Care Teams Ict Business Development Manager Relationship Specialty Start Date End Date Kira Talavera FNP [address] [place] [address] PCP - General Nurse Practitioner Family 03/12/20 Luis Felipe Saldivar MD CARDIOVASCULAR DISEASE 05/04/17 09/08/21 Nilay Stout MD [place] Warehouse Checker INTERVENTIONAL CARDIOLOGY 11/15/18 09/08/21 documented as of this encounter
--- OUTSIDE RECORDS SUMMARY | 2025-08-01 06:55 | XMS_ITS | Encounter Summary ---
Author Organization [facility] Address [facility] [place] [address] Care Team Providers Care Mold Forms Builder Name Role Phone Luis Felipe Saldivar MD Unavailable Unavailab Nilay Anthony MD Unavailable [phone] Kira Talavera CONSUMER EDUCATOR Primary Care Provider [phone] Encounter Details Date Type Department Care Team (Late st Contact Info) Description 03/05/2021 Abstract [facility] [address] [place] [address] Nilay Stout MD [address] [place] [address] Social History Tobacco Use Types [...] Description 01/10/2026 8:00 AM CDT Office Visit [facility] [address] [place] [address] Kira Talavera FNP [address] [place] [address] documented as of this encounter Visit Diagnoses Not on filedocumented in this encounter Additional Health Concerns Infection Onset Date Last Indicated Resolved Time COVID-19 Rule Out 11/28/2022 11/28/2022 11/28/2022 11:30 PM BEAMING INSPECTOR Assessment Noted Time PHQ-9 Depression Total Score: 0 03/04/20 8:07 AM CDT documented as of this encounter Care Teams Mold Forms Builder Relationship Specialty Start Date End Date Kira Talavera FNP [facility] [place] [address] PCP - General Nurse Practitioner Family 03/12/20 Luis Felipe Saldivar MD CARDIOVASCULAR DISEASE 05/04/17 09/08/21 Nilay Stout MD [place] Cooking Teacher INTERVENTIONAL CARDIOLOGY 11/15/18 09/08/21 documented as of this encounter
--- OUTSIDE RECORDS SUMMARY | 2025-08-01 06:56 | XMS_ITS | Encounter Summary ---
Author Organization [facility] Address [facility] [place] [address] Care Team Providers Care Software Quality Assurance Analyst Name Role Phone Kira Talavera CIRCULATION MANAGER Primary Care Provider [phone] Encounter Details Date Type Department Care Team (Late st Contact Info) Description 09/23/2022 Abstract [facility] BUSINESS OFFICE [address] [place] [address] Abstract, Doc Med Group Social History Tobacco Use Types Packs/Day Years Used Date Smoking Tobacco: Never Smokeless Tobacco: Never Comments:Provider to milieu counselor Alcohol Use Standard Drinks/Week Comments Yes [...] Description 01/10/2026 8:00 AM CDT Office Visit [address] [place] [address] Kira Talavera FNP [address] [facility] [address] documented as of this encounter Procedures Procedure [...] Rule Out 11/28/2022 11/28/2022 11/28/2022 11:30 PM PARTY PLAN SALES HOST/HOSTESS Assessment Noted Time PHQ-9 Depression Total Score: 0 08/29/20 21 8:34 AM PARTY PLAN SALES HOST/HOSTESS documented as of this encounter Care Teams Software Quality Assurance Analyst Relationship Specialty Start Date End Date Kira Talavera FNP [address] [facility] [address] PCP - General Nurse Practitioner Family 03/12/20 documented as of this encounter
--- OUTSIDE RECORDS SUMMARY | 2025-08-01 06:56 | XMS_ITS | Encounter Summary ---
Author Organization [facility] System Address [facility] [place] [address] Care Team Providers Care Power Generation Turbine Room Operator Name Role Phone Kira Talavera [facility] Primary Care Provider [phone] Encounter Details Date Type Department Care Team (Late st Contact Info) Description 08/16/2023 [employer] Message Enc [facility] [address] [place] [address] Kira Talavera [facility] [address] [place] [phone] vaccines received Social History Tobacco Use Types [...] Description 01/10/2026 8:00 AM CDT Office Visit [facility] [address] [place] [address] Kira Talavera FNP [address] [place] [address] documented as of this encounter Visit Diagnoses Not on filedocumented in this encounter Additional Health Concerns Assessment Noted Time PHQ-9 Depression Total Score: 0 08/29/20 21 8:34 AM STUDENT SERVICES DIRECTOR documented as of this encounter Care Teams Power Generation Turbine Room Operator Relationship Specialty Start Date End Date Kira Talavera FNP [address] [place] [address] PCP - General Nurse Practitioner Family 03/12/20 documented as of this encounter
--- OUTSIDE RECORDS SUMMARY | 2025-08-01 06:56 | XMS_ITS | Encounter Summary ---
Author Organization [facility] Address [facility] [place] [address] Care Team Providers Care Data Acquisition Technician Name Role Phone Kira Talavera [facility] Primary Care Provider [phone] Encounter Details Date Type Department Care Team (Late st Contact Info) Description 11/16/2022 People and Pagest Message Enc [facility] [address] [place], [place] [id number] Kira Talavera [facility] [address] [place] [id number] request for a dosage change for amlodipine Social History Tobacco Use Types Packs/Day Years Used Date Smoking Tobacco: Never Smokeless Tobacco: Never Comments:Provider to marriage counselor Alcohol Use Standard Drinks/Week Comments Yes [...] sent a my chart message to pt. RETE BLOCK MAKER * Lela Lino RN - 11/16/2022 1:31 PM CST Please note and advise; last office visit 02/27/22, last filled 09/01/22 #90 RETE BLOCK MAKER documented in this encounter Plan of Treatment Upcoming Encounters Date Type Department Care Team (Late st Contact Info) Description 01/10/2026 8:00 AM CDT Office Visit [facility] [address] [place] [id number] Kira Talavera FNP [address] [place] [address] [place] [id number] documented as of this encounter Visit Diagnoses Not on filedocumented in this encounter Additional Health Concerns Infection Onset Date Last Indicated Resolved Time COVID-19 Rule Out 11/28/2022 11/28/2022 11/28/2022 11:30 PM CONCRETE BLOCK MAKER Assessment Noted Time PHQ-9 Depression Total Score: 0 08/29/20 21 8:34 AM CONCRETE BLOCK MAKER documented as of this encounter Care Teams Data Acquisition Technician Relationship Specialty Start Date End Date Kira Talavera FNP [address] [place] [address] [place] [id number] PCP - General Nurse Practitioner Family 03/12/20 documented as of this encounter
--- OUTSIDE RECORDS SUMMARY | 2025-08-01 06:56 | XMS_ITS | Encounter Summary ---
Author Organization [facility] Address [facility] [place] [address] Care Team Providers Care Renal Dialysis Rn Name Role Phone Kira Talavera [facility] Primary Care Provider Encounter Details Date Type Department Care Team (Late st Contact Info) Description 08/03/2022 LegalReacht Message Enc [facility] [address] [place] [phone] Kira Talavera [facility] [address] [place] [id number] Flu shots and inquiry regarding medicare checkup Social History Tobacco Use Types Packs/Day Years Used Date Smoking Tobacco: Never Smokeless Tobacco: Never Comments:Provider to children counselor Alcohol Use Standard Drinks/Week Comments Yes [...] am reaching out to Nicol Amezcua, director global to get some answers for Temo. T THROWER * Nathalie Duarte LPN - 08/04/2022 1:29 PM CST Please review/advise. T THROWER * RIGOBERTO Augustine - 08/04/2022 12:35 PM CST Can this be referred to justyna to address as I dont know the answers to the questions he is asking. T THROWER * Nathalie Duarte LPN - 08/04/2022 10:47 AM CST Please review/advise. T THROWER * RIGOBERTO Augustine - 08/04/2022 8:44 AM CST Call pt. We are still not doing the welcome to medicare visits here ( for justino) We are referring patients to the medicare cinic in [place] to get it done. The annual medicare wellness visits ( for mary) can be done here per [place] dawson on . T THROWER * Lela Lino RN - 08/03/2022 1:11 PM CST Please note and advise T THROWER documented in this encounter Plan of Treatment Upcoming Encounters Date Type Department Care Team (Late st Contact Info) Description 01/10/2026 8:00 AM CDT Office Visit [facility] [address] [place] [address] Kira Talavera FNP [address] [place] [address] documented as of this encounter Visit Diagnoses Not on filedocumented in this encounter Additional Health Concerns Infection Onset Date Last Indicated Resolved Time COVID-19 Rule Out 11/28/2022 11/28/2022 11/28/2022 11:30 PM CLEAT THROWER Assessment Noted Time PHQ-9 Depression Total Score: 0 08/29/20 21 8:34 AM CLEAT THROWER documented as of this encounter Care Teams Renal Dialysis Rn Relationship Specialty Start Date End Date Kira Talavera FNP [address] [place] [address] PCP - General Nurse Practitioner Family 03/12/20 documented as of this encounter
--- OUTSIDE RECORDS SUMMARY | 2025-08-01 06:56 | XMS_ITS | Clinical Summary ---
Author Organization [facility] Address [facility] [place] [address] Care Team Providers Care Set And Exhibit Designer Name Role Phone Kira Talavera CREDIT CASHIER Primary Care Provider [phone] Allergies Active Allergy Reactions Criticality Noted Date Comments Amoxicillin Unknown Atorvastatin Myalgias 08/28/2019 Amoxicillin-Pot Clavulanate Unknown 05/18/20 17 Clindamycin Unknown 05/18/2017 Erythromycin Unknown 05/18/2017 Levofloxacin Shortness of Breath High 04/11/2024 Pravastatin Unknown 05/18/2017 Rosuvastatin Unknown Medications aspirin EC 81 MG tablet Take 1 tablet (81 mg total) by mouth nightly. Active hydrochlorothia zide 12.5 MG capsule Take 1 capsule (12.5 mg total) by mouth every morning. Active metFORMIN 1000 MG tablet Take 1 tablet (1,000 mg total) by mouth 2 (two) times daily with meals. Active Dapagliflozin Propanediol 10 MG Tab Take 1 tablet (10 mg total) by mouth. 018 Active sildenafil 50 MG tablet Take 1 tablet (50 mg total) by mouth. 019 Active Insulin Pen Needle 31G X 8 MM Misc Use to inject once daily 018 Active VASCEPA 1 g capsule Take 2 capsules (2 g total) by mouth 2 (two) times daily with meals. 120 capsule 022 Active nitroglycerin (NITROSTAT) 0.4 MG SL tablet DISSOLVE ONE TABLET UNDER THE TONGUE EVERY 5 MINUTES NEEDED FOR CHEST PAIN. DO NOT EXCEED A TOTAL OF 3 DOSES IN 15 MINUTES 45 tablet 1 024 Active lisinopril (PRINIVIL) 40 MG tablet Take 1 tablet by mouth once daily 90 tablet 3 024 Active fenofibrate 160 MG tabletIndicatio ns:Mixed hyperlipidemia, Coronary artery disease involving yomb[place] shoshone coronary artery of yomb[place] shoshone heart without angina pectoris Take 1 tablet by mouth once daily 90 tablet 3 024 Active nebivolol (BYSTOLIC) 20 MG tablet Take 1 tablet by mouth once daily 90 tablet 3 024 Active ezetimibe (ZETIA) 10 MG tablet Take 1 tablet by mouth once daily 90 tablet 024 Active evolocumab (REPATHA SURECLICK) 140 MG/ML injection (PEN)Indication s:Mixed hyperlipidemia, Coronary artery disease involving yomba shoshone coronary artery of yomb[place] shoshone heart without angina pectoris Inject 1 mL (140 mg total) into the skin every 14 (fourteen) days. 2 Pen 11 025 Active tirzepatide (MOUNJARO) 5 MG/0.5ML injectionIndica tions:Diabetes Mellitus Inject 5 mg into the skin once a week. Indications: Diabetes Active TOUJEO MAX SOLOSTAR 300 UNIT/ML Solution Pen-injector INJECT 100 UNITS SUBCUTANEOUSLY NIGHTLY Active MOUNJARO 7.5 MG/0.5ML injection Inject 7.5 mg into the skin. 025 Active insulin aspart (NOVOLOG) 100 UNIT/ML injection (PEN) Inject into the skin see administration instructions. Pt. To inject 24 units SQ before meals; for BS > 200 admin. 28 units; > 250 admin. 30 units; > 300 admin. 32 units. Active amLODIPine (NORVASC) 5 MG tabletIndicatio ns:Primary hypertension Take 1 tablet by mouth once daily 90 tablet 025 Active allopurinol (ZYLOPRIM) 100 MG tabletIndicatio ns:Hyperuricemi a Take 1 tablet by mouth once daily 90 tablet 025 Active gabapentin (NEURONTIN) 300 MG capsuleIndicati ons:Peripheral neuropathy due to chemotherapy (HHS/HCC) Take 1 capsule (300 mg total) by mouth nightly. 90 capsule 1 025 Active pantoprazole EC (PROTONIX) 40 MG tabletIndicatio ns:Gastroesopha geal reflux disease without esophagitis Take 1 tablet by mouth once daily 90 tablet 1 025 Active gabapentin (NEURONTIN) 300 MG capsuleIndicati ons:Peripheral neuropathy due to chemotherapy (HHS/HCC) Take 1 capsule (300 mg total) by mouth 2 (two) times a day. 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, estrogen receptor positive 11/16/2023 Overview (01/05/2024): Stage: Clinical T1N0; pT2N0 Date of diagnosis: 10/22/2023 Diagnosis: RIGHT (Grade 3) 2.2 cm IDC, 0/6 LN ER 95% NM 0% her 2 2+ MAURICE negative Surgeon: [facility] Surgery: 12/15/2023 right lump/SLN Medical Oncologist: Chemotherapy: Radiation Oncologist: Radiation: Anti-estrogen therapy: ALISON (acute kidney injury) 11/29/2022 Umbilical hernia without obstruction and without gangrene 02/27/2022 Hypertriglyceridemia 09/09/2021 Polyp of colon, unspecified part of colon, unspe cified type 08/29/2021 Neural foraminal stenosis of cervical spine 02/18 Erectile dysfunction 05/16/2019 Hyperlipidemia associated with type 2 diabetes jamie cee 05/03/2018 Overview (03/04/2021): Last Assessment & Plan: Hypertriglyceridemia associated with diabetes. Provided with samples of Vascepa to use in place of generic fish oil. Coronary artery disease invo lving yomba shoshone coronary artery of yomba shoshone heart without angina pectoris 06/17/2017 Mixed hyperlipidemia 06/17/2017 Exogenous obesity 05/04/2017 Overview (11/14/2018): Date Onset: 05/04/2017 Ischemic vascular disease 05/04/2017 Overview (11/14/2018): Date Onset: 05/04/2017 Sprain and strain of ankle 01/08/2016 Overview (11/14/2018): Date Onset: 01/08/2016 GERD (gastroesophageal reflux disease) 6 Sciatica 11/07/2015 Overview (11/14/2018): Date Onset: 11/07/2015 Type 2 diabetes mellitus wit h hyperglycemia, with long-term current use of insulin 01/31/2014 Overview (09/10/2020): DMII WO CMP NT ST UNCNTR Last Assessment & Plan: A1c increased to 8.1. Increase Ozempic to 1 mg. Will continue to increase Basaglar if FBG remain > 150. Foot care reviewed. 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 Can increase ASA to 325 mg daily once out of Plavix. Diabetes mellitus, type II 10/15/2011 Resolved Problems Problem Noted Date Diagnosed Date Resolved Date Preop cardiovascular exam 11/22/2023 Influenza 08/25/2017 11/14/2018 Overview (11/14/2018): Note: Influenza A Date Onset: 08/25/2017 Sinusitis, acute 08/24/2017 11/22/2020 Overview (11/14/2018): Date Onset: 08/24/2017 Cough 08/24/2017 11/14/2018 Overview (11/14/2018): Date Onset: 08/24/2017 Acute gout of ankle 01/08/2016 11/23/19 Overview (11/14/2018): Date Onset: 01/08/2016 Sleep apnea, obstructive 08/02/201301/2021 Overview (11/14/2018): Date Onset: 08/02/2013 Hyperlipidemia 08/19/2020 Encounters Date Type Department Care Team Description 07/10/2025 8:00 AM CDT Office Visit [address] [place] [address] Kira Talavera FNP Follow Up (6m; pt states he has cancer markers concerns, states possible pancreas cysts //MRI scheduled Aug 01 abd and pelvis ) 07/10/2025 Travel 07/05/[address] [place] [address] Kira Talavera FNP Results (Chest Abdomen pelvis results. ) 06/27/2025 Scan [facility] Scanned, [facility] 06/21/2025 Scan [facility] Scanned, [facility] CT (SCAN) from Last 3 Months Immunizations Immunization [...] MCG/ 0.5 ML DOSE 07/15/2021,12/11/2020,11/13/2020 MODERNA COVID-19 (PILLAR MAN ROMEL SAPNA), MRNA, LNP-S, PF, 50 MCG/ 0.25 ML DOSE 07/15/2021 Pneumococcal (Pneumovax 23) 09/10/2020 Pneumococcal (Prevnar 20) 07/06/2023 Shingrix 05/28/2021,03/10/2021 Td 02/27/2000 Td (TDVAX) 02/27/2000 Tdap (Generic) 05/18/2018 Family History Medical History Relation Comments Alcohol Abuse Daughter Alcohol Abuse Father Cancer Father throat cancer, l ifelong heavy smoker, surgery and radiation cured Heart Disease Father Stent put in Hyperlipidemia Father cardiovascular disease Father Diabetes Maternal Grandmother Arthritis Mother Heart Disease Mother Life long smoker Hypertension Mother Vision loss Paternal Aunt in 80,s got macu lar degeneration Asthma Paternal Grandfather COPD Paternal Grandfather started wit h astma Cancer Paternal Uncle Lung cancer spre ad, of COPD Sister 1 Life long smoker Heart Disease Sister 1 Periciditis, byp asses, Hypertension Sister 1 Stroke Sister 1 TIA's lifelong heavy smoker Stroke Sister [address] elaine, lifelong heavy smoker Relation Status Comments Daughter Alive Father Maternal Grandmother Alive Mother Alive Paternal Aunt Alive Paternal Grandfather Alive Paternal Uncle Alive Sister 1 Alive Sister 2 Alive Social History Tobacco Use Types Packs/Day Years Used Date Smoking Tobacco: Never Smokeless Tobacco: Never Tobacco Cessation:Counseling Given: No Comments:Provider to counseling director Alcohol Use Standard Drinks/Week Comments Yes 0 [...] Sign Reading Time Taken Comments Blood Pressure 107/63 07/10/2025 8:02 AM CDT Pulse 86 07/10/2025 8:02 AM CDT Temperature 36.7 C (98 F) 07/10/2025 8:02 AM CDT Respiratory Rate 18 07/10/2025 8:02 AM CDT Oxygen Saturation 98% 07/10/2025 8:02 AM CDT Inhaled Oxygen Concentration - - Weight 106.1 kg (234 lb) 07/10/2025 8:02 AM CDT Height 177.8 cm (5' 10) 07/10/2025 8:02 AM CDT Body Mass Index 33.58 07/10/2025 8:02 AM CDT Plan of Treatment Upcoming Encounters Date Type Department Care Team (Late st Contact Info) Description 01/10/2026 8:00 AM CDT Office Visit [facility] [address] [place] [address] Kira Talavera, [facility] [address] [place] [id number] Health Maintenance Due Date Last Done Comments [...] or 60+ Years Completed 08/16/2023 PHQ-2 (Physician [place]) Completed 01/09/2025 Hepatitis A Vaccines Aged Out No long er eligible based on patient's age to complete this topic Meningococcal B Vaccine Aged Out No l onger eligible based on patient's age to complete this topic Meningococcal Vaccine Aged Out No jen judah eligible based on patient's age to complete this topic RSV Immunizations Under 20 Months Aged Out No longer eligible based on patient's age to complete this topic Procedures Procedure Name Priority Date/Time Associated Diagnosis Comments CT GENERIC 06/21/2025 HEMOGLOBIN, GLYCOSYLATED Routine 11/28/2024 LIPID PANEL Routine 06/11/2023 7:25 AM CDT Mixed hyperlipidemia DIABETIC RETINOPATHY EXAM (NEGATIVE)(SCAN ORDER) Routine 08/26/2022 COLONOSCOPY/EGD GENERIC (SCAN ORDER) 03/19/2021 COLOGUARD (AMBULATORY) Routine 03/20/2020 Colon cancer screening from Last 3 Months or Most Recently Relevant to Health Maintenance Results * CT GENERIC (06/21/2025) Anatomical Region Laterality Modality Other 06/21/2025 [facility] Scanned SCANNING Final Resu lt * HEMOGLOBIN, GLYCOSYLATED (11/28/2024) HGB A1C 7.6 % 11/28/2024 [facility] Abstract LABORATORY Final Res ult * (ABNORMAL) LIPID PANEL (06/11/2023 7:25 AM CDT) CHOLESTEROL 99 0 - 200 MG/DL 06/11/2023 9:05 AM CDT [facility] TRIGLYCERIDES 640(H) 0 - 150 MG/DL 06/11/2023 9:05 AM CDT [facility] HDL 32(L) >40 MG/DL 06/11/2023 9:05 AM T [facility] LDL (CALCULATED) TRIGLYCERIDES >400 MG/DL, SEE DIRECT LDL REPORT <100 MG/DL 06/11/2023 9:05 AM T [facility] NON HDL CHOLESTEROL 67 0 - 130 MG/DL 06/11/2023 9:05 AM T [facility] Comment: NOTE: WHEN THE TRIGLYCERIDES ARE >200 mg/dL, NON HDL C IS A SECONDARY TARGET OF THERAPY, WITH A GOAL 30 mg/dL HIGHER THAN THE IDENTIFIED LDL C GOAL. CHOL/HDL RATIO 3.1 0.0 - 4.5 06/11/2023 9:05 AM T [facility] VLDL CALCULATION UNABLE TO CALCULATE RESULT 5 - 55 MG/DL 06/11/2023 9:05 AM T [facility] Comment:TRIGLYCERIDE >400 IN VALIDATES FRACTIONATION. LIPID INTERPRETATION 06/11/2023 9:05 AM T [facility] Comment: NIH CONCENSUS REPORT RECOMMENDATIONS: ADULT CHILD LOW RISK: CHOLESTEROL <200 <170 TRIGLYCERIDE <150 --- HDL >=60 --- LDL <100 <110 BORDERLINE: CHOLESTEROL 200-239 170-199 TRIGLYCERIDE 150-199 --- HDL 40-59 --- LDL 100-159 110-129 HIGH RISK: CHOLESTEROL >=240 >=200 TRIGLYCERIDE >=200 --- HDL <40 --- LDL >=160 >=130 06/11/2023 7:25 AM CDT us Harpreet Montenegro RESTAURANT HOURLY TEAM MEMBER LABORATORY Final R esult [facility] [place] [address], [place] * DIABETIC RETINOPATHY EXAM (NEGATIVE)(SCAN) (08/26/2022) [facility] Scanned SCANNING Final Resu lt HS ONBASE * COLONOSCOPY/EGD GENERIC (03/19/2021) 03/19/2021 Narrative 03/19/2021 Ordered by an unspecified provider. us Documents Scanned SCANNING Final Result * COLOGUARD (03/20/2020) COLOGUARD NEGATIVE Stool specimen (specimen) 03/20/2020 us Kira Talavera CREDIT CASHIER AMBULATORY COLOGUARD (RTF) Fi nal Result from Last 3 Months or Most Recently Relevant to Health Maintenance Insurance [employer] MEDICARE * Guarantor: Justino Boland Account Type Relation to Patient Date of Phone Billing Address Personal/Family Self 1955 [id number] [place] [address] Advance Directives * Full Code (Latest Code Status on File) Date Activated Date Inactivated Comments 11/29/2022 4:16 AM 11/29/2022 1:59 PM Care Teams Set And Exhibit Designer Relationship Specialty Start Date End Date Kira Talavera FNP [address] [place] [address] [place] [address] PCP - General Nurse Practitioner Family 03/12/20
--- OUTSIDE RECORDS SUMMARY | 2025-08-01 06:56 | XMS_ITS | Encounter Summary ---
Author Organization [facility] Address [facility] [place] [address] Care Team Providers Care Fittings Finisher Name Role Phone Kira Talavera [facility] Primary Care Provider [phone] Encounter Details Date Type Department Care Team (Late st Contact Info) Description 12/23/2021 [employer] Message Enc [facility] [address] [place] [phone] Kira Talavera [facility] [address] [place] [phone] can you help me locate a Doctor that Dr. Johnson referred me to previously Social History Tobacco Use Types Packs/Day Years Used Date Smoking Tobacco: Never Smokeless Tobacco: Never Comments:Provider to compliance counsel Alcohol Use Standard Drinks/Week Comments Yes [...] Description 01/10/2026 8:00 AM CDT Office Visit [facility] [address] [place] [phone] Kira Talavera FNP [address] [place] [address] documented as of this encounter Visit Diagnoses Not on filedocumented in this encounter Additional Health Concerns Infection Onset Date Last Indicated Resolved Time COVID-19 Rule Out 11/28/2022 11/28/2022 11/28/2022 11:30 PM ENGLISH LANGUAGE LEARNER TUTOR Assessment Noted Time PHQ-9 Depression Total Score: 0 08/29/20 21 8:34 AM ENGLISH LANGUAGE LEARNER TUTOR documented as of this encounter Care Teams Fittings Finisher Relationship Specialty Start Date End Date Kira Talavera FNP [address] [place] [id number] PCP - General Nurse Practitioner Family 03/12/20 documented as of this encounter
--- OUTSIDE RECORDS SUMMARY | 2025-08-01 06:56 | XMS_ITS | Encounter Summary ---
Author Organization [facility] Address [facility] [place] [address] Care Team Providers Care Flotation Tender Helper Name Role Phone Kira Talavera [facility] Primary Care Provider Encounter Details Date Type Department Care Team (Late st Contact Info) Description 02/01/2023 [employer]olding[employer] Message Enc [facility] [address] [place] [phone] Kira Talavera [facility] [address] [place] [phone] spray unit feeder Social History Tobacco Use Types Packs/Day Years Used Date Smoking Tobacco: Never Smokeless Tobacco: Never Comments:Provider to mortgage loan counselor Alcohol Use Standard Drinks/Week Comments Yes [...] place to sleep or slept in a retirement (including now)? No 11/29/2022 Sex and Gender [...] Description 01/10/2026 8:00 AM CDT Office Visit [facility] [address] [place] [address] Kira Talavera FNP [address] [place] [address] documented as of this encounter Visit Diagnoses Not on filedocumented in this encounter Additional Health Concerns Assessment Noted Time PHQ-9 Depression Total Score: 0 08/29/20 21 8:34 AM JAVA CORE DEVELOPER documented as of this encounter Care Teams Flotation Tender Helper Relationship Specialty Start Date End Date Kira Talavera FNP [facility] [place] [address] PCP - General Nurse Practitioner Family 03/12/20 documented as of this encounter
--- OUTSIDE RECORDS SUMMARY | 2025-08-01 06:56 | XMS_ITS | Encounter Summary ---
Author Organization [facility] Address [facility] [place] [address] Care Team Providers Care Paste Maker Name Role Phone Talavera Kira FRANKLIN Primary Care Provider [phone] Encounter Details Date Type Department Care Team (Late st Contact Info) Description 04/01/2023 Brideside Message Enc [facility] [address] [place] [address] Harpreet Montenegro, FOREST FIRE EQUIPMENT OPERATOR [address] [place] [phone] question regarding blood thinner type drug [...] Description 01/10/2026 8:00 AM CDT Office Visit [facility] [address] [facility] [place] [address] Kira Talavera FNP [address] [place] [address] documented as of this encounter Visit Diagnoses Not on filedocumented in this encounter Additional Health Concerns Assessment Noted Time PHQ-9 Depression Total Score: 0 08/29/20 21 8:34 AM BAND REAMER MACHINE OPERATOR documented as of this encounter Care Teams Paste Maker Relationship Specialty Start Date End Date Kira Talavera FNP [address] [facility] [place] [address] PCP - General Nurse Practitioner Family 03/12/20 documented as of this encounter
--- OUTSIDE RECORDS SUMMARY | 2025-08-01 06:56 | XMS_ITS | Clinical Summary ---
Author Organization [address] Address [address] [place] [id number] Care Team Providers Care Jack Spooler Tender Name Role Phone Delaney Rivera MD Unavailable Nilay England MD Unavailable [phone] Kira Talavera NP Primary Care Provider [...] Rosuvastatin Shellfish Nausea & Vomiting Low 11/15/2018 Hnqemxi-Bsj-Zgv Reductase Inhibitors Muscle pain,Unknown Medium 02/19/2021 Medications aspirin 81 mg tablet take 1 tablet (81MG) by oral route every day 0 07/08/[address] (PROTONIX) 40 mg EC tablet take 1 tablet by oral route every day 90 2 04/16/20 15 Active allopurinol (ZYLOPRIM) 100 mg tablet take 1 tablet by oral route every day 0 0 05/19/20 16 Active blood glucose diagnostic strip Relion brand- test glucose 4 times daily Active nitroglycerin (NITROSTAT) 0.[address] 1 tablet (0.4 mg total) under the tongue every 5 (five) minutes as needed for chest pain Active Bystolic 20 mg tablet Take 1 tablet (20 mg total) by mouth daily 10/08/19 21 Active lisinopriL (PRINIVIL,ZESTRIL) 40 mg tablet Take 1 tablet (40 mg total) by mouth daily 03/17/20 21 Active fenofibrate (TRIGLIDE) 160 mg tablet Take 1 tablet (160 mg total) by mouth daily 03/10/20 22 Active traMADoL (ULTRAM) 50 mg tablet TAKE 1 TO 2 TABLETS BY MOUTH EVERY 6 HOURS NEEDED FOR PAIN NO MORE THAN 8 PER 24 HOURS 06/15/20 23 Active amLODIPine (NORVASC) 5 mg tablet Take 1 tablet (5 mg total) by mouth daily 06/19/20 23 Active pen needle, diabetic (BD Ultra-Fine Short Pen Needle) 31 gauge x 5/16 needleIndications: Type 2 diabetes mellitus with hyperglycemia, with long-term current use of insulin ([facility]) Use to inject insulin 4 times daily 400 each 3 01/18/20 24 Active HYDROcodone-acetam inophen (NORCO) 5-325 mg per tablet Take 1 tablet by mouth every 4 (four) hours as needed 12/15/19 24 Active lidocaine-prilocai ne cream Apply quarter size amount to port site 30 minutes prior to access 01/14/20 24 Active ondansetron ODT (ZOFRAN-ODT) 8 mg disintegrating tablet Dissolve 1 tablet on top of tongue then swallow with saliva every 8 hours as needed for nausea or vomiting 01/14/20 24 Active gabapentin (NEURONTIN) 100 mg capsule Take 1 capsule (100 mg total) by mouth 3 (three) times a day 07/06/20 24 Active metFORMIN (GLUCOPHAGE) 1,000 mg tabletIndications: Type 2 diabetes mellitus with hyperglycemia, with long-term current use of insulin ([facility]) Take 1 tablet by mouth twice daily 180 tablet 3 08/03/20 24 Active sildenafiL (VIAGRA) 100 mg tabletIndications: Type 2 diabetes mellitus with hyperglycemia, with long-term current use of insulin ([facility]) TAKE ONE TABLET BY MOUTH NEEDED FOR ERECTILE DYSFUNCTION. DO NOT TAKE ANY NITRATE MEDICATION FOR 24 HOURS AFTER. 10 tablet 6 08/03/20 24 Active insulin aspart (NovoLOG) 100 unit/mL (3 mL) pen for injectionIndicatio ns:Type 2 diabetes mellitus with hyperglycemia, with long-term current use of insulin ([facility]) 24 units before meals For sugars over 200, take 28 units For sugars over 250, take 30 units For sugars over 300, take 32 units 30 mL 11 08/15/20 24 Active Repatha SureClick 140 mg/mL pen injector INJECT 1 ML SUBCUTANEOUSLY EVERY TWO WEEKS 10/26/19 25 Active Farxiga 10 mg tabletIndications: Type 2 diabetes mellitus with hyperglycemia, with long-term current use of insulin ([facility]) Take 1 tablet by mouth once daily 90 tablet 3 02/15/20 25 Active tirzepatide (Mounjaro) 7.5 mg/0.5 mL pen injector injection Inject 0.5 mL (7.5 mg total) under the skin once a week 2 mL 6 03/06/20 25 Active icosapent ethyL (VASCEPA) 1 gram capsuleIndications :Hyperlipidemia associated with type 2 diabetes mellitus ([facility]) Take 2 capsules (2 g total) by mouth 2 (two) times a day 360 capsule 3 03/21/20 25 Active hydroCHLOROthiazid e 12.5 mg tabletIndications: Hypertension associated with diabetes ([facility]) Take 1 tablet by mouth once daily 90 tablet 06/14/20 25 Active insulin glargine (TOUJEO MAX) 300 unit/mL (3 mL) pen for injectionIndicatio ns:Type 2 diabetes mellitus with hyperglycemia, with long-term current use of insulin ([facility]) Inject 100 Units under the skin nightly 15 mL 6 06/25/20 25 026 Active Active Problems Problem Noted Date Diagnosed [...] 2gm bid. Last lipid panel: 08/03/24 LDL=14, RU=931. Managed by cardiology. Assessment & Plan (02/02/2024 10:52 AM CDT): Chronic problem, intolerant to statins. Currently taking: Praluent 150mg every 2 wks, vascepa 2gm bid, fenofibrate 160mg daily, zetia 10mg daily. 06/11/23 LDL=16, GO=389. No changes at this time. Managed by cardiology. Assessment & Plan (11/11/2023 9:20 AM LOCOMOTIVE REPAIRER DIESEL): Chronic problem, intolerant to statins. Currently taking: Praluent 75mg every 2 wks, vascepa 2gm bid, fenofibrate 160mg daily, zetia 10mg daily. 06/11/23 LDL=16, VF=241. No changes at this time. Managed by cardiology. Assessment & Plan (07/19/2023 9:20 AM CDT): Chronic problem, intolerant to statins. Currently taking: Praluent 75mg every 2 wks, vascepa 2gm bid, fenofibrate 160mg daily, zetia 10mg daily. 06/11/23 LDL=16, XO=805. No changes at this time. Assessment & Plan (11/12/2022 8:31 AM LOCOMOTIVE REPAIRER DIESEL): Chronic problem, intolerant to statins. Currently taking: Praluent 75mg every 2 wks, vascepa 2gm bid, fenofibrate 160mg daily, zetia 10mg daily. No changes at this time. Assessment & Plan (07/30/2022 12:41 PM LOCOMOTIVE REPAIRER DIESEL): Chronic problem, statin intolerant. Recently started on [...] oil. Assessment & Plan (11/14/2020 3:14 PM LOCOMOTIVE REPAIRER DIESEL): Continue Zetia and follow up with cardiology Assessment & Plan (06/28/2020 11:38 AM CDT): Continue follow up with cardiology Assessment & Plan (03/28/2020 4:37 PM CDT): Continue Zetia and follow up with cardiology. Assessment & Plan (08/15/2019 2:50 PM LOCOMOTIVE REPAIRER DIESEL): Pt with CAD, s/p cardiac stents LDL [...] therapy Assessment & Plan (11/15/2018 1:14 PM LOCOMOTIVE REPAIRER DIESEL): Continue atorvastatin Assessment & Plan (07/28/2018 3:05 PM LOCOMOTIVE REPAIRER DIESEL): Will obtain results of recent lipid panel. Continue on atorvastatin 10 mg. Restart fish oil as this will have some antiplatelet impact, until follow up with painter drum. Assessment & Plan (05/03/2018 12:46 PM CDT): [...] ) Patient has an appointment with his painter drum next week month. I asked him to discuss this with him otherwise will address it. Coronary artery disease involving [place] coronar y artery 05/03/2018 Assessment & Plan (08/15/2019 2:51 PM LOCOMOTIVE REPAIRER DIESEL): Check HS PCR Pt seeing a painter drum LDL goal under 50 Assessment & Plan (05/03/2018 11:13 AM CDT): Indication for Jardiance Start Jardiance 25 mg daily Other male erectile dysfunction 05/03/2018 Non morbid obesity due to excess calories 2016 Assessment & Plan (09/16/2017 3:17 PM LOCOMOTIVE REPAIRER DIESEL): Needs to focus on meal plan. Provided [...] Will update MA/Cr. Verified that he uses mychart. Aware to check results/results letter in [employer]. Will contact by phone if needed. UTD [...] infection. Assessment & Plan (08/03/2024 1:05 PM LOCOMOTIVE REPAIRER DIESEL): Chronic, uncontrolled but with some improvement Importance [...] infection. Assessment & Plan (11/11/2023 10:04 AM LOCOMOTIVE REPAIRER DIESEL): Chronic problem, uncontrolled. A1c worsened from 8.9% 06/2023 to now 9.1% . Discussed need to need to quickly get diet/exercise & A1c/BG down. Discussed elevated BG & risk of poor healing. Discussed increasing Ozempic to 2mg, adding short acting insulin and/or greatly needed diet changes. Will start with diet/activity changes & increasing to 2mg on Ozempic. Will send me a [employer] message in next 2 weeks with BG readings. Current medications: Metformin 1000 mg twice daily before meals Farxiga 10 mg daily Ozempic 2mg weekly Lantus 90 units at bedtime Will update MA/Cr today. Verified that he uses [employer]. Aware to check results/results letter in [employer]. Will contact by phone if needed. UTD [...] infection. Assessment & Plan (11/12/2022 10:10 AM LOCOMOTIVE REPAIRER DIESEL): Chronic problem, uncontrolled & worsening. Current medications: [...] Rivera. Assessment & Plan (07/30/2022 12:44 PM LOCOMOTIVE REPAIRER DIESEL): Chronic problem, deteriorating due to poor diet. [...] prescribed. Assessment & Plan (11/14/2020 3:16 PM LOCOMOTIVE REPAIRER DIESEL): A1c improved to 7.3. Continue with current [...] mg. Assessment & Plan (08/15/2019 2:45 PM LOCOMOTIVE REPAIRER DIESEL): Hba1c was Lab Results Component Value Date [...] . Assessment & Plan (11/15/2018 1:13 PM LOCOMOTIVE REPAIRER DIESEL): A1c 7.6. Insignificant change. Continue Basaglar at 80 hs Restart Ozempic at 0.25 for one month and then increase to 0.5. Check FBG and ac at least one additional time daily. Advised ac and pc check 2-3 times per week. Assessment & Plan (07/28/2018 3:02 PM LOCOMOTIVE REPAIRER DIESEL): A1c improved at 7.7 with improved attn [...] goal hba1c is under 7.0 to prevent retirement diabetes complications ( eye , kidney and [...] daily. Assessment & Plan (11/18/2017 3:32 PM LOCOMOTIVE REPAIRER DIESEL): Hba1c was 7.9 today, indicating sub-optimal DM control 1800 calorie, consistent carb diet recommended 30 min daily aerobic and resistance exercise recommended Prevention and treatment of hyypoglcyemia discussed. Blood glucose monitoring with fingers sticks 1-2 x day . Assessment & Plan (09/16/2017 3:24 PM LOCOMOTIVE REPAIRER DIESEL): A1c worsening at 9.0. Likely to continued [...] cardiology. Assessment & Plan (11/11/2023 9:19 AM LOCOMOTIVE REPAIRER DIESEL): Chronic problem, controlled on current regimen. HCTZ 12.5mg daily, amlodipine 5mg daily, lisinopril 40mg daily, bystolic 20mg daily. Managed by cardiology. Assessment & Plan (07/19/2023 9:20 AM CDT): Chronic problem, controlled on current regimen. HCTZ 12.5mg daily, amlodipine 10mg daily, lisinopril 40mg daily, bystolic 20mg daily. Managed by cardiology. Assessment & Plan (11/12/2022 8:39 AM LOCOMOTIVE REPAIRER DIESEL): Chronic problem, controlled on current regimen. HCTZ 12.5mg daily, amlodipine 10mg daily, lisinopril 40mg daily, bystolic 20mg daily. Managed by cardiology. Assessment & Plan (07/30/2022 12:41 PM LOCOMOTIVE REPAIRER DIESEL): Controlled on current medications, no changes. Assessment [...] plan. Assessment & Plan (11/14/2020 3:14 PM LOCOMOTIVE REPAIRER DIESEL): Controlled on current medications. Continue plan. Assessment [...] ARB Assessment & Plan (11/15/2018 1:14 PM LOCOMOTIVE REPAIRER DIESEL): Controlled on current medications. Assessment & Plan (07/28/2018 3:03 PM LOCOMOTIVE REPAIRER DIESEL): Follow up with new painter drum how has records on type of stents he has. Can increase ASA to 325 mg daily once out of Plavix. Assessment & Plan (05/03/2018 12:46 PM CDT): Goal blood pressure is less than 140/85 Low salt diet recommended Daily aerobic exercise Continue current meds, including KASSIE-I or ARB Assessment & Plan (11/18/2017 3:33 PM LOCOMOTIVE REPAIRER DIESEL): Goal blood pressure is less than 140/85 Low salt diet recommended Daily aerobic exercise Continue current meds, including KASSIE-I or ARB Assessment & Plan (09/16/2017 3:26 PM LOCOMOTIVE REPAIRER DIESEL): BP 136/76. Check home BP 2-3 times per week. Assessment & Plan (04/22/2017 1:29 PM CDT): Continue same meds and follow up with cardiology Resolved Problems Problem Noted Date Diagnosed Date Resolved Date Class 1 obesity due to exces s calories with serious comorbidity and body mass index (BMI) of 34.0 to 34.9 in adult 11/12/2022 11/28/2024 Assessment & Plan (11/12/2022 9:39 AM LOCOMOTIVE REPAIRER DIESEL): Discussed healthy diet and importance of regular physical activity (20- 30min/day, 150min/wk). Hypertriglyceridemia 07/26/2012 023 Overview (12/23/2016): HYPERLIPIDEMIA NEC/NOS Assessment & Plan (11/18/2017 3:34 PM LOCOMOTIVE REPAIRER DIESEL): Goal of treatment , LDL cholesterol less [...] exercise Assessment & Plan (09/16/2017 3:25 PM LOCOMOTIVE REPAIRER DIESEL): Continue statin and focus on low fat diet choices Assessment & Plan (04/22/2017 1:30 PM CDT): Continue statin Pure hypercholesterolemia 12/23/2011 Overview (12/23/2016): PURE HYPERCHOLESTEROLEM Encounters Date Type Department Care Team Description 07/12/2025 Orders Only [facility] Medical [facility] Diabetes and Endocrinology [address] [place] [phone] Provider, MD Shamar from Last 3 Months Surgical History Surgery [...] on file Legal Sex Male 10:07 AM LOCOMOTIVE REPAIRER DIESEL Gender Identity Not on file Sexual Orientation Straight 08/03/2024 10 :46 AM LOCOMOTIVE REPAIRER DIESEL Last Filed Vital Signs Vital Sign Reading [...] 2025 , 08/06/2021, 07/19/2020, Additional history exists Depression Screening 08/03/2025 08/03/2024, 12/04/2021, 06/27/2020, Additional history exists Fall Risk Assessment 08/03/2025 08/03/2024 Lipid Panel 08/03/2025 08/03/2024, 05/22, 06/11/2023, Additional history exists Hemoglobin A1C 09/05/2025 03/06/2025, 11/18, 08/03/2024, Additional history exists Albumin Creatinine Ratio, Urine 11/28/2025 11/28/2024, 11/11/2023, 11/12/2022, Additional history exists Foot Exam 11/28/2025 11/28/2024, 06/22, 12/04/2021, Additional history exists eGFR 02/20/2026 02/20/2025, 11/18, 02/15/2024, Additional history exists Dilated Eye Exam 07/04/2026 07/04/2025, 05/2024, 06/03/2023, Additional history exists DTaP/Tdap/Td Vaccine (3 - Td or Tdap) 05/18/2028 05/18/2018, 05/18/2018, 02/27/2000 Hepatitis B Screening Completed 09/17/1992 , 04/17/1992, 03/18/1992 Zoster Vaccine Completed 05/28/2021, 03/10/2021 Procedures Procedure Name Priority Date/Time Associated Diagnosis Comments HM DIABETES EYE EXAM Routine 07/04/2025 7:39 AM CDT POCT HEMOGLOBIN A1C Routine 03/06/2025 1 1:07 AM CDT Hyperlipidemia associated with type 2 diabetes mellitus (HCC) COMPREHENSIVE METABOLIC PANEL Routine 02/20/2025 2:47 PM CDT ALBUMIN CREATININE RATIO, URINE Routine 11/28/2024 11:50 AM CDT Type 2 diabetes mellitus with hyperglycemia, with long-term current use of insulin (HCC) LIPID PANEL Routine 08/03/2024 11:53 AM LOCOMOTIVE REPAIRER DIESEL Type 2 diabetes mellitus with hyperglycemia, with long-term current use of insulin (HCC) PSA, TOTAL Routine 11/21/2019 10:50 AM LOCOMOTIVE REPAIRER DIESEL from Last 3 Months or Most Recently Relevant to Health Maintenance Results * (ABNORMAL) DIABETES EYE EXAM (07/04/2025 7:39 AM CDT) Shamar Cortés MD HEALTH MAINTENANCE Final Result * (ABNORMAL) POCT hemoglobin A1c (03/06/2025 11:07 AM CDT) [facility] Hemoglobin A1C, POC 6.9(A) 4.0 - 5.6 % Comment:None Capillary blood 03/06/2025 1 1:07 AM CDT Delaney Rivera MD POINT OF CARE TEST ORDERABLES Fi nal Result * (ABNORMAL) Comprehensive metabolic panel (02/20/2025 2:47 PM CDT) Pathologist [facility] SCRIBED Sodium 144 137 - 145 mmol/L [...] EXTERNAL LAB Blood 02/20/2025 2:47 PM CDT [facility] Provider LAB BLOOD ORDERABLES Sissy l Result Performing Organization Address City/[facility]/ZIP Co de Phone Number EXTERNAL LAB * Albumin Creatinine Ratio, Urine (11/28/2024 11:50 AM CDT) Albumin Ur <12.0 mg/L Comment: Interpretive Data No reference range established. Current interpretive data was last revised 2019. Creatinine Ur 50.8 mg/dL [facility] Comment: Interpretive Data No reference range established. Current interpretive data was last revised 2019. Albumin Creatinine Ratio, Ur <24 1 - 29 mg/g [facility] Urine 11/28/2024 11:5 0 AM CDT 11/28/2024 9:17 PM CDT Leela Cruz NP LAB URINE ORDERABLES Sissy l Result [facility] [id number] [address] Department of Laboratories [place], [place] [phone] * (ABNORMAL) Lipid panel (08/03/2024 11:53 AM LOCOMOTIVE REPAIRER DIESEL) Cholesterol 87 30 - 199 mg/dL Comment: [...] mg/dL High: >160 mg/dL Calculated using the Walker LDL-C estimating equation. This equation was implemented on 2024. Prior to this date LDL-C was estimated using the Friedewald equation. Literature References: 1. Expert Panel on Integrated Guidelines for Cardiovascular Health and Risk Reduction in Children and Adolescents. Pediatrics 2011;128:S213 2. NCEP Expert Panel. Circulation 2004;110:227 3. Aaron M et al. CATHLEEN Cardiol. 2019January 18;5(5):540-548. doi: [...] revised on 2018. Chol/HDL ratio 2 [facility] Blood 08/03/2024 11:5 3 AM LOCOMOTIVE REPAIRER DIESEL 08/03/2024 6:11 PM LOCOMOTIVE REPAIRER DIESEL Delaney Rivera MD LAB BLOOD ORDERABLES Final Resul t [facility] [id number] [address] [place] [address] * PSA, total Blood (11/21/2019 10:50 AM LOCOMOTIVE REPAIRER DIESEL) SCRIBED PSA, Total 0.99 0.00 - 4.00 EXTERNAL LAB Blood specimen (specimen) 11/21/2019 10:50 AM LOCOMOTIVE REPAIRER DIESEL Shamar Cortés MD LAB BLOOD ORDERABLES Edit ed Result - Final EXTERNAL LAB from Last 3 Months or Most Recently Relevant to Health Maintenance Insurance [facility] MEDICARE [facility] MEDICARE Care Teams Jack Spooler Tender Relationship Specialty Start Date End Date Kira Talavera NP [address] [place] [address] [place] [address] PCP - General Pediatrics 03/28/20 [place] [id number] [address] Consulting Physician Endocrinology Diabetes & Metabolism 11/07/18 Nilay England MD [address] [place] [address] Referring Physician Cardiovascular Disease 08/15/19
--- OUTSIDE RECORDS SUMMARY | 2025-08-01 06:56 | XMS_ITS | Encounter Summary ---
Author Organization [facility] Address [facility] [place] [address] Care Team Providers Care Undercutter Operator Name Role Phone Kira Talavera [facility] Primary Care Provider Encounter Details Date Type Department Care Team (Late st Contact Info) Description 09/22/2021 Biolaset Message Enc [facility] [address] [place] [phone] Kira Talavera [facility] [address] [place] [phone] covid 19 test results Social History Tobacco Use Types Packs/Day Years Used Date Smoking Tobacco: Never Smokeless Tobacco: Never Comments:Provider to funeral counselor Alcohol Use Standard Drinks/Week Comments Yes [...] COVID-19? No / Unsure 09/09/2021 10:46 AM GANTRY CRANE OPERATOR documented as of this encounter Plan of Treatment Upcoming Encounters Date Type Department Care Team (Late st Contact Info) Description 01/10/2026 8:00 AM CDT Office Visit [facility] [address] [place] [address] Kira Talavera FNP [address] [place] [address] documented as of this encounter Visit Diagnoses Not on filedocumented in this encounter Additional Health Concerns Infection Onset Date Last Indicated Resolved Time COVID-19 Rule Out 11/28/2022 11/28/2022 11/28/2022 11:30 PM GANTRY CRANE OPERATOR Assessment Noted Time PHQ-9 Depression Total Score: 0 08/29/20 21 8:34 AM GANTRY CRANE OPERATOR documented as of this encounter Care Teams Undercutter Operator Relationship Specialty Start Date End Date Kira Talavera FNP [facility] [place] [address] PCP - General Nurse Practitioner Family 03/12/20 documented as of this encounter
--- OUTSIDE RECORDS SUMMARY | 2025-08-01 06:56 | XMS_ITS | Encounter Summary ---
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 documented in this encounter Plan of Treatment Upcoming Encounters Date Type Department Care Team (Late st Contact Info) Description 01/10/2026 8:00 AM CDT Office Visit [facility] [address] [place] [address] Kira Talavera FNP [address] [place] [address] documented as of this encounter Visit Diagnoses Not on filedocumented in this encounter Additional Health Concerns Assessment Noted Time PHQ-9 Depression Total Score: 0 08/29/20 21 8:34 AM LEATHER SCRAPER documented as of this encounter Care Teams Insurance Administrative Assistant Relationship Specialty Start Date End Date Kira Talavera FNP [facility] [address] [place] [address] PCP - General Nurse Practitioner Family 03/12/20 documented as of this encounter
--- OUTSIDE RECORDS SUMMARY | 2025-08-01 06:56 | XMS_ITS | Encounter Summary ---
Author Organization [facility] Address [facility] [place] [address] Care Team Providers Care Survival Equipment Repairer Name Role Phone Luis Felipe Saldivar MD Unavailable Unavailab Nilay Anthony MD Unavailable [phone] Kira Talavera Primary Care Provider [phone] Encounter Details Date Type Department Care Team (Late st Contact Info) Description 08/08/2021 Chromatint Message Enc [facility] [address] [place], [place] [phone] Kira Talavera FNP [address] [place], [place] [phone] Question Social History Tobacco Use Types Packs/Day Years Used Date Smoking Tobacco: Never Smokeless Tobacco: Never Comments:Provider to school counsellor Alcohol Use Standard Drinks/Week Comments Yes [...] AM CST Romelia please review and advise RT COOLER documented in this encounter Plan of Treatment Upcoming Encounters Date Type Department Care Team (Late st Contact Info) Description 01/10/2026 8:00 AM CDT Office Visit [facility] [address] [place] [address] Kira Talavera FNP [address] [place] [address] documented as of this encounter Visit Diagnoses Not on filedocumented in this encounter Additional Health Concerns Infection Onset Date Last Indicated Resolved Time COVID-19 Rule Out 11/28/2022 11/28/2022 11/28/2022 11:30 PM RETORT COOLER Assessment Noted Time PHQ-9 Depression Total Score: 0 04/15/20 3:37 PM CDT documented as of this encounter Care Teams Survival Equipment Repairer Relationship Specialty Start Date End Date Kira Talavera FNP [facility] [place] [address] PCP - General Nurse Practitioner Family 03/12/20 Luis Felipe Saldivar MD CARDIOVASCULAR DISEASE 05/04/17 09/08/21 Nilay Stout MD [place] Manager [place] INTERVENTIONAL CARDIOLOGY 11/15/18 09/08/21 documented as of this encounter
--- OUTSIDE RECORDS SUMMARY | 2025-08-01 06:56 | XMS_ITS | Encounter Summary ---
Author Organization [facility] Address [facility] [place] [address] Care Team Providers Care Analytical Consultant Name Role Phone Ilan Kira Ganesh FRANKLIN Primary Care Provider Encounter Details Date Type Department Care Team (Late st Contact Info) Description 03/04/2023 Abstract [facility] BUSINESS OFFICE [address] [place] [address] Abstract, Doc Med Group Social History Tobacco Use Types Packs/Day Years Used Date Smoking Tobacco: Never Smokeless Tobacco: Never Comments:Provider to admissions counselor Alcohol Use Standard Drinks/Week Comments Yes [...] place to sleep or slept in a fdc (including now)? No 11/29/2022 Sex and Gender [...] Description 01/10/2026 8:00 AM CDT Office Visit [address] [place], [place] [id number] Kira Talavera [address] [place], [place] [id number] documented as of this encounter Procedures Procedure [...] Total Score: 0 08/29/20 21 8:34 AM SOCIAL WELFARE CLERK documented as of this encounter Care Teams Analytical Consultant Relationship Specialty Start Date End Date Kira Talavera FNP [address] [place] [address] [place] [address] PCP - General Nurse Practitioner Family 03/12/20 documented as of this encounter
--- OUTSIDE RECORDS SUMMARY | 2025-08-01 06:56 | XMS_ITS | Encounter Summary ---
Author Organization [facility] Address [facility]ly [facility] [place] [address] Care Team Providers Care Window And Door Installer Name Role Phone Luis Felipe Saldivar MD Unavailable Unavailab Nilay Anthony MD Unavailable [phone] Kira Talavera Primary Care Provider Encounter Details Date Type Department Care Team (Late st Contact Info) Description 07/17/2021 Prim Laundryt Message Enc [facility] [address] [place], [place] [id number] Kira Talavera FNP [address] [place], [place] [id number] Other Social History Tobacco Use Types Packs/Day Years Used Date Smoking Tobacco: Never Smokeless Tobacco: Never Comments:Provider to group therapy counselor Alcohol Use Standard Drinks/Week Comments Yes [...] PM CDT PT LM returning missed call. [phone] * Isis Reyes LPN - 07/17/2021 3:19 PM CDT Left message to call the office. * Isis Reyes LPN - 07/17/2021 3:18 PM CDT Please call pt. 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 ?? Message text documented in this encounter Plan of Treatment Upcoming Encounters Date Type Department Care Team (Late st Contact Info) Description 01/10/2026 8:00 AM CDT Office Visit [facility] [address] [place] [id number] Kira Talavera FNP [address] [place] [address] documented as of this encounter Visit Diagnoses Not on filedocumented in this encounter Additional Health Concerns Infection Onset Date Last Indicated Resolved Time COVID-19 Rule Out 11/28/2022 11/28/2022 11/28/2022 11:30 PM LOG BUNCHER Assessment Noted Time PHQ-9 Depression Total Score: 0 04/15/20 3:37 PM CDT documented as of this encounter Care Teams Window And Door Installer Relationship Specialty Start Date End Date Kira Talavera FNP [address] [place] [address] [place] [address] PCP - General Nurse Practitioner Family 03/12/20 Luis Felipe Saldivar MD CARDIOVASCULAR DISEASE 05/04/17 09/08/21 Nilay Stout MD [place] [employer] Sales Manager INTERVENTIONAL CARDIOLOGY 11/15/18 09/08/21 documented as of this encounter
--- OUTSIDE RECORDS SUMMARY | 2025-08-01 06:56 | XMS_ITS | Clinical Summary ---
Author Organization [facility] Address [address] [place] [address] Phone Care Team Providers Care Import Export Manager Name Role Phone Kira Talavera CHAIN LINK FENCE INSTALLER Primary Care Provider [phone] Allergies Active Allergy Reactions Criticality Noted Date [...] 02/19/2021 Shrimp Nausea and Vomiting Low 02/19/2021 Umkqbij-Zow-Izo Reductase Inhibitors Unknown 02/19/2021 Medications allopurinoL (ZYLOPRIM) [...] 2.2 cm IDC, 0/6 LN ER 95% [place] 0% her 2 2+ MAURICE negative Surgeon: [...] Encounters Date Type Department Care Team Description 07/25/2025 External Device Data STL ABSTRACTION Provider, Abstract 06/27/2025 4:35 PM CDT Telephone Check Up [facility] [address] [place] [address] Jr Pruitt MD IPMN (intraductal papillary mucinous neoplasm) (Primary Dx) 06/26/2025 External Device Data STL ABSTRACTION Provider, Abstract 06/22/2025 Orders Only [facility] [address] [place] [address] Jr Pruitt MD 06/21/2025 2:00 PM CDT Office Visit [facility] [address] [place] [address] Jr Pruitt MD 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, estrogen receptor positive (CMS/HCC) (Primary Dx) 06/15/2025 Orders Only [facility] [address] [place] [address] Jr Pruitt MD 06/14/2025 11:29 AM CDT - 06/14/2025 11:59 PM CDT Hospital Encounter [facility] [address] [place] [address] Silvia Raya MD Carr, Caitlin D, Physical Therapist Discharge Disposition: Home or Self Care 06/14/2025 Orders Only [facility] [address] [place] [address] Jr Pruitt MD 06/05/2025 External Device Data [...] Care Team (Late st Contact Info) Description 08/06/2025 4:30 PM MEDICAL CHARGE ENTRY SPECIALIST Telephone Check Up [facility] H[facility] - [place] [address] [place] [address] Amelia James MD [address] [place] [address] 08/14/2025 3:30 PM MEDICAL CHARGE ENTRY SPECIALIST Appointment [facility] [address] [place] [address] Raegan Hamilton, Physical Therapist 01/08/2026 10:15 AM CDT [facility] [address] [place] [address] [place] [address] [address] 01/08/2026 11:15 AM CDT Office Visit [facility] Breast Surgery [address] [address] [address] [facility] [address] [place] [address] [place] [address] [facility] [address] [place] [address] Health Maintenance Due Date Last Done Comments DIABETES ANNUAL RETINAL EXAM 1974 DIABETES MICROALBUMIN ANNUAL SCREEN 1974 LDL CHOLESTEROL ANNUAL 1974 FIT-DNA Q 3 years 2001 FIT/FOBT Q 1 year 2001 Flex Sig/CT Colonography Q 5 years 2001 RSV VACCINE (60+ or ) (1 - Risk 50-74 years 1-dose series) 2006 Medicare Ad[place]age ([place]) Preventative Visit/Annual Wellness Visit 09/20/2024 03/04/2021 INFLUENZA VACCINE (#1) 2025 , 07/06/2023, 07/27/2022, [...] , 09/10/2020 Medical Devices Implanted Type Area Ring Conductor Device Identifier Shelf Expiration Date Model / Serial / Lot Lens Grinder Apprentice Clip Surgiclip Ii Eduardo 9.75in [id number] - [id number] Implanted:Qty : 1 on 12/15/2023 by Silvia Raya MD at [facility] Clip Right: [employer] - [employer]EN [id number] 05/20/2028 [id number] / / [id number] Lens Grinder Apprentice Clip Surgiclip Ii Eduardo 9.75in [id number] - [id number] Implanted:Qty : 1 on 12/15/2023 by Silvia Raya MD at [facility] Clip Right: [employer] - [employer] [id number] 06/19/2028 [id number] / / [id number] Cardiac Stent Procedures Procedure Name Priority Date/Time Associated Diagnosis Comments CT CHEST ABDOMEN PELVIS W CONT Routine 06/21/2025 8:19 AM CDT COMPREHENSIVE METABOLIC PANEL Routine 06/14/2025 12:36 PM CDT CHG CA 15 3 Routine 06/14/2025 12:29 PM CDT from Last 3 Months Results * CT CHEST ABDOMEN PELVIS W CONT (06/21/2025 8:19 AM CDT) Anatomical Region Laterality Modality Chest Computed Tomogra phy us Jr Pruitt MD CT ORDERABLES Final Result * COMPREHENSIVE METABOLIC PANEL (06/14/2025 12:36 PM CDT) Blood us Jr Pruitt MD CHEMISTRY ORDERABLES Final Resu lt * CHG CA 15 3 (06/14/2025 12:29 PM CDT) us Jr Pruitt MD CHG - LABORATORY Final Result from Last 3 Months Insurance [facility] RX [employer] Medicare Part D Advance Directives For more information, please contact: [phone] * Full Code (Latest Code Status on File) Date Activated Date Inactivated Comments 12/15/2023 6:54 AM 12/15/2023 3:24 PM Care Teams Import Export Manager Relationship Specialty Start Date End Date Kira Talavera FNP [address] [place] [address] [place] [address] PCP - General NURSE PRACTITIONER 03/06/21
--- OUTSIDE RECORDS SUMMARY | 2025-08-01 06:56 | XMS_ITS | Encounter Summary ---
Author Organization [facility] Address [facility] [place] [address] Care Team Providers Care Food Equipment Service Technician Name Role Phone Luis Felipe Saldivar MD Unavailable Unavailab Nilay Anthony MD Unavailable [phone] Kira Talavera Primary Care Provider Encounter Details Date Type Department Care Team (Late st Contact Info) Description 08/08/2021 eTherapeuticst Message Enc [facility] [address] [place], [place] [phone] Kira Talavera FNP [address] [place], [place] [id number] Other Social History Tobacco Use Types Packs/Day [...] MA - 08/09/2021 10:01 AM CST Done TICE BUILDER documented in this encounter Plan of Treatment Upcoming Encounters Date Type Department Care Team (Late st Contact Info) Description 01/10/2026 8:00 AM CDT Office Visit [facility] [address] [place] [address] Kira Talavera FNP [address] [place] [address] documented as of this encounter Visit Diagnoses Not on filedocumented in this encounter Additional Health Concerns Infection Onset Date Last Indicated Resolved Time COVID-19 Rule Out 11/28/2022 11/28/2022 11/28/2022 11:30 PM BRATTICE BUILDER Assessment Noted Time PHQ-9 Depression Total Score: 0 04/15/20 3:37 PM CDT documented as of this encounter Care Teams Food Equipment Service Technician Relationship Specialty Start Date End Date Kira Talavera FNP [address] [place] [address] PCP - General Nurse Practitioner Family 03/12/20 Luis Felipe Saldivar MD CARDIOVASCULAR DISEASE 05/04/17 09/08/21 Nilay Stout MD [employer] Sales Developer INTERVENTIONAL CARDIOLOGY 11/15/18 09/08/21 documented as of this encounter
--- OUTSIDE RECORDS SUMMARY | 2025-08-01 06:56 | XMS_ITS | Encounter Summary ---
Author Organization [facility] Address [facility] [place] [address] Care Team Providers Care Horticulture Professor Name Role Phone Kira Talavera [facility] Primary Care Provider [phone] Encounter Details Date Type Department Care Team (Late st Contact Info) Description 01/15/2023 [employer]gent[employer] Technologiest Message Enc [facility] [address] [place] [address] Kira Talavera [facility] [address] [place] [id number] [facility] Social History Tobacco Use Types Packs/Day Years Used Date Smoking Tobacco: Never Smokeless Tobacco: Never Comments:Provider to senior counsel Alcohol Use Standard Drinks/Week Comments Yes [...] Description 01/10/2026 8:00 AM CDT Office Visit [address] [place], [place] [phone] Kira Talavera FNP [address] [place] [address] [place] [id number] documented as of this encounter Visit Diagnoses Not on filedocumented in this encounter Additional Health Concerns Assessment Noted Time PHQ-9 Depression Total Score: 0 08/29/20 21 8:34 AM CORRECTION OFFICER documented as of this encounter Care Teams Horticulture Professor Relationship Specialty Start Date End Date Kira Talavera FNP [address] [place] [address] [place] [address] PCP - General Nurse Practitioner Family 03/12/20 documented as of this encounter
--- OUTSIDE RECORDS SUMMARY | 2025-08-01 06:56 | XMS_ITS | Encounter Summary ---
Author Organization [facility] Address [facility] [place] [address] Care Team Providers Care Rn Intern Name Role Phone Kira Talavera [facility] Primary Care Provider Encounter Details Date Type Department Care Team (Late st Contact Info) Description 12/29/2021 Nivalt Message Enc [facility] [address] [place] [id number] Kira Talavera [facility] [address] [place] [phone] Regarding the Dr. Burrows referral Social History Tobacco Use Types Packs/Day Years Used Date Smoking Tobacco: Never Smokeless Tobacco: Never Comments:Provider to employment counselor Alcohol Use Standard Drinks/Week Comments Yes [...] Office Visit [facility] [address] [facility] [place] [address] Kira Talavera FNP [address] [place] [address] documented as of this encounter Visit Diagnoses Not on filedocumented in this encounter Additional Health Concerns Infection Onset Date Last Indicated Resolved Time COVID-19 Rule Out 11/28/2022 11/28/2022 11/28/2022 11:30 PM BRUSH HAND Assessment Noted Time PHQ-9 Depression Total Score: 0 08/29/20 21 8:34 AM BRUSH HAND documented as of this encounter Care Teams Rn Intern Relationship Specialty Start Date End Date Kira Talavera FNP [address] [place] [address] [place] [address] PCP - General Nurse Practitioner Family 03/12/20 documented as of this encounter
--- OUTSIDE RECORDS SUMMARY | 2025-08-01 06:56 | XMS_ITS | Encounter Summary ---
Author Organization [facility] Address [facility] [place] [address] Care Team Providers Care Product Introduction Manager Name Role Phone Luis Felipe Saldivar MD Unavailable Unavailab Mario Hough MD Primary Care Provider [phone] Nilay Stout MD Unavailable [phone] Kira Talavera Primary Care Provider [phone] Encounter Details Date Type Department Care Team (Late st Contact Info) Description 02/06/2016 Abstract [facility] CONVERSION [address] [place] [address] , Generic ConversionMD Social History Tobacco Use [...] Office Visit [facility] [address] [facility] [place] [address] Kira Talavera FNP [facility] [place] [id number] documented as of this encounter Visit Diagnoses Not on filedocumented in this encounter Additional Health Concerns Infection Onset Date Last Indicated Resolved Time COVID-19 Rule Out 12/27/2020 12/27/2020 12/27/2020 7:49 AM CDT COVID-19 Rule Out 12/27/2020 12/27/2020 12/28/2020 8:30 AM CDT COVID-19 Rule Out 11/28/2022 11/28/2022 11/28/2022 11:30 PM DOZER OPERATOR documented as of this encounter Care Teams Product Introduction Manager Relationship Specialty Start Date End Date Mario Johnson MD [address] [place] [address] PCP - General FAMILY PRACTICE 05/04/17 03/11/20 Kira Talavera FNP [address] [place] [address] PCP - General Nurse Practitioner Family 03/12/20 Luis Felipe Saldivar MD CARDIOVASCULAR DISEASE 05/04/17 09/08/21 Nilay Stout MD [address] [place] [address] [place] Information Writer INTERVENTIONAL CARDIOLOGY 11/15/18 09/08/21 documented as of this encounter
== END 2025-08-01 06:53 | disposition home or self-care (01) ==
PROVIDERS: PCP Nurse Practitioner; Visit Provider Internal Medicine Hematology & Oncology
DX: K86.2 Cyst of pancreas (principal); K80.20 Calculus of gallbladder without cholecystitis without obstruction; D49.0 Neoplasm of unspecified behavior of digestive system
CPT/HCPCS: 72197; 74183; A9577